=== PATIENT | male | born 1945 | race Two or more races ===

== ENCOUNTER 2017-09-23 18:29 | Emergency (ER) | payer MEDICARE, MEDICAID ==
[~2017-09-23] VITALS: Ht 167.6 cm; Wt 85.8 kg
[~2017-09-23 18:29] MED LIST: AMIO200T57 PO; ASPI-1265 PO; ATOR40TA PO; BISA10SU60 RC; CARV-50 PO; DOCU100C40 PO; FURO-150 PO; HYDR-3972 PO; MAGN296S50 PO; METF500T PO; NA P133E RC; ONDA4TAB12 PO; SPIR25TA PO; WALKERFR
[2017-09-23 19:05] VITALS: BP 152/89
[2017-09-23] MEDS ORDERED: CYCL-1 PO (19:05)
== END 2017-09-23 19:19 | disposition home or self-care (01) ==
LOC: ER 18:30
DX: S16.1XXA Strain of muscle, fascia and tendon at neck level, initial encounter (principal); I11.0 Hypertensive heart disease with heart failure; I50.9 Heart failure, unspecified; E78.00 Pure hypercholesterolemia, unspecified; E11.9 Type 2 diabetes mellitus without complications; Z86.73 Personal history of transient ischemic attack (TIA), and cerebral infarction without residual deficits; Z88.5 Allergy status to narcotic agent; Z79.82 Long term (current) use of aspirin; Z79.84 Long term (current) use of oral hypoglycemic drugs; X50.1XXA Overexertion from prolonged static or awkward postures, initial encounter; Y93.89 Activity, other specified; Y92.89 Other specified places as the place of occurrence of the external cause; Y99.8 Other external cause status
CPT/HCPCS: 93005; 99283

== ENCOUNTER 2017-10-15 18:15 | Inpatient (IN) | payer MEDICARE, OTHER ==
[~2017-10-15] VITALS: Ht 165.1 cm; Wt 82.1 kg
[~2017-10-15 18:15] MED LIST changes: +CYCL-1 PO; +etomidate 2mg/ml inj. ONE; +furosemide 40mg/4ml inj IV ONE
[2017-10-15] MEDS ORDERED: normal saline 1000ml 1,000 ML IV ONE (19:03)
[2017-10-15] MEDS ORDERED: normal saline 1000ML IV soln IVB ONE (19:05)
[2017-10-15] MEDS ORDERED: ipratropium/albuterol 3ml nebule NEB ONE (19:20)
[2017-10-15 19:36] LABS: BASOPHILS % (AUTO) 0.2 % (0-1); EOSINOPHILS # (AUTO) 0.1 X10'3 (0-0.9); EOSINOPHILS % (AUTO) 1.3 % (0-6); HEMATOCRIT 32.3 % (42.0-52.0); HEMOGLOBIN 10.7 g/dl (14.0-17.9); LYMPHOCYTES # (AUTO) 0.4 X10'3 (1.1-4.8); LYMPHOCYTES % (AUTO) 3.9 % (21-51); MEAN CORPUSCULAR HEMOGLOBIN 28.6 PG (27.0-31.0); MEAN CORPUSCULAR HGB CONC 33.1 % (33.0-36.5); MEAN CORPUSCULAR VOLUME 86.6 FL (78-98); MEAN PLATELET VOLUME 6.8 FL (7.4-10.4); MONOCYTES # (AUTO) 0.8 X10'3 (0-0.9); MONOCYTES % (AUTO) 7.3 % (2-12); NEUTROPHILS # (AUTO) 9.6 X10'3 (1.8-7.7); NEUTROPHILS % (AUTO) 87.3 % (42-75); PLATELET COUNT 319 X10'3 (140-440); RED BLOOD COUNT 3.73 X10'6 (4.70-6.10); RED CELL DISTRIBUTION WIDTH 16.5 % (11.5-14.5); WHITE BLOOD COUNT 10.9 X10'3 (4.5-11.0)
[2017-10-15 19:47] LABS: PARTIAL THROMBOPLASTIN TIME 32 SECONDS (22-32); PROTHROMBIN TIME 10.1 SECONDS (9.0-12.0)
[2017-10-15 20:05] LABS: ALANINE AMINOTRANSFERASE 18 U/L (12-78); ALBUMIN/GLOBULIN RATIO 0.4 (1.1-1.5); ALKALINE PHOSPHATASE 80 IU/L (46-116); ANION GAP 7 (8-16); ASPARTATE AMINO TRANSFERASE 26 U/L (10-37); BLOOD UREA NITROGEN 37 MG/DL (7-18); BUN/CREATININE RATIO 13.2 (5.4-32.0); CALCIUM 8.8 MG/DL (8.5-10.1); CHLORIDE 104 MMOL/L (99-107); GLUCOSE 74 MG/DL (70-104); LIPASE 197 U/L (73-393); MAGNESIUM 2.2 MG/DL (1.5-2.4); POTASSIUM 4.2 MMOL/L (3.5-5.1); SODIUM 140 MMOL/L (135-145); TOTAL CARBON DIOXIDE 28.6 MMOL/L (24-32); TOTAL PROTEIN 7.1 G/DL (6.4-8.2); eGFR 23 ML/MIN
[2017-10-15] MEDS: morphine 2 MG/ML inj. syringe IV PRN (20:16)
[2017-10-15] MEDS ORDERED: AMIO200T57 PO (21:23)
[2017-10-15 21:24] LABS: CLARITY,URINE Clear (Clear); COLOR,URINE Yellow (Yellow); GLUCOSE, URINE 100 mg/dl (Neg); KETONES,URINE Negative (Neg); LEUKOCYTE ESTERASE ,URINE Negative (Neg); NITRITES, URINE Negative (Neg); OCCULT BLOOD,URINE Small (Neg); PROTEIN,URINE 300 mg/dl (Neg); UROBILINOGEN,URINE 0.2 E.U/dL (0.2-1.0)
[2017-10-15 21:26] LABS: UA COLLECTION TYPE CLN CATCH MIDSTREAM
[2017-10-15] MEDS ORDERED: piperacillin/tazo 3.375gm/50ml 50 ML IV ONE (21:30)
[2017-10-15] MEDS ORDERED: AMLO10TA4 PO (21:33)
[2017-10-15 21:34] LABS: AMORPHOUS URATES 1+; BACTERIA,URINE FEW /HPF (Neg); MUCUS STRANDS NONE SEEN /LPF (Neg); RBC,URINE 0-2 /HPF (0-2); SQUAMOUS EPITHELIAL CELL,UR FEW /LPF (FEW); WBC,URINE NONE SEEN /HPF (0-4)
[2017-10-15] MEDS ORDERED: CARV-50 PO (21:34)
[2017-10-15] MEDS ORDERED: GLYB2.5T4 PO (21:35)
[2017-10-15] MEDS ORDERED: LISI40TA4 PO (21:36)
[2017-10-15] MEDS ORDERED: COU5T PO (21:39)
[2017-10-15 22:14] LABS: D-DIMER 21.86 MG/L FEU (0-0.50)
[2017-10-15] MEDS ORDERED: magnesium 4gm in 100ml NS 100 ML IV PRN (22:30)
[2017-10-15] MEDS ORDERED: magnesium 2GM in 50ml NS 50 ML IV PRN (22:30)
[2017-10-15] MEDS ORDERED: heparin 10,000 units/1 ML INJ IV ONE (22:30)
[2017-10-15] MEDS ORDERED: pantoprazole 40 MG vial IV SCH (22:30)
[2017-10-15] MEDS ORDERED: heparin 10,000 units/1 ML INJ IV PRN (22:30)
[2017-10-15] MEDS ORDERED: potassium Cl 40MEQ/NS 500ml 500 ML IV PRN ×2 (22:30)
[2017-10-16] VITALS (31 sets, daily range): BP systolic 66–176; BP diastolic 42–89
[2017-10-16] MEDS: ipratropium/albuterol 3ml nebule NEB SCH ×4 (00:01→15:24)
[2017-10-16 00:15] LABS: ABG BASE EXCESS 4.5 mmol/L (-2.0-3.0); ABG HCO3 30.3 mmol/L (22.0-26.0); ABG OXYGEN SATURATION 91.3 % (95-98); ABG PCO2 (T) 54.5 mmHg (35.0-48.0); ABG PH (T) 7.367 (7.350-7.450); ALLEN'S TEST Positive; FCOHb 1.8 % (0.5-1.5); FMetHb 0.1 % (0.3-1.12); FO2Hb 89.6 % (94-100); MINUTE VOLUME 8 L/min; PATIENT TEMPERATURE 37.8; RESPIRATORY RATE 15 b/min; RESPIRATORY RATE (OBSERVED) 16 b/min; TOTAL HEMOGLOBIN 8.3 G/dl (14.0-18.0)
[2017-10-16] MEDS ORDERED: dextrose 50%-water 50ml dispensing syringe IV ONE (01:57)
[2017-10-16] MEDS ORDERED: glucagon, human recombinant 1mg kit SUBCUT PRN (02:30)
[2017-10-16] MEDS ORDERED: dextrose ORAL solution 15 GM/59 ML bottle PO PRN ×2 (02:30)
[2017-10-16] MEDS ORDERED: insulin Lispro (HumaLOG) vial - multi-dose SQ SCH (02:30)
[2017-10-16] MEDS ORDERED: dextrose 50%-water 50ml dispensing syringe IV PRN ×2 (02:30)
[2017-10-16] MEDS ORDERED: MESSAGE TO PHARMACY PO ONE (02:30)
[2017-10-16] MEDS: morphine 2 MG/ML inj. syringe IV PRN ×2 (02:36→03:08)
[2017-10-16] MEDS ORDERED: HYDROmorphone inj. 0.5 MG/0.5 ML DISP.SYRIN IV ONE (03:20)
[2017-10-16] MEDS ORDERED: HYDROmorphone 1 mg/ml syringe ONE (03:27)
[2017-10-16] MEDS ORDERED: albumin (human) 25% 100 ML IV solution IV ONE (05:35)
[2017-10-16 06:02] LABS: BASOPHILS % (AUTO) 0.2 % (0-1); EOSINOPHILS % (AUTO) 0 % (0-6); HEMATOCRIT 22.2 % (42.0-52.0); HEMOGLOBIN 7.5 g/dl (14.0-17.9); LYMPHOCYTES # (AUTO) 0.4 X10'3 (1.1-4.8); LYMPHOCYTES % (AUTO) 4.5 % (21-51); MEAN CORPUSCULAR HEMOGLOBIN 29.2 PG (27.0-31.0); MEAN CORPUSCULAR HGB CONC 33.7 % (33.0-36.5); MEAN CORPUSCULAR VOLUME 86.7 FL (78-98); MEAN PLATELET VOLUME 6.9 FL (7.4-10.4); MONOCYTES # (AUTO) 0.6 X10'3 (0-0.9); MONOCYTES % (AUTO) 5.8 % (2-12); NEUTROPHILS # (AUTO) 8.5 X10'3 (1.8-7.7); NEUTROPHILS % (AUTO) 89.5 % (42-75); PLATELET COUNT 254 X10'3 (140-440); RED BLOOD COUNT 2.57 X10'6 (4.70-6.10); RED CELL DISTRIBUTION WIDTH 16.4 % (11.5-14.5); WHITE BLOOD COUNT 9.5 X10'3 (4.5-11.0)
[2017-10-16 06:06] LABS: HEMOGLOBIN A1C 5.6 % (4.5-6.2)
[2017-10-16 06:14] LABS: INR 1.1 INR; PROTHROMBIN TIME 11.7 SECONDS (9.0-12.0)
[2017-10-16 06:52] LABS: ALANINE AMINOTRANSFERASE 42 U/L (12-78); ALBUMIN 1.3 G/DL (3.4-5.0); ALBUMIN/GLOBULIN RATIO 0.4 (1.1-1.5); ALKALINE PHOSPHATASE 246 IU/L (46-116); ANION GAP 7 (8-16); ASPARTATE AMINO TRANSFERASE 92 U/L (10-37); BILIRUBIN,TOTAL 1.8 MG/DL (0.1-1.0); BLOOD UREA NITROGEN 39 MG/DL (7-18); CALCIUM 7.4 MG/DL (8.5-10.1); CHLORIDE 108 MMOL/L (99-107); GLUCOSE 133 MG/DL (70-104); MAGNESIUM 1.8 MG/DL (1.5-2.4); POTASSIUM 4.2 MMOL/L (3.5-5.1); SODIUM 143 MMOL/L (135-145); eGFR 21 ML/MIN
[2017-10-16] MEDS ORDERED: normal saline 1000ml 1,000 ML IV ONE ×2 (07:30→08:45)
[2017-10-16] MEDS ORDERED: midazolam 100mg in NS 100ml 100 ML IV PRN (09:14)
[2017-10-16] MEDS ORDERED: ipratropium/albuterol 3ml nebule NEB PRN (09:15)
[2017-10-16] MEDS ORDERED: fentaNYL/PF 50MCG/1 ML 2ML syringe IV PRN (09:15)
[2017-10-16] MEDS ORDERED: midazolam 2 mg/2 ml injection IV ONE (09:15)
[2017-10-16] MEDS ORDERED: MIDAZolam 5mg/ml 2ml vial ONE (09:20)
[2017-10-16] MEDS ORDERED: MIDAZolam 5mg/ml 2ml vial IV ONE (09:20)
[2017-10-16] MEDS ORDERED: etomidate 2mg/ml inj. IV ONE (09:20)
[2017-10-16] MEDS ORDERED: NORepinephrine 8mg/ 250ml NS 250 ML IV ONE (09:45)
[2017-10-16] MEDS ORDERED: [UNRECOGNIZED DRUG - OTHER] IV PRN ×2 (10:04)
[2017-10-16] MEDS ORDERED: vasopressin inj. 60 UNIT in normal saline 100ml IV soln 97 ML IV SCH (10:05)
[2017-10-16] MEDS ORDERED: sevoflurane 250ml liquid IH ONE (10:23)
[2017-10-16 10:36] LABS: ABG OXYGEN SATURATION 94.9 % (95-98); ABG PCO2 (T) 37.6 mmHg (35.0-48.0); ABG PH (T) 7.347 (7.350-7.450); ABG PO2 (T) 80.8 mmHg (83-108); FCOHb 0.5 % (0.5-1.5); FMetHb 0.3 % (0.3-1.12); FO2Hb 94.1 % (94-100); MINUTE VOLUME 8 L/min; PATIENT TEMPERATURE 37.6; PEEP 5 cm H2O; RESPIRATORY RATE 16 b/min; RESPIRATORY RATE (OBSERVED) 18 b/min; TIDAL VOLUME 400 mL; TOTAL HEMOGLOBIN 7.1 G/dl (14.0-18.0)
[2017-10-16 11:10] LABS: ISTAT CREATININE 2.9 mg/dL (0.8-1.3); ISTAT IONIZED CALCIUM 1.04 mmol/L (1.03-1.32); POC BUN/CREATININE RATIO 12.4 (5.4-32.0)
[2017-10-16 11:21] LABS: HEMATOCRIT 23.4 % (42.0-52.0); HEMOGLOBIN 8.1 g/dl (14.0-17.9); MEAN CORPUSCULAR HEMOGLOBIN 29.2 PG (27.0-31.0); MEAN CORPUSCULAR HGB CONC 34.7 % (33.0-36.5); MEAN CORPUSCULAR VOLUME 84.1 FL (78-98); MEAN PLATELET VOLUME 6.6 FL (7.4-10.4); PLATELET COUNT 183 X10'3 (140-440); RED BLOOD COUNT 2.79 X10'6 (4.70-6.10); RED CELL DISTRIBUTION WIDTH 15.5 % (11.5-14.5); WHITE BLOOD COUNT 9.2 X10'3 (4.5-11.0)
[2017-10-16 11:30] LABS: INR 1.2 INR; PROTHROMBIN TIME 12.2 SECONDS (9.0-12.0)
[2017-10-16 11:31] LABS: ISTAT HGB 6.8 g/dl (14.0-18.0)
[2017-10-16] MEDS ORDERED: NORepinephrine 8mg/ 250ml NS 250 ML IV SCH (12:40)
[2017-10-16] MEDS: FENTANYL-0.9 % NACL/PF 100 ML IV PRN (13:16)
[2017-10-16] MEDS ORDERED: rocuronium 10mg/ml inj IV ONE (13:39)
[2017-10-16 14:31] LABS: OXYGEN SATURATION (MIXED VEN) 84.5 % (60-80); PO2 MIXED VENOUS (TEMP COR) 46.8 mmHg (35-46)
[2017-10-16] MEDS: piperacillin-tazo 2.25gm/50ml 50 ML IV SCH ×3 (14:31→19:32)
[2017-10-16 15:08] LABS: HEMATOCRIT 31.2 % (42.0-52.0); MEAN CORPUSCULAR HGB CONC 35.3 % (33.0-36.5); MEAN CORPUSCULAR VOLUME 82.1 FL (78-98); MEAN PLATELET VOLUME 7.4 FL (7.4-10.4); PLATELET COUNT 129 X10'3 (140-440); RED CELL DISTRIBUTION WIDTH 15.5 % (11.5-14.5); WHITE BLOOD COUNT 6.9 X10'3 (4.5-11.0)
[2017-10-16 15:26] LABS: CLARITY,URINE CLOUDY (Clear); COLOR,URINE YELLOW (Yellow); GLUCOSE, URINE NEGATIVE (Neg); KETONES,URINE NEGATIVE (Neg); LEUKOCYTE ESTERASE ,URINE NEGATIVE (Neg); NITRITES, URINE NEGATIVE (Neg); OCCULT BLOOD,URINE LARGE (Neg); PROTEIN,URINE 100 mg/dl (Neg); UROBILINOGEN,URINE 0.2 E.U/dL (0.2-1.0)
[2017-10-16 15:34] LABS: TOTAL PROTEIN,URINE RANDOM 109.9 MG/DL
[2017-10-16 15:38] LABS: UA COLLECTION TYPE NON-SPECIFIED
[2017-10-16 16:05] LABS: MUCUS STRANDS FEW /LPF (Neg); SQUAMOUS EPITHELIAL CELL,UR FEW /LPF (FEW)
[2017-10-16 16:07] LABS: AMORPHOUS URATES 2+
[2017-10-16 16:08] LABS: COARSE GRANULAR CAST 0-3 /LPF (NEGATIVE); FINE GRANULAR CAST 0-3 /LPF (NEGATIVE)
[2017-10-16 16:09] LABS: RENAL CELLS, URINE FEW /HPF; TRANSITIONAL EPI CELLS,URINE FEW /HPF
[2017-10-16 16:11] LABS: BACTERIA,URINE 1+ /HPF (Neg)
[2017-10-16 16:12] LABS: WBC CLUMPS,URINE FEW /HPF (NEGATIVE)
[2017-10-16 18:11] LABS: UA EOSINOPHILS NO EOS /HPF
[2017-10-16] MEDS: famotidine/PF 10 mg/ml inj IV SCH (19:31)
[2017-10-16] MEDS: insulin glargine (Lantus) pen - multi-dose SQ SCH (21:00)
[2017-10-16 21:16] LABS: HEMOGLOBIN 10.4 g/dl (14.0-17.9); MEAN CORPUSCULAR HGB CONC 33.5 % (33.0-36.5); MEAN CORPUSCULAR VOLUME 83.6 FL (78-98); MEAN PLATELET VOLUME 6.7 FL (7.4-10.4); PLATELET COUNT 162 X10'3 (140-440); RED BLOOD COUNT 3.71 X10'6 (4.70-6.10); WHITE BLOOD COUNT 7.1 X10'3 (4.5-11.0)
[2017-10-16 21:23] LABS: ALBUMIN 1.5 G/DL (3.4-5.0); ANION GAP 8 (8-16); BLOOD UREA NITROGEN 39 MG/DL (7-18); BUN/CREATININE RATIO 11.8 (5.4-32.0); CHLORIDE 112 MMOL/L (99-107); GLUCOSE 138 MG/DL (70-104); MAGNESIUM 1.8 MG/DL (1.5-2.4); POTASSIUM 4.4 MMOL/L (3.5-5.1); SODIUM 144 MMOL/L (135-145); TOTAL CARBON DIOXIDE 24.4 MMOL/L (24-32); eGFR 19 ML/MIN
[2017-10-17] VITALS (24 sets, daily range): BP systolic 86–140; BP diastolic 42–68
[2017-10-17] MEDS: piperacillin-tazo 2.25gm/50ml 50 ML IV SCH ×4 (01:42→20:11)
[2017-10-17 02:21] LABS: INR 1.1 INR; PROTHROMBIN TIME 11.7 SECONDS (9.0-12.0)
[2017-10-17 02:25] LABS: ALANINE AMINOTRANSFERASE 71 U/L (12-78); ALBUMIN 1.4 G/DL (3.4-5.0); ALBUMIN/GLOBULIN RATIO 0.5 (1.1-1.5); ALKALINE PHOSPHATASE 129 IU/L (46-116); ANION GAP 9 (8-16); ASPARTATE AMINO TRANSFERASE 91 U/L (10-37); BILIRUBIN,TOTAL 1.2 MG/DL (0.1-1.0); BLOOD UREA NITROGEN 50 MG/DL (7-18); BUN/CREATININE RATIO 15.2 (5.4-32.0); CALCIUM 7.2 MG/DL (8.5-10.1); CHLORIDE 112 MMOL/L (99-107); GLUCOSE 131 MG/DL (70-104); MAGNESIUM 1.9 MG/DL (1.5-2.4); POTASSIUM 4.4 MMOL/L (3.5-5.1); SODIUM 144 MMOL/L (135-145); TOTAL CARBON DIOXIDE 23.2 MMOL/L (24-32); TOTAL PROTEIN 4.3 G/DL (6.4-8.2); eGFR 19 ML/MIN
[2017-10-17 02:26] LABS: BASOPHILS % (AUTO) 0.3 % (0-1); EOSINOPHILS # (AUTO) 0.2 X10'3 (0-0.9); EOSINOPHILS % (AUTO) 2.8 % (0-6); HEMOGLOBIN 10.5 g/dl (14.0-17.9); LYMPHOCYTES # (AUTO) 0.6 X10'3 (1.1-4.8); LYMPHOCYTES % (AUTO) 7.5 % (21-51); MEAN CORPUSCULAR HEMOGLOBIN 28.3 PG (27.0-31.0); MEAN CORPUSCULAR HGB CONC 33.8 % (33.0-36.5); MEAN CORPUSCULAR VOLUME 83.6 FL (78-98); MONOCYTES # (AUTO) 0.7 X10'3 (0-0.9); MONOCYTES % (AUTO) 9.2 % (2-12); NEUTROPHILS # (AUTO) 6.4 X10'3 (1.8-7.7); NEUTROPHILS % (AUTO) 80.2 % (42-75); PLATELET COUNT 178 X10'3 (140-440); RED BLOOD COUNT 3.71 X10'6 (4.70-6.10); RED CELL DISTRIBUTION WIDTH 17.1 % (11.5-14.5)
[2017-10-17 02:45] LABS: ABG BASE EXCESS -2.7 mmol/L (-2.0-3.0); ABG HCO3 22.2 mmol/L (22.0-26.0); ABG OXYGEN SATURATION 97.3 % (95-98); ABG PCO2 (T) 39.1 mmHg (35.0-48.0); ABG PH (T) 7.374 (7.350-7.450); ABG PO2 (T) 106.6 mmHg (83-108); FCOHb 0.3 % (0.5-1.5); FMetHb 0.2 % (0.3-1.12); FO2Hb 96.8 % (94-100); MINUTE VOLUME 7 L/min; PATIENT TEMPERATURE 37.1; PEEP 5 cm H2O; RESPIRATORY RATE 16 b/min; RESPIRATORY RATE (OBSERVED) 16 b/min; TIDAL VOLUME 400 mL; TOTAL HEMOGLOBIN 11.3 G/dl (14.0-18.0)
[2017-10-17] MEDS: ipratropium/albuterol 3ml nebule NEB SCH ×4 (07:00→19:21)
[2017-10-17] MEDS: famotidine/PF 10 mg/ml inj IV SCH ×2 (08:06→20:11)
[2017-10-17] MEDS ORDERED: normal saline 1000ml 1,000 ML IV ONE (10:30)
[2017-10-17] MEDS: mineral oil/petrolatum ophthal oint EACHEYE SCH ×2 (14:00→20:11)
[2017-10-17] MEDS: normal saline 1000ml 1,000 ML IV SCH ×2 (14:30→20:40)
[2017-10-17] MEDS: docusate sod 100mg capsule PO SCH (20:00)
[2017-10-17] MEDS: insulin glargine (Lantus) pen - multi-dose SQ SCH (21:00)
[2017-10-18] VITALS (23 sets, daily range): BP systolic 92–176; BP diastolic 44–102
[2017-10-18] MEDS: FENTANYL-0.9 % NACL/PF 100 ML IV PRN (01:10)
[2017-10-18] MEDS: mineral oil/petrolatum ophthal oint EACHEYE SCH ×4 (01:10→20:00)
[2017-10-18] MEDS: piperacillin-tazo 2.25gm/50ml 50 ML IV SCH ×4 (01:15→21:33)
[2017-10-18 02:48] LABS: INR 1.1 INR; PROTHROMBIN TIME 11.5 SECONDS (9.0-12.0)
[2017-10-18 02:54] LABS: ALANINE AMINOTRANSFERASE 58 U/L (12-78); ALBUMIN 1.1 G/DL (3.4-5.0); ALBUMIN/GLOBULIN RATIO 0.3 (1.1-1.5); ALKALINE PHOSPHATASE 91 IU/L (46-116); ANION GAP 10 (8-16); ASPARTATE AMINO TRANSFERASE 50 U/L (10-37); BILIRUBIN,TOTAL 0.7 MG/DL (0.1-1.0); BLOOD UREA NITROGEN 52 MG/DL (7-18); BUN/CREATININE RATIO 15.2 (5.4-32.0); CALCIUM 7.3 MG/DL (8.5-10.1); CHLORIDE 115 MMOL/L (99-107); CREATININE 3.42 MG/DL (0.60-1.10); GLUCOSE 112 MG/DL (70-104); POTASSIUM 4.1 MMOL/L (3.5-5.1); SODIUM 147 MMOL/L (135-145); TOTAL CARBON DIOXIDE 22.3 MMOL/L (24-32); TOTAL PROTEIN 4.4 G/DL (6.4-8.2); eGFR 18 ML/MIN
[2017-10-18 03:09] LABS: BASOPHILS % (AUTO) 0.2 % (0-1); EOSINOPHILS # (AUTO) 0.5 X10'3 (0-0.9); EOSINOPHILS % (AUTO) 5.4 % (0-6); HEMATOCRIT 28.7 % (42.0-52.0); HEMOGLOBIN 9.7 g/dl (14.0-17.9); LYMPHOCYTES # (AUTO) 0.5 X10'3 (1.1-4.8); LYMPHOCYTES % (AUTO) 5.7 % (21-51); MEAN CORPUSCULAR HEMOGLOBIN 28.4 PG (27.0-31.0); MEAN CORPUSCULAR HGB CONC 33.7 % (33.0-36.5); MEAN CORPUSCULAR VOLUME 84.2 FL (78-98); MEAN PLATELET VOLUME 7.1 FL (7.4-10.4); MONOCYTES # (AUTO) 0.6 X10'3 (0-0.9); NEUTROPHILS # (AUTO) 7.3 X10'3 (1.8-7.7); NEUTROPHILS % (AUTO) 81.7 % (42-75); PLATELET COUNT 204 X10'3 (140-440); RED BLOOD COUNT 3.41 X10'6 (4.70-6.10); RED CELL DISTRIBUTION WIDTH 16.1 % (11.5-14.5); WHITE BLOOD COUNT 8.9 X10'3 (4.5-11.0)
[2017-10-18] MEDS: ipratropium/albuterol 3ml nebule NEB SCH ×7 (03:41→23:00)
[2017-10-18 03:55] LABS: ABG BASE EXCESS -3.7 mmol/L (-2.0-3.0); ABG HCO3 20.4 mmol/L (22.0-26.0); ABG OXYGEN SATURATION 95.8 % (95-98); ABG PCO2 (T) 32.9 mmHg (35.0-48.0); ABG PH (T) 7.409 (7.350-7.450); ABG PO2 (T) 89.6 mmHg (83-108); FCOHb 0.3 % (0.5-1.5); FO2Hb 95.5 % (94-100); MINUTE VOLUME 6 L/min; PATIENT TEMPERATURE 36.8; PEEP 5 cm H2O; RESPIRATORY RATE (OBSERVED) 14 b/min
[2017-10-18] MEDS: docusate sod 100mg capsule PO SCH ×2 (08:00→22:26)
[2017-10-18] MEDS: amiodarone 100mg tablet PO SCH (08:48)
[2017-10-18] MEDS: famotidine/PF 10 mg/ml inj IV SCH ×2 (08:49→21:34)
[2017-10-18] MEDS: bisacodyl 10mg suppository rectal RC SCH (08:49)
[2017-10-18] MEDS: lactobacillus rhamnosus 10,000 MMU CELLS/CAPSULE PO SCH ×2 (08:49→17:30)
[2017-10-18] MEDS: normal saline 1000ml 1,000 ML IV SCH ×2 (08:50→18:27)
[2017-10-18] MEDS ORDERED: CADD PCA waste documentation MC PRN (11:15)
[2017-10-18] MEDS ORDERED: ipratropium/albuterol 3ml nebule NEB PRN (11:15)
[2017-10-18] MEDS ORDERED: racepinephrine 11.25mg/0.5ml nebule NEB PRN (11:15)
[2017-10-18] MEDS ORDERED: naloxone 0.4 mg/ml inj IV PRN (11:15)
[2017-10-18] MEDS: HYDROmorphone/NS 1 mg/ml CADD 50 ML IV SCH ×6 (13:21→23:00)
[2017-10-18] MEDS: insulin glargine (Lantus) pen - multi-dose SQ SCH (21:00)
[2017-10-18] MEDS: lisinopril 20mg tablet PO SCH (21:15)
[2017-10-18] MEDS: carVEDilol 12.5mg tablet PO SCH (22:26)
[2017-10-19] VITALS (20 sets, daily range): BP systolic 125–180; BP diastolic 65–97
[2017-10-19] MEDS: HYDROmorphone/NS 1 mg/ml CADD 50 ML IV SCH ×11 (01:00→23:00)
[2017-10-19 01:53] LABS: BASOPHILS % (AUTO) 0.4 % (0-1); EOSINOPHILS # (AUTO) 0.4 X10'3 (0-0.9); HEMATOCRIT 34.2 % (42.0-52.0); HEMOGLOBIN 11.6 g/dl (14.0-17.9); LYMPHOCYTES # (AUTO) 0.5 X10'3 (1.1-4.8); LYMPHOCYTES % (AUTO) 4.8 % (21-51); MEAN CORPUSCULAR HEMOGLOBIN 28.6 PG (27.0-31.0); MEAN CORPUSCULAR HGB CONC 33.9 % (33.0-36.5); MEAN CORPUSCULAR VOLUME 84.4 FL (78-98); MEAN PLATELET VOLUME 6.2 FL (7.4-10.4); MONOCYTES # (AUTO) 0.5 X10'3 (0-0.9); MONOCYTES % (AUTO) 4.9 % (2-12); NEUTROPHILS # (AUTO) 9.5 X10'3 (1.8-7.7); NEUTROPHILS % (AUTO) 85.9 % (42-75); PLATELET COUNT 278 X10'3 (140-440); RED BLOOD COUNT 4.05 X10'6 (4.70-6.10); RED CELL DISTRIBUTION WIDTH 16.5 % (11.5-14.5); WHITE BLOOD COUNT 10.9 X10'3 (4.5-11.0)
[2017-10-19 02:00] LABS: PROTHROMBIN TIME 10.5 SECONDS (9.0-12.0)
[2017-10-19] MEDS: mineral oil/petrolatum ophthal oint EACHEYE SCH ×3 (02:00→13:56)
[2017-10-19 02:09] LABS: ALANINE AMINOTRANSFERASE 65 U/L (12-78); ALBUMIN 1.5 G/DL (3.4-5.0); ALBUMIN/GLOBULIN RATIO 0.4 (1.1-1.5); ALKALINE PHOSPHATASE 114 IU/L (46-116); ANION GAP 12 (8-16); ASPARTATE AMINO TRANSFERASE 45 U/L (10-37); BILIRUBIN,TOTAL 0.7 MG/DL (0.1-1.0); BLOOD UREA NITROGEN 48 MG/DL (7-18); BUN/CREATININE RATIO 14.9 (5.4-32.0); CALCIUM 7.5 MG/DL (8.5-10.1); CHLORIDE 115 MMOL/L (99-107); CREATININE 3.22 MG/DL (0.60-1.10); GLUCOSE 113 MG/DL (70-104); SODIUM 149 MMOL/L (135-145); TOTAL CARBON DIOXIDE 22.5 MMOL/L (24-32); TOTAL PROTEIN 5.4 G/DL (6.4-8.2); eGFR 19 ML/MIN
[2017-10-19] MEDS: ipratropium/albuterol 3ml nebule NEB SCH ×4 (02:33→20:47)
[2017-10-19] MEDS: piperacillin-tazo 2.25gm/50ml 50 ML IV SCH ×4 (02:47→21:08)
[2017-10-19] MEDS: normal saline 1000ml 1,000 ML IV SCH ×2 (05:06→15:54)
[2017-10-19] MEDS ORDERED: carVEDilol 12.5mg tablet PO SCH (08:00)
[2017-10-19] MEDS: docusate sod 100mg capsule PO SCH ×2 (08:35→20:33)
[2017-10-19] MEDS: carVEDilol 12.5mg tablet PO SCH ×2 (08:35→20:33)
[2017-10-19] MEDS: famotidine/PF 10 mg/ml inj IV SCH (08:36)
[2017-10-19] MEDS: amiodarone 100mg tablet PO SCH (08:36)
[2017-10-19] MEDS: bisacodyl 10mg suppository rectal RC SCH (08:36)
[2017-10-19] MEDS: lisinopril 20mg tablet PO SCH (08:36)
[2017-10-19] MEDS: lactobacillus rhamnosus 10,000 MMU CELLS/CAPSULE PO SCH ×2 (08:48→20:32)
[2017-10-19] MEDS ORDERED: lisinopril 20mg tablet PO SCH (21:00)
[2017-10-19] MEDS: insulin glargine (Lantus) pen - multi-dose SQ SCH (21:00)
[2017-10-20] MEDS: HYDROmorphone/NS 1 mg/ml CADD 50 ML IV SCH ×6 (01:00→11:00)
[2017-10-20] MEDS: piperacillin-tazo 2.25gm/50ml 50 ML IV SCH ×4 (01:44→19:41)
[2017-10-20 02:00] VITALS: BP 129/64
[2017-10-20] MEDS: ipratropium/albuterol 3ml nebule NEB SCH ×5 (03:00→20:19)
[2017-10-20 05:59] LABS: BASOPHILS % (AUTO) 0 % (0-1); EOSINOPHILS # (AUTO) 0.4 X10'3 (0-0.9); EOSINOPHILS % (AUTO) 4.9 % (0-6); HEMATOCRIT 30.5 % (42.0-52.0); HEMOGLOBIN 10.4 g/dl (14.0-17.9); LYMPHOCYTES # (AUTO) 0.5 X10'3 (1.1-4.8); LYMPHOCYTES % (AUTO) 6.6 % (21-51); MEAN CORPUSCULAR HEMOGLOBIN 28.5 PG (27.0-31.0); MEAN CORPUSCULAR VOLUME 83.7 FL (78-98); MEAN PLATELET VOLUME 6.3 FL (7.4-10.4); MONOCYTES # (AUTO) 0.5 X10'3 (0-0.9); MONOCYTES % (AUTO) 6.3 % (2-12); NEUTROPHILS # (AUTO) 6.4 X10'3 (1.8-7.7); NEUTROPHILS % (AUTO) 82.2 % (42-75); PLATELET COUNT 256 X10'3 (140-440); RED BLOOD COUNT 3.64 X10'6 (4.70-6.10); RED CELL DISTRIBUTION WIDTH 17.6 % (11.5-14.5); WHITE BLOOD COUNT 7.8 X10'3 (4.5-11.0)
[2017-10-20 06:00] VITALS: BP 138/74
[2017-10-20 06:35] LABS: PROTHROMBIN TIME 10.7 SECONDS (9.0-12.0)
[2017-10-20 06:54] LABS: ALANINE AMINOTRANSFERASE 43 U/L (12-78); ALBUMIN 1.4 G/DL (3.4-5.0); ALBUMIN/GLOBULIN RATIO 0.4 (1.1-1.5); ALKALINE PHOSPHATASE 107 IU/L (46-116); ANION GAP 13 (8-16); ASPARTATE AMINO TRANSFERASE 28 U/L (10-37); BILIRUBIN,TOTAL 0.5 MG/DL (0.1-1.0); BLOOD UREA NITROGEN 47 MG/DL (7-18); BUN/CREATININE RATIO 14.6 (5.4-32.0); CALCIUM 7.6 MG/DL (8.5-10.1); CHLORIDE 114 MMOL/L (99-107); CREATININE 3.21 MG/DL (0.60-1.10); GLUCOSE 124 MG/DL (70-104); POTASSIUM 4.1 MMOL/L (3.5-5.1); SODIUM 150 MMOL/L (135-145); TOTAL CARBON DIOXIDE 22.9 MMOL/L (24-32); TOTAL PROTEIN 4.9 G/DL (6.4-8.2); eGFR 19 ML/MIN
[2017-10-20] MEDS: lactobacillus rhamnosus 10,000 MMU CELLS/CAPSULE PO SCH ×2 (09:45→17:50)
[2017-10-20] MEDS: amiodarone 100mg tablet PO SCH (09:45)
[2017-10-20] MEDS: carVEDilol 12.5mg tablet PO SCH ×2 (09:46→19:41)
[2017-10-20] MEDS: docusate sod 100mg capsule PO SCH ×2 (09:47→19:41)
[2017-10-20] MEDS: bisacodyl 10mg suppository rectal RC SCH (09:47)
[2017-10-20] MEDS: lisinopril 20mg tablet PO SCH (09:47)
[2017-10-20 11:00] VITALS: BP 130/61
[2017-10-20] MEDS ORDERED: acetaminophen 325mg tablet PO PRN (12:25)
[2017-10-20 15:00] VITALS: BP 151/75
[2017-10-20] MEDS: normal saline 1000ml 1,000 ML IV SCH (17:50)
[2017-10-20 19:00] VITALS: BP 158/84
[2017-10-20] MEDS: insulin glargine (Lantus) pen - multi-dose SQ SCH (21:00)
[2017-10-20 23:00] VITALS: BP 156/89
[2017-10-21] VITALS (7 sets, daily range): BP systolic 117–151; BP diastolic 69–77
[2017-10-21] MEDS: piperacillin-tazo 2.25gm/50ml 50 ML IV SCH ×4 (01:47→20:39)
[2017-10-21] MEDS: ipratropium/albuterol 3ml nebule NEB SCH ×4 (02:53→20:03)
[2017-10-21 05:36] LABS: BASOPHILS % (AUTO) 0.3 % (0-1); EOSINOPHILS # (AUTO) 0.5 X10'3 (0-0.9); EOSINOPHILS % (AUTO) 5.4 % (0-6); HEMATOCRIT 29.8 % (42.0-52.0); HEMOGLOBIN 10.1 g/dl (14.0-17.9); LYMPHOCYTES # (AUTO) 0.7 X10'3 (1.1-4.8); LYMPHOCYTES % (AUTO) 7.6 % (21-51); MEAN CORPUSCULAR HEMOGLOBIN 28.4 PG (27.0-31.0); MEAN CORPUSCULAR HGB CONC 33.9 % (33.0-36.5); MEAN CORPUSCULAR VOLUME 83.8 FL (78-98); MEAN PLATELET VOLUME 6.4 FL (7.4-10.4); MONOCYTES # (AUTO) 0.6 X10'3 (0-0.9); MONOCYTES % (AUTO) 6.5 % (2-12); NEUTROPHILS # (AUTO) 7.1 X10'3 (1.8-7.7); NEUTROPHILS % (AUTO) 80.2 % (42-75); PLATELET COUNT 272 X10'3 (140-440); RED BLOOD COUNT 3.55 X10'6 (4.70-6.10); RED CELL DISTRIBUTION WIDTH 17.4 % (11.5-14.5); WHITE BLOOD COUNT 8.9 X10'3 (4.5-11.0)
[2017-10-21 05:47] LABS: PROTHROMBIN TIME 10.8 SECONDS (9.0-12.0)
[2017-10-21 06:09] LABS: ALANINE AMINOTRANSFERASE 37 U/L (12-78); ALBUMIN 1.3 G/DL (3.4-5.0); ALBUMIN/GLOBULIN RATIO 0.4 (1.1-1.5); ALKALINE PHOSPHATASE 75 IU/L (46-116); ANION GAP 11 (8-16); ASPARTATE AMINO TRANSFERASE 23 U/L (10-37); BILIRUBIN,TOTAL 0.4 MG/DL (0.1-1.0); BLOOD UREA NITROGEN 42 MG/DL (7-18); BUN/CREATININE RATIO 14.2 (5.4-32.0); CALCIUM 7.4 MG/DL (8.5-10.1); CHLORIDE 113 MMOL/L (99-107); CREATININE 2.96 MG/DL (0.60-1.10); GLUCOSE 97 MG/DL (70-104); POTASSIUM 3.7 MMOL/L (3.5-5.1); SODIUM 147 MMOL/L (135-145); TOTAL CARBON DIOXIDE 23.4 MMOL/L (24-32); TOTAL PROTEIN 4.7 G/DL (6.4-8.2); eGFR 21 ML/MIN
[2017-10-21] MEDS: bisacodyl 10mg suppository rectal RC SCH (08:00)
[2017-10-21] MEDS: carVEDilol 12.5mg tablet PO SCH ×2 (08:45→20:39)
[2017-10-21] MEDS: amiodarone 100mg tablet PO SCH (08:46)
[2017-10-21] MEDS: docusate sod 100mg capsule PO SCH ×2 (08:46→20:39)
[2017-10-21] MEDS: lisinopril 20mg tablet PO SCH (08:46)
[2017-10-21] MEDS: lactobacillus rhamnosus 10,000 MMU CELLS/CAPSULE PO SCH ×3 (08:46→17:36)
[2017-10-21] MEDS: normal saline 1000ml 1,000 ML IV SCH (17:19)
[2017-10-21] MEDS: insulin glargine (Lantus) pen - multi-dose SQ SCH (21:00)
[2017-10-22] MEDS: piperacillin-tazo 2.25gm/50ml 50 ML IV SCH ×4 (01:34→21:36)
[2017-10-22 02:00] VITALS: BP 132/72
[2017-10-22] MEDS: ipratropium/albuterol 3ml nebule NEB SCH ×4 (02:53→20:41)
[2017-10-22 06:30] VITALS: BP 143/70
[2017-10-22 07:07] LABS: BASOPHILS % (AUTO) 0.1 % (0-1); EOSINOPHILS # (AUTO) 0.5 X10'3 (0-0.9); HEMATOCRIT 31.6 % (42.0-52.0); HEMOGLOBIN 10.7 g/dl (14.0-17.9); LYMPHOCYTES # (AUTO) 0.7 X10'3 (1.1-4.8); LYMPHOCYTES % (AUTO) 6.5 % (21-51); MEAN CORPUSCULAR HEMOGLOBIN 28.3 PG (27.0-31.0); MEAN CORPUSCULAR HGB CONC 33.7 % (33.0-36.5); MEAN CORPUSCULAR VOLUME 84.1 FL (78-98); MEAN PLATELET VOLUME 5.9 FL (7.4-10.4); MONOCYTES # (AUTO) 0.5 X10'3 (0-0.9); MONOCYTES % (AUTO) 5.3 % (2-12); NEUTROPHILS # (AUTO) 8.4 X10'3 (1.8-7.7); NEUTROPHILS % (AUTO) 83.1 % (42-75); PLATELET COUNT 336 X10'3 (140-440); RED BLOOD COUNT 3.76 X10'6 (4.70-6.10); RED CELL DISTRIBUTION WIDTH 17.5 % (11.5-14.5); WHITE BLOOD COUNT 10.1 X10'3 (4.5-11.0)
[2017-10-22 07:10] LABS: PROTHROMBIN TIME 10.8 SECONDS (9.0-12.0)
[2017-10-22] MEDS: docusate sod 100mg capsule PO SCH ×2 (07:18→20:00)
[2017-10-22] MEDS: bisacodyl 10mg suppository rectal RC SCH (07:18)
[2017-10-22] MEDS: lisinopril 20mg tablet PO SCH (07:19)
[2017-10-22] MEDS: amiodarone 100mg tablet PO SCH (07:19)
[2017-10-22] MEDS: carVEDilol 12.5mg tablet PO SCH ×2 (07:19→21:36)
[2017-10-22] MEDS: lactobacillus rhamnosus 10,000 MMU CELLS/CAPSULE PO SCH ×2 (07:19→17:02)
[2017-10-22 07:28] LABS: ALANINE AMINOTRANSFERASE 34 U/L (12-78); ALBUMIN 1.5 G/DL (3.4-5.0); ALBUMIN/GLOBULIN RATIO 0.4 (1.1-1.5); ALKALINE PHOSPHATASE 69 IU/L (46-116); ANION GAP 12 (8-16); ASPARTATE AMINO TRANSFERASE 24 U/L (10-37); BILIRUBIN,TOTAL 0.4 MG/DL (0.1-1.0); BLOOD UREA NITROGEN 35 MG/DL (7-18); BUN/CREATININE RATIO 12.5 (5.4-32.0); CALCIUM 7.6 MG/DL (8.5-10.1); CHLORIDE 111 MMOL/L (99-107); GLUCOSE 92 MG/DL (70-104); MAGNESIUM 1.9 MG/DL (1.5-2.4); POTASSIUM 3.5 MMOL/L (3.5-5.1); SODIUM 147 MMOL/L (135-145); TOTAL CARBON DIOXIDE 24.1 MMOL/L (24-32); TOTAL PROTEIN 5.1 G/DL (6.4-8.2); eGFR 23 ML/MIN
[2017-10-22 11:00] VITALS: BP 142/77
[2017-10-22 15:00] VITALS: BP 148/71
[2017-10-22] MEDS: furosemide 10 MG/1 ML 10ml inj IV SCH ×2 (16:40→20:00)
[2017-10-22 19:00] VITALS: BP 160/83
[2017-10-22] MEDS: insulin glargine (Lantus) pen - multi-dose SQ SCH (19:09)
[2017-10-22 23:00] VITALS: BP 155/86
[2017-10-23] MEDS: piperacillin-tazo 2.25gm/50ml 50 ML IV SCH ×4 (02:00→21:15)
[2017-10-23] MEDS: ipratropium/albuterol 3ml nebule NEB SCH ×4 (02:57→20:09)
[2017-10-23 03:00] VITALS: BP 145/68
[2017-10-23 05:05] LABS: BASOPHILS % (AUTO) 0.3 % (0-1); EOSINOPHILS # (AUTO) 0.7 X10'3 (0-0.9); HEMOGLOBIN 10.5 g/dl (14.0-17.9); INR 1.1 INR; LYMPHOCYTES # (AUTO) 0.6 X10'3 (1.1-4.8); LYMPHOCYTES % (AUTO) 5.7 % (21-51); MEAN CORPUSCULAR HEMOGLOBIN 28.5 PG (27.0-31.0); MEAN CORPUSCULAR HGB CONC 33.8 % (33.0-36.5); MEAN CORPUSCULAR VOLUME 84.2 FL (78-98); MEAN PLATELET VOLUME 6.2 FL (7.4-10.4); MONOCYTES # (AUTO) 0.5 X10'3 (0-0.9); MONOCYTES % (AUTO) 4.4 % (2-12); NEUTROPHILS # (AUTO) 9.2 X10'3 (1.8-7.7); NEUTROPHILS % (AUTO) 83.6 % (42-75); PLATELET COUNT 333 X10'3 (140-440); PROTHROMBIN TIME 10.9 SECONDS (9.0-12.0); RED BLOOD COUNT 3.68 X10'6 (4.70-6.10); WHITE BLOOD COUNT 11.1 X10'3 (4.5-11.0)
[2017-10-23 05:30] LABS: ALANINE AMINOTRANSFERASE 26 U/L (12-78); ALBUMIN 1.5 G/DL (3.4-5.0); ALBUMIN/GLOBULIN RATIO 0.4 (1.1-1.5); ALKALINE PHOSPHATASE 65 IU/L (46-116); ANION GAP 9 (8-16); ASPARTATE AMINO TRANSFERASE 23 U/L (10-37); BILIRUBIN,TOTAL 0.4 MG/DL (0.1-1.0); BLOOD UREA NITROGEN 29 MG/DL (7-18); BUN/CREATININE RATIO 11.5 (5.4-32.0); CALCIUM 7.6 MG/DL (8.5-10.1); CHLORIDE 110 MMOL/L (99-107); CREATININE 2.53 MG/DL (0.60-1.10); GLUCOSE 101 MG/DL (70-104); MAGNESIUM 1.7 MG/DL (1.5-2.4); POTASSIUM 3.1 MMOL/L (3.5-5.1); SODIUM 146 MMOL/L (135-145); TOTAL CARBON DIOXIDE 27.1 MMOL/L (24-32); TOTAL PROTEIN 5.1 G/DL (6.4-8.2); eGFR 25 ML/MIN
[2017-10-23] MEDS ORDERED: potassium Cl 20 mEq SR tablet PO PRN (06:40)
[2017-10-23 07:00] VITALS: BP 142/81
[2017-10-23] MEDS: amiodarone 100mg tablet PO SCH (07:39)
[2017-10-23] MEDS: potassium Cl 20 mEq SR tablet PO PRN ×3 (07:42→17:36)
[2017-10-23] MEDS: docusate sod 100mg capsule PO SCH ×2 (07:43→20:00)
[2017-10-23] MEDS: lactobacillus rhamnosus 10,000 MMU CELLS/CAPSULE PO SCH ×2 (07:44→17:08)
[2017-10-23] MEDS: bisacodyl 10mg suppository rectal RC SCH (07:44)
[2017-10-23] MEDS: lisinopril 20mg tablet PO SCH (07:44)
[2017-10-23] MEDS: furosemide 10 MG/1 ML 10ml inj IV SCH ×2 (07:45→21:15)
[2017-10-23] MEDS: carVEDilol 12.5mg tablet PO SCH ×2 (07:46→21:15)
[2017-10-23 11:00] VITALS: BP 143/80
[2017-10-23 15:00] VITALS: BP 163/87
[2017-10-23 19:00] VITALS: BP 152/85
[2017-10-23] MEDS ORDERED: HYDROmorphone inj. 0.5 MG/0.5 ML DISP.SYRIN IV PRN (20:00)
[2017-10-23] MEDS ORDERED: morphine 4 MG/ML inj SYRINge IV PRN (20:20)
[2017-10-23] MEDS: insulin glargine (Lantus) pen - multi-dose SQ SCH (21:00)
[2017-10-23 23:00] VITALS: BP 146/86
[2017-10-24] MEDS: piperacillin-tazo 2.25gm/50ml 50 ML IV SCH ×3 (02:43→14:08)
[2017-10-24 03:00] VITALS: BP 139/80
[2017-10-24] MEDS: ipratropium/albuterol 3ml nebule NEB SCH ×3 (03:01→15:32)
[2017-10-24 05:20] LABS: BASOPHILS % (AUTO) 0.1 % (0-1); EOSINOPHILS # (AUTO) 0.5 X10'3 (0-0.9); EOSINOPHILS % (AUTO) 3.5 % (0-6); HEMATOCRIT 29.5 % (42.0-52.0); LYMPHOCYTES # (AUTO) 0.4 X10'3 (1.1-4.8); LYMPHOCYTES % (AUTO) 3.4 % (21-51); MEAN CORPUSCULAR HEMOGLOBIN 28.5 PG (27.0-31.0); MEAN PLATELET VOLUME 6.5 FL (7.4-10.4); MONOCYTES # (AUTO) 0.3 X10'3 (0-0.9); MONOCYTES % (AUTO) 2.5 % (2-12); NEUTROPHILS # (AUTO) 11.7 X10'3 (1.8-7.7); NEUTROPHILS % (AUTO) 90.5 % (42-75); PLATELET COUNT 372 X10'3 (140-440); RED BLOOD COUNT 3.51 X10'6 (4.70-6.10); RED CELL DISTRIBUTION WIDTH 17.3 % (11.5-14.5); WHITE BLOOD COUNT 12.9 X10'3 (4.5-11.0)
[2017-10-24 05:30] LABS: PROTHROMBIN TIME 10.8 SECONDS (9.0-12.0)
[2017-10-24 05:46] LABS: ALANINE AMINOTRANSFERASE 32 U/L (12-78); ALBUMIN 1.7 G/DL (3.4-5.0); ALBUMIN/GLOBULIN RATIO 0.4 (1.1-1.5); ALKALINE PHOSPHATASE 65 IU/L (46-116); ANION GAP 9 (8-16); ASPARTATE AMINO TRANSFERASE 27 U/L (10-37); BILIRUBIN,TOTAL 0.5 MG/DL (0.1-1.0); BLOOD UREA NITROGEN 27 MG/DL (7-18); BUN/CREATININE RATIO 10.6 (5.4-32.0); CALCIUM 7.8 MG/DL (8.5-10.1); CHLORIDE 105 MMOL/L (99-107); CREATININE 2.55 MG/DL (0.60-1.10); GLUCOSE 127 MG/DL (70-104); MAGNESIUM 1.6 MG/DL (1.5-2.4); POTASSIUM 3.3 MMOL/L (3.5-5.1); SODIUM 145 MMOL/L (135-145); TOTAL CARBON DIOXIDE 30.7 MMOL/L (24-32); TOTAL PROTEIN 5.5 G/DL (6.4-8.2); eGFR 25 ML/MIN
[2017-10-24 06:30] VITALS: BP 164/81
[2017-10-24] MEDS: furosemide 10 MG/1 ML 10ml inj IV SCH (07:47)
[2017-10-24] MEDS: lactobacillus rhamnosus 10,000 MMU CELLS/CAPSULE PO SCH (07:47)
[2017-10-24] MEDS: docusate sod 100mg capsule PO SCH (07:47)
[2017-10-24] MEDS: carVEDilol 12.5mg tablet PO SCH (07:47)
[2017-10-24] MEDS: lisinopril 20mg tablet PO SCH (07:47)
[2017-10-24] MEDS: amiodarone 100mg tablet PO SCH (07:47)
[2017-10-24] MEDS: bisacodyl 10mg suppository rectal RC SCH (07:48)
[2017-10-24 11:00] VITALS: BP 143/81
[2017-10-24] MEDS ORDERED: FURO40TA4 PO (13:38)
[2017-10-24] MEDS ORDERED: NUT.TX.GLUC.INTOLER,LAC-FR,REG (BOOST GLUCOSE CONTROL) 237 ML PO SCH (18:00)
== END 2017-10-24 17:42 | DRG 907 ==
LOC: ER 18:15 → ED HOLD 22:29 → ICU 2S 10-16 00:30 → PCU 3S 10-19 16:30
PROVIDERS: ADMIT Internal Medicine Critical Care Medicine; ATTEND Internal Medicine Critical Care Medicine
PROC: 5A09357 Assistance with Respiratory Ventilation, Less than 24 Consecutive Hours, Continuous Positive Airway Pressure (ICD-10-PCS; 2017-10-15)
PROC: 0D1B0ZL Bypass Ileum to Transverse Colon, Open Approach (ICD-10-PCS; 2017-10-16)
PROC: 5A1945Z Respiratory Ventilation, 24-96 Consecutive Hours (ICD-10-PCS; 2017-10-16)
PROC: 0BH17EZ Insertion of Endotracheal Airway into Trachea, Via Natural or Artificial Opening (ICD-10-PCS; 2017-10-16)
PROC: 30233N1 Transfusion of Nonautologous Red Blood Cells into Peripheral Vein, Percutaneous Approach (ICD-10-PCS; 2017-10-16)
PROC: 02HV33Z Insertion of Infusion Device into Superior Vena Cava, Percutaneous Approach (ICD-10-PCS; 2017-10-16)
PROC: 04HY32Z Insertion of Monitoring Device into Lower Artery, Percutaneous Approach (ICD-10-PCS; 2017-10-16)
PROC: 0W3P0ZZ Control Bleeding in Gastrointestinal Tract, Open Approach (ICD-10-PCS; principal; 2017-10-16 10:23)
DX: K91.840 Postprocedural hemorrhage of a digestive system organ or structure following a digestive system procedure (principal); R57.8 Other shock; J96.00 Acute respiratory failure, unspecified whether with hypoxia or hypercapnia; G93.41 Metabolic encephalopathy; I50.43 Acute on chronic combined systolic (congestive) and diastolic (congestive) heart failure; N17.9 Acute kidney failure, unspecified; I13.0 Hypertensive heart and chronic kidney disease with heart failure and stage 1 through stage 4 chronic kidney disease, or unspecified chronic kidney disease; N18.4 Chronic kidney disease, stage 4 (severe); R63.0 Anorexia; D64.9 Anemia, unspecified; E86.0 Dehydration; E11.22 Type 2 diabetes mellitus with diabetic chronic kidney disease; E78.00 Pure hypercholesterolemia, unspecified; Y83.2 Surgical operation with anastomosis, bypass or graft as the cause of abnormal reaction of the patient, or of later complication, without mention of misadventure at the time of the procedure; Z79.01 Long term (current) use of anticoagulants; Z79.899 Other long term (current) drug therapy; Z90.49 Acquired absence of other specified parts of digestive tract; Z88.5 Allergy status to narcotic agent; Z86.73 Personal history of transient ischemic attack (TIA), and cerebral infarction without residual deficits; Z85.038 Personal history of other malignant neoplasm of large intestine; Y92.89 Other specified places as the place of occurrence of the external cause; Z68.30 Body mass index [BMI] 30.0-30.9, adult
CPT/HCPCS: 36415; 36600; 71045; 73502; 73560; 74176; 76775; 80047; 80048; 80053; 81001; 82570; 82803; 82810; 82948; 83036; 83605; 83690; 83735; 83880; 84145; 84156; 84300; 84443; 84484; 85018; 85025; 85027; 85379; 85610; 85730; 86885; 86900; 86901; 86920; 87040; 87070; 87207; 88307; 92616; 93005; 93306; 93970; 94002; 94003; 94640; 94660; 94760; 96361; 96365; 97110; 97116; 97161; 97530; 99291; A4353; A4649; A6213; A6250; A6253; A6257; A6402; A6446; A6449; A7000; A7015; C1751; C1758; C9113; J1170; J1644; J1815; J1940; J2250; J2270; J2543; J3490; J7030; J7120; P9016; P9047

== ENCOUNTER 2017-11-30 13:19 | Inpatient (IN) | payer MEDICARE, MEDICAID ==
[~2017-11-30] VITALS: Ht 162.6 cm; Wt 82.0 kg
[~2017-11-30 13:19] MED LIST changes: +AMLO10TA4 PO; -ASPI-1265 PO; -ATOR40TA PO; +COU5T PO; -CYCL-1 PO; -FURO-150 PO; +FURO40TA4 PO; +GLYB2.5T4 PO; +LISI40TA4 PO; -MAGN296S50 PO; -METF500T PO; -NA P133E RC; -ONDA4TAB12 PO; -SPIR25TA PO; -etomidate 2mg/ml inj. ONE; -furosemide 40mg/4ml inj IV ONE
[2017-11-30 15:01] LABS: BASOPHILS % (AUTO) 0.2 % (0-1); EOSINOPHILS # (AUTO) 0.2 X10'3 (0-0.9); HEMATOCRIT 24.5 % (42.0-52.0); LYMPHOCYTES # (AUTO) 0.7 X10'3 (1.1-4.8); LYMPHOCYTES % (AUTO) 10.6 % (21-51); MEAN CORPUSCULAR HEMOGLOBIN 27.8 PG (27.0-31.0); MEAN CORPUSCULAR HGB CONC 32.7 % (33.0-36.5); MEAN CORPUSCULAR VOLUME 85.1 FL (78-98); MEAN PLATELET VOLUME 6.3 FL (7.4-10.4); MONOCYTES # (AUTO) 0.5 X10'3 (0-0.9); MONOCYTES % (AUTO) 7.9 % (2-12); NEUTROPHILS # (AUTO) 5.4 X10'3 (1.8-7.7); NEUTROPHILS % (AUTO) 78.3 % (42-75); PLATELET COUNT 284 X10'3 (140-440); RED BLOOD COUNT 2.88 X10'6 (4.70-6.10); RED CELL DISTRIBUTION WIDTH 18.3 % (11.5-14.5); WHITE BLOOD COUNT 6.8 X10'3 (4.5-11.0)
[2017-11-30 15:15] LABS: INR 2.2 INR; PARTIAL THROMBOPLASTIN TIME 36 SECONDS (22-32); PROTHROMBIN TIME 21.8 SECONDS (9.0-12.0)
[2017-11-30 15:25] LABS: ALANINE AMINOTRANSFERASE 18 U/L (12-78); ALBUMIN 2.2 G/DL (3.4-5.0); ALBUMIN/GLOBULIN RATIO 0.5 (1.1-1.5); ALKALINE PHOSPHATASE 92 IU/L (46-116); ANION GAP 7 (8-16); ASPARTATE AMINO TRANSFERASE 19 U/L (10-37); BILIRUBIN,TOTAL 0.6 MG/DL (0.1-1.0); BLOOD UREA NITROGEN 37 MG/DL (7-18); BUN/CREATININE RATIO 15.9 (5.4-32.0); CHLORIDE 105 MMOL/L (99-107); CREATININE 2.33 MG/DL (0.60-1.10); GLUCOSE 156 MG/DL (70-104); MAGNESIUM 1.9 MG/DL (1.5-2.4); POTASSIUM 4.9 MMOL/L (3.5-5.1); SODIUM 139 MMOL/L (135-145); TOTAL CARBON DIOXIDE 27.4 MMOL/L (24-32); eGFR 28 ML/MIN
[2017-11-30] MEDS ORDERED: pantoprazole 40 MG vial IV ONE (15:30)
[2017-11-30] MEDS ORDERED: furosemide 10 MG/1 ML 10ml inj IV ONE (15:35)
[2017-11-30] MEDS ORDERED: bisacodyl 10mg suppository rectal RC PRN (15:45)
[2017-11-30] MEDS ORDERED: magnesium Cl slow-release 64mg tablet PO PRN (15:50)
[2017-11-30] MEDS ORDERED: magnesium 4gm in 100ml NS 100 ML IV PRN (15:50)
[2017-11-30] MEDS ORDERED: acetaminophen 325mg tablet PO PRN (15:50)
[2017-11-30] MEDS ORDERED: insulin Lispro (HumaLOG) vial - multi-dose SQ SCH (15:50)
[2017-11-30] MEDS ORDERED: dextrose 50%-water 50ml dispensing syringe IV PRN ×2 (15:50)
[2017-11-30] MEDS ORDERED: MESSAGE TO PHARMACY PO ONE (15:50)
[2017-11-30] MEDS ORDERED: glucagon, human recombinant 1mg kit SUBCUT PRN (15:50)
[2017-11-30] MEDS ORDERED: ondansetron/PF 4mg/2ml inj IV PRN (15:50)
[2017-11-30] MEDS ORDERED: magnesium 2GM in 50ml NS 50 ML IV PRN (15:50)
[2017-11-30] MEDS ORDERED: HYDROcodone/acetaminophen 10/325mg tab PO PRN (15:50)
[2017-11-30] MEDS ORDERED: dextrose ORAL solution 15 GM/59 ML bottle PO PRN ×2 (15:50)
[2017-11-30] MEDS ORDERED: magnesium hydroxide 30ml (MOM) UD suspension PO PRN (15:50)
[2017-11-30] MEDS ORDERED: potassium Cl 40MEQ/NS 500ml 500 ML IV PRN ×2 (15:50)
[2017-11-30] MEDS ORDERED: morphine 4 MG/ML inj SYRINge IV PRN (15:50)
[2017-11-30] MEDS ORDERED: HYDROcodone/acetaminophen 5mg/325mg tablet PO PRN (15:50)
[2017-11-30] MEDS ORDERED: mag hydrox/Alum hydrox/simeth 30ml oral suspension PO PRN (15:50)
[2017-11-30] MEDS ORDERED: potassium Cl 20 mEq SR tablet PO PRN ×2 (15:50)
[2017-11-30] MEDS ORDERED: FURO-150 PO (16:32)
[2017-11-30] MEDS ORDERED: ATOR40TA PO (16:34)
[2017-11-30] MEDS ORDERED: CLIN-80 PO (16:35)
[2017-11-30] MEDS: docusate sod 100mg capsule PO SCH (20:00)
[2017-11-30] MEDS: carVEDilol 12.5mg tablet PO SCH (20:00)
[2017-11-30] MEDS: furosemide 10 MG/1 ML 10ml inj IV SCH (20:00)
[2017-11-30] MEDS: insulin glargine (Lantus) pen - multi-dose SQ SCH (21:00)
[2017-11-30] MEDS: lisinopril 20mg tablet PO SCH (21:52)
[2017-11-30] MEDS: warfarin 3mg tablet PO SCH (21:53)
[2017-12-01 03:56] LABS: INR 2.1 INR; PROTHROMBIN TIME 21.3 SECONDS (9.0-12.0)
[2017-12-01 04:03] LABS: ALBUMIN 2.1 G/DL (3.4-5.0); ANION GAP 7 (8-16); BLOOD UREA NITROGEN 34 MG/DL (7-18); CALCIUM 8.1 MG/DL (8.5-10.1); CHLORIDE 105 MMOL/L (99-107); CREATININE 2.27 MG/DL (0.60-1.10); GLUCOSE 125 MG/DL (70-104); MAGNESIUM 1.9 MG/DL (1.5-2.4); POTASSIUM 4.2 MMOL/L (3.5-5.1); SODIUM 139 MMOL/L (135-145); TOTAL CARBON DIOXIDE 26.7 MMOL/L (24-32); eGFR 29 ML/MIN
[2017-12-01 04:12] LABS: BASOPHILS % (AUTO) 0.6 % (0-1); EOSINOPHILS # (AUTO) 0.1 X10'3 (0-0.9); EOSINOPHILS % (AUTO) 2.5 % (0-6); HEMATOCRIT 22.9 % (42.0-52.0); HEMOGLOBIN 7.5 g/dl (14.0-17.9); LYMPHOCYTES # (AUTO) 0.7 X10'3 (1.1-4.8); LYMPHOCYTES % (AUTO) 11.7 % (21-51); MEAN CORPUSCULAR HEMOGLOBIN 27.8 PG (27.0-31.0); MEAN CORPUSCULAR HGB CONC 32.9 % (33.0-36.5); MEAN CORPUSCULAR VOLUME 84.5 FL (78-98); MEAN PLATELET VOLUME 7.5 FL (7.4-10.4); MONOCYTES # (AUTO) 0.4 X10'3 (0-0.9); MONOCYTES % (AUTO) 6.9 % (2-12); NEUTROPHILS # (AUTO) 4.7 X10'3 (1.8-7.7); NEUTROPHILS % (AUTO) 78.3 % (42-75); PLATELET COUNT 230 X10'3 (140-440); RED CELL DISTRIBUTION WIDTH 18.5 % (11.5-14.5)
[2017-12-01] MEDS: K and/or MAG REPLACEMENT MC SCH (06:55)
[2017-12-01] MEDS: docusate sod 100mg capsule PO SCH ×2 (06:58→20:47)
[2017-12-01] MEDS: amiodarone 200mg tablet PO SCH (07:39)
[2017-12-01] MEDS: carVEDilol 12.5mg tablet PO SCH ×2 (07:39→20:47)
[2017-12-01] MEDS: furosemide 10 MG/1 ML 10ml inj IV SCH ×2 (07:39→20:51)
[2017-12-01] MEDS: amLODIPine 5mg tablet PO SCH (07:39)
[2017-12-01] MEDS ORDERED: diphenhydrAMINE 25mg capsule PO ONE (12:00)
[2017-12-01] MEDS ORDERED: acetaminophen 325mg tablet PO ONE (12:00)
[2017-12-01] MEDS ORDERED: CLINDAMYCIN HCL PO SCH (13:00)
[2017-12-01] MEDS ORDERED: furosemide 40mg/4ml inj IV ONE (14:00)
[2017-12-01] MEDS: clindamycin 150mg capsule PO SCH ×2 (14:01→20:49)
[2017-12-01 14:04] VITALS: BP 111/52
[2017-12-01 14:23] VITALS: BP_SYST 111; BP_SYST 121; BP_DIAS 61
[2017-12-01 15:23] VITALS: BP 118/62
[2017-12-01 17:57] LABS: BASOPHILS % (AUTO) 0.6 % (0-1); EOSINOPHILS # (AUTO) 0.2 X10'3 (0-0.9); EOSINOPHILS % (AUTO) 3.2 % (0-6); LYMPHOCYTES % (AUTO) 17.9 % (21-51); MEAN CORPUSCULAR HEMOGLOBIN 28.2 PG (27.0-31.0); MEAN CORPUSCULAR HGB CONC 33.3 % (33.0-36.5); MEAN CORPUSCULAR VOLUME 84.5 FL (78-98); MEAN PLATELET VOLUME 6.9 FL (7.4-10.4); MONOCYTES # (AUTO) 0.5 X10'3 (0-0.9); MONOCYTES % (AUTO) 9.3 % (2-12); NEUTROPHILS # (AUTO) 3.8 X10'3 (1.8-7.7); PLATELET COUNT 240 X10'3 (140-440); RED BLOOD COUNT 2.84 X10'6 (4.70-6.10); RED CELL DISTRIBUTION WIDTH 18.4 % (11.5-14.5); WHITE BLOOD COUNT 5.5 X10'3 (4.5-11.0)
[2017-12-01 19:00] VITALS: BP 116/63
[2017-12-01 20:45] VITALS: BP 123/71
[2017-12-01] MEDS: warfarin 3mg tablet PO SCH (20:48)
[2017-12-01] MEDS: lisinopril 20mg tablet PO SCH (20:49)
[2017-12-01] MEDS: insulin glargine (Lantus) pen - multi-dose SQ SCH (21:00)
[2017-12-02] VITALS: BP 128/63
[2017-12-02 00:21] LABS: ALBUMIN 2.1 G/DL (3.4-5.0); ANION GAP 8 (8-16); BLOOD UREA NITROGEN 34 MG/DL (7-18); BUN/CREATININE RATIO 13.1 (5.4-32.0); CALCIUM 8.3 MG/DL (8.5-10.1); CHLORIDE 103 MMOL/L (99-107); CREATININE 2.59 MG/DL (0.60-1.10); GLUCOSE 106 MG/DL (70-104); MAGNESIUM 1.9 MG/DL (1.5-2.4); POTASSIUM 3.9 MMOL/L (3.5-5.1); SODIUM 140 MMOL/L (135-145); TOTAL CARBON DIOXIDE 29.5 MMOL/L (24-32); eGFR 25 ML/MIN
[2017-12-02 05:08] LABS: BASOPHILS % (AUTO) 0.4 % (0-1); EOSINOPHILS # (AUTO) 0.2 X10'3 (0-0.9); EOSINOPHILS % (AUTO) 3.4 % (0-6); HEMOGLOBIN 8.3 g/dl (14.0-17.9); LYMPHOCYTES # (AUTO) 0.8 X10'3 (1.1-4.8); LYMPHOCYTES % (AUTO) 14.9 % (21-51); MEAN CORPUSCULAR HEMOGLOBIN 28.1 PG (27.0-31.0); MEAN CORPUSCULAR HGB CONC 33.4 % (33.0-36.5); MEAN CORPUSCULAR VOLUME 84.2 FL (78-98); MEAN PLATELET VOLUME 7.1 FL (7.4-10.4); MONOCYTES # (AUTO) 0.5 X10'3 (0-0.9); MONOCYTES % (AUTO) 9.3 % (2-12); NEUTROPHILS # (AUTO) 3.7 X10'3 (1.8-7.7); PLATELET COUNT 225 X10'3 (140-440); RED BLOOD COUNT 2.97 X10'6 (4.70-6.10); RED CELL DISTRIBUTION WIDTH 17.6 % (11.5-14.5); WHITE BLOOD COUNT 5.2 X10'3 (4.5-11.0)
[2017-12-02 05:23] LABS: INR 2.3 INR; PROTHROMBIN TIME 22.7 SECONDS (9.0-12.0)
[2017-12-02] MEDS: K and/or MAG REPLACEMENT MC SCH (06:50)
[2017-12-02 07:04] VITALS: BP 134/73
[2017-12-02] MEDS: amLODIPine 5mg tablet PO SCH (07:13)
[2017-12-02] MEDS: carVEDilol 12.5mg tablet PO SCH (07:13)
[2017-12-02] MEDS: docusate sod 100mg capsule PO SCH (07:13)
[2017-12-02] MEDS: clindamycin 150mg capsule PO SCH ×2 (07:13→13:11)
[2017-12-02] MEDS: amiodarone 200mg tablet PO SCH (07:13)
[2017-12-02] MEDS: furosemide 10 MG/1 ML 10ml inj IV SCH (07:14)
[2017-12-02] MEDS ORDERED: atorvastatin 20mg tablet PO SCH (08:00)
[2017-12-02 11:22] VITALS: BP 139/70
[2017-12-02 11:36] LABS: BASOPHILS % (AUTO) 0.7 % (0-1); EOSINOPHILS # (AUTO) 0.2 X10'3 (0-0.9); HEMATOCRIT 25.9 % (42.0-52.0); HEMOGLOBIN 8.5 g/dl (14.0-17.9); LYMPHOCYTES # (AUTO) 0.8 X10'3 (1.1-4.8); LYMPHOCYTES % (AUTO) 15.6 % (21-51); MEAN CORPUSCULAR HEMOGLOBIN 27.9 PG (27.0-31.0); MEAN CORPUSCULAR HGB CONC 32.9 % (33.0-36.5); MEAN CORPUSCULAR VOLUME 84.9 FL (78-98); MEAN PLATELET VOLUME 7.1 FL (7.4-10.4); MONOCYTES # (AUTO) 0.5 X10'3 (0-0.9); MONOCYTES % (AUTO) 9.1 % (2-12); NEUTROPHILS # (AUTO) 3.7 X10'3 (1.8-7.7); NEUTROPHILS % (AUTO) 71.6 % (42-75); PLATELET COUNT 233 X10'3 (140-440); RED BLOOD COUNT 3.05 X10'6 (4.70-6.10); RED CELL DISTRIBUTION WIDTH 17.7 % (11.5-14.5); WHITE BLOOD COUNT 5.1 X10'3 (4.5-11.0)
[2017-12-02] MEDS ORDERED: FERR325T39 PO (16:28)
[2017-12-02] MEDS ORDERED: lactobacillus rhamnosus 10,000 MMU CELLS/CAPSULE PO SCH (20:00)
== END 2017-12-02 17:00 | disposition home health service (06) | DRG 291 ==
LOC: ER 13:27 → ED HOLD 15:49 → EDBEDREQSVC 12-01 11:44 → MED 3N 12-01 14:41
PROVIDERS: ADMIT Internal Medicine; ATTEND Internal Medicine
PROC: 30233N1 Transfusion of Nonautologous Red Blood Cells into Peripheral Vein, Percutaneous Approach (ICD-10-PCS; principal; 2017-12-01)
DX: I13.0 Hypertensive heart and chronic kidney disease with heart failure and stage 1 through stage 4 chronic kidney disease, or unspecified chronic kidney disease (principal); I50.23 Acute on chronic systolic (congestive) heart failure; E11.22 Type 2 diabetes mellitus with diabetic chronic kidney disease; I48.91 Unspecified atrial fibrillation; D63.8 Anemia in other chronic diseases classified elsewhere; E78.00 Pure hypercholesterolemia, unspecified; E78.5 Hyperlipidemia, unspecified; I25.10 Atherosclerotic heart disease of native coronary artery without angina pectoris; N18.3 Chronic kidney disease, stage 3 (moderate); Z90.49 Acquired absence of other specified parts of digestive tract; Z95.1 Presence of aortocoronary bypass graft; Z88.5 Allergy status to narcotic agent; Z79.899 Other long term (current) drug therapy; Z79.01 Long term (current) use of anticoagulants; Z85.038 Personal history of other malignant neoplasm of large intestine; Z85.118 Personal history of other malignant neoplasm of bronchus and lung; Z86.73 Personal history of transient ischemic attack (TIA), and cerebral infarction without residual deficits
CPT/HCPCS: 36415; 71045; 80048; 80053; 82948; 83036; 83735; 83880; 84484; 85025; 85610; 85730; 86885; 86900; 86901; 86920; 87070; 93005; 99285; A6257; A6258; A6449; C9113; J1815; J1940; J7030; P9016; Q0163

== ENCOUNTER 2017-12-08 13:18 | Emergency (ER) | payer MEDICARE, MEDICAID ==
[~2017-12-08] VITALS: Ht 162.6 cm; Wt 91.0 kg
[~2017-12-08 13:18] MED LIST changes: +ATOR40TA PO; -BISA10SU60 RC; +CLIN-80 PO; -DOCU100C40 PO; +FERR325T39 PO; +FURO-150 PO; -FURO40TA4 PO; -GLYB2.5T4 PO
[2017-12-08 15:05] LABS: BASOPHILS % (AUTO) 0.5 % (0-1); EOSINOPHILS # (AUTO) 0.2 X10'3 (0-0.9); HEMATOCRIT 26.9 % (42.0-52.0); LYMPHOCYTES # (AUTO) 1.1 X10'3 (1.1-4.8); LYMPHOCYTES % (AUTO) 18.1 % (21-51); MEAN CORPUSCULAR HEMOGLOBIN 28.3 PG (27.0-31.0); MEAN CORPUSCULAR HGB CONC 33.3 % (33.0-36.5); MEAN CORPUSCULAR VOLUME 84.8 FL (78-98); MEAN PLATELET VOLUME 6.9 FL (7.4-10.4); MONOCYTES # (AUTO) 0.6 X10'3 (0-0.9); MONOCYTES % (AUTO) 9.3 % (2-12); NEUTROPHILS # (AUTO) 4.1 X10'3 (1.8-7.7); NEUTROPHILS % (AUTO) 68.1 % (42-75); PLATELET COUNT 212 X10'3 (140-440); RED BLOOD COUNT 3.17 X10'6 (4.70-6.10); RED CELL DISTRIBUTION WIDTH 18.3 % (11.5-14.5); WHITE BLOOD COUNT 6.1 X10'3 (4.5-11.0)
[2017-12-08 15:27] LABS: ALANINE AMINOTRANSFERASE 18 U/L (12-78); ALBUMIN 2.3 G/DL (3.4-5.0); ALBUMIN/GLOBULIN RATIO 0.5 (1.1-1.5); ALKALINE PHOSPHATASE 92 IU/L (46-116); ANION GAP 5 (8-16); ASPARTATE AMINO TRANSFERASE 21 U/L (10-37); BILIRUBIN,TOTAL 0.7 MG/DL (0.1-1.0); BLOOD UREA NITROGEN 40 MG/DL (7-18); BUN/CREATININE RATIO 16.6 (5.4-32.0); CALCIUM 8.2 MG/DL (8.5-10.1); CHLORIDE 106 MMOL/L (99-107); CREATININE 2.41 MG/DL (0.60-1.10); GLUCOSE 119 MG/DL (70-104); MAGNESIUM 2.1 MG/DL (1.5-2.4); SODIUM 141 MMOL/L (135-145); TOTAL PROTEIN 7.3 G/DL (6.4-8.2); eGFR 27 ML/MIN
[2017-12-08 16:16] VITALS: BP 142/74
== END 2017-12-08 16:15 | disposition home or self-care (01) ==
LOC: ER 13:18
DX: I11.0 Hypertensive heart disease with heart failure (principal); I50.9 Heart failure, unspecified; I25.10 Atherosclerotic heart disease of native coronary artery without angina pectoris; E11.9 Type 2 diabetes mellitus without complications; Z90.49 Acquired absence of other specified parts of digestive tract; Z95.1 Presence of aortocoronary bypass graft; E78.00 Pure hypercholesterolemia, unspecified; Z86.73 Personal history of transient ischemic attack (TIA), and cerebral infarction without residual deficits; Z88.5 Allergy status to narcotic agent; Z79.899 Other long term (current) drug therapy
CPT/HCPCS: 36415; 71045; 80053; 83735; 83880; 84484; 85025; 93005; 99285

== ENCOUNTER 2017-12-12 09:41 | Emergency (ER) | payer MEDICARE, MEDICAID ==
[~2017-12-12] VITALS: Ht 162.6 cm; Wt 93.3 kg
[2017-12-12] MEDS ORDERED: furosemide 10 MG/1 ML 10ml inj IV ONE (11:45)
[2017-12-12] MEDS ORDERED: furosemide 40mg/4ml inj IV ONE (11:55)
[2017-12-12 11:57] LABS: BASOPHILS % (AUTO) 0.6 % (0-1); EOSINOPHILS # (AUTO) 0.2 X10'3 (0-0.9); EOSINOPHILS % (AUTO) 3.7 % (0-6); HEMATOCRIT 26.4 % (42.0-52.0); HEMOGLOBIN 8.7 g/dl (14.0-17.9); LYMPHOCYTES # (AUTO) 0.9 X10'3 (1.1-4.8); LYMPHOCYTES % (AUTO) 18.4 % (21-51); MEAN CORPUSCULAR HEMOGLOBIN 27.8 PG (27.0-31.0); MEAN CORPUSCULAR VOLUME 84.2 FL (78-98); MONOCYTES # (AUTO) 0.4 X10'3 (0-0.9); MONOCYTES % (AUTO) 8.4 % (2-12); NEUTROPHILS # (AUTO) 3.3 X10'3 (1.8-7.7); NEUTROPHILS % (AUTO) 68.9 % (42-75); PLATELET COUNT 192 X10'3 (140-440); RED BLOOD COUNT 3.14 X10'6 (4.70-6.10); RED CELL DISTRIBUTION WIDTH 17.5 % (11.5-14.5); WHITE BLOOD COUNT 4.9 X10'3 (4.5-11.0)
[2017-12-12 12:07] LABS: INR 2.1 INR; PROTHROMBIN TIME 21.1 SECONDS (9.0-12.0)
[2017-12-12 12:19] LABS: ALANINE AMINOTRANSFERASE 20 U/L (12-78); ALBUMIN 2.5 G/DL (3.4-5.0); ALBUMIN/GLOBULIN RATIO 0.5 (1.1-1.5); ALKALINE PHOSPHATASE 83 IU/L (46-116); ANION GAP 6 (8-16); ASPARTATE AMINO TRANSFERASE 21 U/L (10-37); BILIRUBIN,TOTAL 0.8 MG/DL (0.1-1.0); BLOOD UREA NITROGEN 47 MG/DL (7-18); BUN/CREATININE RATIO 20.8 (5.4-32.0); CALCIUM 8.3 MG/DL (8.5-10.1); CHLORIDE 107 MMOL/L (99-107); CREATININE 2.26 MG/DL (0.60-1.10); GLUCOSE 116 MG/DL (70-104); POTASSIUM 4.6 MMOL/L (3.5-5.1); SODIUM 142 MMOL/L (135-145); TOTAL CARBON DIOXIDE 29.2 MMOL/L (24-32); TOTAL PROTEIN 7.3 G/DL (6.4-8.2); eGFR 29 ML/MIN
[2017-12-12 13:48] VITALS: BP 142/75
== END 2017-12-12 13:59 | disposition home or self-care (01) ==
LOC: ER 09:41
DX: I13.0 Hypertensive heart and chronic kidney disease with heart failure and stage 1 through stage 4 chronic kidney disease, or unspecified chronic kidney disease (principal); N18.4 Chronic kidney disease, stage 4 (severe); E11.22 Type 2 diabetes mellitus with diabetic chronic kidney disease; I50.9 Heart failure, unspecified; I25.10 Atherosclerotic heart disease of native coronary artery without angina pectoris; E78.00 Pure hypercholesterolemia, unspecified; Z90.49 Acquired absence of other specified parts of digestive tract; Z95.1 Presence of aortocoronary bypass graft; Z86.73 Personal history of transient ischemic attack (TIA), and cerebral infarction without residual deficits; Z79.01 Long term (current) use of anticoagulants; Z85.038 Personal history of other malignant neoplasm of large intestine; Z88.5 Allergy status to narcotic agent; Z79.899 Other long term (current) drug therapy
CPT/HCPCS: 36415; 71045; 80053; 83880; 84484; 85025; 85610; 93005; 93308; 93970; 96374; 99285; J1940

== ENCOUNTER 2017-12-19 18:31 | Inpatient (IN) | payer MEDICARE, MEDICAID ==
[~2017-12-19] VITALS: Ht 162.6 cm; Wt 80.0 kg
[2017-12-19 19:03] LABS: BASOPHILS # (AUTO) 0.1 X10'3 (0-0.2); BASOPHILS % (AUTO) 1.1 % (0-1); EOSINOPHILS # (AUTO) 0.3 X10'3 (0-0.9); EOSINOPHILS % (AUTO) 4.5 % (0-6); HEMATOCRIT 26.6 % (42.0-52.0); HEMOGLOBIN 8.8 g/dl (14.0-17.9); LYMPHOCYTES # (AUTO) 0.9 X10'3 (1.1-4.8); LYMPHOCYTES % (AUTO) 14.7 % (21-51); MEAN CORPUSCULAR HEMOGLOBIN 28.2 PG (27.0-31.0); MEAN CORPUSCULAR HGB CONC 33.1 % (33.0-36.5); MEAN CORPUSCULAR VOLUME 85.3 FL (78-98); MEAN PLATELET VOLUME 7.6 FL (7.4-10.4); MONOCYTES # (AUTO) 0.4 X10'3 (0-0.9); MONOCYTES % (AUTO) 7.1 % (2-12); NEUTROPHILS # (AUTO) 4.3 X10'3 (1.8-7.7); NEUTROPHILS % (AUTO) 72.6 % (42-75); PLATELET COUNT 220 X10'3 (140-440); RED BLOOD COUNT 3.12 X10'6 (4.70-6.10); RED CELL DISTRIBUTION WIDTH 18.4 % (11.5-14.5); WHITE BLOOD COUNT 5.9 X10'3 (4.5-11.0)
[2017-12-19 19:13] LABS: INR 1.8 INR; PARTIAL THROMBOPLASTIN TIME 33 SECONDS (22-32); PROTHROMBIN TIME 18.3 SECONDS (9.0-12.0)
[2017-12-19 19:17] LABS: ALANINE AMINOTRANSFERASE 26 U/L (12-78); ALBUMIN 2.7 G/DL (3.4-5.0); ALBUMIN/GLOBULIN RATIO 0.6 (1.1-1.5); ALKALINE PHOSPHATASE 94 IU/L (46-116); ANION GAP 6 (8-16); ASPARTATE AMINO TRANSFERASE 24 U/L (10-37); BILIRUBIN,TOTAL 0.7 MG/DL (0.1-1.0); BLOOD UREA NITROGEN 53 MG/DL (7-18); BUN/CREATININE RATIO 16.2 (5.4-32.0); CALCIUM 8.3 MG/DL (8.5-10.1); CHLORIDE 105 MMOL/L (99-107); CREATININE 3.27 MG/DL (0.60-1.10); GLUCOSE 173 MG/DL (70-104); POTASSIUM 5.8 MMOL/L (3.5-5.1); SODIUM 140 MMOL/L (135-145); TOTAL CARBON DIOXIDE 28.9 MMOL/L (24-32); TOTAL PROTEIN 7.5 G/DL (6.4-8.2); eGFR 19 ML/MIN
[2017-12-19] MEDS ORDERED: furosemide 10 MG/1 ML 10ml inj IV ONE (20:45)
[2017-12-19] MEDS ORDERED: enalaprilat dihydrate 2.5mg/2ml vial IV ONE (20:45)
[2017-12-19] MEDS ORDERED: nitroGLYCERIN 0.2mg/hour patch TD ONE (20:45)
[2017-12-19] MEDS ORDERED: FURO-150 PO (21:00)
[2017-12-19] MEDS ORDERED: ATOR80TA PO (21:00)
[2017-12-19 23:34] LABS: GLUCOSE 141 MG/DL (70-104); SODIUM 140 MMOL/L (135-145)
[2017-12-19 23:35] LABS: ALANINE AMINOTRANSFERASE 23 U/L (12-78); ALBUMIN 2.6 G/DL (3.4-5.0); ALBUMIN/GLOBULIN RATIO 0.6 (1.1-1.5); ALKALINE PHOSPHATASE 86 IU/L (46-116); ANION GAP 8 (8-16); ASPARTATE AMINO TRANSFERASE 24 U/L (10-37); BILIRUBIN,TOTAL 0.7 MG/DL (0.1-1.0); BLOOD UREA NITROGEN 55 MG/DL (7-18); BUN/CREATININE RATIO 17.2 (5.4-32.0); CALCIUM 8.2 MG/DL (8.5-10.1); CHLORIDE 105 MMOL/L (99-107); CREATININE 3.19 MG/DL (0.60-1.10); POTASSIUM 5.5 MMOL/L (3.5-5.1); TOTAL CARBON DIOXIDE 27.5 MMOL/L (24-32); TOTAL PROTEIN 7.3 G/DL (6.4-8.2); eGFR 19 ML/MIN
[2017-12-20] MEDS ORDERED: morphine 4 MG/ML inj SYRINge IV PRN ×2 (04:35)
[2017-12-20] MEDS ORDERED: bisacodyl 10mg suppository rectal RC PRN (04:35)
[2017-12-20] MEDS ORDERED: mag hydrox/Alum hydrox/simeth 30ml oral suspension PO PRN (04:35)
[2017-12-20] MEDS ORDERED: dextrose 50%-water 50ml dispensing syringe IV PRN ×2 (04:35)
[2017-12-20] MEDS ORDERED: ondansetron/PF 4mg/2ml inj IV PRN (04:35)
[2017-12-20] MEDS ORDERED: MESSAGE TO PHARMACY PO ONE (04:35)
[2017-12-20] MEDS ORDERED: dextrose ORAL solution 15 GM/59 ML bottle PO PRN ×2 (04:35)
[2017-12-20] MEDS ORDERED: glucagon, human recombinant 1mg kit SUBCUT PRN (04:35)
[2017-12-20] MEDS ORDERED: acetaminophen 325mg tablet PO PRN (04:35)
[2017-12-20] MEDS ORDERED: insulin Lispro (HumaLOG) vial - multi-dose SQ SCH (04:35)
[2017-12-20] MEDS ORDERED: ipratropium/albuterol 3ml nebule NEB PRN (04:35)
[2017-12-20 05:15] VITALS: BP 132/79
[2017-12-20 06:00] VITALS: BP 125/73
[2017-12-20 07:17] LABS: BASOPHILS # (AUTO) 0.1 X10'3 (0-0.2); BASOPHILS % (AUTO) 0.9 % (0-1); EOSINOPHILS # (AUTO) 0.2 X10'3 (0-0.9); EOSINOPHILS % (AUTO) 2.7 % (0-6); HEMATOCRIT 23.7 % (42.0-52.0); HEMOGLOBIN 7.8 g/dl (14.0-17.9); LYMPHOCYTES # (AUTO) 0.8 X10'3 (1.1-4.8); LYMPHOCYTES % (AUTO) 12.4 % (21-51); MEAN CORPUSCULAR HEMOGLOBIN 28.1 PG (27.0-31.0); MEAN CORPUSCULAR HGB CONC 32.9 % (33.0-36.5); MEAN CORPUSCULAR VOLUME 85.3 FL (78-98); MEAN PLATELET VOLUME 7.2 FL (7.4-10.4); MONOCYTES # (AUTO) 0.4 X10'3 (0-0.9); NEUTROPHILS # (AUTO) 4.8 X10'3 (1.8-7.7); PLATELET COUNT 198 X10'3 (140-440); RED BLOOD COUNT 2.77 X10'6 (4.70-6.10); RED CELL DISTRIBUTION WIDTH 18.2 % (11.5-14.5); WHITE BLOOD COUNT 6.2 X10'3 (4.5-11.0)
[2017-12-20 07:41] LABS: ALANINE AMINOTRANSFERASE 25 U/L (12-78); ALBUMIN 2.4 G/DL (3.4-5.0); ALBUMIN/GLOBULIN RATIO 0.6 (1.1-1.5); ALKALINE PHOSPHATASE 72 IU/L (46-116); ANION GAP 6 (8-16); ASPARTATE AMINO TRANSFERASE 22 U/L (10-37); BILIRUBIN,TOTAL 0.7 MG/DL (0.1-1.0); BLOOD UREA NITROGEN 51 MG/DL (7-18); BUN/CREATININE RATIO 17.6 (5.4-32.0); CALCIUM 8.3 MG/DL (8.5-10.1); CHLORIDE 107 MMOL/L (99-107); CHOL/HDL RATIO 1.9 (0.00-4.99); CHOLESTEROL 80 MG/DL (0-200); GLUCOSE 116 MG/DL (70-104); HDL CHOLESTEROL 43 MG/DL (35-60); LDL CHOLESTEROL 33 MG/DL (50-100); SODIUM 143 MMOL/L (135-145); TOTAL CARBON DIOXIDE 29.7 MMOL/L (24-32); TOTAL PROTEIN 6.7 G/DL (6.4-8.2); TRIGLYCERIDES 39 MG/DL (20-135); eGFR 22 ML/MIN
[2017-12-20 07:47] LABS: INR 1.9 INR; PROTHROMBIN TIME 19.7 SECONDS (9.0-12.0)
[2017-12-20] MEDS ORDERED: amiodarone 200mg tablet PO SCH (08:00)
[2017-12-20] MEDS: carVEDilol 12.5mg tablet PO SCH ×2 (08:39→21:10)
[2017-12-20] MEDS: ferrous sulfate 325mg tablet PO SCH ×2 (08:39→21:10)
[2017-12-20] MEDS: furosemide 40mg/4ml inj IV SCH ×2 (08:39→21:12)
[2017-12-20 11:00] VITALS: BP 120/63
[2017-12-20] MEDS ORDERED: amiodarone 100mg tablet PO SCH (14:23)
[2017-12-20 15:00] VITALS: BP 123/65
[2017-12-20 18:00] VITALS: BP 128/65
[2017-12-20] MEDS ORDERED: warfarin 3mg tablet PO ONE (21:00)
[2017-12-20] MEDS ORDERED: atorvastatin 20mg tablet PO SCH (21:00)
[2017-12-20] MEDS ORDERED: insulin glargine (Lantus) pen - multi-dose SQ SCH (21:00)
[2017-12-20 22:00] VITALS: BP 123/63
[2017-12-21 02:00] VITALS: BP 138/63
[2017-12-21 06:00] VITALS: BP 130/64
[2017-12-21 06:38] LABS: BASOPHILS # (AUTO) 0.1 X10'3 (0-0.2); EOSINOPHILS # (AUTO) 0.2 X10'3 (0-0.9); EOSINOPHILS % (AUTO) 3.5 % (0-6); HEMATOCRIT 23.2 % (42.0-52.0); HEMOGLOBIN 7.7 g/dl (14.0-17.9); LYMPHOCYTES # (AUTO) 0.7 X10'3 (1.1-4.8); LYMPHOCYTES % (AUTO) 13.3 % (21-51); MEAN CORPUSCULAR HEMOGLOBIN 28.1 PG (27.0-31.0); MEAN CORPUSCULAR HGB CONC 33.1 % (33.0-36.5); MEAN CORPUSCULAR VOLUME 85.1 FL (78-98); MEAN PLATELET VOLUME 7.5 FL (7.4-10.4); MONOCYTES # (AUTO) 0.4 X10'3 (0-0.9); MONOCYTES % (AUTO) 8.2 % (2-12); PLATELET COUNT 187 X10'3 (140-440); RED BLOOD COUNT 2.72 X10'6 (4.70-6.10); RED CELL DISTRIBUTION WIDTH 18.5 % (11.5-14.5); WHITE BLOOD COUNT 5.4 X10'3 (4.5-11.0)
[2017-12-21 06:51] LABS: INR 2.2 INR; PROTHROMBIN TIME 22.5 SECONDS (9.0-12.0)
[2017-12-21 07:03] LABS: ALANINE AMINOTRANSFERASE 20 U/L (12-78); ALBUMIN 2.4 G/DL (3.4-5.0); ALBUMIN/GLOBULIN RATIO 0.6 (1.1-1.5); ALKALINE PHOSPHATASE 67 IU/L (46-116); ANION GAP 6 (8-16); ASPARTATE AMINO TRANSFERASE 19 U/L (10-37); BILIRUBIN,TOTAL 0.9 MG/DL (0.1-1.0); BLOOD UREA NITROGEN 48 MG/DL (7-18); BUN/CREATININE RATIO 18.1 (5.4-32.0); CALCIUM 8.2 MG/DL (8.5-10.1); CHLORIDE 106 MMOL/L (99-107); CREATININE 2.65 MG/DL (0.60-1.10); GLUCOSE 91 MG/DL (70-104); POTASSIUM 4.5 MMOL/L (3.5-5.1); SODIUM 143 MMOL/L (135-145); TOTAL CARBON DIOXIDE 30.6 MMOL/L (24-32); TOTAL PROTEIN 6.7 G/DL (6.4-8.2); eGFR 24 ML/MIN
[2017-12-21] MEDS: furosemide 40mg/4ml inj IV SCH (08:33)
[2017-12-21] MEDS: ferrous sulfate 325mg tablet PO SCH (08:34)
[2017-12-21] MEDS: carVEDilol 12.5mg tablet PO SCH (08:34)
[2017-12-21 11:00] VITALS: BP 129/64
[2017-12-21] MEDS ORDERED: warfarin 3mg tablet PO ONE (21:00)
== END 2017-12-21 15:10 | disposition home health service (06) | DRG 682 ==
LOC: ER 18:32 → ED HOLD 12-20 04:31 → PCU 3S 12-20 05:05
PROVIDERS: ADMIT Family Medicine; ATTEND Family Medicine
DX: N17.9 Acute kidney failure, unspecified (principal); I50.23 Acute on chronic systolic (congestive) heart failure; E11.22 Type 2 diabetes mellitus with diabetic chronic kidney disease; E87.5 Hyperkalemia; I13.0 Hypertensive heart and chronic kidney disease with heart failure and stage 1 through stage 4 chronic kidney disease, or unspecified chronic kidney disease; N18.4 Chronic kidney disease, stage 4 (severe); I48.91 Unspecified atrial fibrillation; E78.00 Pure hypercholesterolemia, unspecified; E78.5 Hyperlipidemia, unspecified; I25.10 Atherosclerotic heart disease of native coronary artery without angina pectoris; Z95.1 Presence of aortocoronary bypass graft; Z90.49 Acquired absence of other specified parts of digestive tract; Z99.81 Dependence on supplemental oxygen; Z88.5 Allergy status to narcotic agent; Z79.01 Long term (current) use of anticoagulants; Z79.899 Other long term (current) drug therapy; Z86.73 Personal history of transient ischemic attack (TIA), and cerebral infarction without residual deficits; Z85.038 Personal history of other malignant neoplasm of large intestine; Z83.3 Family history of diabetes mellitus; Z82.49 Family history of ischemic heart disease and other diseases of the circulatory system
CPT/HCPCS: 36415; 71045; 80053; 80061; 82948; 83036; 83880; 84439; 84443; 84484; 85025; 85610; 85730; 87070; 93005; 96374; 96375; 99285; A6212; J1815; J1940

== ENCOUNTER 2017-12-26 21:46 | Emergency (ER) | payer MEDICARE, MEDICAID ==
[~2017-12-26] VITALS: Ht 162.6 cm; Wt 76.0 kg
[~2017-12-26 21:46] MED LIST changes: -ATOR40TA PO; +ATOR80TA PO; -CLIN-80 PO; -HYDR-3972 PO; -WALKERFR
[2017-12-26 21:48] VITALS: BP 147/87
[2017-12-26 22:20] LABS: BASOPHILS % (AUTO) 0.8 % (0-1); EOSINOPHILS # (AUTO) 0.2 X10'3 (0-0.9); EOSINOPHILS % (AUTO) 3.9 % (0-6); HEMOGLOBIN 8.4 g/dl (14.0-17.9); LYMPHOCYTES # (AUTO) 0.7 X10'3 (1.1-4.8); LYMPHOCYTES % (AUTO) 12.3 % (21-51); MEAN CORPUSCULAR HEMOGLOBIN 27.6 PG (27.0-31.0); MEAN CORPUSCULAR HGB CONC 32.3 % (33.0-36.5); MEAN CORPUSCULAR VOLUME 85.4 FL (78-98); MONOCYTES # (AUTO) 0.4 X10'3 (0-0.9); MONOCYTES % (AUTO) 6.5 % (2-12); NEUTROPHILS # (AUTO) 4.5 X10'3 (1.8-7.7); NEUTROPHILS % (AUTO) 76.5 % (42-75); PLATELET COUNT 213 X10'3 (140-440); RED BLOOD COUNT 3.04 X10'6 (4.70-6.10); RED CELL DISTRIBUTION WIDTH 17.8 % (11.5-14.5); WHITE BLOOD COUNT 5.8 X10'3 (4.5-11.0)
[2017-12-26 22:25] LABS: INR 2.8 INR; PARTIAL THROMBOPLASTIN TIME 38 SECONDS (22-32); PROTHROMBIN TIME 28.2 SECONDS (9.0-12.0)
[2017-12-26 22:35] LABS: ALANINE AMINOTRANSFERASE 29 U/L (12-78); ALBUMIN 2.6 G/DL (3.4-5.0); ALBUMIN/GLOBULIN RATIO 0.6 (1.1-1.5); ALKALINE PHOSPHATASE 89 IU/L (46-116); ANION GAP 8 (8-16); ASPARTATE AMINO TRANSFERASE 34 U/L (10-37); BILIRUBIN,TOTAL 0.8 MG/DL (0.1-1.0); BLOOD UREA NITROGEN 46 MG/DL (7-18); CALCIUM 8.1 MG/DL (8.5-10.1); CHLORIDE 107 MMOL/L (99-107); GLUCOSE 133 MG/DL (70-104); MAGNESIUM 2.2 MG/DL (1.5-2.4); POTASSIUM 4.5 MMOL/L (3.5-5.1); SODIUM 144 MMOL/L (135-145); TOTAL CARBON DIOXIDE 28.7 MMOL/L (24-32); TOTAL PROTEIN 7.3 G/DL (6.4-8.2); eGFR 28 ML/MIN
[2017-12-27] MEDS ORDERED: furosemide 10 MG/1 ML 10ml inj IV ONE ×2 (03:10→04:20)
== END 2017-12-27 04:52 | disposition home or self-care (01) ==
LOC: ER 21:47
DX: R60.0 Localized edema (principal); I50.9 Heart failure, unspecified; I11.0 Hypertensive heart disease with heart failure; I25.10 Atherosclerotic heart disease of native coronary artery without angina pectoris; E78.00 Pure hypercholesterolemia, unspecified; E11.9 Type 2 diabetes mellitus without complications; Z86.73 Personal history of transient ischemic attack (TIA), and cerebral infarction without residual deficits; Z95.1 Presence of aortocoronary bypass graft; Z90.49 Acquired absence of other specified parts of digestive tract; Z88.5 Allergy status to narcotic agent; Z79.01 Long term (current) use of anticoagulants; Z79.899 Other long term (current) drug therapy
CPT/HCPCS: 36415; 71045; 80053; 83735; 83880; 84484; 85025; 85610; 85730; 93005; 96374; 96376; 99285; J1940; 96375

== ENCOUNTER 2018-01-25 18:34 | Emergency (ER) | payer MEDICARE, MEDICAID ==
[~2018-01-25] VITALS: Ht 162.6 cm; Wt 9.6 kg
[2018-01-25 22:50] LABS: BASOPHILS % (AUTO) 0.8 % (0-1); EOSINOPHILS # (AUTO) 0.2 X10'3 (0-0.9); EOSINOPHILS % (AUTO) 4.4 % (0-6); HEMATOCRIT 25.1 % (42.0-52.0); LYMPHOCYTES # (AUTO) 0.9 X10'3 (1.1-4.8); LYMPHOCYTES % (AUTO) 19.8 % (21-51); MEAN CORPUSCULAR HEMOGLOBIN 27.1 PG (27.0-31.0); MEAN CORPUSCULAR HGB CONC 31.8 % (33.0-36.5); MEAN CORPUSCULAR VOLUME 85.1 FL (78-98); MEAN PLATELET VOLUME 7.2 FL (7.4-10.4); MONOCYTES # (AUTO) 0.3 X10'3 (0-0.9); MONOCYTES % (AUTO) 7.9 % (2-12); NEUTROPHILS # (AUTO) 2.9 X10'3 (1.8-7.7); NEUTROPHILS % (AUTO) 67.1 % (42-75); PLATELET COUNT 211 X10'3 (140-440); RED BLOOD COUNT 2.95 X10'6 (4.70-6.10); RED CELL DISTRIBUTION WIDTH 17.8 % (11.5-14.5); WHITE BLOOD COUNT 4.4 X10'3 (4.5-11.0)
[2018-01-25 23:16] LABS: ANION GAP 3 (8-16); BLOOD UREA NITROGEN 30 MG/DL (7-18); CHLORIDE 107 MMOL/L (99-107); GLUCOSE 98 MG/DL (70-104); POTASSIUM 4.4 MMOL/L (3.5-5.1); SODIUM 141 MMOL/L (135-145)
[2018-01-25 23:17] LABS: ALANINE AMINOTRANSFERASE 31 U/L (12-78); ALBUMIN 2.3 G/DL (3.4-5.0); ALBUMIN/GLOBULIN RATIO 0.6 (1.1-1.5); ALKALINE PHOSPHATASE 73 IU/L (46-116); ASPARTATE AMINO TRANSFERASE 41 U/L (10-37); BILIRUBIN,TOTAL 0.7 MG/DL (0.1-1.0); BUN/CREATININE RATIO 13.6 (5.4-32.0); CALCIUM 8.2 MG/DL (8.5-10.1); TOTAL PROTEIN 6.4 G/DL (6.4-8.2); eGFR 30 ML/MIN
[2018-01-25 23:36] VITALS: BP 146/85
== END 2018-01-25 23:40 | disposition home or self-care (01) ==
LOC: ER 18:35
DX: R60.0 Localized edema (principal); N50.89 Other specified disorders of the male genital organs; I25.10 Atherosclerotic heart disease of native coronary artery without angina pectoris; E11.9 Type 2 diabetes mellitus without complications; I11.0 Hypertensive heart disease with heart failure; I50.9 Heart failure, unspecified; E78.00 Pure hypercholesterolemia, unspecified; Z85.038 Personal history of other malignant neoplasm of large intestine; Z90.49 Acquired absence of other specified parts of digestive tract; Z95.1 Presence of aortocoronary bypass graft; Z88.5 Allergy status to narcotic agent; Z86.73 Personal history of transient ischemic attack (TIA), and cerebral infarction without residual deficits; Z79.01 Long term (current) use of anticoagulants; Z79.899 Other long term (current) drug therapy
CPT/HCPCS: 36415; 80053; 85025; 93005; 99285

== ENCOUNTER 2018-02-09 16:08 | Emergency (ER) | payer MEDICARE, MEDICAID ==
[~2018-02-09] VITALS: Ht 162.6 cm; Wt 94.5 kg
[2018-02-09 16:38] LABS: BASOPHILS % (AUTO) 0.8 % (0-1); EOSINOPHILS # (AUTO) 0.1 X10'3 (0-0.9); EOSINOPHILS % (AUTO) 2.6 % (0-6); HEMATOCRIT 25.1 % (42.0-52.0); LYMPHOCYTES # (AUTO) 0.7 X10'3 (1.1-4.8); LYMPHOCYTES % (AUTO) 16.3 % (21-51); MEAN CORPUSCULAR HEMOGLOBIN 26.8 PG (27.0-31.0); MEAN CORPUSCULAR HGB CONC 31.8 % (33.0-36.5); MEAN CORPUSCULAR VOLUME 84.2 FL (78-98); MEAN PLATELET VOLUME 6.7 FL (7.4-10.4); MONOCYTES # (AUTO) 0.3 X10'3 (0-0.9); MONOCYTES % (AUTO) 7.3 % (2-12); NEUTROPHILS # (AUTO) 3.3 X10'3 (1.8-7.7); PLATELET COUNT 184 X10'3 (140-440); RED BLOOD COUNT 2.98 X10'6 (4.70-6.10); RED CELL DISTRIBUTION WIDTH 18.1 % (11.5-14.5); WHITE BLOOD COUNT 4.6 X10'3 (4.5-11.0)
[2018-02-09 16:47] LABS: INR 1.6 INR; PARTIAL THROMBOPLASTIN TIME 31 SECONDS (22-32); PROTHROMBIN TIME 15.9 SECONDS (9.0-12.0)
[2018-02-09 16:52] LABS: ALBUMIN 2.1 G/DL (3.4-5.0); ANION GAP -1 (8-16); BILIRUBIN,TOTAL 0.5 MG/DL (0.1-1.0); BLOOD UREA NITROGEN 34 MG/DL (7-18); BUN/CREATININE RATIO 13.4 (5.4-32.0); CALCIUM 7.9 MG/DL (8.5-10.1); CHLORIDE 110 MMOL/L (99-107); CREATININE 2.53 MG/DL (0.60-1.10); GLUCOSE 154 MG/DL (70-104); POTASSIUM 4.6 MMOL/L (3.5-5.1); SODIUM 139 MMOL/L (135-145); TOTAL CARBON DIOXIDE 29.8 MMOL/L (24-32); TOTAL PROTEIN 6.4 G/DL (6.4-8.2); eGFR 25 ML/MIN
[2018-02-09 16:53] LABS: ALANINE AMINOTRANSFERASE 30 U/L (12-78); ALBUMIN/GLOBULIN RATIO 0.5 (1.1-1.5); ALKALINE PHOSPHATASE 91 IU/L (46-116); ASPARTATE AMINO TRANSFERASE 40 U/L (10-37)
[2018-02-09 17:02] VITALS: BP 133/77
== END 2018-02-09 19:06 | disposition home or self-care (01) ==
LOC: ER 16:08
DX: I50.9 Heart failure, unspecified (principal); N50.89 Other specified disorders of the male genital organs; I25.10 Atherosclerotic heart disease of native coronary artery without angina pectoris; I11.0 Hypertensive heart disease with heart failure; E78.00 Pure hypercholesterolemia, unspecified; E11.9 Type 2 diabetes mellitus without complications; Z85.038 Personal history of other malignant neoplasm of large intestine; Z86.73 Personal history of transient ischemic attack (TIA), and cerebral infarction without residual deficits; Z95.1 Presence of aortocoronary bypass graft; Z90.49 Acquired absence of other specified parts of digestive tract; Z88.5 Allergy status to narcotic agent; Z79.899 Other long term (current) drug therapy; Z99.81 Dependence on supplemental oxygen; Z79.01 Long term (current) use of anticoagulants
CPT/HCPCS: 36415; 71045; 80053; 83880; 84484; 85025; 85610; 85730; 93005; 99285

== ENCOUNTER 2018-06-06 21:25 | Emergency (ER) | payer MEDICARE, MEDICAID ==
[~2018-06-06] VITALS: Ht 165.1 cm; Wt 74.1 kg
[~2018-06-06 21:25] MED LIST changes: +AMIO200T40 PO; -AMIO200T57 PO
[2018-06-06 22:19] LABS: BASOPHILS % (AUTO) 0.7 % (0-1); EOSINOPHILS # (AUTO) 0.2 X10'3 (0-0.9); EOSINOPHILS % (AUTO) 3.9 % (0-6); HEMOGLOBIN 7.8 g/dl (14.0-17.9); LYMPHOCYTES # (AUTO) 0.7 X10'3 (1.1-4.8); LYMPHOCYTES % (AUTO) 14.5 % (21-51); MEAN CORPUSCULAR HGB CONC 32.5 % (33.0-36.5); MEAN CORPUSCULAR VOLUME 83.1 FL (78-98); MEAN PLATELET VOLUME 6.9 FL (7.4-10.4); MONOCYTES # (AUTO) 0.3 X10'3 (0-0.9); MONOCYTES % (AUTO) 7.2 % (2-12); NEUTROPHILS # (AUTO) 3.5 X10'3 (1.8-7.7); NEUTROPHILS % (AUTO) 73.7 % (42-75); PLATELET COUNT 200 X10'3 (140-440); RED BLOOD COUNT 2.89 X10'6 (4.70-6.10); RED CELL DISTRIBUTION WIDTH 20.2 % (11.5-14.5); WHITE BLOOD COUNT 4.8 X10'3 (4.5-11.0)
[2018-06-06 22:31] LABS: INR 2.2 INR; PARTIAL THROMBOPLASTIN TIME 35 SECONDS (22-32); PROTHROMBIN TIME 22.1 SECONDS (9.0-12.0)
[2018-06-06 22:35] LABS: ALANINE AMINOTRANSFERASE 19 U/L (12-78); ALBUMIN 2.5 G/DL (3.4-5.0); ALBUMIN/GLOBULIN RATIO 0.6 (1.1-1.5); ALKALINE PHOSPHATASE 105 IU/L (46-116); ANION GAP 7 (8-16); ASPARTATE AMINO TRANSFERASE 27 U/L (10-37); BILIRUBIN,TOTAL 0.7 MG/DL (0.1-1.0); BLOOD UREA NITROGEN 47 MG/DL (7-18); BUN/CREATININE RATIO 17.4 (5.4-32.0); CALCIUM 7.8 MG/DL (8.5-10.1); CHLORIDE 107 MMOL/L (99-107); GLUCOSE 127 MG/DL (70-104); POTASSIUM 4.7 MMOL/L (3.5-5.1); SODIUM 143 MMOL/L (135-145); TOTAL CARBON DIOXIDE 29.2 MMOL/L (24-32); TOTAL PROTEIN 6.5 G/DL (6.4-8.2); eGFR 23 ML/MIN
[2018-06-06 23:04] VITALS: BP 118/64
[2018-06-06] MEDS ORDERED: ketorolac trometh. 30mg/ml inj. IV ONE (23:15)
[2018-06-06] MEDS ORDERED: metoclopramide 5 mg/ml inj IV ONE (23:15)
[2018-06-06] MEDS ORDERED: diphenhydrAMINE 50 mg/ml inj IV ONE (23:15)
== END 2018-06-07 00:06 | disposition home or self-care (01) ==
LOC: ER 21:25
DX: R51 Headache (principal); R42 Dizziness and giddiness; I11.0 Hypertensive heart disease with heart failure; I50.9 Heart failure, unspecified; I25.10 Atherosclerotic heart disease of native coronary artery without angina pectoris; E78.00 Pure hypercholesterolemia, unspecified; Z90.49 Acquired absence of other specified parts of digestive tract; Z95.1 Presence of aortocoronary bypass graft; Z86.73 Personal history of transient ischemic attack (TIA), and cerebral infarction without residual deficits; Z88.6 Allergy status to analgesic agent
CPT/HCPCS: 36415; 71045; 80053; 84484; 85025; 85610; 85730; 93005; 99285

== ENCOUNTER 2018-08-23 16:16 | Emergency (ER) | payer MEDICARE, MEDICAID ==
[~2018-08-23] VITALS: Ht 162.6 cm; Wt 75.0 kg
[2018-08-23] MEDS ORDERED: ondansetron/PF 4mg/2ml inj IV ONE (17:10)
[2018-08-23 17:11] LABS: BASOPHILS % (AUTO) 0.2 % (0-1); EOSINOPHILS # (AUTO) 0.3 X10'3 (0-0.9); HEMATOCRIT 25.8 % (42.0-52.0); HEMOGLOBIN 8.1 g/dl (14.0-17.9); LYMPHOCYTES # (AUTO) 0.4 X10'3 (1.1-4.8); LYMPHOCYTES % (AUTO) 4.2 % (21-51); MEAN CORPUSCULAR HEMOGLOBIN 26.7 PG (27.0-31.0); MEAN CORPUSCULAR HGB CONC 31.4 % (33.0-36.5); MEAN CORPUSCULAR VOLUME 84.8 FL (78-98); MEAN PLATELET VOLUME 7.6 FL (7.4-10.4); MONOCYTES # (AUTO) 0.4 X10'3 (0-0.9); MONOCYTES % (AUTO) 4.2 % (2-12); NEUTROPHILS # (AUTO) 7.6 X10'3 (1.8-7.7); NEUTROPHILS % (AUTO) 88.4 % (42-75); PLATELET COUNT 203 X10'3 (140-440); RED BLOOD COUNT 3.04 X10'6 (4.70-6.10); RED CELL DISTRIBUTION WIDTH 20.3 % (11.5-14.5); WHITE BLOOD COUNT 8.6 X10'3 (4.5-11.0)
[2018-08-23 17:22] LABS: INR 3.1 INR; PROTHROMBIN TIME 29.4 SECONDS (9.0-12.0)
[2018-08-23 17:34] LABS: ALANINE AMINOTRANSFERASE 25 U/L (12-78); ALBUMIN 2.9 G/DL (3.4-5.0); ALBUMIN/GLOBULIN RATIO 0.7 (1.1-1.5); ALKALINE PHOSPHATASE 88 IU/L (46-116); ANION GAP 12 (8-16); ASPARTATE AMINO TRANSFERASE 29 U/L (10-37); BILIRUBIN,TOTAL 0.9 MG/DL (0.1-1.0); BLOOD UREA NITROGEN 53 MG/DL (7-18); BUN/CREATININE RATIO 20.2 (5.4-32.0); CALCIUM 8.3 MG/DL (8.5-10.1); CHLORIDE 105 MMOL/L (99-107); CREATININE 2.63 MG/DL (0.60-1.10); GLUCOSE 144 MG/DL (70-104); LIPASE 222 U/L (73-393); SODIUM 141 MMOL/L (135-145); TOTAL CARBON DIOXIDE 23.7 MMOL/L (24-32); TOTAL PROTEIN 7.1 G/DL (6.4-8.2); eGFR 24 ML/MIN
[2018-08-23 17:35] LABS: ANISOCYTOSIS 2+; HYPOCHROMASIA 1+; MICROCYTOSIS 1+; PLATELET ESTIMATE NORMAL; POLYCHROMASIA 1+
[2018-08-23 17:36] LABS: POIKILOCYTOSIS FEW
[2018-08-23 17:43] LABS: CLARITY,URINE CLEAR (Clear); COLOR,URINE YELLOW (Yellow); GLUCOSE, URINE NEGATIVE (Neg); KETONES,URINE NEGATIVE (Neg); LEUKOCYTE ESTERASE ,URINE NEGATIVE (Neg); NITRITES, URINE NEGATIVE (Neg); OCCULT BLOOD,URINE SMALL (Neg); PH,URINE 6.5 (4.8-8.0); PROTEIN,URINE 100 mg/dl (Neg); UROBILINOGEN,URINE 0.2 E.U/dL (0.2-1.0)
[2018-08-23 17:48] LABS: UA COLLECTION TYPE URINAL
[2018-08-23 17:49] LABS: BACTERIA,URINE NONE SEEN /HPF (Neg); MUCUS STRANDS NONE SEEN /LPF (Neg); RBC,URINE 0-2 /HPF (0-2); SQUAMOUS EPITHELIAL CELL,UR FEW /LPF (FEW); WBC,URINE NONE SEEN /HPF (0-4)
[2018-08-23 19:18] VITALS: BP 139/79
[2018-08-23] MEDS ORDERED: ONDA4TAB9 PO (19:18)
== END 2018-08-23 19:31 | disposition home or self-care (01) ==
LOC: ER 16:17
DX: R11.2 Nausea with vomiting, unspecified (principal); E87.70 Fluid overload, unspecified; I25.10 Atherosclerotic heart disease of native coronary artery without angina pectoris; I11.0 Hypertensive heart disease with heart failure; I50.9 Heart failure, unspecified; E78.00 Pure hypercholesterolemia, unspecified; E11.9 Type 2 diabetes mellitus without complications; Z86.73 Personal history of transient ischemic attack (TIA), and cerebral infarction without residual deficits; Z85.038 Personal history of other malignant neoplasm of large intestine; Z90.49 Acquired absence of other specified parts of digestive tract; Z95.1 Presence of aortocoronary bypass graft; Z98.890 Other specified postprocedural states; Z88.5 Allergy status to narcotic agent; Z79.01 Long term (current) use of anticoagulants; Z79.899 Other long term (current) drug therapy
CPT/HCPCS: 36415; 74176; 80053; 81001; 83690; 85025; 85610; 96374; 99284; J2405

== ENCOUNTER 2018-09-22 19:45 | Emergency (ER) | payer MEDICARE, MEDICAID ==
[~2018-09-22] VITALS: Ht 162.6 cm; Wt 80.1 kg
[~2018-09-22 19:45] MED LIST changes: +ONDA4TAB9 PO
[2018-09-22 20:13] VITALS: BP 144/78
[2018-09-22 22:09] LABS: BASOPHILS % (AUTO) 1.1 % (0-1); EOSINOPHILS # (AUTO) 0.2 X10'3 (0-0.9); EOSINOPHILS % (AUTO) 4.1 % (0-6); HEMATOCRIT 27.8 % (42.0-52.0); HEMOGLOBIN 8.8 g/dl (14.0-17.9); LYMPHOCYTES # (AUTO) 0.5 X10'3 (1.1-4.8); LYMPHOCYTES % (AUTO) 11.6 % (21-51); MEAN CORPUSCULAR HEMOGLOBIN 27.3 PG (27.0-31.0); MEAN CORPUSCULAR HGB CONC 31.5 % (33.0-36.5); MEAN CORPUSCULAR VOLUME 86.5 FL (78-98); MEAN PLATELET VOLUME 8.1 FL (7.4-10.4); MONOCYTES # (AUTO) 0.3 X10'3 (0-0.9); MONOCYTES % (AUTO) 7.3 % (2-12); NEUTROPHILS # (AUTO) 3.5 X10'3 (1.8-7.7); NEUTROPHILS % (AUTO) 75.9 % (42-75); PLATELET COUNT 161 X10'3 (140-440); RED BLOOD COUNT 3.22 X10'6 (4.70-6.10); RED CELL DISTRIBUTION WIDTH 18.3 % (11.5-14.5); WHITE BLOOD COUNT 4.5 X10'3 (4.5-11.0)
[2018-09-22 22:24] LABS: ALANINE AMINOTRANSFERASE 28 U/L (12-78); ALBUMIN 2.8 G/DL (3.4-5.0); ALBUMIN/GLOBULIN RATIO 0.7 (1.1-1.5); ALKALINE PHOSPHATASE 98 IU/L (46-116); ANION GAP 9 (8-16); ASPARTATE AMINO TRANSFERASE 27 U/L (10-37); BILIRUBIN,TOTAL 0.7 MG/DL (0.1-1.0); BLOOD UREA NITROGEN 61 MG/DL (7-18); BUN/CREATININE RATIO 25.8 (5.4-32.0); CALCIUM 8.3 MG/DL (8.5-10.1); CHLORIDE 106 MMOL/L (99-107); CREATININE 2.36 MG/DL (0.60-1.10); GLUCOSE 113 MG/DL (70-104); POTASSIUM 4.6 MMOL/L (3.5-5.1); SODIUM 142 MMOL/L (135-145); TOTAL CARBON DIOXIDE 26.7 MMOL/L (24-32); TOTAL PROTEIN 7.1 G/DL (6.4-8.2); eGFR 27 ML/MIN
[2018-09-22 22:27] LABS: INR 2.7 INR; PROTHROMBIN TIME 25.7 SECONDS (9.0-12.0)
[2018-09-22] MEDS ORDERED: morphine 4 MG/ML inj SYRINge IV ONE (22:50)
[2018-09-22] MEDS ORDERED: ondansetron/PF 4mg/2ml inj IV ONE (22:50)
--- NOTE | 2018-09-22 23:56 | NUR ---
UNABLE TO SCAN MEDICATION DUE TO EQUIPMENT FAILURE.
[2018-09-23 00:03] LABS: CLARITY,URINE CLEAR (Clear); COLOR,URINE YELLOW (Yellow); GLUCOSE, URINE NEGATIVE (Neg); KETONES,URINE NEGATIVE (Neg); LEUKOCYTE ESTERASE ,URINE NEGATIVE (Neg); NITRITES, URINE NEGATIVE (Neg); OCCULT BLOOD,URINE SMALL (Neg); PROTEIN,URINE 100 mg/dl (Neg)
[2018-09-23 00:09] LABS: UA COLLECTION TYPE VOIDED
[2018-09-23 00:10] LABS: BACTERIA,URINE NONE SEEN /HPF (Neg); SQUAMOUS EPITHELIAL CELL,UR FEW /LPF (FEW); WBC,URINE NONE SEEN /HPF (0-4)
[2018-09-23] MEDS ORDERED: furosemide 10 MG/1 ML 10ml inj IV ONE (00:20)
[2018-09-23] MEDS ORDERED: FURO40TA4 PO (00:59)
[2018-09-23] MEDS ORDERED: SACU1TAB PO (00:59)
[2018-09-23] MEDS ORDERED: OMEP-50 PO (00:59)
[2018-09-23] MEDS ORDERED: POLY17PO10 PO (01:52)
[2018-09-23] MEDS ORDERED: morphine 4 MG/ML inj SYRINge IV ONE (02:00)
== END 2018-09-23 02:35 | disposition home or self-care (01) ==
LOC: ER 19:46
DX: I11.0 Hypertensive heart disease with heart failure (principal); I50.9 Heart failure, unspecified; I25.10 Atherosclerotic heart disease of native coronary artery without angina pectoris; E78.00 Pure hypercholesterolemia, unspecified; E11.9 Type 2 diabetes mellitus without complications; Z90.49 Acquired absence of other specified parts of digestive tract; Z95.1 Presence of aortocoronary bypass graft; Z88.6 Allergy status to analgesic agent; Z79.01 Long term (current) use of anticoagulants
CPT/HCPCS: 36415; 74176; 80053; 81001; 83880; 84484; 85025; 85610; 93005; 96374; 96375; 99284; J1940; J2270; J2405; 81003

== ENCOUNTER 2018-10-09 21:50 | Emergency (ER) | payer MEDICARE, MEDICAID ==
[~2018-10-09] VITALS: Ht 162.6 cm; Wt 86.3 kg
[~2018-10-09 21:50] MED LIST changes: -AMLO10TA4 PO; -FERR325T39 PO; -FURO-150 PO; +FURO40TA4 PO; +OMEP-50 PO; -ONDA4TAB9 PO; +SACU1TAB PO
[2018-10-09 22:13] LABS: BASOPHILS % (AUTO) 0.7 % (0-1); EOSINOPHILS # (AUTO) 0.3 X10'3 (0-0.9); EOSINOPHILS % (AUTO) 4.4 % (0-6); HEMATOCRIT 24.4 % (42.0-52.0); HEMOGLOBIN 7.9 g/dl (14.0-17.9); LYMPHOCYTES # (AUTO) 0.7 X10'3 (1.1-4.8); LYMPHOCYTES % (AUTO) 10.2 % (21-51); MEAN CORPUSCULAR HEMOGLOBIN 27.4 PG (27.0-31.0); MEAN CORPUSCULAR HGB CONC 32.3 g/dL (33.0-36.5); MEAN CORPUSCULAR VOLUME 84.7 FL (78-98); MEAN PLATELET VOLUME 6.7 FL (7.4-10.4); MONOCYTES # (AUTO) 0.4 X10'3 (0-0.9); MONOCYTES % (AUTO) 5.5 % (2-12); NEUTROPHILS # (AUTO) 5.4 X10'3 (1.8-7.7); NEUTROPHILS % (AUTO) 79.2 % (42-75); PLATELET COUNT 218 X10'3 (140-440); RED BLOOD COUNT 2.88 X10'6 (4.70-6.10); RED CELL DISTRIBUTION WIDTH 18.6 % (11.5-14.5); WHITE BLOOD COUNT 6.8 X10'3 (4.5-11.0)
[2018-10-09 22:27] LABS: ACANTHOCYTES 1+; ANISOCYTOSIS 2+; HYPOCHROMASIA 1+; PLATELET ESTIMATE NORMAL; POLYCHROMASIA FEW
[2018-10-09 22:28] LABS: POIKILOCYTOSIS 1+
[2018-10-09 22:36] LABS: ALANINE AMINOTRANSFERASE 24 U/L (12-78); ALBUMIN 2.7 G/DL (3.4-5.0); ALBUMIN/GLOBULIN RATIO 0.6 (1.1-1.5); ALKALINE PHOSPHATASE 102 IU/L (46-116); ANION GAP 6 (8-16); ASPARTATE AMINO TRANSFERASE 28 U/L (10-37); BILIRUBIN,TOTAL 0.8 MG/DL (0.1-1.0); BLOOD UREA NITROGEN 59 MG/DL (7-18); BUN/CREATININE RATIO 20.8 (5.4-32.0); CALCIUM 7.8 MG/DL (8.5-10.1); CHLORIDE 105 MMOL/L (99-107); CREATININE 2.83 MG/DL (0.60-1.10); GLUCOSE 165 MG/DL (70-104); POTASSIUM 4.3 MMOL/L (3.5-5.1); SODIUM 139 MMOL/L (135-145); TOTAL CARBON DIOXIDE 27.9 MMOL/L (24-32); eGFR 22 ML/MIN
[2018-10-09 22:42] LABS: INR 1.9 INR; PARTIAL THROMBOPLASTIN TIME 35 SECONDS (22-32); PROTHROMBIN TIME 18.4 SECONDS (9.0-12.0)
[2018-10-09 23:25] VITALS: BP 132/72
== END 2018-10-09 23:26 | disposition home or self-care (01) ==
LOC: ER 21:51
DX: R42 Dizziness and giddiness (principal); I13.0 Hypertensive heart and chronic kidney disease with heart failure and stage 1 through stage 4 chronic kidney disease, or unspecified chronic kidney disease; E11.22 Type 2 diabetes mellitus with diabetic chronic kidney disease; N18.3 Chronic kidney disease, stage 3 (moderate); I50.9 Heart failure, unspecified; D64.89 Other specified anemias; I25.10 Atherosclerotic heart disease of native coronary artery without angina pectoris; E78.00 Pure hypercholesterolemia, unspecified; Z86.73 Personal history of transient ischemic attack (TIA), and cerebral infarction without residual deficits; Z90.49 Acquired absence of other specified parts of digestive tract; Z95.1 Presence of aortocoronary bypass graft; Z85.038 Personal history of other malignant neoplasm of large intestine; Z88.5 Allergy status to narcotic agent; Z79.899 Other long term (current) drug therapy; Z79.01 Long term (current) use of anticoagulants
CPT/HCPCS: 36415; 71045; 80053; 84484; 85025; 85610; 85730; 93005; 99284

== ENCOUNTER 2018-10-14 15:09 | Emergency (ER) | payer MEDICARE, MEDICAID ==
[~2018-10-14] VITALS: Ht 162.6 cm; Wt 75.0 kg
[2018-10-14] MEDS ORDERED: furosemide 10 MG/1 ML 10ml inj IV ONE (17:50)
[2018-10-14 18:57] LABS: BASOPHILS % (AUTO) 0.8 % (0-1); EOSINOPHILS # (AUTO) 0.2 X10'3 (0-0.9); EOSINOPHILS % (AUTO) 3.9 % (0-6); HEMATOCRIT 24.1 % (42.0-52.0); HEMOGLOBIN 7.7 g/dl (14.0-17.9); LYMPHOCYTES # (AUTO) 0.6 X10'3 (1.1-4.8); LYMPHOCYTES % (AUTO) 11.7 % (21-51); MEAN CORPUSCULAR HEMOGLOBIN 27.1 PG (27.0-31.0); MEAN CORPUSCULAR HGB CONC 32.1 g/dL (33.0-36.5); MEAN CORPUSCULAR VOLUME 84.4 FL (78-98); MEAN PLATELET VOLUME 7.4 FL (7.4-10.4); MONOCYTES # (AUTO) 0.3 X10'3 (0-0.9); MONOCYTES % (AUTO) 5.8 % (2-12); NEUTROPHILS # (AUTO) 4.2 X10'3 (1.8-7.7); NEUTROPHILS % (AUTO) 77.8 % (42-75); PLATELET COUNT 201 X10'3 (140-440); RED BLOOD COUNT 2.85 X10'6 (4.70-6.10); RED CELL DISTRIBUTION WIDTH 19.1 % (11.5-14.5); WHITE BLOOD COUNT 5.4 X10'3 (4.5-11.0)
[2018-10-14 19:15] LABS: ALANINE AMINOTRANSFERASE 22 U/L (12-78); ALBUMIN 2.5 G/DL (3.4-5.0); ALBUMIN/GLOBULIN RATIO 0.6 (1.1-1.5); ALKALINE PHOSPHATASE 106 IU/L (46-116); ANION GAP 8 (8-16); ASPARTATE AMINO TRANSFERASE 23 U/L (10-37); BILIRUBIN,TOTAL 0.6 MG/DL (0.1-1.0); BLOOD UREA NITROGEN 50 MG/DL (7-18); CALCIUM 7.9 MG/DL (8.5-10.1); CHLORIDE 108 MMOL/L (99-107); GLUCOSE 142 MG/DL (70-104); POTASSIUM 4.2 MMOL/L (3.5-5.1); SODIUM 143 MMOL/L (135-145); TOTAL CARBON DIOXIDE 27.4 MMOL/L (24-32); TOTAL PROTEIN 6.6 G/DL (6.4-8.2); eGFR 26 ML/MIN
[2018-10-14 20:47] VITALS: BP 140/76
== END 2018-10-14 21:14 | disposition home or self-care (01) ==
LOC: ER 15:10
DX: I11.0 Hypertensive heart disease with heart failure (principal); I50.9 Heart failure, unspecified; I25.10 Atherosclerotic heart disease of native coronary artery without angina pectoris; E78.00 Pure hypercholesterolemia, unspecified; E11.9 Type 2 diabetes mellitus without complications; Z86.73 Personal history of transient ischemic attack (TIA), and cerebral infarction without residual deficits; Z88.5 Allergy status to narcotic agent; Z90.49 Acquired absence of other specified parts of digestive tract; Z79.01 Long term (current) use of anticoagulants; Z79.899 Other long term (current) drug therapy
CPT/HCPCS: 36415; 71045; 80053; 83880; 85025; 96374; 99284; J1940

== ENCOUNTER 2018-10-20 19:34 | Emergency (ER) | payer MEDICARE, MEDICAID ==
[~2018-10-20] VITALS: Ht 162.6 cm; Wt 79.0 kg
[2018-10-20 20:30] LABS: BASOPHILS % (AUTO) 0.5 % (0-1); EOSINOPHILS # (AUTO) 0.2 X10'3 (0-0.9); EOSINOPHILS % (AUTO) 4.7 % (0-6); HEMATOCRIT 26.6 % (42.0-52.0); HEMOGLOBIN 8.5 g/dl (14.0-17.9); LYMPHOCYTES # (AUTO) 0.6 X10'3 (1.1-4.8); LYMPHOCYTES % (AUTO) 12.9 % (21-51); MEAN CORPUSCULAR HEMOGLOBIN 26.8 PG (27.0-31.0); MEAN CORPUSCULAR HGB CONC 31.9 g/dL (33.0-36.5); MEAN CORPUSCULAR VOLUME 84.2 FL (78-98); MEAN PLATELET VOLUME 7.7 FL (7.4-10.4); MONOCYTES # (AUTO) 0.4 X10'3 (0-0.9); MONOCYTES % (AUTO) 7.8 % (2-12); NEUTROPHILS # (AUTO) 3.7 X10'3 (1.8-7.7); NEUTROPHILS % (AUTO) 74.1 % (42-75); PLATELET COUNT 184 X10'3 (140-440); RED BLOOD COUNT 3.16 X10'6 (4.70-6.10); RED CELL DISTRIBUTION WIDTH 19.3 % (11.5-14.5); WHITE BLOOD COUNT 4.9 X10'3 (4.5-11.0)
[2018-10-20 20:35] LABS: ALANINE AMINOTRANSFERASE 25 U/L (12-78); ALBUMIN 2.8 G/DL (3.4-5.0); ALBUMIN/GLOBULIN RATIO 0.7 (1.1-1.5); ALKALINE PHOSPHATASE 105 IU/L (46-116); ANION GAP 10 (8-16); ASPARTATE AMINO TRANSFERASE 33 U/L (10-37); BILIRUBIN,TOTAL 0.5 MG/DL (0.1-1.0); BLOOD UREA NITROGEN 47 MG/DL (7-18); BUN/CREATININE RATIO 19.5 (5.4-32.0); CALCIUM 7.8 MG/DL (8.5-10.1); CHLORIDE 105 MMOL/L (99-107); CREATININE 2.41 MG/DL (0.60-1.10); GLUCOSE 134 MG/DL (70-104); POTASSIUM 4.7 MMOL/L (3.5-5.1); SODIUM 142 MMOL/L (135-145); TOTAL CARBON DIOXIDE 26.9 MMOL/L (24-32); eGFR 27 ML/MIN
[2018-10-20 20:44] LABS: INR 3.6 INR; PARTIAL THROMBOPLASTIN TIME 40 SECONDS (22-32); PROTHROMBIN TIME 34.1 SECONDS (9.0-12.0)
[2018-10-20] MEDS ORDERED: furosemide 10 MG/1 ML 10ml inj IV ONE (20:50)
[2018-10-20] MEDS ORDERED: nitroGLYCERIN 0.2mg/hour patch TD ONE (20:55)
[2018-10-20 21:46] VITALS: BP 142/77
== END 2018-10-20 22:03 | disposition home or self-care (01) ==
LOC: ER 19:35
DX: I50.9 Heart failure, unspecified (principal); I11.0 Hypertensive heart disease with heart failure; D64.9 Anemia, unspecified; I25.2 Old myocardial infarction; E78.00 Pure hypercholesterolemia, unspecified; E11.9 Type 2 diabetes mellitus without complications; Z85.038 Personal history of other malignant neoplasm of large intestine; Z86.73 Personal history of transient ischemic attack (TIA), and cerebral infarction without residual deficits; Z90.49 Acquired absence of other specified parts of digestive tract; Z95.1 Presence of aortocoronary bypass graft; Z88.5 Allergy status to narcotic agent; Z79.01 Long term (current) use of anticoagulants; Z79.899 Other long term (current) drug therapy
CPT/HCPCS: 36415; 71045; 80053; 83880; 84484; 85025; 85610; 85730; 93005; 96374; 99284; J1940

== ENCOUNTER 2018-10-25 14:43 | Emergency (ER) | payer MEDICARE, MEDICAID ==
[~2018-10-25] VITALS: Ht 162.6 cm; Wt 86.4 kg
[2018-10-25 16:26] LABS: BASOPHILS % (AUTO) 0.2 % (0-1); EOSINOPHILS # (AUTO) 0.2 X10'3 (0-0.9); EOSINOPHILS % (AUTO) 2.8 % (0-6); HEMOGLOBIN 7.9 g/dl (14.0-17.9); LYMPHOCYTES # (AUTO) 0.5 X10'3 (1.1-4.8); LYMPHOCYTES % (AUTO) 7.5 % (21-51); MEAN CORPUSCULAR HEMOGLOBIN 26.6 PG (27.0-31.0); MEAN CORPUSCULAR HGB CONC 31.6 g/dL (33.0-36.5); MEAN CORPUSCULAR VOLUME 84.3 FL (78-98); MEAN PLATELET VOLUME 7.5 FL (7.4-10.4); MONOCYTES # (AUTO) 0.4 X10'3 (0-0.9); MONOCYTES % (AUTO) 6.2 % (2-12); NEUTROPHILS # (AUTO) 5.3 X10'3 (1.8-7.7); NEUTROPHILS % (AUTO) 83.3 % (42-75); PLATELET COUNT 152 X10'3 (140-440); RED BLOOD COUNT 2.97 X10'6 (4.70-6.10); RED CELL DISTRIBUTION WIDTH 18.3 % (11.5-14.5); WHITE BLOOD COUNT 6.4 X10'3 (4.5-11.0)
[2018-10-25 16:41] LABS: ALANINE AMINOTRANSFERASE 23 U/L (12-78); ALBUMIN 2.5 G/DL (3.4-5.0); ALBUMIN/GLOBULIN RATIO 0.6 (1.1-1.5); ALKALINE PHOSPHATASE 100 IU/L (46-116); ANION GAP 6 (8-16); ASPARTATE AMINO TRANSFERASE 40 U/L (10-37); BILIRUBIN,TOTAL 0.8 MG/DL (0.1-1.0); BLOOD UREA NITROGEN 55 MG/DL (7-18); BUN/CREATININE RATIO 21.2 (5.4-32.0); CHLORIDE 105 MMOL/L (99-107); GLUCOSE 138 MG/DL (70-104); POTASSIUM 4.4 MMOL/L (3.5-5.1); SODIUM 140 MMOL/L (135-145); TOTAL CARBON DIOXIDE 28.8 MMOL/L (24-32); TOTAL PROTEIN 6.7 G/DL (6.4-8.2); eGFR 24 ML/MIN
--- NOTE | 2018-10-25 19:40 | NUR ---
pt reports weight gin of 15 pounds the past 3 days. pt was here 3 weeks ago for the same issue. was given lasix iv and discharged home
--- NOTE | 2018-10-25 19:47 | NUR ---
gave the pt a urinal
[2018-10-25] MEDS ORDERED: furosemide 10 MG/1 ML 10ml inj IV ONE (20:15)
--- NOTE | 2018-10-25 20:31 | NUR ---
he has 2 urinals at bs for his request. Grand daughter here at BS.
[2018-10-25 20:32] VITALS: BP 153/87
== END 2018-10-25 20:47 | disposition home or self-care (01) ==
LOC: ER 14:44
DX: R60.0 Localized edema (principal); R53.83 Other fatigue; I25.10 Atherosclerotic heart disease of native coronary artery without angina pectoris; I11.0 Hypertensive heart disease with heart failure; I50.9 Heart failure, unspecified; E78.00 Pure hypercholesterolemia, unspecified; E11.9 Type 2 diabetes mellitus without complications; Z86.73 Personal history of transient ischemic attack (TIA), and cerebral infarction without residual deficits; Z90.49 Acquired absence of other specified parts of digestive tract; Z98.61 Coronary angioplasty status; Z88.5 Allergy status to narcotic agent; Z79.01 Long term (current) use of anticoagulants; Z79.899 Other long term (current) drug therapy
CPT/HCPCS: 36415; 80053; 85025; 96374; 99283; J1940

== ENCOUNTER 2018-10-30 22:58 | Emergency (ER) | payer MEDICARE, MEDICAID ==
[~2018-10-30] VITALS: Ht 162.6 cm; Wt 90.2 kg
[2018-10-30 23:56] LABS: BASOPHILS % (AUTO) 0.8 % (0-1); EOSINOPHILS # (AUTO) 0.2 X10'3 (0-0.9); EOSINOPHILS % (AUTO) 3.9 % (0-6); HEMOGLOBIN 7.3 g/dl (14.0-17.9); LYMPHOCYTES # (AUTO) 0.5 X10'3 (1.1-4.8); LYMPHOCYTES % (AUTO) 9.8 % (21-51); MEAN CORPUSCULAR HEMOGLOBIN 26.7 PG (27.0-31.0); MEAN CORPUSCULAR HGB CONC 31.8 g/dL (33.0-36.5); MEAN PLATELET VOLUME 7.2 FL (7.4-10.4); MONOCYTES # (AUTO) 0.4 X10'3 (0-0.9); NEUTROPHILS # (AUTO) 4.1 X10'3 (1.8-7.7); NEUTROPHILS % (AUTO) 78.5 % (42-75); PLATELET COUNT 189 X10'3 (140-440); RED BLOOD COUNT 2.74 X10'6 (4.70-6.10); RED CELL DISTRIBUTION WIDTH 18.3 % (11.5-14.5); WHITE BLOOD COUNT 5.2 X10'3 (4.5-11.0)
[2018-10-31 00:03] LABS: ALANINE AMINOTRANSFERASE 20 U/L (12-78); ALBUMIN 2.5 G/DL (3.4-5.0); ALBUMIN/GLOBULIN RATIO 0.6 (1.1-1.5); ALKALINE PHOSPHATASE 115 IU/L (46-116); ANION GAP 9 (8-16); ASPARTATE AMINO TRANSFERASE 30 U/L (10-37); BILIRUBIN,TOTAL 0.6 MG/DL (0.1-1.0); BLOOD UREA NITROGEN 63 MG/DL (7-18); BUN/CREATININE RATIO 22.9 (5.4-32.0); CALCIUM 7.9 MG/DL (8.5-10.1); CHLORIDE 105 MMOL/L (99-107); CREATININE 2.75 MG/DL (0.60-1.10); GLUCOSE 161 MG/DL (70-104); POTASSIUM 4.6 MMOL/L (3.5-5.1); SODIUM 141 MMOL/L (135-145); TOTAL CARBON DIOXIDE 27.5 MMOL/L (24-32); TOTAL PROTEIN 6.8 G/DL (6.4-8.2); eGFR 23 ML/MIN
[2018-10-31 00:05] LABS: LIPASE 252 U/L (73-393); TROPONIN I < 0.04 NG/ML (0.0-0.05)
[2018-10-31 00:28] LABS: INR 2.7 INR; PROTHROMBIN TIME 25.9 SECONDS (9.0-12.0)
[2018-10-31 01:41] VITALS: BP 123/72
== END 2018-10-31 01:46 | disposition home or self-care (01) ==
LOC: ER 22:58
DX: R18.8 Other ascites (principal); R10.13 Epigastric pain; R10.84 Generalized abdominal pain; I25.10 Atherosclerotic heart disease of native coronary artery without angina pectoris; I11.0 Hypertensive heart disease with heart failure; I50.9 Heart failure, unspecified; E78.00 Pure hypercholesterolemia, unspecified; E11.9 Type 2 diabetes mellitus without complications; Z86.73 Personal history of transient ischemic attack (TIA), and cerebral infarction without residual deficits; Z85.038 Personal history of other malignant neoplasm of large intestine; Z90.49 Acquired absence of other specified parts of digestive tract; Z95.1 Presence of aortocoronary bypass graft; Z98.890 Other specified postprocedural states; Z88.5 Allergy status to narcotic agent; Z79.01 Long term (current) use of anticoagulants; Z79.899 Other long term (current) drug therapy
CPT/HCPCS: 36415; 71045; 74176; 80053; 83690; 84484; 85025; 85610; 93005; 99284

== ENCOUNTER 2018-11-10 12:00 | Emergency (ER) | payer MEDICARE, MEDICAID ==
[~2018-11-10] VITALS: Ht 162.6 cm; Wt 88.6 kg
[2018-11-10 13:05] LABS: BASOPHILS # (AUTO) 0.1 X10'3 (0-0.2); BASOPHILS % (AUTO) 1.1 % (0-1); EOSINOPHILS # (AUTO) 0.2 X10'3 (0-0.9); EOSINOPHILS % (AUTO) 3.6 % (0-6); LYMPHOCYTES # (AUTO) 0.6 X10'3 (1.1-4.8); LYMPHOCYTES % (AUTO) 9.8 % (21-51); MEAN CORPUSCULAR HEMOGLOBIN 26.7 PG (27.0-31.0); MEAN CORPUSCULAR HGB CONC 32.1 g/dL (33.0-36.5); MEAN CORPUSCULAR VOLUME 83.3 FL (78-98); MEAN PLATELET VOLUME 7.2 FL (7.4-10.4); MONOCYTES # (AUTO) 0.5 X10'3 (0-0.9); MONOCYTES % (AUTO) 7.8 % (2-12); NEUTROPHILS # (AUTO) 4.7 X10'3 (1.8-7.7); NEUTROPHILS % (AUTO) 77.7 % (42-75); PLATELET COUNT 172 X10'3 (140-440); RED BLOOD COUNT 2.43 X10'6 (4.70-6.10); RED CELL DISTRIBUTION WIDTH 18.5 % (11.5-14.5); WHITE BLOOD COUNT 6.1 X10'3 (4.5-11.0)
[2018-11-10 13:12] LABS: HEMATOCRIT 20.2 % (42.0-52.0); HEMOGLOBIN 6.5 g/dl (14.0-17.9)
[2018-11-10 13:20] LABS: ALANINE AMINOTRANSFERASE 11 U/L (12-78); ALBUMIN 2.6 G/DL (3.4-5.0); ALBUMIN/GLOBULIN RATIO 0.6 (1.1-1.5); ALKALINE PHOSPHATASE 94 IU/L (46-116); ANION GAP 5 (8-16); ASPARTATE AMINO TRANSFERASE 30 U/L (10-37); BILIRUBIN,TOTAL 0.5 MG/DL (0.1-1.0); BLOOD UREA NITROGEN 69 MG/DL (7-18); BUN/CREATININE RATIO 25.2 (5.4-32.0); CALCIUM 7.9 MG/DL (8.5-10.1); CHLORIDE 109 MMOL/L (99-107); CREATININE 2.74 MG/DL (0.60-1.10); GLUCOSE 96 MG/DL (70-104); POTASSIUM 4.8 MMOL/L (3.5-5.1); SODIUM 141 MMOL/L (135-145); TOTAL CARBON DIOXIDE 26.8 MMOL/L (24-32); TOTAL PROTEIN 6.7 G/DL (6.4-8.2); eGFR 23 ML/MIN
[2018-11-10 13:23] LABS: INR 1.3 INR; PROTHROMBIN TIME 12.9 SECONDS (9.0-12.0)
[2018-11-10] MEDS ORDERED: traMADol 50MG tablet PO ONE (13:35)
[2018-11-10] MEDS ORDERED: TRAM50TA2 PO (13:37)
[2018-11-10 13:44] VITALS: BP 146/96
[2018-11-13] MEDS ORDERED: ISOS30TA6 PO (16:34)
[2018-11-13] MEDS ORDERED: SACU1TAB7 PO (16:34)
[2018-11-13] MEDS ORDERED: HYDR-4069 PO (16:34)
[2018-11-13] MEDS ORDERED: CEPH500C5 PO (16:38)
[2018-11-13] MEDS ORDERED: TRAM50TA2 PO (16:43)
== END 2018-11-10 14:36 | disposition home or self-care (01) ==
LOC: ER 12:02
DX: I97.638 Postprocedural hematoma of a circulatory system organ or structure following other circulatory system procedure (principal); D53.9 Nutritional anemia, unspecified; I25.10 Atherosclerotic heart disease of native coronary artery without angina pectoris; I11.0 Hypertensive heart disease with heart failure; I50.9 Heart failure, unspecified; E78.00 Pure hypercholesterolemia, unspecified; E11.9 Type 2 diabetes mellitus without complications; Z86.73 Personal history of transient ischemic attack (TIA), and cerebral infarction without residual deficits; Z90.49 Acquired absence of other specified parts of digestive tract; Z95.0 Presence of cardiac pacemaker; Z87.891 Personal history of nicotine dependence; Z88.5 Allergy status to narcotic agent; Z79.01 Long term (current) use of anticoagulants; Z79.899 Other long term (current) drug therapy
CPT/HCPCS: 36415; 71045; 80053; 85025; 85610; 93005; 93971; 99284

== ENCOUNTER 2018-11-12 15:27 | Inpatient (IN) | payer MEDICARE, MEDICAID | END 2018-11-17 16:35 | LOC: PCU 3S 11-16 04:00 → ER 15:27 → PCU 3S 11-13 05:10 → ED HOLD 21:12 | DX: T82.837A Hemorrhage due to cardiac prosthetic devices, implants and grafts, initial encounter (principal); D62 Acute posthemorrhagic anemia; I50.22 Chronic systolic (congestive) heart failure; E87.5 Hyperkalemia; Z95.0 Presence of cardiac pacemaker; I48.0 Paroxysmal atrial fibrillation; Z79.01 Long term (current) use of anticoagulants; N18.3 Chronic kidney disease, stage 3 (moderate) ==

== ENCOUNTER 2018-11-18 23:40 | Emergency (ER) | payer MEDICARE, MEDICAID ==
[~2018-11-18] VITALS: Ht 162.6 cm; Wt 90.0 kg
[~2018-11-18 23:40] MED LIST changes: +CEPH500C5 PO; +HYDR-4069 PO; +ISOS30TA6 PO; -LISI40TA4 PO; -OMEP-50 PO; -SACU1TAB PO; +SACU1TAB7 PO; +TRAM50TA2 PO
[2018-11-19 00:14] LABS: CLARITY,URINE CLEAR (Clear); COLOR,URINE YELLOW (Yellow); GLUCOSE, URINE NEGATIVE (Neg); KETONES,URINE NEGATIVE (Neg); LEUKOCYTE ESTERASE ,URINE NEGATIVE (Neg); NITRITES, URINE NEGATIVE (Neg); OCCULT BLOOD,URINE SMALL (Neg); PH,URINE 5.5 (4.8-8.0); PROTEIN,URINE 30 mg/dl (Neg); UROBILINOGEN,URINE 0.2 E.U/dL (0.2-1.0)
[2018-11-19 00:18] LABS: BASOPHILS # (AUTO) 0.1 X10'3 (0-0.2); BASOPHILS % (AUTO) 0.9 % (0-1); EOSINOPHILS # (AUTO) 0.4 X10'3 (0-0.9); EOSINOPHILS % (AUTO) 6.1 % (0-6); HEMATOCRIT 23.3 % (42.0-52.0); HEMOGLOBIN 7.3 g/dl (14.0-17.9); LYMPHOCYTES # (AUTO) 0.3 X10'3 (1.1-4.8); LYMPHOCYTES % (AUTO) 4.3 % (21-51); MEAN CORPUSCULAR HEMOGLOBIN 26.7 PG (27.0-31.0); MEAN CORPUSCULAR HGB CONC 31.4 g/dL (33.0-36.5); MEAN CORPUSCULAR VOLUME 85.2 FL (78-98); MEAN PLATELET VOLUME 7.5 FL (7.4-10.4); MONOCYTES # (AUTO) 0.3 X10'3 (0-0.9); MONOCYTES % (AUTO) 4.5 % (2-12); NEUTROPHILS # (AUTO) 5.3 X10'3 (1.8-7.7); NEUTROPHILS % (AUTO) 84.2 % (42-75); PLATELET COUNT 162 X10'3 (140-440); RED BLOOD COUNT 2.73 X10'6 (4.70-6.10); RED CELL DISTRIBUTION WIDTH 19.2 % (11.5-14.5); WHITE BLOOD COUNT 6.3 X10'3 (4.5-11.0)
[2018-11-19 00:20] LABS: BACTERIA,URINE NONE SEEN /HPF (Neg); RBC,URINE 0-2 /HPF (0-2); UA COLLECTION TYPE CLN CATCH MIDSTREAM; WBC,URINE NONE SEEN /HPF (0-4)
[2018-11-19 00:21] LABS: SQUAMOUS EPITHELIAL CELL,UR FEW /LPF (FEW)
[2018-11-19 00:26] LABS: ALANINE AMINOTRANSFERASE 12 U/L (12-78); ALBUMIN 2.6 G/DL (3.4-5.0); ALBUMIN/GLOBULIN RATIO 0.6 (1.1-1.5); ALKALINE PHOSPHATASE 88 IU/L (46-116); ANION GAP 7 (8-16); ASPARTATE AMINO TRANSFERASE 37 U/L (10-37); BILIRUBIN,TOTAL 0.8 MG/DL (0.1-1.0); BLOOD UREA NITROGEN 57 MG/DL (7-18); BUN/CREATININE RATIO 22.1 (5.4-32.0); CALCIUM 8.2 MG/DL (8.5-10.1); CHLORIDE 107 MMOL/L (99-107); CREATININE 2.58 MG/DL (0.60-1.10); GLUCOSE 135 MG/DL (70-104); POTASSIUM 4.6 MMOL/L (3.5-5.1); SODIUM 142 MMOL/L (135-145); TOTAL PROTEIN 6.7 G/DL (6.4-8.2); eGFR 25 ML/MIN
[2018-11-19 00:34] LABS: LIPASE 301 U/L (73-393); TROPONIN I < 0.04 NG/ML (0.0-0.05)
[2018-11-19] MEDS ORDERED: morphine 4 MG/ML inj SYRINge IM ONE (00:45)
[2018-11-19 00:58] VITALS: BP 141/73
[2018-11-19 01:23] LABS: ANISOCYTOSIS 2+; BURR CELLS 1+; ELLIPTOCYTES FEW; PLATELET ESTIMATE NORMAL
[2018-11-19] MEDS ORDERED: furosemide 10 MG/1 ML 10ml inj IV ONE (01:45)
[2018-11-19] MEDS ORDERED: FURO80TA87 PO (01:47)
[2018-11-20] MEDS ORDERED: OMEP-50 PO (03:32)
== END 2018-11-19 02:18 | disposition home or self-care (01) ==
LOC: ER 23:41
DX: I11.0 Hypertensive heart disease with heart failure (principal); I50.9 Heart failure, unspecified; R60.0 Localized edema; R10.84 Generalized abdominal pain; I25.10 Atherosclerotic heart disease of native coronary artery without angina pectoris; E78.00 Pure hypercholesterolemia, unspecified; E11.9 Type 2 diabetes mellitus without complications; Z86.73 Personal history of transient ischemic attack (TIA), and cerebral infarction without residual deficits; Z85.038 Personal history of other malignant neoplasm of large intestine; Z90.49 Acquired absence of other specified parts of digestive tract; Z95.1 Presence of aortocoronary bypass graft; Z95.0 Presence of cardiac pacemaker; Z88.5 Allergy status to narcotic agent; Z79.899 Other long term (current) drug therapy; Z79.01 Long term (current) use of anticoagulants
CPT/HCPCS: 36415; 74176; 80053; 81001; 83690; 83880; 84484; 85025; 96372; 96374; 99285; J1940; J2270

== ENCOUNTER 2018-11-20 01:15 | Inpatient (IN) | payer MEDICARE, MEDICAID ==
[~2018-11-20] VITALS: Ht 162.6 cm; Wt 90.0 kg
[~2018-11-20 01:15] MED LIST changes: +FURO80TA87 PO
[2018-11-20 02:14] LABS: BASOPHILS # (AUTO) 0.1 X10'3 (0-0.2); BASOPHILS % (AUTO) 1.4 % (0-1); EOSINOPHILS # (AUTO) 0.3 X10'3 (0-0.9); EOSINOPHILS % (AUTO) 5.7 % (0-6); HEMATOCRIT 23.4 % (42.0-52.0); HEMOGLOBIN 7.3 g/dl (14.0-17.9); LYMPHOCYTES # (AUTO) 0.5 X10'3 (1.1-4.8); LYMPHOCYTES % (AUTO) 8.5 % (21-51); MEAN CORPUSCULAR HEMOGLOBIN 26.7 PG (27.0-31.0); MEAN CORPUSCULAR HGB CONC 31.2 g/dL (33.0-36.5); MEAN CORPUSCULAR VOLUME 85.7 FL (78-98); MEAN PLATELET VOLUME 7.3 FL (7.4-10.4); MONOCYTES # (AUTO) 0.4 X10'3 (0-0.9); MONOCYTES % (AUTO) 7.7 % (2-12); NEUTROPHILS # (AUTO) 4.2 X10'3 (1.8-7.7); NEUTROPHILS % (AUTO) 76.7 % (42-75); PLATELET COUNT 165 X10'3 (140-440); RED BLOOD COUNT 2.74 X10'6 (4.70-6.10); RED CELL DISTRIBUTION WIDTH 19.2 % (11.5-14.5); WHITE BLOOD COUNT 5.5 X10'3 (4.5-11.0)
[2018-11-20 02:23] LABS: ALANINE AMINOTRANSFERASE 11 U/L (12-78); ALBUMIN 2.7 G/DL (3.4-5.0); ALBUMIN/GLOBULIN RATIO 0.6 (1.1-1.5); ALKALINE PHOSPHATASE 87 IU/L (46-116); ANION GAP 5 (8-16); ASPARTATE AMINO TRANSFERASE 34 U/L (10-37); BLOOD UREA NITROGEN 61 MG/DL (7-18); BUN/CREATININE RATIO 22.7 (5.4-32.0); CALCIUM 8.4 MG/DL (8.5-10.1); CHLORIDE 106 MMOL/L (99-107); CREATININE 2.69 MG/DL (0.60-1.10); GLUCOSE 121 MG/DL (70-104); POTASSIUM 4.2 MMOL/L (3.5-5.1); SODIUM 141 MMOL/L (135-145); TOTAL CARBON DIOXIDE 30.3 MMOL/L (24-32); TOTAL PROTEIN 6.9 G/DL (6.4-8.2); eGFR 24 ML/MIN
[2018-11-20 02:29] LABS: MAGNESIUM 2.1 MG/DL (1.5-2.4)
[2018-11-20 02:31] LABS: ANISOCYTOSIS 2+; HYPOCHROMASIA 1+; PLATELET ESTIMATE NORMAL; POLYCHROMASIA FEW
[2018-11-20 02:32] LABS: ACANTHOCYTES 1+; BURR CELLS 1+; ELLIPTOCYTES FEW
[2018-11-20] MEDS ORDERED: furosemide 10 MG/1 ML 10ml inj IV ONE (03:25)
[2018-11-20] MEDS ORDERED: OMEP-50 PO (03:32)
[2018-11-20] MEDS ORDERED: ondansetron/PF 4mg/2ml inj IV PRN (04:15)
[2018-11-20] MEDS ORDERED: magnesium hydroxide 30ml (MOM) UD suspension PO PRN (04:15)
[2018-11-20] MEDS ORDERED: acetaminophen 325mg tablet PO PRN ×2 (04:15→12:15)
[2018-11-20] MEDS ORDERED: mag hydrox/Alum hydrox/simeth 30ml oral suspension PO PRN (04:15)
[2018-11-20] MEDS ORDERED: HYDROcodone/acetaminophen 5mg/325mg tablet PO PRN (04:15)
[2018-11-20] MEDS ORDERED: morphine 4 MG/ML inj SYRINge IV PRN ×2 (04:15)
--- NOTE | 2018-11-20 04:27 | NUR ---
MED REC COMPLETED TO BEST OF MY CURRENT KNOWLEDGE. THE PATIENTS DAUGHTER HAD A MEDICATION LIST WITH HER BUT SHE IS UNSURE WHAT THEY KEPT AT THE REHAB VS WHAT HE IS ON.
[2018-11-20] MEDS ORDERED: pantoprazole 40mg Tablet.DR PO SCH (07:30)
[2018-11-20 07:52] LABS: INR 1.2 INR; PROTHROMBIN TIME 11.8 SECONDS (9.0-12.0)
[2018-11-20] MEDS ORDERED: traMADol 50MG tablet PO PRN (08:00)
[2018-11-20] MEDS ORDERED: sacubitril/valsartan 49mg-51mg tablet PO SCH (08:00)
[2018-11-20] MEDS ORDERED: warfarin 5mg tablet PO SCH (08:00)
[2018-11-20] MEDS ORDERED: heparin, porcine 5000 units/ml vial SQ SCH (08:00)
[2018-11-20 08:15] VITALS: BP 152/83
[2018-11-20] MEDS: carVEDilol 12.5mg tablet PO SCH ×2 (08:45→20:18)
[2018-11-20] MEDS: isosorbide mononitrate 30mg tab.SR.24H PO SCH ×2 (08:45→20:17)
[2018-11-20] MEDS: hydrALAZINE 25 MG tablet PO SCH ×2 (08:45→20:17)
[2018-11-20] MEDS: amiodarone 100mg tablet PO SCH (08:46)
[2018-11-20] MEDS: furosemide 10 MG/1 ML 10ml inj IV SCH ×2 (08:52→20:17)
--- NOTE | 2018-11-20 10:00 | NUR ---
Informed family to bring in med Entrestro, they stated they would be able to
--- NOTE | 2018-11-20 10:15 | NUR ---
Spoke with Elisha in Pharmacy, she stated we do not carry pts dose of enteresto. will follow up with mD and pt to see if family can bring in his own medication
--- NOTE | 2018-11-20 10:40 | NUR ---
PAGER ID: [phone] MESSAGE: Room 3013B Junior. Question regarding Entrestro home med. and heparin order. Please advise Phyllis [phone]
[2018-11-20 11:00] VITALS: BP 124/69
--- NOTE | 2018-11-20 11:53 | NUR ---
PAGER ID: [phone] 2nd page
[2018-11-20] MEDS ORDERED: glucagon, human recombinant 1mg kit SUBCUT PRN (12:00)
[2018-11-20] MEDS ORDERED: dextrose ORAL solution 15 GM/59 ML bottle PO PRN ×2 (12:00)
[2018-11-20] MEDS ORDERED: insulin Lispro (HumaLOG) vial - multi-dose SQ SCH (12:00)
[2018-11-20] MEDS ORDERED: dextrose 50%-water 50ml dispensing syringe IV PRN ×2 (12:00)
--- NOTE | 2018-11-20 12:05 | NUR ---
Informed Shelly of pt hgb
[2018-11-20 15:00] VITALS: BP 114/58
--- NOTE | 2018-11-20 18:43 | NUR ---
Problems reprioritized. Patient report given, questions answered & plan of care reviewed with Nano.
--- NOTE | 2018-11-20 18:46 | NUR ---
Patient in room U 3013. I have received report from MELISSA SNEED and had the opportunity to ask questions and assume patient care. PATIENT IN CHAIR AND CALL LIGHT WITHIN REACH. PATIENT REMINDED TO CALL NURSE BEFORE GETTING UP.
[2018-11-20 19:00] VITALS: BP 113/60
[2018-11-20] MEDS: SACUBITRIL PO SCH (20:00)
[2018-11-20] MEDS: VALSARTAN PO SCH (20:00)
[2018-11-20] MEDS: atorvastatin 20mg tablet PO SCH (20:18)
[2018-11-20] MEDS: pantoprazole 40mg Tablet.DR PO SCH (20:18)
[2018-11-20] MEDS: insulin glargine (Lantus) pen - multi-dose SQ SCH (21:00)
[2018-11-20] MEDS ORDERED: warfarin 5mg tablet PO ONE (21:00)
[2018-11-20 23:00] VITALS: BP 142/70
[2018-11-21 02:59] VITALS: BP 143/79
[2018-11-21 05:27] LABS: BASOPHILS # (AUTO) 0.1 X10'3 (0-0.2); BASOPHILS % (AUTO) 1.2 % (0-1); EOSINOPHILS # (AUTO) 0.3 X10'3 (0-0.9); EOSINOPHILS % (AUTO) 5.9 % (0-6); HEMATOCRIT 22.1 % (42.0-52.0); HEMOGLOBIN 7.4 g/dl (14.0-17.9); LYMPHOCYTES # (AUTO) 0.5 X10'3 (1.1-4.8); MEAN CORPUSCULAR HEMOGLOBIN 27.7 PG (27.0-31.0); MEAN CORPUSCULAR HGB CONC 33.3 g/dL (33.0-36.5); MEAN CORPUSCULAR VOLUME 83.3 FL (78-98); MEAN PLATELET VOLUME 7.3 FL (7.4-10.4); MONOCYTES # (AUTO) 0.4 X10'3 (0-0.9); MONOCYTES % (AUTO) 7.9 % (2-12); PLATELET COUNT 166 X10'3 (140-440); RED BLOOD COUNT 2.65 X10'6 (4.70-6.10); RED CELL DISTRIBUTION WIDTH 19.3 % (11.5-14.5); WHITE BLOOD COUNT 5.3 X10'3 (4.5-11.0)
[2018-11-21 05:44] LABS: ALBUMIN 2.6 G/DL (3.4-5.0); ANION GAP 6 (8-16); BLOOD UREA NITROGEN 58 MG/DL (7-18); BUN/CREATININE RATIO 21.3 (5.4-32.0); CALCIUM 8.3 MG/DL (8.5-10.1); CHLORIDE 104 MMOL/L (99-107); CREATININE 2.72 MG/DL (0.60-1.10); GLUCOSE 135 MG/DL (70-104); INR 1.2 INR; SODIUM 141 MMOL/L (135-145); TOTAL CARBON DIOXIDE 31.5 MMOL/L (24-32); eGFR 23 ML/MIN
[2018-11-21 06:00] VITALS: BP 134/59
--- NOTE | 2018-11-21 06:23 | NUR ---
Problems reprioritized. Patient report given, questions answered & plan of care reviewed with luis angel doran. patient in chair in no distress.
[2018-11-21 07:32] LABS: ANISOCYTOSIS 2+; PLATELET ESTIMATE NORMAL; POIKILOCYTOSIS 2+; ROULEAUX 2+
[2018-11-21 07:33] LABS: ACANTHOCYTES 1+; BURR CELLS 1+; HYPOCHROMASIA 2+
[2018-11-21 07:34] LABS: SCHISTOCYTES 1+
[2018-11-21] MEDS: isosorbide mononitrate 30mg tab.SR.24H PO SCH ×2 (08:22→20:24)
[2018-11-21] MEDS: amiodarone 100mg tablet PO SCH (08:22)
[2018-11-21] MEDS: hydrALAZINE 25 MG tablet PO SCH ×2 (08:22→20:26)
[2018-11-21] MEDS: carVEDilol 12.5mg tablet PO SCH ×2 (08:23→20:26)
[2018-11-21] MEDS: pantoprazole 40mg Tablet.DR PO SCH ×2 (08:23→20:24)
[2018-11-21] MEDS: furosemide 10 MG/1 ML 10ml inj IV SCH ×2 (08:24→20:24)
[2018-11-21] MEDS: SACUBITRIL PO SCH ×2 (10:00→20:23)
[2018-11-21] MEDS: VALSARTAN PO SCH ×2 (10:00→20:23)
--- NOTE | 2018-11-21 13:58 | NUR ---
BS at 12:00 Was 174 because pt eat lunch which family give to him
[2018-11-21 15:00] VITALS: BP 133/65
[2018-11-21 18:00] VITALS: BP 141/73
[2018-11-21] MEDS: insulin glargine (Lantus) pen - multi-dose SQ SCH (20:25)
[2018-11-21] MEDS: atorvastatin 20mg tablet PO SCH (20:25)
[2018-11-21] MEDS ORDERED: warfarin 5mg tablet PO ONE (21:00)
[2018-11-21 23:00] VITALS: BP 109/73
[2018-11-22 03:00] VITALS: BP 108/54
[2018-11-22 05:56] LABS: BASOPHILS # (AUTO) 0.1 X10'3 (0-0.2); BASOPHILS % (AUTO) 1.2 % (0-1); EOSINOPHILS # (AUTO) 0.3 X10'3 (0-0.9); EOSINOPHILS % (AUTO) 5.7 % (0-6); HEMATOCRIT 24.2 % (42.0-52.0); HEMOGLOBIN 7.7 g/dl (14.0-17.9); LYMPHOCYTES # (AUTO) 0.6 X10'3 (1.1-4.8); LYMPHOCYTES % (AUTO) 9.5 % (21-51); MEAN CORPUSCULAR HGB CONC 31.9 g/dL (33.0-36.5); MEAN CORPUSCULAR VOLUME 84.6 FL (78-98); MEAN PLATELET VOLUME 7.5 FL (7.4-10.4); MONOCYTES # (AUTO) 0.5 X10'3 (0-0.9); NEUTROPHILS # (AUTO) 4.4 X10'3 (1.8-7.7); NEUTROPHILS % (AUTO) 75.6 % (42-75); PLATELET COUNT 180 X10'3 (140-440); RED BLOOD COUNT 2.86 X10'6 (4.70-6.10); WHITE BLOOD COUNT 5.9 X10'3 (4.5-11.0)
[2018-11-22 05:57] LABS: ANION GAP 6 (8-16); BLOOD UREA NITROGEN 57 MG/DL (7-18); BUN/CREATININE RATIO 20.8 (5.4-32.0); CHLORIDE 103 MMOL/L (99-107); CREATININE 2.74 MG/DL (0.60-1.10); GLUCOSE 139 MG/DL (70-104); POTASSIUM 4.1 MMOL/L (3.5-5.1); SODIUM 142 MMOL/L (135-145); TOTAL CARBON DIOXIDE 32.7 MMOL/L (24-32)
[2018-11-22 05:58] LABS: ALBUMIN 2.6 G/DL (3.4-5.0); CALCIUM 8.4 MG/DL (8.5-10.1); eGFR 23 ML/MIN
[2018-11-22 06:00] VITALS: BP 139/76
[2018-11-22 06:15] LABS: INR 1.2 INR; PROTHROMBIN TIME 12.2 SECONDS (9.0-12.0)
[2018-11-22 06:42] LABS: PLATELET ESTIMATE NORMAL
[2018-11-22 06:44] LABS: ANISOCYTOSIS 2+; POLYCHROMASIA 1+; SCHISTOCYTES 1+
[2018-11-22 06:45] LABS: ACANTHOCYTES 2+; HYPOCHROMASIA 2+
--- NOTE | 2018-11-22 06:46 | NUR ---
Patient in room PCU 3013B. I have received report from NAREN BENEDICT and had the opportunity to ask questions and assume patient care.
[2018-11-22] MEDS: amiodarone 100mg tablet PO SCH (07:45)
[2018-11-22] MEDS: carVEDilol 12.5mg tablet PO SCH (07:46)
[2018-11-22] MEDS: hydrALAZINE 25 MG tablet PO SCH (07:46)
[2018-11-22] MEDS: isosorbide mononitrate 30mg tab.SR.24H PO SCH (07:46)
[2018-11-22] MEDS: furosemide 10 MG/1 ML 10ml inj IV SCH (07:47)
[2018-11-22] MEDS: VALSARTAN PO SCH (07:48)
[2018-11-22] MEDS: SACUBITRIL PO SCH (07:48)
[2018-11-22] MEDS: pantoprazole 40mg Tablet.DR PO SCH (07:49)
[2018-11-22 11:00] VITALS: BP 108/60
--- NOTE | 2018-11-22 11:00 | NUR ---
Problems reprioritized. Patient report given, questions answered & plan of care reviewed with Rafaela SNEED.
--- NOTE | 2018-11-22 11:00 | NUR ---
I reviewed previous RN's physical assessment and am in agreement with her documentation.
--- NOTE | 2018-11-22 11:00 | NUR ---
Problems reprioritized. Patient report given, questions answered & plan of care reviewed with NAREN Mckeon.
--- NOTE | 2018-11-22 15:43 | NUR ---
Removed IV, catheter intact. stitching machine feeder or offbearer removed. Wristband removed. Report called to NAREN Aguirre at [facility]. Pt in stable condition, transferred via wheelchair by Jennifer Cargo, family present. One bag of patient's belongings with patient including cell phone and wallet. Pt no longer on the floor
[2018-11-22] MEDS ORDERED: warfarin 7.5mg tablet PO ONE (21:00)
== END 2018-11-22 15:41 | DRG 291 ==
LOC: ER 01:16 → ED HOLD 04:13 → EDBEDREQ 05:10 → PCU 3S 07:57
PROVIDERS: ADMIT Internal Medicine; ATTEND Hospitalist
DX: I13.0 Hypertensive heart and chronic kidney disease with heart failure and stage 1 through stage 4 chronic kidney disease, or unspecified chronic kidney disease (principal); I50.43 Acute on chronic combined systolic (congestive) and diastolic (congestive) heart failure; I48.0 Paroxysmal atrial fibrillation; D64.9 Anemia, unspecified; E11.22 Type 2 diabetes mellitus with diabetic chronic kidney disease; E78.00 Pure hypercholesterolemia, unspecified; E78.5 Hyperlipidemia, unspecified; I25.10 Atherosclerotic heart disease of native coronary artery without angina pectoris; N18.3 Chronic kidney disease, stage 3 (moderate); Z95.810 Presence of automatic (implantable) cardiac defibrillator; Z90.49 Acquired absence of other specified parts of digestive tract; Z95.1 Presence of aortocoronary bypass graft; Z79.01 Long term (current) use of anticoagulants; Z79.899 Other long term (current) drug therapy; Z88.5 Allergy status to narcotic agent; Z85.038 Personal history of other malignant neoplasm of large intestine; Z86.73 Personal history of transient ischemic attack (TIA), and cerebral infarction without residual deficits; Z83.3 Family history of diabetes mellitus; Z82.49 Family history of ischemic heart disease and other diseases of the circulatory system
CPT/HCPCS: 36415; 70450; 71045; 80048; 80053; 82948; 83036; 83735; 83880; 84484; 85025; 85610; 87070; 93005; 93306; 96374; 96376; 99285; G0378; J1815; J1940

== ENCOUNTER 2018-12-03 19:47 | Emergency (ER) | payer MEDICARE, MEDICAID ==
[~2018-12-03] VITALS: Ht 162.6 cm; Wt 93.3 kg
[~2018-12-03 19:47] MED LIST changes: -CEPH500C5 PO; -FURO80TA87 PO; +OMEP-50 PO
[2018-12-03] MEDS ORDERED: simethicone 125mg capsule PO SCH (21:10)
[2018-12-03 21:26] LABS: BASOPHILS # (AUTO) 0.1 X10'3 (0-0.2); BASOPHILS % (AUTO) 1.5 % (0-1); EOSINOPHILS # (AUTO) 0.3 X10'3 (0-0.9); EOSINOPHILS % (AUTO) 6.8 % (0-6); HEMATOCRIT 23.5 % (42.0-52.0); HEMOGLOBIN 7.3 g/dl (14.0-17.9); LYMPHOCYTES # (AUTO) 0.4 X10'3 (1.1-4.8); LYMPHOCYTES % (AUTO) 10.8 % (21-51); MEAN CORPUSCULAR HGB CONC 30.9 g/dL (33.0-36.5); MEAN CORPUSCULAR VOLUME 84.2 FL (78-98); MEAN PLATELET VOLUME 7.9 FL (7.4-10.4); MONOCYTES # (AUTO) 0.3 X10'3 (0-0.9); MONOCYTES % (AUTO) 7.5 % (2-12); NEUTROPHILS % (AUTO) 73.4 % (42-75); PLATELET COUNT 149 X10'3 (140-440); RED BLOOD COUNT 2.79 X10'6 (4.70-6.10); RED CELL DISTRIBUTION WIDTH 18.6 % (11.5-14.5); WHITE BLOOD COUNT 4.1 X10'3 (4.5-11.0)
[2018-12-03 21:32] LABS: ALANINE AMINOTRANSFERASE 20 U/L (12-78); ALBUMIN 2.8 G/DL (3.4-5.0); ALBUMIN/GLOBULIN RATIO 0.7 (1.1-1.5); ALKALINE PHOSPHATASE 112 IU/L (46-116); ANION GAP 9 (8-16); ASPARTATE AMINO TRANSFERASE 29 U/L (10-37); BILIRUBIN,TOTAL 0.4 MG/DL (0.1-1.0); BLOOD UREA NITROGEN 85 MG/DL (7-18); BUN/CREATININE RATIO 30.9 (5.4-32.0); CALCIUM 8.2 MG/DL (8.5-10.1); CHLORIDE 107 MMOL/L (99-107); CREATININE 2.75 MG/DL (0.60-1.10); GLUCOSE 147 MG/DL (70-104); POTASSIUM 4.6 MMOL/L (3.5-5.1); SODIUM 142 MMOL/L (135-145); TOTAL CARBON DIOXIDE 26.5 MMOL/L (24-32); eGFR 23 ML/MIN
[2018-12-03 21:34] LABS: INR 2.5 INR
[2018-12-03 21:43] LABS: LIPASE 227 U/L (73-393)
[2018-12-03 22:01] LABS: ANISOCYTOSIS 2+; PLATELET ESTIMATE NORMAL
[2018-12-03 22:02] LABS: ACANTHOCYTES 2+; HYPOCHROMASIA 1+
[2018-12-03 22:38] LABS: CLARITY,URINE CLEAR (Clear); COLOR,URINE YELLOW (Yellow); GLUCOSE, URINE NEGATIVE (Neg); KETONES,URINE NEGATIVE (Neg); LEUKOCYTE ESTERASE ,URINE NEGATIVE (Neg); NITRITES, URINE NEGATIVE (Neg); OCCULT BLOOD,URINE TRACE-LYSED (Neg); PROTEIN,URINE 30 mg/dl (Neg); UROBILINOGEN,URINE 0.2 E.U/dL (0.2-1.0)
[2018-12-03 22:40] LABS: UA COLLECTION TYPE CLN CATCH MIDSTREAM
[2018-12-03 22:48] LABS: BACTERIA,URINE FEW /HPF (Neg); SQUAMOUS EPITHELIAL CELL,UR FEW /LPF (FEW); WBC,URINE 0-4 /HPF (0-4)
[2018-12-03 23:41] VITALS: BP 147/81
== END 2018-12-03 23:45 | disposition home or self-care (01) ==
LOC: ER 19:48
DX: K40.90 Unilateral inguinal hernia, without obstruction or gangrene, not specified as recurrent (principal); R18.8 Other ascites; I25.10 Atherosclerotic heart disease of native coronary artery without angina pectoris; E78.00 Pure hypercholesterolemia, unspecified; I11.0 Hypertensive heart disease with heart failure; I50.9 Heart failure, unspecified; E11.9 Type 2 diabetes mellitus without complications; Z90.49 Acquired absence of other specified parts of digestive tract; Z95.1 Presence of aortocoronary bypass graft; Z96.89 Presence of other specified functional implants; Z85.038 Personal history of other malignant neoplasm of large intestine; Z88.6 Allergy status to analgesic agent; Z79.899 Other long term (current) drug therapy; Z86.73 Personal history of transient ischemic attack (TIA), and cerebral infarction without residual deficits
CPT/HCPCS: 36415; 74018; 74176; 80053; 81001; 83690; 85025; 85610; 99284

== ENCOUNTER 2018-12-09 19:42 | Inpatient (IN) | payer MEDICARE, MEDICAID | END 2018-12-14 16:00 | LOC: ER 19:42 → PCU 3S 12-10 07:32 → ED HOLD 22:13 | DX: L03.116 Cellulitis of left lower limb (principal); I50.33 Acute on chronic diastolic (congestive) heart failure; J96.21 Acute and chronic respiratory failure with hypoxia; L03.115 Cellulitis of right lower limb; I48.0 Paroxysmal atrial fibrillation; E11.22 Type 2 diabetes mellitus with diabetic chronic kidney disease; N18.9 Chronic kidney disease, unspecified ==

== ENCOUNTER 2018-12-18 11:22 | Emergency (ER) | payer MEDICARE, MEDICAID ==
[~2018-12-18] VITALS: Ht 167.6 cm; Wt 95.0 kg
[~2018-12-18 11:22] MED LIST changes: -FURO40TA4 PO; -TRAM50TA2 PO
[2018-12-18] MEDS ORDERED: normal saline 1000ML IV soln IVB ONE (11:25)
--- NOTE | 2018-12-18 12:30 | NUR ---
PT NOT TO RECEIVE IV FLUID BOLUS PER VO PROVIDER CATARINA GAMEZ..
[2018-12-18 12:36] LABS: BASOPHILS # (AUTO) 0.1 X10'3 (0-0.2); EOSINOPHILS # (AUTO) 0.2 X10'3 (0-0.9); EOSINOPHILS % (AUTO) 3.1 % (0-6); HEMATOCRIT 27.7 % (42.0-52.0); HEMOGLOBIN 8.9 g/dl (14.0-17.9); LYMPHOCYTES # (AUTO) 0.4 X10'3 (1.1-4.8); LYMPHOCYTES % (AUTO) 7.2 % (21-51); MEAN CORPUSCULAR HEMOGLOBIN 26.7 PG (27.0-31.0); MEAN CORPUSCULAR HGB CONC 31.9 g/dL (33.0-36.5); MEAN CORPUSCULAR VOLUME 83.7 FL (78-98); MONOCYTES # (AUTO) 0.4 X10'3 (0-0.9); MONOCYTES % (AUTO) 6.7 % (2-12); NEUTROPHILS # (AUTO) 4.4 X10'3 (1.8-7.7); PLATELET COUNT 134 X10'3 (140-440); RED BLOOD COUNT 3.31 X10'6 (4.70-6.10); RED CELL DISTRIBUTION WIDTH 18.8 % (11.5-14.5); WHITE BLOOD COUNT 5.4 X10'3 (4.5-11.0)
[2018-12-18 12:49] LABS: ALANINE AMINOTRANSFERASE 20 U/L (12-78); ALBUMIN 2.7 G/DL (3.4-5.0); ALBUMIN/GLOBULIN RATIO 0.7 (1.1-1.5); ALKALINE PHOSPHATASE 100 IU/L (46-116); ANION GAP 8 (8-16); ASPARTATE AMINO TRANSFERASE 32 U/L (10-37); BILIRUBIN,TOTAL 0.7 MG/DL (0.1-1.0); BLOOD UREA NITROGEN 58 MG/DL (7-18); BUN/CREATININE RATIO 20.9 (5.4-32.0); CALCIUM 8.3 MG/DL (8.5-10.1); CHLORIDE 108 MMOL/L (99-107); CREATININE 2.78 MG/DL (0.60-1.10); GLUCOSE 122 MG/DL (70-104); POTASSIUM 4.6 MMOL/L (3.5-5.1); SODIUM 142 MMOL/L (135-145); TOTAL CARBON DIOXIDE 25.7 MMOL/L (24-32); TOTAL PROTEIN 6.7 G/DL (6.4-8.2); eGFR 23 ML/MIN
[2018-12-18 12:53] LABS: TROPONIN I 0.05 NG/ML (0.0-0.05)
[2018-12-18] MEDS ORDERED: furosemide 10 MG/1 ML 10ml inj IV ONE (13:05)
[2018-12-18] MEDS ORDERED: furosemide 40mg/4ml inj IV ONE (13:05)
[2018-12-18 14:18] LABS: ANISOCYTOSIS 2+; PLATELET ESTIMATE DECREASED
[2018-12-18 14:19] LABS: ACANTHOCYTES 1+; BURR CELLS FEW; ELLIPTOCYTES FEW; SCHISTOCYTES FEW
--- NOTE | 2018-12-18 14:30 | NUR ---
REPORT GIVEN TO MARICHUY AT [facility] AND REPORTED FINDINGS, TX AND RECOMMENDATIONS. PT TO BE TRANSPORTED BACK VIA [facility].
[2018-12-18 14:39] VITALS: BP 156/97
== END 2018-12-18 17:41 | disposition home or self-care (01) ==
LOC: ER 11:23
DX: I13.0 Hypertensive heart and chronic kidney disease with heart failure and stage 1 through stage 4 chronic kidney disease, or unspecified chronic kidney disease (principal); I50.9 Heart failure, unspecified; N18.9 Chronic kidney disease, unspecified; E11.22 Type 2 diabetes mellitus with diabetic chronic kidney disease; I25.10 Atherosclerotic heart disease of native coronary artery without angina pectoris; E78.00 Pure hypercholesterolemia, unspecified; Z86.73 Personal history of transient ischemic attack (TIA), and cerebral infarction without residual deficits; Z90.49 Acquired absence of other specified parts of digestive tract; Z95.0 Presence of cardiac pacemaker; Z95.1 Presence of aortocoronary bypass graft; Z88.6 Allergy status to analgesic agent
CPT/HCPCS: 36415; 70450; 71045; 80053; 82948; 83605; 84484; 85025; 87040; 93005; 96374; 99284; J1940

== ENCOUNTER 2018-12-20 16:09 | Inpatient (IN) | payer MEDICARE, MEDICAID ==
[~2018-12-20] VITALS: Ht 167.6 cm; Wt 92.5 kg
[2018-12-20 16:47] LABS: BASOPHILS # (AUTO) 0.1 X10'3 (0-0.2); BASOPHILS % (AUTO) 1.4 % (0-1); EOSINOPHILS # (AUTO) 0.2 X10'3 (0-0.9); EOSINOPHILS % (AUTO) 3.4 % (0-6); HEMATOCRIT 26.1 % (42.0-52.0); HEMOGLOBIN 8.1 g/dl (14.0-17.9); LYMPHOCYTES # (AUTO) 0.6 X10'3 (1.1-4.8); LYMPHOCYTES % (AUTO) 12.3 % (21-51); MEAN CORPUSCULAR HEMOGLOBIN 26.4 PG (27.0-31.0); MEAN CORPUSCULAR HGB CONC 31.1 g/dL (33.0-36.5); MEAN CORPUSCULAR VOLUME 84.7 FL (78-98); MONOCYTES # (AUTO) 0.4 X10'3 (0-0.9); MONOCYTES % (AUTO) 8.2 % (2-12); NEUTROPHILS # (AUTO) 3.5 X10'3 (1.8-7.7); NEUTROPHILS % (AUTO) 74.7 % (42-75); PLATELET COUNT 125 X10'3 (140-440); RED BLOOD COUNT 3.08 X10'6 (4.70-6.10); RED CELL DISTRIBUTION WIDTH 18.8 % (11.5-14.5); WHITE BLOOD COUNT 4.7 X10'3 (4.5-11.0)
[2018-12-20 16:51] LABS: ABG BASE EXCESS 2.5 mmol/L (-2.0-3.0); ABG HCO3 28.3 mmol/L (22.0-26.0); ABG OXYGEN SATURATION 92.6 % (95-98); ABG PCO2 (T) 50.7 mmHg (35.0-48.0); ABG PH (T) 7.365 (7.350-7.450); ALLEN'S TEST Positive; FLOW 2 L/min; FMetHb 0.1 % (0.3-1.12); FO2Hb 91.6 % (94-100)
[2018-12-20 17:05] LABS: ALANINE AMINOTRANSFERASE 23 U/L (12-78); ALBUMIN 2.8 G/DL (3.4-5.0); ALBUMIN/GLOBULIN RATIO 0.7 (1.1-1.5); ALKALINE PHOSPHATASE 99 IU/L (46-116); ANION GAP 8 (8-16); ASPARTATE AMINO TRANSFERASE 35 U/L (10-37); BILIRUBIN,TOTAL 0.7 MG/DL (0.1-1.0); BLOOD UREA NITROGEN 64 MG/DL (7-18); BUN/CREATININE RATIO 21.3 (5.4-32.0); CALCIUM 8.4 MG/DL (8.5-10.1); CHLORIDE 109 MMOL/L (99-107); GLUCOSE 120 MG/DL (70-104); INR 2.3 INR; PARTIAL THROMBOPLASTIN TIME 36 SECONDS (22-32); POTASSIUM 4.7 MMOL/L (3.5-5.1); PROTHROMBIN TIME 22.7 SECONDS (9.0-12.0); SODIUM 145 MMOL/L (135-145); TOTAL CARBON DIOXIDE 28.5 MMOL/L (24-32); eGFR 21 ML/MIN
[2018-12-20 17:12] LABS: ACANTHOCYTES 1+; ANISOCYTOSIS 2+; ELLIPTOCYTES FEW; MICROCYTOSIS 1+; PLATELET ESTIMATE DECREASED
[2018-12-20 17:13] LABS: POIKILOCYTOSIS FEW
[2018-12-20 17:14] LABS: TROPONIN I 0.04 NG/ML (0.0-0.05)
[2018-12-20] MEDS ORDERED: LACTC PO (17:14)
[2018-12-20] MEDS ORDERED: FERR325T28 PO (17:14)
[2018-12-20] MEDS ORDERED: FURO-149 PO (17:14)
[2018-12-20] MEDS ORDERED: POTA10TA10 PO (17:14)
[2018-12-20] MEDS ORDERED: FOLI1TAB16 PO (17:14)
[2018-12-20 17:17] LABS: CLARITY,URINE CLEAR (Clear); COLOR,URINE STRAW (Yellow); GLUCOSE, URINE NEGATIVE (Neg); KETONES,URINE NEGATIVE (Neg); LEUKOCYTE ESTERASE ,URINE NEGATIVE (Neg); NITRITES, URINE NEGATIVE (Neg); OCCULT BLOOD,URINE SMALL (Neg); PROTEIN,URINE 30 mg/dl (Neg); UROBILINOGEN,URINE 0.2 E.U/dL (0.2-1.0)
[2018-12-20 17:19] LABS: UA COLLECTION TYPE URINAL
[2018-12-20 17:23] LABS: BACTERIA,URINE NONE SEEN /HPF (Neg); MUCUS STRANDS FEW /LPF (Neg); RBC,URINE 0-2 /HPF (0-2); SQUAMOUS EPITHELIAL CELL,UR NONE SEEN /LPF (FEW); WBC,URINE NONE SEEN /HPF (0-4)
[2018-12-20 17:45] LABS: LACTIC SEPSIS 0.6 MMOL/L (0.4-2.0)
[2018-12-20 17:56] LABS: ABG BASE EXCESS 0.5 mmol/L (-2.0-3.0); ABG HCO3 27.2 mmol/L (22.0-26.0); ABG OXYGEN SATURATION 97.7 % (95-98); ABG PCO2 (T) 55.3 mmHg (35.0-48.0); ABG PO2 (T) 119.7 mmHg (83-108); ALLEN'S TEST Positive; FCOHb 0.9 % (0.5-1.5); FO2Hb 96.8 % (94-100); MINUTE VOLUME 5 L/min; RESPIRATORY RATE 18 b/min; RESPIRATORY RATE (OBSERVED) 20 b/min; TOTAL HEMOGLOBIN 8.8 G/dl (14.0-18.0)
[2018-12-20] MEDS ORDERED: potassium Cl 40MEQ/NS 500ml 500 ML IV PRN ×2 (18:25)
[2018-12-20] MEDS ORDERED: ondansetron/PF 4mg/2ml inj IV PRN (18:25)
[2018-12-20] MEDS ORDERED: magnesium 4gm in 100ml NS 100 ML IV PRN (18:25)
[2018-12-20] MEDS ORDERED: magnesium Cl slow-release 64mg tablet PO PRN (18:25)
[2018-12-20] MEDS ORDERED: magnesium 2GM in 50ml NS 50 ML IV PRN (18:25)
[2018-12-20] MEDS ORDERED: ipratropium/albuterol 3ml nebule NEB PRN (18:25)
[2018-12-20] MEDS ORDERED: potassium Cl 20 mEq SR tablet PO PRN ×2 (18:25)
--- NOTE | 2018-12-20 18:56 | NUR ---
ATTEMPTED TO CALL REPOERT, NURSE HAS NOT BEEN ASSIGNED TO PT.
--- NOTE | 2018-12-20 19:06 | NUR ---
PAGED RT FOR ASSITANTCE IN TRANSPORT [facility] TIME [phone]
[2018-12-20] MEDS: ipratropium/albuterol 3ml nebule NEB SCH (20:02)
[2018-12-20 21:00] VITALS: BP 153/85
[2018-12-20 23:51] LABS: ABG HCO3 27.4 mmol/L (22.0-26.0); ABG OXYGEN SATURATION 95.3 % (95-98); ABG PCO2 (T) 54.2 mmHg (35.0-48.0); ABG PH (T) 7.323 (7.350-7.450); ABG PO2 (T) 86.5 mmHg (83-108); ALLEN'S TEST Positive; FCOHb 0.2 % (0.5-1.5); FMetHb 0.3 % (0.3-1.12); FO2Hb 94.8 % (94-100); MINUTE VOLUME 9 L/min; PATIENT TEMPERATURE 37.1; RESPIRATORY RATE 22 b/min; RESPIRATORY RATE (OBSERVED) 22 b/min; TIDAL VOLUME 619 mL; TOTAL HEMOGLOBIN 8.9 G/dl (14.0-18.0)
[2018-12-21] VITALS (9 sets, daily range): BP systolic 104–181; BP diastolic 54–97
[2018-12-21] MEDS: ipratropium/albuterol 3ml nebule NEB SCH ×4 (02:10→20:36)
--- NOTE | 2018-12-21 06:17 | NUR ---
Problems reprioritized. Patient report given, questions answered & plan of care reviewed with Rafaela SNEED and Rochelle SNEED. pt c/o dry mouth, A/Ox2, no signs of distress. IV intact. call light in reach.
[2018-12-21 06:37] LABS: ALBUMIN 2.8 G/DL (3.4-5.0); ANION GAP 7 (8-16); BLOOD UREA NITROGEN 56 MG/DL (7-18); BUN/CREATININE RATIO 20.3 (5.4-32.0); CALCIUM 8.3 MG/DL (8.5-10.1); CHLORIDE 110 MMOL/L (99-107); CREATININE 2.76 MG/DL (0.60-1.10); GLUCOSE 96 MG/DL (70-104); MAGNESIUM 2.1 MG/DL (1.5-2.4); POTASSIUM 4.3 MMOL/L (3.5-5.1); SODIUM 145 MMOL/L (135-145); TOTAL CARBON DIOXIDE 27.7 MMOL/L (24-32); eGFR 23 ML/MIN
--- NOTE | 2018-12-21 06:38 | NUR ---
Patient in room PCU 3027. I have received report from NAREN HAIRSTON and had the opportunity to ask questions and assume patient care.
[2018-12-21 06:45] LABS: BASOPHILS # (AUTO) 0.1 X10'3 (0-0.2); BASOPHILS % (AUTO) 1.4 % (0-1); EOSINOPHILS # (AUTO) 0.2 X10'3 (0-0.9); EOSINOPHILS % (AUTO) 4.1 % (0-6); HEMATOCRIT 27.5 % (42.0-52.0); HEMOGLOBIN 8.7 g/dl (14.0-17.9); LYMPHOCYTES # (AUTO) 0.5 X10'3 (1.1-4.8); LYMPHOCYTES % (AUTO) 10.1 % (21-51); MEAN CORPUSCULAR HEMOGLOBIN 26.8 PG (27.0-31.0); MEAN CORPUSCULAR HGB CONC 31.6 g/dL (33.0-36.5); MEAN CORPUSCULAR VOLUME 84.7 FL (78-98); MEAN PLATELET VOLUME 8.1 FL (7.4-10.4); MONOCYTES # (AUTO) 0.3 X10'3 (0-0.9); MONOCYTES % (AUTO) 6.1 % (2-12); NEUTROPHILS # (AUTO) 3.7 X10'3 (1.8-7.7); NEUTROPHILS % (AUTO) 78.3 % (42-75); PLATELET COUNT 137 X10'3 (140-440); RED BLOOD COUNT 3.25 X10'6 (4.70-6.10); WHITE BLOOD COUNT 4.8 X10'3 (4.5-11.0)
[2018-12-21 07:27] LABS: ANISOCYTOSIS 2+; HYPOCHROMASIA 1+; PLATELET ESTIMATE DECREASED; POLYCHROMASIA 1+
[2018-12-21 07:28] LABS: ACANTHOCYTES 1+; SCHISTOCYTES FEW
--- NOTE | 2018-12-21 07:35 | NUR ---
PAGER ID: [phone] MESSAGE: [phone] pt Junior needs her med rec completed please. His BP is elevated and we do not have any meds available yet. Thank you - [phone]
[2018-12-21] MEDS ORDERED: carVEDilol 12.5mg tablet PO SCH (08:00)
[2018-12-21] MEDS ORDERED: furosemide 40mg tablet PO SCH (08:00)
[2018-12-21] MEDS: K and/or MAG REPLACEMENT MC SCH (08:00)
[2018-12-21] MEDS: hydrALAZINE 25 MG tablet PO SCH (08:26)
[2018-12-21] MEDS ORDERED: methylPREDNISolone sod succ 125mg/2ml vial IV ONE (13:00)
[2018-12-21] MEDS: folic acid 1mg tablet PO SCH (13:49)
[2018-12-21] MEDS: ferrous sulfate 325mg tablet PO SCH (13:50)
[2018-12-21] MEDS: amiodarone 200mg tablet PO SCH (13:50)
[2018-12-21] MEDS: isosorbide mononitrate 30mg tab.SR.24H PO SCH (13:50)
[2018-12-21 13:54] LABS: INR 2.3 INR; PROTHROMBIN TIME 22.5 SECONDS (9.0-12.0)
--- NOTE | 2018-12-21 15:57 | NUR ---
Patient on tele due to BiPap
--- NOTE | 2018-12-21 17:07 | NUR ---
Orientee documentation: I have reviewed and agree with interventions, assessments performed and documented by NAREN Byrd. [place] Medication Administration: For this medication-pass time frame, medication were reviewed, dispensed, administered and documented per hospital policy by NAREN Byrd.
--- NOTE | 2018-12-21 18:14 | NUR ---
Problems reprioritized. Patient report given, questions answered & plan of care reviewed with NAREN ZHENG.
--- NOTE | 2018-12-21 19:01 | NUR ---
Patient in room PCU 3027. I have received report from Rafaela SNEED and had the opportunity to ask questions and assume patient care.
[2018-12-21] MEDS ORDERED: VALSARTAN PO SCH (20:00)
[2018-12-21] MEDS ORDERED: SACUBITRIL PO SCH (20:00)
[2018-12-21] MEDS ORDERED: sacubitril/valsartan 49mg-51mg tablet PO SCH (20:00)
[2018-12-21] MEDS: carVEDilol 12.5mg tablet PO SCH (20:00)
[2018-12-21] MEDS ORDERED: warfarin 3mg tablet PO ONE (21:00)
[2018-12-21] MEDS: sacubitril/valsartan 24mg-26mg tablet PO SCH (21:21)
[2018-12-22 03:00] VITALS: BP 116/74
[2018-12-22] MEDS: ipratropium/albuterol 3ml nebule NEB SCH ×3 (03:28→13:57)
[2018-12-22 05:44] LABS: BASOPHILS % (AUTO) 0.3 % (0-1); EOSINOPHILS % (AUTO) 0 % (0-6); HEMATOCRIT 24.6 % (42.0-52.0); HEMOGLOBIN 7.8 g/dl (14.0-17.9); LYMPHOCYTES # (AUTO) 0.1 X10'3 (1.1-4.8); LYMPHOCYTES % (AUTO) 3.9 % (21-51); MEAN CORPUSCULAR HEMOGLOBIN 26.5 PG (27.0-31.0); MEAN CORPUSCULAR HGB CONC 31.7 g/dL (33.0-36.5); MEAN CORPUSCULAR VOLUME 83.9 FL (78-98); MEAN PLATELET VOLUME 8.1 FL (7.4-10.4); MONOCYTES # (AUTO) 0.1 X10'3 (0-0.9); MONOCYTES % (AUTO) 1.5 % (2-12); NEUTROPHILS # (AUTO) 3.2 X10'3 (1.8-7.7); NEUTROPHILS % (AUTO) 94.3 % (42-75); PLATELET COUNT 125 X10'3 (140-440); RED BLOOD COUNT 2.94 X10'6 (4.70-6.10); RED CELL DISTRIBUTION WIDTH 18.9 % (11.5-14.5); WHITE BLOOD COUNT 3.4 X10'3 (4.5-11.0)
[2018-12-22 05:48] LABS: INR 2.2 INR; PROTHROMBIN TIME 21.2 SECONDS (9.0-12.0)
[2018-12-22 06:03] LABS: ALBUMIN 2.5 G/DL (3.4-5.0); ANION GAP 7 (8-16); BLOOD UREA NITROGEN 61 MG/DL (7-18); BUN/CREATININE RATIO 23.1 (5.4-32.0); CHLORIDE 106 MMOL/L (99-107); CREATININE 2.64 MG/DL (0.60-1.10); GLUCOSE 226 MG/DL (70-104); MAGNESIUM 2.1 MG/DL (1.5-2.4); POTASSIUM 4.4 MMOL/L (3.5-5.1); SODIUM 141 MMOL/L (135-145); TOTAL CARBON DIOXIDE 27.7 MMOL/L (24-32); eGFR 24 ML/MIN
--- NOTE | 2018-12-22 06:27 | NUR ---
Problems reprioritized. Patient report given, questions answered & plan of care reviewed with Rafaela.
[2018-12-22 07:00] VITALS: BP 129/64
[2018-12-22] MEDS ORDERED: pantoprazole 40mg Tablet.DR PO SCH (07:30)
[2018-12-22 07:49] LABS: ACANTHOCYTES FEW; ANISOCYTOSIS 2+; BURR CELLS FEW; ELLIPTOCYTES FEW; PLATELET ESTIMATE DECREASED; SCHISTOCYTES FEW
[2018-12-22 07:50] LABS: POIKILOCYTOSIS 1+
[2018-12-22] MEDS ORDERED: non-formulary drug (Omeprazole 1 TAB) PO SCH (08:00)
[2018-12-22] MEDS ORDERED: atorvastatin 20mg tablet PO SCH (08:00)
[2018-12-22] MEDS ORDERED: non-formulary drug (Potassium Chloride* (Klor-Con*) 1 TAB) PO SCH (08:00)
[2018-12-22] MEDS ORDERED: non-formulary drug (Atorvastatin Calcium* (Lipitor*) 1 TABLET) PO SCH (08:00)
[2018-12-22] MEDS: K and/or MAG REPLACEMENT MC SCH (08:00)
[2018-12-22] MEDS ORDERED: potassium chloride 10mEq ER tablet PO SCH (08:00)
[2018-12-22] MEDS: folic acid 1mg tablet PO SCH (08:15)
[2018-12-22] MEDS: isosorbide mononitrate 30mg tab.SR.24H PO SCH (08:15)
[2018-12-22] MEDS: amiodarone 200mg tablet PO SCH (08:15)
[2018-12-22] MEDS: hydrALAZINE 25 MG tablet PO SCH (08:16)
[2018-12-22] MEDS: ferrous sulfate 325mg tablet PO SCH (08:16)
[2018-12-22] MEDS: carVEDilol 12.5mg tablet PO SCH (08:17)
[2018-12-22] MEDS: sacubitril/valsartan 24mg-26mg tablet PO SCH (08:25)
[2018-12-22] MEDS ORDERED: IPRA3AMP9 NEB (10:22)
[2018-12-22] MEDS ORDERED: FURO-150 PO (10:23)
--- NOTE | 2018-12-22 11:03 | NUR ---
paged to case management: Pt. [id number] Junior chan d/c, need to SNF, pls call [phone]
[2018-12-22] MEDS ORDERED: warfarin 3mg tablet PO ONE (21:00)
== END 2018-12-22 15:47 | DRG 189 ==
LOC: ER 16:09 → PCU 3S 18:23 → CMPBEDREQ 12-22 01:26
PROVIDERS: ADMIT Internal Medicine; ATTEND Internal Medicine
PROC: 5A09357 Assistance with Respiratory Ventilation, Less than 24 Consecutive Hours, Continuous Positive Airway Pressure (ICD-10-PCS; principal; 2018-12-20)
DX: J96.02 Acute respiratory failure with hypercapnia (principal); G92 Toxic encephalopathy; I13.0 Hypertensive heart and chronic kidney disease with heart failure and stage 1 through stage 4 chronic kidney disease, or unspecified chronic kidney disease; I50.20 Unspecified systolic (congestive) heart failure; N17.9 Acute kidney failure, unspecified; I69.351 Hemiplegia and hemiparesis following cerebral infarction affecting right dominant side; E11.22 Type 2 diabetes mellitus with diabetic chronic kidney disease; E78.00 Pure hypercholesterolemia, unspecified; E78.5 Hyperlipidemia, unspecified; I25.10 Atherosclerotic heart disease of native coronary artery without angina pectoris; J44.9 Chronic obstructive pulmonary disease, unspecified; I48.2 Chronic atrial fibrillation; K21.9 Gastro-esophageal reflux disease without esophagitis; N18.9 Chronic kidney disease, unspecified; Z90.49 Acquired absence of other specified parts of digestive tract; Z95.1 Presence of aortocoronary bypass graft; Z95.810 Presence of automatic (implantable) cardiac defibrillator; Z88.6 Allergy status to analgesic agent; Z79.01 Long term (current) use of anticoagulants; Z79.899 Other long term (current) drug therapy; Z85.038 Personal history of other malignant neoplasm of large intestine; Z82.49 Family history of ischemic heart disease and other diseases of the circulatory system; Z83.3 Family history of diabetes mellitus
CPT/HCPCS: 36415; 36600; 70450; 71045; 80048; 80053; 81001; 82140; 82803; 82948; 83605; 83735; 83880; 84484; 85018; 85025; 85610; 85730; 87040; 87070; 93005; 94640; 94660; 94760; 97116; 97162; 97530; 99285; G0378; J2930

== ENCOUNTER 2018-12-28 14:39 | Inpatient (IN) | payer MEDICARE, MEDICAID ==
[~2018-12-28] VITALS: Ht 162.6 cm; Wt 100.0 kg
[~2018-12-28 14:39] MED LIST changes: +FERR325T28 PO; +FOLI1TAB16 PO; +FURO-150 PO; +IPRA3AMP9 NEB; +LACTC PO; +POTA10TA10 PO
--- NOTE | 2018-12-28 15:03 | NUR ---
ALARM BRACELET ON LEFT ANKLE. TRYING TO MAKE A RUN FROM THE FACILITY LAST NIGHT.
[2018-12-28 15:22] LABS: BASOPHILS % (AUTO) 0.7 % (0-1); EOSINOPHILS # (AUTO) 0.1 X10'3 (0-0.9); EOSINOPHILS % (AUTO) 2.5 % (0-6); HEMATOCRIT 25.7 % (42.0-52.0); HEMOGLOBIN 8.3 g/dl (14.0-17.9); LYMPHOCYTES # (AUTO) 0.3 X10'3 (1.1-4.8); MEAN CORPUSCULAR HEMOGLOBIN 26.8 PG (27.0-31.0); MEAN CORPUSCULAR HGB CONC 32.1 g/dL (33.0-36.5); MEAN CORPUSCULAR VOLUME 83.6 FL (78-98); MEAN PLATELET VOLUME 7.6 FL (7.4-10.4); MONOCYTES # (AUTO) 0.4 X10'3 (0-0.9); MONOCYTES % (AUTO) 6.6 % (2-12); NEUTROPHILS # (AUTO) 4.8 X10'3 (1.8-7.7); NEUTROPHILS % (AUTO) 84.2 % (42-75); PLATELET COUNT 146 X10'3 (140-440); RED BLOOD COUNT 3.08 X10'6 (4.70-6.10); RED CELL DISTRIBUTION WIDTH 19.7 % (11.5-14.5); WHITE BLOOD COUNT 5.6 X10'3 (4.5-11.0)
[2018-12-28 15:33] LABS: INR 3.2 INR; PARTIAL THROMBOPLASTIN TIME 41 SECONDS (22-32)
[2018-12-28 15:35] LABS: ALANINE AMINOTRANSFERASE 18 U/L (12-78); ALBUMIN 2.7 G/DL (3.4-5.0); ALBUMIN/GLOBULIN RATIO 0.7 (1.1-1.5); ALKALINE PHOSPHATASE 95 IU/L (46-116); ANION GAP 6 (8-16); ASPARTATE AMINO TRANSFERASE 26 U/L (10-37); BLOOD UREA NITROGEN 53 MG/DL (7-18); BUN/CREATININE RATIO 22.6 (5.4-32.0); CALCIUM 8.4 MG/DL (8.5-10.1); CHLORIDE 109 MMOL/L (99-107); CREATININE 2.35 MG/DL (0.60-1.10); GLUCOSE 133 MG/DL (70-104); POTASSIUM 4.7 MMOL/L (3.5-5.1); SODIUM 141 MMOL/L (135-145); TOTAL CARBON DIOXIDE 26.3 MMOL/L (24-32); TOTAL PROTEIN 6.7 G/DL (6.4-8.2); eGFR 27 ML/MIN
[2018-12-28 15:38] LABS: LACTIC SEPSIS 0.6 MMOL/L (0.4-2.0)
[2018-12-28 15:39] LABS: TROPONIN I < 0.04 NG/ML (0.0-0.05)
[2018-12-28 15:40] LABS: ABG BASE EXCESS -0.9 mmol/L (-2.0-3.0); ABG HCO3 25.8 mmol/L (22.0-26.0); ABG OXYGEN SATURATION 90.6 % (95-98); ABG PCO2 (T) 52.8 mmHg (35.0-48.0); ABG PH (T) 7.307 (7.350-7.450); ABG PO2 (T) 66.6 mmHg (83-108); ALLEN'S TEST Positive; FCOHb 0.9 % (0.5-1.5); FMetHb 0.1 % (0.3-1.12); FO2Hb 89.7 % (94-100); TOTAL HEMOGLOBIN 10.5 G/dl (14.0-18.0)
[2018-12-28 16:10] LABS: ANISOCYTOSIS 2+; ELLIPTOCYTES FEW; HYPOCHROMASIA 1+; PLATELET ESTIMATE NORMAL
[2018-12-28 16:11] LABS: SCHISTOCYTES FEW
[2018-12-28 16:12] LABS: BURR CELLS FEW
[2018-12-28 16:13] LABS: ACANTHOCYTES 1+
[2018-12-28] MEDS ORDERED: potassium Cl 20 mEq SR tablet PO PRN ×2 (16:50)
[2018-12-28] MEDS ORDERED: ondansetron/PF 4mg/2ml inj IV PRN (16:50)
[2018-12-28] MEDS ORDERED: magnesium hydroxide 30ml (MOM) UD suspension PO PRN (16:50)
[2018-12-28] MEDS ORDERED: potassium Cl 40MEQ/NS 500ml 500 ML IV PRN ×2 (16:50)
[2018-12-28] MEDS ORDERED: magnesium 4gm in 100ml NS 100 ML IV PRN (16:50)
[2018-12-28] MEDS ORDERED: magnesium 2GM in 50ml NS 50 ML IV PRN (16:50)
[2018-12-28] MEDS ORDERED: mag hydrox/Alum hydrox/simeth 30ml oral suspension PO PRN (16:50)
[2018-12-28] MEDS ORDERED: acetaminophen 325mg tablet PO PRN (16:50)
[2018-12-28] MEDS ORDERED: magnesium Cl slow-release 64mg tablet PO PRN (16:50)
[2018-12-28 17:00] LABS: CLARITY,URINE CLEAR (Clear); COLOR,URINE YELLOW (Yellow); GLUCOSE, URINE NEGATIVE (Neg); KETONES,URINE NEGATIVE (Neg); LEUKOCYTE ESTERASE ,URINE NEGATIVE (Neg); NITRITES, URINE NEGATIVE (Neg); OCCULT BLOOD,URINE SMALL (Neg); PH,URINE 5.5 (4.8-8.0); PROTEIN,URINE 100 mg/dl (Neg); UROBILINOGEN,URINE 0.2 E.U/dL (0.2-1.0)
[2018-12-28 17:08] LABS: UA COLLECTION TYPE STRAIGHT CATH
[2018-12-28 17:10] LABS: ABG BASE EXCESS -1.7 mmol/L (-2.0-3.0); ABG HCO3 24.8 mmol/L (22.0-26.0); ABG OXYGEN SATURATION 98.9 % (95-98); ABG PCO2 (T) 51.2 mmHg (35.0-48.0); ABG PH (T) 7.303 (7.350-7.450); ABG PO2 (T) 185.1 mmHg (83-108); ALLEN'S TEST Positive; FCOHb 0.7 % (0.5-1.5); FMetHb 0.1 % (0.3-1.12); FO2Hb 98.1 % (94-100); MINUTE VOLUME 9 L/min; RESPIRATORY RATE 16 b/min; RESPIRATORY RATE (OBSERVED) 19 b/min
[2018-12-28 17:11] LABS: FINE GRANULAR CAST 0-3 /LPF (NEGATIVE)
--- NOTE | 2018-12-28 17:12 | NUR ---
[facility] [phone]
[2018-12-28 17:13] LABS: MUCUS STRANDS FEW /LPF (Neg); SQUAMOUS EPITHELIAL CELL,UR FEW /LPF (FEW)
[2018-12-28 17:14] LABS: AMORPHOUS URATES 1+
[2018-12-28 17:15] LABS: BACTERIA,URINE 1+ /HPF (Neg)
--- NOTE | 2018-12-28 17:50 | NUR ---
Patient in room PCU 3025. I have received report from Ruthann SNEED and had the opportunity to ask questions and assume patient care.
--- NOTE | 2018-12-28 18:35 | NUR ---
Problems reprioritized. Patient report given, questions answered & plan of care reviewed with Isa SNEED.
--- NOTE | 2018-12-28 18:51 | NUR ---
Patient in room PCU 3025. I have received report from Sapphire SNEED and had the opportunity to ask questions and assume patient care. Pt is obtunded. Currently on bipap FIO2 at 30%. Equal chest rise and no signs of distress at this time. Some bruising visible to his upper left ribcage and elbows. Scars visible from recent AICD to left chest and previous CABG. Will continue to frequently round on the pt.
[2018-12-28 19:00] VITALS: BP 132/62
[2018-12-28] MEDS ORDERED: ipratropium/albuterol 3ml nebule NEB PRN (19:25)
--- NOTE | 2018-12-28 19:42 | NUR ---
Dr. Padilla called and gave telephone orders to have a trop x1 drawn at 2100 and a PBNP x1 as well. He has placed orders for lasix and breathing tx tonight. He would like the pt to have at least 1 dose of duoneb for possible sleep apnea.
[2018-12-28] MEDS: budesonide 0.5mg/2ml UD nebule IH SCH (19:53)
[2018-12-28] MEDS: sacubitril/valsartan 24mg-26mg tablet PO SCH (20:00)
[2018-12-28] MEDS ORDERED: sacubitril/valsartan 49mg-51mg tablet PO SCH (20:00)
[2018-12-28] MEDS: furosemide 20 MG/2 ML vial IV SCH (20:30)
[2018-12-28 21:01] LABS: ABG BASE EXCESS -0.8 mmol/L (-2.0-3.0); ABG HCO3 25.6 mmol/L (22.0-26.0); ABG OXYGEN SATURATION 95.8 % (95-98); ABG PCO2 (T) 51.8 mmHg (35.0-48.0); ABG PH (T) 7.312 (7.350-7.450); ABG PO2 (T) 88.9 mmHg (83-108); FCOHb 0.4 % (0.5-1.5); FO2Hb 95.4 % (94-100); MINUTE VOLUME 12 L/min; RESPIRATORY RATE (OBSERVED) 16 b/min; TOTAL HEMOGLOBIN 8.6 G/dl (14.0-18.0)
--- NOTE | 2018-12-28 21:04 | NUR ---
Repeat ABG done per Dr. Padilla's orders. Discussed with RT and reviewed results. pCO2 remains the same compared to 1707 ABG. ABG taken with IPAP/EPAP AT 15/5 and FIO2 of 25%. Mask has also been changed to XL. Significant leak with M. Will continue to monitor.
[2018-12-28 21:21] LABS: TROPONIN I < 0.04 NG/ML (0.0-0.05)
[2018-12-28] MEDS: ipratropium/albuterol 3ml nebule NEB SCH (22:53)
[2018-12-28 23:00] VITALS: BP 141/113
[2018-12-29] VITALS (8 sets, daily range): BP systolic 114–159; BP diastolic 61–89
[2018-12-29] MEDS: ipratropium/albuterol 3ml nebule NEB SCH ×6 (02:43→23:01)
--- NOTE | 2018-12-29 03:05 | NUR ---
0230: Pt awake for the first time and yelled for help. Removed his bipap mask. Needed to use restroom. Was able to hold conversation once he was reoriented. He cannot seem to remember events leading up to his admission, and was not aware of the rehab facility placing an ankle brace on him.
[2018-12-29 06:06] LABS: EOSINOPHILS # (AUTO) 0.1 X10'3 (0-0.9); EOSINOPHILS % (AUTO) 3.1 % (0-6); HEMATOCRIT 25.3 % (42.0-52.0); HEMOGLOBIN 8.1 g/dl (14.0-17.9); LYMPHOCYTES # (AUTO) 0.3 X10'3 (1.1-4.8); LYMPHOCYTES % (AUTO) 6.4 % (21-51); MEAN CORPUSCULAR HEMOGLOBIN 26.7 PG (27.0-31.0); MEAN CORPUSCULAR VOLUME 83.5 FL (78-98); MEAN PLATELET VOLUME 7.7 FL (7.4-10.4); MONOCYTES # (AUTO) 0.4 X10'3 (0-0.9); NEUTROPHILS # (AUTO) 3.9 X10'3 (1.8-7.7); NEUTROPHILS % (AUTO) 81.5 % (42-75); PLATELET COUNT 148 X10'3 (140-440); RED BLOOD COUNT 3.03 X10'6 (4.70-6.10); RED CELL DISTRIBUTION WIDTH 20.1 % (11.5-14.5); WHITE BLOOD COUNT 4.7 X10'3 (4.5-11.0)
--- NOTE | 2018-12-29 06:12 | NUR ---
Problems reprioritized. Patient report given, questions answered & plan of care reviewed with Odilia SNEED.
[2018-12-29 06:20] LABS: ALBUMIN 2.6 G/DL (3.4-5.0); ANION GAP 5 (8-16); BLOOD UREA NITROGEN 52 MG/DL (7-18); BUN/CREATININE RATIO 22.4 (5.4-32.0); CALCIUM 8.6 MG/DL (8.5-10.1); CHLORIDE 110 MMOL/L (99-107); CREATININE 2.32 MG/DL (0.60-1.10); GLUCOSE 89 MG/DL (70-104); MAGNESIUM 2.1 MG/DL (1.5-2.4); POTASSIUM 4.3 MMOL/L (3.5-5.1); SODIUM 142 MMOL/L (135-145); TOTAL CARBON DIOXIDE 26.7 MMOL/L (24-32); eGFR 28 ML/MIN
[2018-12-29 06:28] LABS: INR 3.3 INR
--- NOTE | 2018-12-29 06:45 | NUR ---
Patient in room PCU 3025. I have received report from Isa SNEED and had the opportunity to ask questions and assume patient care.
[2018-12-29] MEDS: budesonide 0.5mg/2ml UD nebule IH SCH ×2 (07:09→19:30)
[2018-12-29 07:33] LABS: PLATELET ESTIMATE NORMAL
[2018-12-29 07:34] LABS: ANISOCYTOSIS 3+; HYPOCHROMASIA 1+; POLYCHROMASIA 1+
[2018-12-29 07:36] LABS: ACANTHOCYTES 2+; ELLIPTOCYTES 1+; SCHISTOCYTES FEW
[2018-12-29] MEDS: isosorbide mononitrate 30mg tab.SR.24H PO SCH (08:00)
[2018-12-29] MEDS: K and/or MAG REPLACEMENT MC SCH (08:00)
[2018-12-29] MEDS: carVEDilol 12.5mg tablet PO SCH (08:00)
[2018-12-29] MEDS ORDERED: enoxaparin 30mg/0.3ml syringe SQ SCH (08:00)
[2018-12-29] MEDS: furosemide 20 MG/2 ML vial IV SCH ×2 (08:59→20:23)
[2018-12-29] MEDS: potassium chloride 10mEq ER tablet PO SCH (09:02)
[2018-12-29] MEDS: lactobacillus rhamnosus 10,000 MMU CELLS/CAPSULE PO SCH (09:03)
[2018-12-29] MEDS: pantoprazole 40mg Tablet.DR PO SCH (09:03)
[2018-12-29] MEDS: folic acid 1mg tablet PO SCH (09:03)
[2018-12-29] MEDS: amiodarone 200mg tablet PO SCH (09:03)
[2018-12-29] MEDS: hydrALAZINE 25 MG tablet PO SCH (09:03)
[2018-12-29] MEDS: ferrous sulfate 325mg tablet PO SCH (09:04)
[2018-12-29] MEDS: sacubitril/valsartan 24mg-26mg tablet PO SCH ×2 (09:08→20:23)
[2018-12-29] MEDS: atorvastatin 20mg tablet PO SCH (09:09)
--- NOTE | 2018-12-29 11:54 | NUR ---
Paged Dr Bravo regarding pt diet order PAGER ID: [phone] MESSAGE: Odilia [phone] Lin Reyes 3025B. Would you like a diet order placed for patient? (Pt tolerated swallowing medications with no issues.) Thank you
--- NOTE | 2018-12-29 16:20 | NUR ---
D/C'd fieldstart IV in left AC. Initiated 20 G in Right forearm with one attempt. Patient tolerated well with no complaints.
--- NOTE | 2018-12-29 16:47 | NUR ---
Paged Dr Bravo regarding future ABGs since patient remains on BiPap PAGER ID: [phone] MESSAGE: Odilia [phone]. RE Lin Pacheco 3025B. Would you like another ABG ordered for tomorrow 12/30? Thank you!
--- NOTE | 2018-12-29 18:29 | NUR ---
Problems reprioritized. Patient report given, questions answered & plan of care reviewed with Sena SNEED.
[2018-12-30] VITALS (8 sets, daily range): BP systolic 109–142; BP diastolic 59–89
[2018-12-30] MEDS: acetaminophen 325mg tablet PO PRN (02:22)
[2018-12-30] MEDS: ipratropium/albuterol 3ml nebule NEB SCH ×6 (02:56→23:10)
[2018-12-30 05:26] LABS: BASOPHILS % (AUTO) 0.7 % (0-1); EOSINOPHILS # (AUTO) 0.1 X10'3 (0-0.9); EOSINOPHILS % (AUTO) 2.7 % (0-6); HEMATOCRIT 23.5 % (42.0-52.0); HEMOGLOBIN 7.5 g/dl (14.0-17.9); LYMPHOCYTES # (AUTO) 0.4 X10'3 (1.1-4.8); LYMPHOCYTES % (AUTO) 8.9 % (21-51); MEAN CORPUSCULAR HEMOGLOBIN 26.9 PG (27.0-31.0); MEAN CORPUSCULAR HGB CONC 31.9 g/dL (33.0-36.5); MEAN CORPUSCULAR VOLUME 84.2 FL (78-98); MEAN PLATELET VOLUME 7.8 FL (7.4-10.4); MONOCYTES # (AUTO) 0.5 X10'3 (0-0.9); MONOCYTES % (AUTO) 10.4 % (2-12); NEUTROPHILS # (AUTO) 3.7 X10'3 (1.8-7.7); NEUTROPHILS % (AUTO) 77.3 % (42-75); PLATELET COUNT 147 X10'3 (140-440); RED CELL DISTRIBUTION WIDTH 19.4 % (11.5-14.5); WHITE BLOOD COUNT 4.8 X10'3 (4.5-11.0)
[2018-12-30 05:44] LABS: ALBUMIN 2.3 G/DL (3.4-5.0); ANION GAP 6 (8-16); BLOOD UREA NITROGEN 47 MG/DL (7-18); BUN/CREATININE RATIO 19.1 (5.4-32.0); CHLORIDE 110 MMOL/L (99-107); CREATININE 2.46 MG/DL (0.60-1.10); GLUCOSE 119 MG/DL (70-104); POTASSIUM 4.3 MMOL/L (3.5-5.1); SODIUM 143 MMOL/L (135-145); TOTAL CARBON DIOXIDE 27.1 MMOL/L (24-32); eGFR 26 ML/MIN
[2018-12-30 06:00] LABS: INR 3.4 INR
[2018-12-30 06:15] LABS: ANISOCYTOSIS 2+; PLATELET ESTIMATE NORMAL
[2018-12-30 06:17] LABS: ACANTHOCYTES FEW; BURR CELLS 1+; ELLIPTOCYTES 1+
[2018-12-30 06:18] LABS: POIKILOCYTOSIS 1+; POLYCHROMASIA FEW; SCHISTOCYTES FEW
[2018-12-30 06:19] LABS: HYPOCHROMASIA 1+
[2018-12-30] MEDS: budesonide 0.5mg/2ml UD nebule IH SCH ×2 (07:12→19:47)
[2018-12-30] MEDS: K and/or MAG REPLACEMENT MC SCH (08:00)
[2018-12-30] MEDS: folic acid 1mg tablet PO SCH (08:09)
[2018-12-30] MEDS: atorvastatin 20mg tablet PO SCH (08:09)
[2018-12-30] MEDS: ferrous sulfate 325mg tablet PO SCH (08:09)
[2018-12-30] MEDS: lactobacillus rhamnosus 10,000 MMU CELLS/CAPSULE PO SCH (08:09)
[2018-12-30] MEDS: pantoprazole 40mg Tablet.DR PO SCH (08:09)
[2018-12-30] MEDS: sacubitril/valsartan 24mg-26mg tablet PO SCH ×2 (08:09→20:04)
[2018-12-30] MEDS: hydrALAZINE 25 MG tablet PO SCH (08:09)
[2018-12-30] MEDS: carVEDilol 12.5mg tablet PO SCH (08:09)
[2018-12-30] MEDS: furosemide 20 MG/2 ML vial IV SCH ×2 (08:09→20:04)
[2018-12-30] MEDS: isosorbide mononitrate 30mg tab.SR.24H PO SCH (08:10)
[2018-12-30] MEDS: potassium chloride 10mEq ER tablet PO SCH (08:10)
[2018-12-30] MEDS: amiodarone 200mg tablet PO SCH (08:10)
--- NOTE | 2018-12-30 08:46 | NUR ---
paged Dr Bravo regarding possible new ABG PAGER ID: [phone] MESSAGE: Odilia [phone]. Lin Reyes [id number]. Per report, patient has been off BiPap since last night. Would you like a new ABG done?
[2018-12-30 12:26] LABS: ABG BASE EXCESS 0.2 mmol/L (-2.0-3.0); ABG HCO3 24.8 mmol/L (22.0-26.0); ABG OXYGEN SATURATION 93.8 % (95-98); ABG PCO2 (T) 40.1 mmHg (35.0-48.0); ABG PO2 (T) 72.8 mmHg (83-108); ALLEN'S TEST Positive; FCOHb 1.3 % (0.5-1.5); FMetHb 0.1 % (0.3-1.12); FO2Hb 92.5 % (94-100)
--- NOTE | 2018-12-30 18:23 | NUR ---
Problems reprioritized. Patient report given, questions answered & plan of care reviewed with Sena SNEED.
[2018-12-31 02:00] VITALS: BP 131/74
[2018-12-31] MEDS: ipratropium/albuterol 3ml nebule NEB SCH ×2 (03:29→07:00)
[2018-12-31] MEDS: acetaminophen 325mg tablet PO PRN (04:05)
[2018-12-31 05:30] LABS: EOSINOPHILS # (AUTO) 0.2 X10'3 (0-0.9); EOSINOPHILS % (AUTO) 3.9 % (0-6); HEMATOCRIT 24.2 % (42.0-52.0); HEMOGLOBIN 7.7 g/dl (14.0-17.9); LYMPHOCYTES # (AUTO) 0.5 X10'3 (1.1-4.8); LYMPHOCYTES % (AUTO) 10.3 % (21-51); MEAN CORPUSCULAR HEMOGLOBIN 26.8 PG (27.0-31.0); MEAN CORPUSCULAR HGB CONC 31.9 g/dL (33.0-36.5); MEAN PLATELET VOLUME 7.7 FL (7.4-10.4); MONOCYTES # (AUTO) 0.5 X10'3 (0-0.9); NEUTROPHILS # (AUTO) 3.6 X10'3 (1.8-7.7); NEUTROPHILS % (AUTO) 74.8 % (42-75); PLATELET COUNT 144 X10'3 (140-440); RED BLOOD COUNT 2.88 X10'6 (4.70-6.10); RED CELL DISTRIBUTION WIDTH 19.5 % (11.5-14.5); WHITE BLOOD COUNT 4.8 X10'3 (4.5-11.0)
[2018-12-31 05:38] LABS: ALBUMIN 2.5 G/DL (3.4-5.0); ANION GAP 6 (8-16); BLOOD UREA NITROGEN 40 MG/DL (7-18); BUN/CREATININE RATIO 15.6 (5.4-32.0); CHLORIDE 108 MMOL/L (99-107); CREATININE 2.57 MG/DL (0.60-1.10); GLUCOSE 140 MG/DL (70-104); MAGNESIUM 1.9 MG/DL (1.5-2.4); POTASSIUM 4.5 MMOL/L (3.5-5.1); SODIUM 140 MMOL/L (135-145); eGFR 25 ML/MIN
[2018-12-31 05:58] LABS: INR 2.6 INR
[2018-12-31 06:19] LABS: ANISOCYTOSIS 2+; PLATELET ESTIMATE NORMAL
[2018-12-31 06:21] LABS: ELLIPTOCYTES 1+
[2018-12-31 06:22] LABS: BURR CELLS 1+; POIKILOCYTOSIS 1+; POLYCHROMASIA FEW
[2018-12-31 06:30] VITALS: BP 161/83
--- NOTE | 2018-12-31 06:36 | NUR ---
Patient in room PCU 3025B. I have received report from Sena SNEED and had the opportunity to ask questions and assume patient care.
[2018-12-31] MEDS: K and/or MAG REPLACEMENT MC SCH (08:00)
[2018-12-31] MEDS: budesonide 0.5mg/2ml UD nebule IH SCH (08:00)
[2018-12-31] MEDS: potassium chloride 10mEq ER tablet PO SCH (08:12)
[2018-12-31] MEDS: lactobacillus rhamnosus 10,000 MMU CELLS/CAPSULE PO SCH (08:13)
[2018-12-31] MEDS: ferrous sulfate 325mg tablet PO SCH (08:13)
[2018-12-31] MEDS: hydrALAZINE 25 MG tablet PO SCH (08:13)
[2018-12-31] MEDS: isosorbide mononitrate 30mg tab.SR.24H PO SCH (08:14)
[2018-12-31] MEDS: pantoprazole 40mg Tablet.DR PO SCH (08:14)
[2018-12-31] MEDS: carVEDilol 12.5mg tablet PO SCH (08:15)
[2018-12-31] MEDS: amiodarone 200mg tablet PO SCH (08:15)
[2018-12-31] MEDS: folic acid 1mg tablet PO SCH (08:15)
[2018-12-31] MEDS: sacubitril/valsartan 24mg-26mg tablet PO SCH (08:16)
[2018-12-31] MEDS: atorvastatin 20mg tablet PO SCH (08:17)
[2018-12-31] MEDS: furosemide 20 MG/2 ML vial IV SCH (08:28)
[2018-12-31 11:00] VITALS: BP 156/84
--- NOTE | 2018-12-31 13:48 | NUR ---
Called report to Capo SNEED at [facility]. Gave opportunity to ask questions, all questions answered. Set pickup time for Pt is at 1430.
--- NOTE | 2018-12-31 14:30 | NUR ---
Per MD, patient stable for transfer to [facility]. IV discontinued with catheter intact and tele monitor removed. All questions answered for patient and daughter who was bedside. BiPap mask sent with patient. All belongings sent with patient. Patient escorted via wheelchair accompanied by Jennifer Cargo staff and daughter. Transferred to [facility] via [employer] [facility].
--- NOTE | 2018-12-31 14:42 | NUR ---
Student documentation: I have reviewed and agree with all interventions, assessments performed and documented by Jodi.
[2018-12-31] MEDS ORDERED: warfarin 1mg tablet PO ONE (21:00)
== END 2018-12-31 14:30 | DRG 189 ==
LOC: ER 14:40 → PCU 3S 17:38 → CMPBEDREQ 19:56
PROVIDERS: ADMIT Hospitalist; ATTEND Hospitalist
PROC: 5A09357 Assistance with Respiratory Ventilation, Less than 24 Consecutive Hours, Continuous Positive Airway Pressure (ICD-10-PCS; principal; 2018-12-28)
DX: J96.02 Acute respiratory failure with hypercapnia (principal); G93.41 Metabolic encephalopathy; J44.1 Chronic obstructive pulmonary disease with (acute) exacerbation; I13.0 Hypertensive heart and chronic kidney disease with heart failure and stage 1 through stage 4 chronic kidney disease, or unspecified chronic kidney disease; I50.22 Chronic systolic (congestive) heart failure; N18.4 Chronic kidney disease, stage 4 (severe); I07.1 Rheumatic tricuspid insufficiency; E78.00 Pure hypercholesterolemia, unspecified; G47.30 Sleep apnea, unspecified; D63.8 Anemia in other chronic diseases classified elsewhere; E11.22 Type 2 diabetes mellitus with diabetic chronic kidney disease; I48.91 Unspecified atrial fibrillation; I11.0 Hypertensive heart disease with heart failure; I25.10 Atherosclerotic heart disease of native coronary artery without angina pectoris; R62.7 Adult failure to thrive; Z90.49 Acquired absence of other specified parts of digestive tract; Z95.1 Presence of aortocoronary bypass graft; Z88.8 Allergy status to other drugs, medicaments and biological substances; Z79.899 Other long term (current) drug therapy; Z85.038 Personal history of other malignant neoplasm of large intestine; Z86.73 Personal history of transient ischemic attack (TIA), and cerebral infarction without residual deficits; Z82.49 Family history of ischemic heart disease and other diseases of the circulatory system; Z83.3 Family history of diabetes mellitus
CPT/HCPCS: 36415; 36600; 71045; 80048; 80053; 81001; 82140; 82803; 83605; 83735; 83880; 84484; 85018; 85025; 85610; 85730; 87040; 87070; 87088; 93005; 94640; 94660; 94760; 97110; 97116; 97162; 97530; 99285; G0378; J1650; J1940; J7626

== ENCOUNTER 2019-01-08 23:52 | Emergency (ER) | payer MEDICARE, MEDICAID ==
[~2019-01-08] VITALS: Ht 162.6 cm; Wt 92.0 kg
[~2019-01-08 23:52] MED LIST changes: -COU5T PO; -FURO-150 PO; -IPRA3AMP9 NEB
[2019-01-08] MEDS ORDERED: normal saline 1000ML IV soln IVB ONE (23:55)
[2019-01-08] MEDS ORDERED: simethicone 80mg chew tab PO ONE (23:55)
[2019-01-08] MEDS ORDERED: ondansetron/PF 4mg/2ml inj IV ONE (23:55)
[2019-01-09] MEDS ORDERED: NA P133E4 RC (00:13)
[2019-01-09] MEDS ORDERED: BUDE0.5A11 IH (00:13)
[2019-01-09] MEDS ORDERED: FURO-150 PO (00:13)
[2019-01-09] MEDS ORDERED: IPRA3AMP31 IH (00:13)
[2019-01-09] MEDS ORDERED: MAGN400O6 PO (00:13)
[2019-01-09] MEDS ORDERED: COU1T PO (00:13)
[2019-01-09] MEDS ORDERED: BISA10SU60 RC (00:13)
[2019-01-09 00:14] LABS: BASOPHILS % (AUTO) 1.1 % (0-1); EOSINOPHILS # (AUTO) 0.1 X10'3 (0-0.9); EOSINOPHILS % (AUTO) 3.3 % (0-6); HEMATOCRIT 22.4 % (42.0-52.0); HEMOGLOBIN 7.2 g/dl (14.0-17.9); LYMPHOCYTES # (AUTO) 0.5 X10'3 (1.1-4.8); LYMPHOCYTES % (AUTO) 10.7 % (21-51); MEAN CORPUSCULAR HGB CONC 32.3 g/dL (33.0-36.5); MEAN CORPUSCULAR VOLUME 83.7 FL (78-98); MEAN PLATELET VOLUME 7.3 FL (7.4-10.4); MONOCYTES # (AUTO) 0.3 X10'3 (0-0.9); MONOCYTES % (AUTO) 7.8 % (2-12); NEUTROPHILS # (AUTO) 3.5 X10'3 (1.8-7.7); NEUTROPHILS % (AUTO) 77.1 % (42-75); PLATELET COUNT 153 X10'3 (140-440); RED BLOOD COUNT 2.68 X10'6 (4.70-6.10); RED CELL DISTRIBUTION WIDTH 19.6 % (11.5-14.5); WHITE BLOOD COUNT 4.5 X10'3 (4.5-11.0)
[2019-01-09 00:24] LABS: ALANINE AMINOTRANSFERASE 18 U/L (12-78); ALBUMIN 2.7 G/DL (3.4-5.0); ALBUMIN/GLOBULIN RATIO 0.7 (1.1-1.5); ALKALINE PHOSPHATASE 106 IU/L (46-116); ANION GAP 8 (8-16); ASPARTATE AMINO TRANSFERASE 26 U/L (10-37); BILIRUBIN,TOTAL 0.7 MG/DL (0.1-1.0); BLOOD UREA NITROGEN 69 MG/DL (7-18); CHLORIDE 108 MMOL/L (99-107); CREATININE 2.65 MG/DL (0.60-1.10); GLUCOSE 107 MG/DL (70-104); LIPASE 225 U/L (73-393); POTASSIUM 5.1 MMOL/L (3.5-5.1); SODIUM 141 MMOL/L (135-145); TOTAL CARBON DIOXIDE 24.7 MMOL/L (24-32); TOTAL PROTEIN 6.8 G/DL (6.4-8.2); eGFR 24 ML/MIN
[2019-01-09 00:40] LABS: ANISOCYTOSIS 2+; MICROCYTOSIS 1+; PLATELET ESTIMATE NORMAL
[2019-01-09 00:41] LABS: ACANTHOCYTES FEW; POIKILOCYTOSIS 1+; SCHISTOCYTES FEW
[2019-01-09 01:47] VITALS: BP 118/75
== END 2019-01-09 01:48 | disposition home or self-care (01) ==
LOC: ER 23:52
DX: R18.8 Other ascites (principal); D64.9 Anemia, unspecified; R19.7 Diarrhea, unspecified; I25.10 Atherosclerotic heart disease of native coronary artery without angina pectoris; I11.0 Hypertensive heart disease with heart failure; I50.9 Heart failure, unspecified; E78.00 Pure hypercholesterolemia, unspecified; E11.9 Type 2 diabetes mellitus without complications; Z90.49 Acquired absence of other specified parts of digestive tract; Z95.1 Presence of aortocoronary bypass graft; Z95.0 Presence of cardiac pacemaker; Z85.038 Personal history of other malignant neoplasm of large intestine; Z86.73 Personal history of transient ischemic attack (TIA), and cerebral infarction without residual deficits; Z88.5 Allergy status to narcotic agent; Z79.01 Long term (current) use of anticoagulants; Z79.899 Other long term (current) drug therapy
CPT/HCPCS: 36415; 80053; 83690; 85025; 96374; 99284; J2405; J7030

== ENCOUNTER 2019-01-26 20:32 | Inpatient (IN) | payer MEDICARE, MEDICAID ==
[~2019-01-26] VITALS: Ht 162.6 cm; Wt 94.6 kg
[~2019-01-26 20:32] MED LIST changes: +BISA10SU60 RC; +BUDE0.5A11 IH; +COU1T PO; +FURO-150 PO; +IPRA3AMP31 IH; +MAGN400O6 PO; +NA P133E4 RC
[2019-01-26 21:55] LABS: BASOPHILS # (AUTO) 0.1 X10'3 (0-0.2); BASOPHILS % (AUTO) 1.2 % (0-1); EOSINOPHILS # (AUTO) 0.2 X10'3 (0-0.9); EOSINOPHILS % (AUTO) 3.8 % (0-6); HEMATOCRIT 24.4 % (42.0-52.0); HEMOGLOBIN 7.8 g/dl (14.0-17.9); LYMPHOCYTES # (AUTO) 0.4 X10'3 (1.1-4.8); LYMPHOCYTES % (AUTO) 9.8 % (21-51); MEAN CORPUSCULAR HEMOGLOBIN 27.4 PG (27.0-31.0); MEAN CORPUSCULAR HGB CONC 32.2 g/dL (33.0-36.5); MEAN CORPUSCULAR VOLUME 85.3 FL (78-98); MEAN PLATELET VOLUME 7.3 FL (7.4-10.4); MONOCYTES # (AUTO) 0.3 X10'3 (0-0.9); MONOCYTES % (AUTO) 7.5 % (2-12); NEUTROPHILS # (AUTO) 3.2 X10'3 (1.8-7.7); NEUTROPHILS % (AUTO) 77.7 % (42-75); PLATELET COUNT 124 X10'3 (140-440); RED BLOOD COUNT 2.86 X10'6 (4.70-6.10); RED CELL DISTRIBUTION WIDTH 18.8 % (11.5-14.5); WHITE BLOOD COUNT 4.1 X10'3 (4.5-11.0)
[2019-01-26 22:05] LABS: INR 1.4 INR
[2019-01-26 22:07] LABS: ALANINE AMINOTRANSFERASE 19 U/L (12-78); ALBUMIN 2.5 G/DL (3.4-5.0); ALBUMIN/GLOBULIN RATIO 0.6 (1.1-1.5); ALKALINE PHOSPHATASE 114 IU/L (46-116); ANION GAP 4 (8-16); ASPARTATE AMINO TRANSFERASE 26 U/L (10-37); BILIRUBIN,TOTAL 0.6 MG/DL (0.1-1.0); BLOOD UREA NITROGEN 71 MG/DL (7-18); CALCIUM 7.9 MG/DL (8.5-10.1); CHLORIDE 108 MMOL/L (99-107); CREATININE 2.96 MG/DL (0.60-1.10); GLUCOSE 145 MG/DL (70-104); POTASSIUM 4.9 MMOL/L (3.5-5.1); SODIUM 142 MMOL/L (135-145); TOTAL CARBON DIOXIDE 30.1 MMOL/L (24-32); TOTAL PROTEIN 6.8 G/DL (6.4-8.2); eGFR 21 ML/MIN
[2019-01-26 22:38] LABS: ANISOCYTOSIS 2+; PLATELET ESTIMATE DECREASED; POIKILOCYTOSIS 1+
[2019-01-26 22:39] LABS: ACANTHOCYTES FEW; ELLIPTOCYTES 1+; POLYCHROMASIA FEW; SCHISTOCYTES FEW
[2019-01-26] MEDS ORDERED: ZAR2.5T PO (22:51)
[2019-01-26] MEDS ORDERED: ACET-2119 PO (22:51)
[2019-01-27] MEDS ORDERED: potassium CL 10mEq/100ml bag 100 ML IV PRN (00:10)
[2019-01-27] MEDS ORDERED: potassium Cl 20 mEq SR tablet PO PRN ×2 (00:10)
[2019-01-27] MEDS ORDERED: mag hydrox/Alum hydrox/simeth 30ml oral suspension PO PRN (00:10)
[2019-01-27] MEDS ORDERED: acetaminophen 325mg tablet PO PRN ×2 (00:10)
[2019-01-27] MEDS ORDERED: potassium Cl 40MEQ/NS 500ml 500 ML IV PRN (00:10)
[2019-01-27] MEDS ORDERED: ondansetron/PF 4mg/2ml inj IV PRN (00:10)
[2019-01-27] MEDS ORDERED: magnesium 2GM in 50ml NS 50 ML IV PRN (00:10)
[2019-01-27] MEDS ORDERED: magnesium hydroxide 30ml (MOM) UD suspension PO PRN (00:10)
[2019-01-27] MEDS ORDERED: magnesium 4gm in 100ml NS 100 ML IV PRN (00:10)
[2019-01-27] MEDS ORDERED: magnesium Cl slow-release 64mg tablet PO PRN (00:10)
[2019-01-27] MEDS: furosemide 40mg/4ml inj IV SCH ×3 (00:24→20:17)
[2019-01-27] MEDS ORDERED: ipratropium/albuterol 3ml nebule NEB PRN (00:30)
--- NOTE | 2019-01-27 01:41 | NUR ---
Patient in room . I have received report from Yuni Bolanos and had the opportunity to ask questions and assume patient care.
[2019-01-27 02:00] VITALS: BP 144/95
--- NOTE | 2019-01-27 05:29 | NUR ---
[place]rient[place] Medication Administration: For this medication-pass time frame, all medication were reviewed, dispensed, administered and documented per hospital policy by Silvia SNEED. Orientee documentation: I have reviewed and agree with all interventions, assessments performed and documented by Silvia SNEED.
[2019-01-27 06:00] VITALS: BP 127/69
--- NOTE | 2019-01-27 06:11 | NUR ---
Problems reprioritized. Patient report given, questions answered & plan of care reviewed with Yuni Snow.
--- NOTE | 2019-01-27 06:20 | NUR ---
Patient in room PCU 3028. I have received report from Consuelo SNEED and had the opportunity to ask questions and assume patient care.
[2019-01-27] MEDS: carVEDilol 12.5mg tablet PO SCH (07:53)
[2019-01-27] MEDS: potassium chloride 10mEq ER tablet PO SCH (07:53)
[2019-01-27] MEDS: heparin, porcine 5000 units/ml vial SQ SCH ×2 (07:53→20:25)
[2019-01-27] MEDS: amiodarone 200mg tablet PO SCH (07:53)
[2019-01-27] MEDS: folic acid 1mg tablet PO SCH (07:53)
[2019-01-27] MEDS: isosorbide mononitrate 30mg tab.SR.24H PO SCH (07:54)
[2019-01-27] MEDS: ferrous sulfate 325mg tablet PO SCH ×2 (07:54→20:15)
[2019-01-27] MEDS: atorvastatin 20mg tablet PO SCH (07:55)
[2019-01-27] MEDS: BUDESONIDE 0.25 MG/2 ML AMPUL.NEB IH SCH ×2 (08:00→20:28)
[2019-01-27] MEDS: SACUBITRIL PO SCH ×2 (08:00→20:00)
[2019-01-27] MEDS ORDERED: warfarin 1mg tablet PO SCH (08:00)
[2019-01-27] MEDS: VALSARTAN PO SCH ×2 (08:00→20:00)
[2019-01-27] MEDS: K and/or MAG REPLACEMENT MC SCH (08:00)
[2019-01-27] MEDS: hydrALAZINE 25 MG tablet PO SCH (10:13)
[2019-01-27 10:27] LABS: INR 1.3 INR
[2019-01-27 11:00] VITALS: BP 116/65
[2019-01-27 14:42] LABS: ALANINE AMINOTRANSFERASE 17 U/L (12-78); ALBUMIN 2.4 G/DL (3.4-5.0); ALBUMIN/GLOBULIN RATIO 0.6 (1.1-1.5); ALKALINE PHOSPHATASE 105 IU/L (46-116); ANION GAP 5 (8-16); ASPARTATE AMINO TRANSFERASE 23 U/L (10-37); BILIRUBIN,TOTAL 0.8 MG/DL (0.1-1.0); BLOOD UREA NITROGEN 70 MG/DL (7-18); BUN/CREATININE RATIO 24.6 (5.4-32.0); CALCIUM 7.8 MG/DL (8.5-10.1); CHLORIDE 107 MMOL/L (99-107); CREATININE 2.85 MG/DL (0.60-1.10); GLUCOSE 140 MG/DL (70-104); POTASSIUM 4.7 MMOL/L (3.5-5.1); SODIUM 141 MMOL/L (135-145); TOTAL CARBON DIOXIDE 29.5 MMOL/L (24-32); TOTAL PROTEIN 6.3 G/DL (6.4-8.2); eGFR 22 ML/MIN
[2019-01-27 15:00] VITALS: BP 119/63
[2019-01-27 18:00] VITALS: BP 103/70
--- NOTE | 2019-01-27 18:00 | NUR ---
Problems reprioritized. Patient report given, questions answered & plan of care reviewed with Cynthia/Silvia SNEED.
[2019-01-27] MEDS ORDERED: warfarin 5mg tablet PO ONE (21:00)
[2019-01-27] MEDS ORDERED: temazepam 15mg capsule PO PRN (21:00)
[2019-01-27 22:00] VITALS: BP 124/69
[2019-01-28 02:00] VITALS: BP 147/78
--- NOTE | 2019-01-28 04:39 | NUR ---
Patient arrived to floor and is in room 3026A. Patient accompanied by officer, in R wrist handcuff w/ chain encompassing his torso, and bilat ankle cuffs. MRSA swav obtained, tele 36 placed, fluids and banana bag infusing per MD order. Vital signs obtained, no apparent signs of distressm patient drowsy but arousable, assisted with urinal. Patient is resting comfortably.
[2019-01-28 05:26] LABS: HEMATOCRIT 23.1 % (42.0-52.0); HEMOGLOBIN 7.5 g/dl (14.0-17.9); MEAN CORPUSCULAR HEMOGLOBIN 27.4 PG (27.0-31.0); MEAN CORPUSCULAR HGB CONC 32.6 g/dL (33.0-36.5); MEAN CORPUSCULAR VOLUME 84.2 FL (78-98); MEAN PLATELET VOLUME 8.1 FL (7.4-10.4); PLATELET COUNT 125 X10'3 (140-440); RED BLOOD COUNT 2.74 X10'6 (4.70-6.10); WHITE BLOOD COUNT 3.8 X10'3 (4.5-11.0)
[2019-01-28 05:44] LABS: INR 1.3 INR
[2019-01-28 06:00] VITALS: BP 149/80
--- NOTE | 2019-01-28 06:01 | NUR ---
Problems reprioritized. Patient report given, questions answered & plan of care reviewed with Edy SNEED.
[2019-01-28 06:14] LABS: ALBUMIN 2.5 G/DL (3.4-5.0); ANION GAP 7 (8-16); BLOOD UREA NITROGEN 70 MG/DL (7-18); BUN/CREATININE RATIO 23.8 (5.4-32.0); CHLORIDE 106 MMOL/L (99-107); CHOL/HDL RATIO 2.1 (0.00-4.99); CHOLESTEROL 80 MG/DL (0-200); CREATININE 2.94 MG/DL (0.60-1.10); GLUCOSE 98 MG/DL (70-104); HDL CHOLESTEROL 38 MG/DL (35-60); LDL CHOLESTEROL 38 MG/DL (50-100); MAGNESIUM 1.8 MG/DL (1.5-2.4); POTASSIUM 4.8 MMOL/L (3.5-5.1); SODIUM 142 MMOL/L (135-145); TOTAL CARBON DIOXIDE 29.3 MMOL/L (24-32); TRIGLYCERIDES 33 MG/DL (20-135); eGFR 21 ML/MIN
--- NOTE | 2019-01-28 06:19 | NUR ---
Problems reprioritized. Patient report given, questions answered & plan of care reviewed with Yuni Snow.
--- NOTE | 2019-01-28 06:30 | NUR ---
Patient in room PCU 3028. I have received report from Consuelo SNEED and had the opportunity to ask questions and assume patient care.
[2019-01-28] MEDS: BUDESONIDE 0.25 MG/2 ML AMPUL.NEB IH SCH (07:16)
[2019-01-28 07:26] LABS: ANISOCYTOSIS 2+; BURR CELLS 1+; MICROCYTOSIS 1+; PLATELET ESTIMATE DECREASED; SCHISTOCYTES 1+
[2019-01-28] MEDS: K and/or MAG REPLACEMENT MC SCH (08:00)
[2019-01-28] MEDS: amiodarone 200mg tablet PO SCH (09:03)
[2019-01-28] MEDS: furosemide 40mg/4ml inj IV SCH (09:04)
[2019-01-28] MEDS: atorvastatin 20mg tablet PO SCH (09:04)
[2019-01-28] MEDS: potassium chloride 10mEq ER tablet PO SCH (09:04)
[2019-01-28] MEDS: folic acid 1mg tablet PO SCH (09:04)
[2019-01-28] MEDS: heparin, porcine 5000 units/ml vial SQ SCH (09:04)
[2019-01-28] MEDS: ferrous sulfate 325mg tablet PO SCH (09:05)
[2019-01-28] MEDS: isosorbide mononitrate 30mg tab.SR.24H PO SCH (09:05)
[2019-01-28] MEDS: carVEDilol 12.5mg tablet PO SCH (09:05)
[2019-01-28] MEDS: hydrALAZINE 25 MG tablet PO SCH (09:05)
[2019-01-28] MEDS ORDERED: sacubitril/valsartan 24mg-26mg tablet PO SCH (10:00)
--- NOTE | 2019-01-28 12:50 | NUR ---
Pt Discharged home with granddaughter. Tele-box removed and returned to tele-tech. IV removed, canula intact. DC paper work gone over with Pt and granddaughter, allowed both to ask questions and answer them. No new meds prescribed for Pt. Pt's cardiologists office will call Pt to make follow up appointment. Pt's belongings gathered and sent with Pt. Pt wheeled down to lobby by auxillary and left in private car with granddaughter.
== END 2019-01-28 12:50 | disposition home or self-care (01) | DRG 291 ==
LOC: ER 20:33 → PCU 3S 01-27 01:47
PROVIDERS: ADMIT Family Medicine; ATTEND Internal Medicine
DX: I13.0 Hypertensive heart and chronic kidney disease with heart failure and stage 1 through stage 4 chronic kidney disease, or unspecified chronic kidney disease (principal); I50.43 Acute on chronic combined systolic (congestive) and diastolic (congestive) heart failure; J96.90 Respiratory failure, unspecified, unspecified whether with hypoxia or hypercapnia; R18.8 Other ascites; N18.4 Chronic kidney disease, stage 4 (severe); I42.2 Other hypertrophic cardiomyopathy; E78.5 Hyperlipidemia, unspecified; E11.22 Type 2 diabetes mellitus with diabetic chronic kidney disease; I25.10 Atherosclerotic heart disease of native coronary artery without angina pectoris; E78.00 Pure hypercholesterolemia, unspecified; R00.1 Bradycardia, unspecified; D50.9 Iron deficiency anemia, unspecified; G47.33 Obstructive sleep apnea (adult) (pediatric); G31.84 Mild cognitive impairment of uncertain or unknown etiology; I48.0 Paroxysmal atrial fibrillation; Z88.6 Allergy status to analgesic agent; Z95.5 Presence of coronary angioplasty implant and graft; Z90.49 Acquired absence of other specified parts of digestive tract; Z82.49 Family history of ischemic heart disease and other diseases of the circulatory system; Z83.3 Family history of diabetes mellitus; Z86.73 Personal history of transient ischemic attack (TIA), and cerebral infarction without residual deficits; Z85.038 Personal history of other malignant neoplasm of large intestine; Z95.1 Presence of aortocoronary bypass graft; Z79.01 Long term (current) use of anticoagulants; Z95.810 Presence of automatic (implantable) cardiac defibrillator; Z79.899 Other long term (current) drug therapy
CPT/HCPCS: 36415; 71045; 80048; 80053; 80061; 83735; 83880; 84439; 84443; 84484; 85025; 85027; 85610; 87070; 93005; 93308; 94640; 94760; 99285; G0378; J1644; J1940

== ENCOUNTER 2019-02-07 20:43 | Emergency (ER) | payer MEDICARE, MEDICAID ==
[~2019-02-07] VITALS: Ht 162.6 cm; Wt 88.6 kg
[~2019-02-07 20:43] MED LIST changes: +ACET-2119 PO; -BISA10SU60 RC; +ZAR2.5T PO
[2019-02-07 21:27] LABS: BASOPHILS # (AUTO) 0.1 X10'3 (0-0.2); EOSINOPHILS # (AUTO) 0.2 X10'3 (0-0.9); HEMOGLOBIN 7.2 g/dl (14.0-17.9); MEAN PLATELET VOLUME 7.4 FL (7.4-10.4); MONOCYTES # (AUTO) 0.4 X10'3 (0-0.9); MONOCYTES % (AUTO) 8.8 % (2-12); RED CELL DISTRIBUTION WIDTH 18.7 % (11.5-14.5)
[2019-02-07 21:29] LABS: HEMATOCRIT 22.8 % (42.0-52.0); LYMPHOCYTES # (AUTO) 0.6 X10'3 (1.1-4.8); LYMPHOCYTES % (AUTO) 13.7 % (21-51); MEAN CORPUSCULAR HGB CONC 31.7 g/dL (33.0-36.5); MEAN CORPUSCULAR VOLUME 85.3 FL (78-98); NEUTROPHILS # (AUTO) 3.2 X10'3 (1.8-7.7); NEUTROPHILS % (AUTO) 71.5 % (42-75); PLATELET COUNT 155 X10'3 (140-440); RED BLOOD COUNT 2.67 X10'6 (4.70-6.10); WHITE BLOOD COUNT 4.5 X10'3 (4.5-11.0)
[2019-02-07 21:59] LABS: PARTIAL THROMBOPLASTIN TIME 35 SECONDS (22-32)
[2019-02-07 22:14] LABS: ALANINE AMINOTRANSFERASE 18 U/L (12-78); ALBUMIN 2.5 G/DL (3.4-5.0); ALBUMIN/GLOBULIN RATIO 0.6 (1.1-1.5); ALKALINE PHOSPHATASE 93 IU/L (46-116); ANION GAP 5 (8-16); ASPARTATE AMINO TRANSFERASE 27 U/L (10-37); BILIRUBIN,TOTAL 0.5 MG/DL (0.1-1.0); BLOOD UREA NITROGEN 52 MG/DL (7-18); BUN/CREATININE RATIO 19.3 (5.4-32.0); CALCIUM 7.9 MG/DL (8.5-10.1); CHLORIDE 104 MMOL/L (99-107); GLUCOSE 110 MG/DL (70-104); SODIUM 138 MMOL/L (135-145); TOTAL CARBON DIOXIDE 28.7 MMOL/L (24-32); TOTAL PROTEIN 6.7 G/DL (6.4-8.2); eGFR 23 ML/MIN
[2019-02-07 22:18] LABS: ANISOCYTOSIS 2+; PLATELET ESTIMATE DECREASED
[2019-02-07 22:19] LABS: ACANTHOCYTES 1+; HYPOCHROMASIA 1+
[2019-02-07 22:20] LABS: POLYCHROMASIA FEW
[2019-02-07 23:50] LABS: OCCULT BLOOD STOOL NEGATIVE (Neg)
[2019-02-08 00:53] VITALS: BP 135/67
[2019-02-08 01:20] VITALS: BP 132/68
[2019-02-08 02:23] VITALS: BP 132/66
[2019-02-08 03:27] VITALS: BP 130/64
== END 2019-02-08 04:00 | disposition home or self-care (01) ==
LOC: ER 20:44
DX: D64.9 Anemia, unspecified (principal); R07.89 Other chest pain; I49.9 Cardiac arrhythmia, unspecified; R42 Dizziness and giddiness; I48.91 Unspecified atrial fibrillation; I25.10 Atherosclerotic heart disease of native coronary artery without angina pectoris; E78.00 Pure hypercholesterolemia, unspecified; I13.0 Hypertensive heart and chronic kidney disease with heart failure and stage 1 through stage 4 chronic kidney disease, or unspecified chronic kidney disease; I50.9 Heart failure, unspecified; N18.9 Chronic kidney disease, unspecified; E11.22 Type 2 diabetes mellitus with diabetic chronic kidney disease; Z90.49 Acquired absence of other specified parts of digestive tract; Z86.73 Personal history of transient ischemic attack (TIA), and cerebral infarction without residual deficits; Z95.0 Presence of cardiac pacemaker; Z88.5 Allergy status to narcotic agent; Z79.01 Long term (current) use of anticoagulants; Z79.899 Other long term (current) drug therapy
CPT/HCPCS: 36415; 36430; 71045; 80053; 82272; 83880; 84484; 85025; 85610; 85730; 86885; 86900; 86901; 86920; 93005; 99291; P9016

== ENCOUNTER 2019-02-20 20:42 | Emergency (ER) | payer MEDICARE, MEDICAID ==
[~2019-02-20] VITALS: Ht 162.6 cm; Wt 86.4 kg
[2019-02-21 00:55] LABS: CLARITY,URINE CLEAR (Clear); COLOR,URINE YELLOW (Yellow); GLUCOSE, URINE NEGATIVE (Neg); KETONES,URINE NEGATIVE (Neg); LEUKOCYTE ESTERASE ,URINE NEGATIVE (Neg); NITRITES, URINE NEGATIVE (Neg); OCCULT BLOOD,URINE TRACE-LYSED (Neg); PH,URINE 5.5 (4.8-8.0); PROTEIN,URINE 100 mg/dl (Neg); UROBILINOGEN,URINE 0.2 E.U/dL (0.2-1.0)
[2019-02-21 01:01] LABS: UA COLLECTION TYPE VOIDED
[2019-02-21 01:02] LABS: URINE AMPHETAMINE SCREEN NEGATIVE (Neg); URINE BARBITUATE SCREEN NEGATIVE (Neg); URINE BENZODIAZEPINES SCREEN NEGATIVE (Neg); URINE CANNABINOID SCREEN NEGATIVE (Neg); URINE COCAINE SCREEN NEGATIVE (Neg); URINE METHADONE SCREEN NEGATIVE (Neg); URINE OPIATE SCREEN NEGATIVE (Neg); URINE PHENCYCLIDINE SCREEN NEGATIVE (Neg)
[2019-02-21 01:05] LABS: BACTERIA,URINE NONE SEEN /HPF (Neg); SQUAMOUS EPITHELIAL CELL,UR NONE SEEN /LPF (FEW); WBC,URINE NONE SEEN /HPF (0-4)
[2019-02-21 01:05] LABS: BASOPHILS # (AUTO) 0.1 X10'3 (0-0.2); BASOPHILS % (AUTO) 1.4 % (0-1); EOSINOPHILS # (AUTO) 0.2 X10'3 (0-0.9); EOSINOPHILS % (AUTO) 4.4 % (0-6); HEMATOCRIT 23.4 % (42.0-52.0); HEMOGLOBIN 7.5 g/dl (14.0-17.9); LYMPHOCYTES # (AUTO) 0.6 X10'3 (1.1-4.8); LYMPHOCYTES % (AUTO) 15.3 % (21-51); MEAN CORPUSCULAR HEMOGLOBIN 27.4 PG (27.0-31.0); MEAN CORPUSCULAR HGB CONC 32.2 g/dL (33.0-36.5); MEAN CORPUSCULAR VOLUME 85.3 FL (78-98); MEAN PLATELET VOLUME 7.3 FL (7.4-10.4); MONOCYTES # (AUTO) 0.4 X10'3 (0-0.9); MONOCYTES % (AUTO) 8.9 % (2-12); PLATELET COUNT 156 X10'3 (140-440); RED BLOOD COUNT 2.74 X10'6 (4.70-6.10); RED CELL DISTRIBUTION WIDTH 18.9 % (11.5-14.5); WHITE BLOOD COUNT 4.2 X10'3 (4.5-11.0)
[2019-02-21 01:24] LABS: ALANINE AMINOTRANSFERASE 15 U/L (12-78); ALBUMIN 2.5 G/DL (3.4-5.0); ALBUMIN/GLOBULIN RATIO 0.6 (1.1-1.5); ALKALINE PHOSPHATASE 98 IU/L (46-116); ANION GAP 5 (8-16); ASPARTATE AMINO TRANSFERASE 19 U/L (10-37); BILIRUBIN,TOTAL 0.6 MG/DL (0.1-1.0); BLOOD UREA NITROGEN 62 MG/DL (7-18); BUN/CREATININE RATIO 22.3 (5.4-32.0); CHLORIDE 107 MMOL/L (99-107); CREATININE 2.78 MG/DL (0.60-1.10); GLUCOSE 86 MG/DL (70-104); POTASSIUM 4.2 MMOL/L (3.5-5.1); SODIUM 138 MMOL/L (135-145); TOTAL CARBON DIOXIDE 25.6 MMOL/L (24-32); TOTAL PROTEIN 6.7 G/DL (6.4-8.2); eGFR 23 ML/MIN
[2019-02-21 01:37] LABS: ETHANOL < 0.010 GM/DL (0.0-0.010)
[2019-02-21] MEDS ORDERED: furosemide 10 MG/1 ML 10ml inj IV ONE ×2 (02:45→03:45)
[2019-02-21 03:17] LABS: ANISOCYTOSIS 2+; ELLIPTOCYTES FEW; HYPOCHROMASIA 1+; PLATELET ESTIMATE NORMAL
[2019-02-21 03:18] LABS: ACANTHOCYTES 2+; POLYCHROMASIA FEW
[2019-02-21 04:00] VITALS: BP 160/92
--- NOTE | 2019-02-21 04:13 | NUR ---
IQRA ORDERED 2ND DOSE OF 80 MG LASIX. VERIFIED WITH NUCLEAR FUELS RESEARCH ENGINEER, IQRA URIAS, AND [facility] PHARMACIST ABOUT DOSING AND TIMING AND OK.
== END 2019-02-21 04:39 | disposition home or self-care (01) ==
LOC: ER 20:43
DX: I13.0 Hypertensive heart and chronic kidney disease with heart failure and stage 1 through stage 4 chronic kidney disease, or unspecified chronic kidney disease (principal); E11.22 Type 2 diabetes mellitus with diabetic chronic kidney disease; N18.9 Chronic kidney disease, unspecified; I50.9 Heart failure, unspecified; I48.91 Unspecified atrial fibrillation; D63.8 Anemia in other chronic diseases classified elsewhere; I25.10 Atherosclerotic heart disease of native coronary artery without angina pectoris; E78.00 Pure hypercholesterolemia, unspecified; Z86.73 Personal history of transient ischemic attack (TIA), and cerebral infarction without residual deficits; Z90.49 Acquired absence of other specified parts of digestive tract; Z98.890 Other specified postprocedural states; Z88.5 Allergy status to narcotic agent; Z79.01 Long term (current) use of anticoagulants; Z95.0 Presence of cardiac pacemaker; Z95.1 Presence of aortocoronary bypass graft; Z79.899 Other long term (current) drug therapy; Z85.038 Personal history of other malignant neoplasm of large intestine
CPT/HCPCS: 36415; 71045; 80053; 80305; 80320; 81001; 82140; 82948; 83735; 83880; 84439; 84443; 84484; 85025; 93005; 96374; 96376; 99284; J1940

== ENCOUNTER 2019-04-08 10:49 | Emergency (ER) | payer MEDICARE, MEDICAID ==
[~2019-04-08] VITALS: Ht 170.2 cm; Wt 73.6 kg
[~2019-04-08 10:49] MED LIST changes: -AMIO200T40 PO; +AMIO200T61 PO
[2019-04-08] MEDS ORDERED: acetaminophen 325mg tablet PO ONE (11:55)
[2019-04-08] MEDS ORDERED: ACET-2615 PO (12:07)
[2019-04-08 12:48] VITALS: BP 110/58
== END 2019-04-08 12:49 | disposition home or self-care (01) ==
LOC: ER 10:49
DX: M54.6 Pain in thoracic spine (principal); M54.2 Cervicalgia; I13.0 Hypertensive heart and chronic kidney disease with heart failure and stage 1 through stage 4 chronic kidney disease, or unspecified chronic kidney disease; E11.22 Type 2 diabetes mellitus with diabetic chronic kidney disease; N18.9 Chronic kidney disease, unspecified; I50.9 Heart failure, unspecified; I48.91 Unspecified atrial fibrillation; I25.10 Atherosclerotic heart disease of native coronary artery without angina pectoris; E78.00 Pure hypercholesterolemia, unspecified; C18.9 Malignant neoplasm of colon, unspecified; Z86.73 Personal history of transient ischemic attack (TIA), and cerebral infarction without residual deficits; Z90.49 Acquired absence of other specified parts of digestive tract; Z95.0 Presence of cardiac pacemaker; Z95.1 Presence of aortocoronary bypass graft
CPT/HCPCS: 99283

== ENCOUNTER 2019-10-11 12:57 | Emergency (ER) | payer MEDICARE, MEDICAID ==
[~2019-10-11] VITALS: Ht 170.2 cm; Wt 86.4 kg
[2019-10-11 13:04] VITALS: BP 143/85
== END 2019-10-11 13:33 | disposition home or self-care (01) ==
LOC: ER 12:57
DX: S81.812A Laceration without foreign body, left lower leg, initial encounter (principal); I48.91 Unspecified atrial fibrillation; I25.10 Atherosclerotic heart disease of native coronary artery without angina pectoris; I13.0 Hypertensive heart and chronic kidney disease with heart failure and stage 1 through stage 4 chronic kidney disease, or unspecified chronic kidney disease; E11.22 Type 2 diabetes mellitus with diabetic chronic kidney disease; N18.9 Chronic kidney disease, unspecified; I50.9 Heart failure, unspecified; Z90.49 Acquired absence of other specified parts of digestive tract; Z95.1 Presence of aortocoronary bypass graft; Z95.0 Presence of cardiac pacemaker; Z85.038 Personal history of other malignant neoplasm of large intestine; Z86.73 Personal history of transient ischemic attack (TIA), and cerebral infarction without residual deficits; Z88.5 Allergy status to narcotic agent; Z79.899 Other long term (current) drug therapy; Z79.01 Long term (current) use of anticoagulants; W45.8XXA Other foreign body or object entering through skin, initial encounter; Y93.89 Activity, other specified; Y92.89 Other specified places as the place of occurrence of the external cause; Y99.9 Unspecified external cause status
CPT/HCPCS: 99283

== ENCOUNTER 2019-10-19 10:34 | Emergency (ER) | payer MEDICARE, MEDICAID ==
[~2019-10-19] VITALS: Ht 170.2 cm; Wt 81.7 kg
[2019-10-19 11:21] LABS: BASOPHILS # (AUTO) 0.1 X10'3 (0-0.2); BASOPHILS % (AUTO) 1.9 % (0-1); EOSINOPHILS # (AUTO) 0.4 X10'3 (0-0.9); EOSINOPHILS % (AUTO) 7.1 % (0-6); HEMATOCRIT 31.4 % (42.0-52.0); HEMOGLOBIN 10.5 g/dl (14.0-17.9); LYMPHOCYTES # (AUTO) 0.8 X10'3 (1.1-4.8); LYMPHOCYTES % (AUTO) 15.4 % (21-51); MEAN CORPUSCULAR HEMOGLOBIN 31.5 PG (27.0-31.0); MEAN CORPUSCULAR HGB CONC 33.3 g/dL (33.0-36.5); MEAN CORPUSCULAR VOLUME 94.7 FL (78-98); MEAN PLATELET VOLUME 8.3 FL (7.4-10.4); MONOCYTES # (AUTO) 0.4 X10'3 (0-0.9); MONOCYTES % (AUTO) 8.4 % (2-12); NEUTROPHILS # (AUTO) 3.4 X10'3 (1.8-7.7); NEUTROPHILS % (AUTO) 67.2 % (42-75); PLATELET COUNT 153 X10'3 (140-440); RED BLOOD COUNT 3.32 X10'6 (4.70-6.10); RED CELL DISTRIBUTION WIDTH 15.9 % (11.5-14.5); WHITE BLOOD COUNT 5.1 X10'3 (4.5-11.0)
[2019-10-19 11:34] LABS: ALANINE AMINOTRANSFERASE 15 U/L (12-78); ALBUMIN 3.3 G/DL (3.4-5.0); ALBUMIN/GLOBULIN RATIO 0.8 (1.1-1.5); ALKALINE PHOSPHATASE 97 IU/L (46-116); ANION GAP 6 (8-16); ASPARTATE AMINO TRANSFERASE 22 U/L (10-37); BILIRUBIN,TOTAL 0.6 MG/DL (0.1-1.0); BLOOD UREA NITROGEN 54 MG/DL (7-18); BUN/CREATININE RATIO 20.1 (5.4-32.0); CALCIUM 8.7 MG/DL (8.5-10.1); CHLORIDE 108 MMOL/L (99-107); CREATININE 2.69 MG/DL (0.60-1.10); GLUCOSE 125 MG/DL (70-104); POTASSIUM 4.5 MMOL/L (3.5-5.1); SODIUM 141 MMOL/L (135-145); TOTAL CARBON DIOXIDE 27.1 MMOL/L (24-32); TOTAL PROTEIN 7.3 G/DL (6.4-8.2); eGFR 23 ML/MIN
[2019-10-19 11:46] LABS: CLARITY,URINE CLEAR (Clear); COLOR,URINE YELLOW (Yellow); GLUCOSE, URINE NEGATIVE (Neg); KETONES,URINE NEGATIVE (Neg); LEUKOCYTE ESTERASE ,URINE NEGATIVE (Neg); NITRITES, URINE NEGATIVE (Neg); OCCULT BLOOD,URINE SMALL (Neg); PROTEIN,URINE 100 mg/dl (Neg); UROBILINOGEN,URINE 0.2 E.U/dL (0.2-1.0)
[2019-10-19 11:52] LABS: UA COLLECTION TYPE VOIDED
[2019-10-19 11:54] LABS: SQUAMOUS EPITHELIAL CELL,UR FEW /LPF (FEW)
[2019-10-19 11:55] LABS: BACTERIA,URINE FEW /HPF (Neg); WBC,URINE 0-4 /HPF (0-4)
[2019-10-19 12:14] VITALS: BP 149/77
== END 2019-10-19 12:18 | disposition home or self-care (01) ==
LOC: ER 10:34
DX: R53.1 Weakness (principal); R42 Dizziness and giddiness; R51 Headache; I48.91 Unspecified atrial fibrillation; I25.10 Atherosclerotic heart disease of native coronary artery without angina pectoris; E78.00 Pure hypercholesterolemia, unspecified; I13.0 Hypertensive heart and chronic kidney disease with heart failure and stage 1 through stage 4 chronic kidney disease, or unspecified chronic kidney disease; E11.22 Type 2 diabetes mellitus with diabetic chronic kidney disease; I50.9 Heart failure, unspecified; N18.9 Chronic kidney disease, unspecified; Z90.49 Acquired absence of other specified parts of digestive tract; Z88.5 Allergy status to narcotic agent; Z79.899 Other long term (current) drug therapy; Z95.1 Presence of aortocoronary bypass graft
CPT/HCPCS: 36415; 71045; 80053; 81001; 84484; 85025; 93005; 99284

== ENCOUNTER 2020-07-13 21:23 | Emergency (ER) | payer MEDICARE, MEDICAID ==
[~2020-07-13] VITALS: Ht 167.6 cm; Wt 70.0 kg
[2020-07-13 21:31] VITALS: BP 147/77
== END 2020-07-14 00:59 | disposition home or self-care (01) ==
LOC: ER 21:24
DX: J02.9 Acute pharyngitis, unspecified (principal); Z20.828 Contact with and (suspected) exposure to other viral communicable diseases; I48.91 Unspecified atrial fibrillation; I25.10 Atherosclerotic heart disease of native coronary artery without angina pectoris; I13.0 Hypertensive heart and chronic kidney disease with heart failure and stage 1 through stage 4 chronic kidney disease, or unspecified chronic kidney disease; E11.22 Type 2 diabetes mellitus with diabetic chronic kidney disease; N18.9 Chronic kidney disease, unspecified; I50.9 Heart failure, unspecified; Z86.73 Personal history of transient ischemic attack (TIA), and cerebral infarction without residual deficits; Z90.49 Acquired absence of other specified parts of digestive tract; Z95.1 Presence of aortocoronary bypass graft; Z95.0 Presence of cardiac pacemaker; Z85.038 Personal history of other malignant neoplasm of large intestine; Z79.01 Long term (current) use of anticoagulants; Z88.5 Allergy status to narcotic agent; Z79.899 Other long term (current) drug therapy
CPT/HCPCS: 36415; 87081; 87635; 87880; 99283; C9803

== ENCOUNTER 2020-09-13 13:22 | Emergency (ER) | payer MEDICARE, MEDICAID ==
[~2020-09-13] VITALS: Ht 170.2 cm; Wt 86.4 kg
[~2020-09-13 13:22] MED LIST changes: -ISOS30TA6 PO; +ISOS30TA84 PO
--- NOTE | 2020-09-13 13:23 | NUR ---
please contact grand daughter Radha @[phone] with any questions, update, and for ride when discharged
[2020-09-13 14:34] VITALS: BP 148/73
--- NOTE | 2020-09-13 14:56 | NUR ---
PATIENT SLIPPED AND FELL WHEN HE WAS TAKING OUT HIS GARBAGE ON SUNDAY. STATES HE FELL ON HIS LEFT BUTTOCK/HIP AND IS HAVING PAIN.
[2020-10-02] MEDS ORDERED: SACU1TAB7 PO (14:23)
[2020-10-02] MEDS ORDERED: AMIO200T61 PO (14:29)
[2020-10-05] MEDS ORDERED: ASPI81TA52 PO (12:42)
== END 2020-09-13 16:07 | disposition home or self-care (01) ==
LOC: ER 13:22
DX: M25.552 Pain in left hip (principal); I13.10 Hypertensive heart and chronic kidney disease without heart failure, with stage 1 through stage 4 chronic kidney disease, or unspecified chronic kidney disease; E11.22 Type 2 diabetes mellitus with diabetic chronic kidney disease; N18.9 Chronic kidney disease, unspecified; Z88.0 Allergy status to penicillin; Z79.899 Other long term (current) drug therapy; W18.39XA Other fall on same level, initial encounter; Y93.89 Activity, other specified; Y92.89 Other specified places as the place of occurrence of the external cause; Y99.8 Other external cause status
CPT/HCPCS: 73502; 99284

== ENCOUNTER 2020-11-30 11:21 | Emergency (ER) | payer MEDICARE, MEDICAID ==
[~2020-11-30] VITALS: Ht 170.2 cm; Wt 75.0 kg
[~2020-11-30 11:21] MED LIST changes: -ACET-2119 PO; -BUDE0.5A11 IH; -FOLI1TAB16 PO; -HYDR-4069 PO; -IPRA3AMP31 IH; -ISOS30TA84 PO; -MAGN400O6 PO; -NA P133E4 RC; -OMEP-50 PO; -POTA10TA10 PO; -ZAR2.5T PO
--- NOTE | 2020-11-30 11:57 | NUR ---
SPOKE WITH DR. MICHEL REGARDING PT'S FALL ON THINNERS, RECEIVED VERBAL ORDERS FOR LAB WORK, DID NOT MAKE PT A TRAUMA.
[2020-11-30 12:05] LABS: BASOPHILS % (AUTO) 0.7 % (0-1); EOSINOPHILS # (AUTO) 0.2 X10'3 (0-0.9); HEMATOCRIT 25.3 % (42.0-52.0); HEMOGLOBIN 8.2 g/dl (14.0-17.9); LYMPHOCYTES # (AUTO) 0.4 X10'3 (1.1-4.8); LYMPHOCYTES % (AUTO) 8.2 % (21-51); MEAN CORPUSCULAR HEMOGLOBIN 31.6 PG (27.0-31.0); MEAN CORPUSCULAR HGB CONC 32.4 g/dL (33.0-36.5); MEAN CORPUSCULAR VOLUME 97.6 FL (78-98); MEAN PLATELET VOLUME 7.6 FL (7.4-10.4); MONOCYTES # (AUTO) 0.4 X10'3 (0-0.9); MONOCYTES % (AUTO) 8.2 % (2-12); NEUTROPHILS # (AUTO) 4.2 X10'3 (1.8-7.7); NEUTROPHILS % (AUTO) 78.9 % (42-75); PLATELET COUNT 149 X10'3 (140-440); WHITE BLOOD COUNT 5.3 X10'3 (4.5-11.0)
[2020-11-30 12:21] LABS: ALANINE AMINOTRANSFERASE 14 U/L (12-78); ALBUMIN/GLOBULIN RATIO 0.8 (1.1-1.5); ALKALINE PHOSPHATASE 62 IU/L (46-116); ANION GAP 5 (8-16); ASPARTATE AMINO TRANSFERASE 17 U/L (10-37); BILIRUBIN,TOTAL 1.1 MG/DL (0.1-1.0); BLOOD UREA NITROGEN 38 MG/DL (7-18); BUN/CREATININE RATIO 14.3 (5.4-32.0); CALCIUM 8.6 MG/DL (8.5-10.1); CHLORIDE 109 MMOL/L (99-107); CREATININE 2.66 MG/DL (0.60-1.10); GLUCOSE 119 MG/DL (70-104); POTASSIUM 4.7 MMOL/L (3.5-5.1); SODIUM 143 MMOL/L (135-145); TOTAL CARBON DIOXIDE 28.6 MMOL/L (24-32); TOTAL PROTEIN 6.9 G/DL (6.4-8.2); eGFR 24 ML/MIN
[2020-11-30] MEDS ORDERED: phytonadione 10 MG/1 ML amp PO ONE (13:40)
[2020-11-30 14:53] VITALS: BP 147/76
== END 2020-11-30 14:59 | disposition home or self-care (01) ==
LOC: ER 11:21 → EEVIPCON 11:21 → ER 14:59
DX: D68.59 Other primary thrombophilia (principal); D50.0 Iron deficiency anemia secondary to blood loss (chronic); I13.0 Hypertensive heart and chronic kidney disease with heart failure and stage 1 through stage 4 chronic kidney disease, or unspecified chronic kidney disease; E11.22 Type 2 diabetes mellitus with diabetic chronic kidney disease; N18.9 Chronic kidney disease, unspecified; I48.91 Unspecified atrial fibrillation; I25.10 Atherosclerotic heart disease of native coronary artery without angina pectoris; E78.00 Pure hypercholesterolemia, unspecified; Z86.73 Personal history of transient ischemic attack (TIA), and cerebral infarction without residual deficits; Z86.2 Personal history of diseases of the blood and blood-forming organs and certain disorders involving the immune mechanism; Z85.038 Personal history of other malignant neoplasm of large intestine; Z90.89 Acquired absence of other organs; Z90.49 Acquired absence of other specified parts of digestive tract; Z95.0 Presence of cardiac pacemaker; Z98.890 Other specified postprocedural states; Z88.5 Allergy status to narcotic agent; Z79.899 Other long term (current) drug therapy
CPT/HCPCS: 36415; 80053; 85025; 85610; 99284; J3430

== ENCOUNTER 2020-12-07 12:13 | Emergency (ER) | payer MEDICARE, MEDICAID ==
[~2020-12-07] VITALS: Ht 170.2 cm; Wt 76.9 kg
[2020-12-07 12:49] LABS: BASOPHILS # (AUTO) 0.1 X10'3 (0-0.2); BASOPHILS % (AUTO) 1.2 % (0-1); EOSINOPHILS # (AUTO) 0.3 X10'3 (0-0.9); EOSINOPHILS % (AUTO) 5.7 % (0-6); HEMATOCRIT 28.1 % (42.0-52.0); LYMPHOCYTES # (AUTO) 0.8 X10'3 (1.1-4.8); LYMPHOCYTES % (AUTO) 15.6 % (21-51); MEAN CORPUSCULAR HEMOGLOBIN 30.9 PG (27.0-31.0); MEAN CORPUSCULAR HGB CONC 32.1 g/dL (33.0-36.5); MEAN CORPUSCULAR VOLUME 96.3 FL (78-98); MEAN PLATELET VOLUME 7.1 FL (7.4-10.4); MONOCYTES # (AUTO) 0.4 X10'3 (0-0.9); MONOCYTES % (AUTO) 6.8 % (2-12); NEUTROPHILS # (AUTO) 3.8 X10'3 (1.8-7.7); NEUTROPHILS % (AUTO) 70.7 % (42-75); PLATELET COUNT 240 X10'3 (140-440); RED BLOOD COUNT 2.91 X10'6 (4.70-6.10); RED CELL DISTRIBUTION WIDTH 15.8 % (11.5-14.5); WHITE BLOOD COUNT 5.4 X10'3 (4.5-11.0)
[2020-12-07 13:11] LABS: ALANINE AMINOTRANSFERASE 13 U/L (12-78); ALBUMIN/GLOBULIN RATIO 0.7 (1.1-1.5); ALKALINE PHOSPHATASE 66 IU/L (46-116); ANION GAP 10 (8-16); ASPARTATE AMINO TRANSFERASE 21 U/L (10-37); BILIRUBIN,TOTAL 0.5 MG/DL (0.1-1.0); BLOOD UREA NITROGEN 37 MG/DL (7-18); BUN/CREATININE RATIO 14.3 (5.4-32.0); CALCIUM 8.8 MG/DL (8.5-10.1); CHLORIDE 104 MMOL/L (99-107); CREATININE 2.58 MG/DL (0.60-1.10); GLUCOSE 85 MG/DL (70-104); SODIUM 139 MMOL/L (135-145); TOTAL CARBON DIOXIDE 25.4 MMOL/L (24-32); TOTAL PROTEIN 7.4 G/DL (6.4-8.2); eGFR 25 ML/MIN
[2020-12-07 15:26] LABS: CLARITY,URINE CLEAR (Clear); COLOR,URINE YELLOW (Yellow); GLUCOSE, URINE NEGATIVE (Neg); KETONES,URINE NEGATIVE (Neg); LEUKOCYTE ESTERASE ,URINE NEGATIVE (Neg); NITRITES, URINE NEGATIVE (Neg); OCCULT BLOOD,URINE TRACE-INTACT (Neg); PROTEIN,URINE >=300 mg/dl (Neg)
[2020-12-07 15:27] LABS: UA COLLECTION TYPE URINAL
[2020-12-07 15:44] LABS: BACTERIA,URINE 1+ /HPF (Neg); SQUAMOUS EPITHELIAL CELL,UR FEW /LPF (FEW); WBC,URINE 0-4 /HPF (0-4)
[2020-12-07 16:06] VITALS: BP 151/81
== END 2020-12-07 16:25 | disposition home or self-care (01) ==
LOC: ER 12:13
DX: R10.84 Generalized abdominal pain (principal); R06.02 Shortness of breath; R53.1 Weakness; I48.91 Unspecified atrial fibrillation; I25.10 Atherosclerotic heart disease of native coronary artery without angina pectoris; E78.00 Pure hypercholesterolemia, unspecified; I13.0 Hypertensive heart and chronic kidney disease with heart failure and stage 1 through stage 4 chronic kidney disease, or unspecified chronic kidney disease; E11.22 Type 2 diabetes mellitus with diabetic chronic kidney disease; N18.9 Chronic kidney disease, unspecified; Z86.73 Personal history of transient ischemic attack (TIA), and cerebral infarction without residual deficits; Z86.2 Personal history of diseases of the blood and blood-forming organs and certain disorders involving the immune mechanism; Z85.038 Personal history of other malignant neoplasm of large intestine; Z90.89 Acquired absence of other organs; Z90.49 Acquired absence of other specified parts of digestive tract; Z98.890 Other specified postprocedural states; Z95.0 Presence of cardiac pacemaker; Z88.5 Allergy status to narcotic agent; Z79.899 Other long term (current) drug therapy
CPT/HCPCS: 36415; 71045; 74176; 80053; 81001; 83880; 84484; 85025; 85610; 93005; 99285

== ENCOUNTER 2021-03-27 14:13 | Emergency (ER) | payer MEDICARE, MEDICAID ==
[~2021-03-27] VITALS: Ht 165.1 cm; Wt 77.4 kg
[2021-03-27 16:00] LABS: BASOPHILS # (AUTO) 0.1 X10'3 (0-0.2); BASOPHILS % (AUTO) 1.9 % (0-1); EOSINOPHILS # (AUTO) 0.3 X10'3 (0-0.9); EOSINOPHILS % (AUTO) 5.9 % (0-6); HEMATOCRIT 28.6 % (42.0-52.0); HEMOGLOBIN 9.5 g/dl (14.0-17.9); LYMPHOCYTES # (AUTO) 0.8 X10'3 (1.1-4.8); LYMPHOCYTES % (AUTO) 16.2 % (21-51); MEAN CORPUSCULAR HGB CONC 33.2 g/dL (33.0-36.5); MEAN CORPUSCULAR VOLUME 90.1 FL (78-98); MEAN PLATELET VOLUME 8.2 FL (7.4-10.4); MONOCYTES # (AUTO) 0.4 X10'3 (0-0.9); MONOCYTES % (AUTO) 7.9 % (2-12); NEUTROPHILS # (AUTO) 3.4 X10'3 (1.8-7.7); NEUTROPHILS % (AUTO) 68.1 % (42-75); PLATELET COUNT 136 X10'3 (140-440); RED BLOOD COUNT 3.17 X10'6 (4.70-6.10); RED CELL DISTRIBUTION WIDTH 17.5 % (11.5-14.5); WHITE BLOOD COUNT 4.9 X10'3 (4.5-11.0)
[2021-03-27 16:23] LABS: ALANINE AMINOTRANSFERASE 10 U/L (12-78); ALBUMIN 3.2 G/DL (3.4-5.0); ALBUMIN/GLOBULIN RATIO 0.8 (1.1-1.5); ALKALINE PHOSPHATASE 69 IU/L (46-116); ANION GAP 7 (8-16); ASPARTATE AMINO TRANSFERASE 23 U/L (10-37); BILIRUBIN,TOTAL 0.6 MG/DL (0.1-1.0); BLOOD UREA NITROGEN 43 MG/DL (7-18); BUN/CREATININE RATIO 13.6 (5.4-32.0); CALCIUM 7.8 MG/DL (8.5-10.1); CHLORIDE 105 MMOL/L (99-107); CREATININE 3.16 MG/DL (0.60-1.10); GLUCOSE 122 MG/DL (70-104); POTASSIUM 4.5 MMOL/L (3.5-5.1); SODIUM 140 MMOL/L (135-145); TOTAL CARBON DIOXIDE 27.6 MMOL/L (24-32); eGFR 19 ML/MIN
[2021-03-27] MEDS ORDERED: acetaminophen 325mg tablet PO ONE (17:05)
[2021-03-27 19:30] VITALS: BP 132/70
[2021-03-27] MEDS ORDERED: furosemide 20MG tablet PO ONE (19:45)
== END 2021-03-27 20:17 | disposition home or self-care (01) ==
LOC: ER 14:14
DX: R10.84 Generalized abdominal pain (principal); R10.10 Upper abdominal pain, unspecified; R42 Dizziness and giddiness; I48.91 Unspecified atrial fibrillation; I25.10 Atherosclerotic heart disease of native coronary artery without angina pectoris; E78.00 Pure hypercholesterolemia, unspecified; I11.0 Hypertensive heart disease with heart failure; I50.9 Heart failure, unspecified; E11.22 Type 2 diabetes mellitus with diabetic chronic kidney disease; I12.9 Hypertensive chronic kidney disease with stage 1 through stage 4 chronic kidney disease, or unspecified chronic kidney disease; N18.9 Chronic kidney disease, unspecified; Z85.038 Personal history of other malignant neoplasm of large intestine; Z90.49 Acquired absence of other specified parts of digestive tract; Z95.5 Presence of coronary angioplasty implant and graft; Z95.0 Presence of cardiac pacemaker; Z86.73 Personal history of transient ischemic attack (TIA), and cerebral infarction without residual deficits; Z88.8 Allergy status to other drugs, medicaments and biological substances; Z79.01 Long term (current) use of anticoagulants; Z79.899 Other long term (current) drug therapy
CPT/HCPCS: 36415; 71045; 74176; 80053; 83880; 84484; 85025; 93005; 99285

== ENCOUNTER 2021-04-15 12:38 | Inpatient (IN) | payer MEDICARE, MEDICAID ==
[~2021-04-15] VITALS: Ht 170.2 cm; Wt 75.0 kg
[~2021-04-15 12:38] MED LIST changes: +AMIO100T4 PO; -AMIO200T61 PO; -CARV-50 PO; +CARV12.549 PO; -COU1T PO; -FURO-150 PO; +FURO20TA4 PO; +WARF6TAB49 PO
[2021-04-15 14:02] LABS: BASOPHILS # (AUTO) 0.1 X10'3 (0-0.2); BASOPHILS % (AUTO) 1.7 % (0-1); EOSINOPHILS # (AUTO) 0.3 X10'3 (0-0.9); EOSINOPHILS % (AUTO) 7.3 % (0-6); HEMATOCRIT 34.4 % (42.0-52.0); HEMOGLOBIN 11.1 g/dl (14.0-17.9); LYMPHOCYTES # (AUTO) 0.7 X10'3 (1.1-4.8); LYMPHOCYTES % (AUTO) 18.8 % (21-51); MEAN CORPUSCULAR HEMOGLOBIN 29.5 PG (27.0-31.0); MEAN CORPUSCULAR HGB CONC 32.3 g/dL (33.0-36.5); MEAN CORPUSCULAR VOLUME 91.4 FL (78-98); MEAN PLATELET VOLUME 7.8 FL (7.4-10.4); MONOCYTES # (AUTO) 0.3 X10'3 (0-0.9); MONOCYTES % (AUTO) 7.5 % (2-12); NEUTROPHILS # (AUTO) 2.5 X10'3 (1.8-7.7); NEUTROPHILS % (AUTO) 64.7 % (42-75); PLATELET COUNT 155 X10'3 (140-440); RED BLOOD COUNT 3.77 X10'6 (4.70-6.10); RED CELL DISTRIBUTION WIDTH 17.3 % (11.5-14.5); WHITE BLOOD COUNT 3.9 X10'3 (4.5-11.0)
[2021-04-15 14:18] LABS: ALKALINE PHOSPHATASE 82 IU/L (46-116); ANION GAP 10 (8-16); BILIRUBIN,TOTAL 0.4 MG/DL (0.1-1.0); CHLORIDE 106 MMOL/L (99-107); LIPASE 755 U/L (73-393); SODIUM 142 MMOL/L (135-145); TOTAL CARBON DIOXIDE 26.3 MMOL/L (24-32); TOTAL PROTEIN 7.6 G/DL (6.4-8.2)
[2021-04-15 14:19] LABS: ALANINE AMINOTRANSFERASE 11 U/L (12-78); ALBUMIN 3.5 G/DL (3.4-5.0); ALBUMIN/GLOBULIN RATIO 0.9 (1.1-1.5); ASPARTATE AMINO TRANSFERASE 18 U/L (10-37); BLOOD UREA NITROGEN 51 MG/DL (7-18); BUN/CREATININE RATIO 18.1 (5.4-32.0); CALCIUM 8.5 MG/DL (8.5-10.1); CREATININE 2.82 MG/DL (0.60-1.10); GLUCOSE 93 MG/DL (70-104); eGFR 22 ML/MIN
[2021-04-15 14:32] LABS: CLARITY,URINE CLEAR (Clear); COLOR,URINE STRAW (Yellow); GLUCOSE, URINE NEGATIVE (Neg); KETONES,URINE NEGATIVE (Neg); LEUKOCYTE ESTERASE ,URINE NEGATIVE (Neg); NITRITES, URINE NEGATIVE (Neg); OCCULT BLOOD,URINE SMALL (Neg); PH,URINE 5.5 (4.8-8.0); PROTEIN,URINE 100 mg/dl (Neg); UROBILINOGEN,URINE 0.2 E.U/dL (0.2-1.0)
[2021-04-15 14:33] LABS: UA COLLECTION TYPE URINAL
[2021-04-15 14:39] LABS: BACTERIA,URINE NONE SEEN /HPF (Neg); MUCUS STRANDS NONE SEEN /LPF (Neg); RBC,URINE 0-2 /HPF (0-2); SQUAMOUS EPITHELIAL CELL,UR FEW /LPF (FEW); WBC,URINE NONE SEEN /HPF (0-4)
--- NOTE | 2021-04-15 17:25 | NUR ---
NO ROOMS AVAILABLE IN ER, PT IS BEING EVALUATED BY DR IZQUIERDO AT TRIAGE
[2021-04-15] MEDS ORDERED: normal saline 1000ml 1,000 ML IV ONE ×2 (17:45→18:50)
[2021-04-15 17:53] LABS: PARTIAL THROMBOPLASTIN TIME 35 SECONDS (22-32)
[2021-04-15] MEDS ORDERED: acetaminophen 325mg tablet PO ONE ×2 (18:50)
[2021-04-15] MEDS ORDERED: HYDROcodone/acetaminophen 5mg/325mg tablet PO PRN (21:15)
[2021-04-15] MEDS ORDERED: ondansetron/PF 4mg/2ml inj IV PRN (21:15)
[2021-04-15] MEDS ORDERED: mag hydrox/Alum hydrox/simeth 30ml oral suspension PO PRN (21:15)
[2021-04-15] MEDS ORDERED: potassium Cl 20 mEq SR tablet PO PRN ×2 (21:15)
[2021-04-15] MEDS ORDERED: magnesium Cl slow-release 64mg tablet PO PRN (21:15)
[2021-04-15] MEDS ORDERED: magnesium 4gm in 100ml NS 100 ML IV PRN (21:15)
[2021-04-15] MEDS ORDERED: magnesium 2GM in 50ml NS 50 ML IV PRN (21:15)
[2021-04-15] MEDS ORDERED: HYDROcodone/acetaminophen 10/325mg tab PO PRN (21:15)
[2021-04-15] MEDS ORDERED: potassium Cl 40MEQ/1/2NS 520ml 520 ML IV PRN ×2 (21:15)
[2021-04-15] MEDS ORDERED: magnesium hydroxide 30ml (MOM) UD suspension PO PRN (21:15)
[2021-04-15] MEDS ORDERED: acetaminophen 325mg tablet PO PRN ×2 (21:15)
[2021-04-15] MEDS ORDERED: insulin Lispro (HumaLOG) vial - multi-dose SQ SCH (21:25)
[2021-04-15] MEDS ORDERED: MESSAGE TO PHARMACY PO ONE (21:25)
[2021-04-15] MEDS ORDERED: dextrose ORAL solution 15 GM/59 ML bottle PO PRN ×2 (21:25)
[2021-04-15] MEDS ORDERED: dextrose 50%-water 50ml dispensing syringe IV PRN ×2 (21:25)
[2021-04-15] MEDS ORDERED: glucagon, human recombinant 1mg kit SUBCUT PRN (21:25)
--- NOTE | 2021-04-15 21:32 | NUR ---
blood sugar checked at this time: 86
[2021-04-15 22:30] VITALS: BP 119/72
--- NOTE | 2021-04-15 22:57 | NUR ---
report given to Christine SNEED, patient transfer to ortho 4007 A
--- NOTE | 2021-04-15 23:22 | NUR ---
Patient in room ORTHO 4007. I have received report from NAREN Frye and had the opportunity to ask questions and assume patient care.
[2021-04-16 02:00] VITALS: BP 144/69
--- NOTE | 2021-04-16 06:10 | NUR ---
Patient in room ORTHO 4007. I have received report from Debbie SNEED and had the opportunity to ask questions and assume patient care.
--- NOTE | 2021-04-16 06:15 | NUR ---
Problems reprioritized. Patient report given, questions answered & plan of care reviewed with NAREN Fortune.
[2021-04-16 06:19] VITALS: BP 158/70
[2021-04-16 07:01] LABS: BASOPHILS # (AUTO) 0.1 X10'3 (0-0.2); BASOPHILS % (AUTO) 1.3 % (0-1); EOSINOPHILS # (AUTO) 0.3 X10'3 (0-0.9); EOSINOPHILS % (AUTO) 6.6 % (0-6); HEMATOCRIT 33.9 % (42.0-52.0); HEMOGLOBIN 11.1 g/dl (14.0-17.9); LYMPHOCYTES # (AUTO) 0.7 X10'3 (1.1-4.8); LYMPHOCYTES % (AUTO) 16.2 % (21-51); MEAN CORPUSCULAR HEMOGLOBIN 29.6 PG (27.0-31.0); MEAN CORPUSCULAR HGB CONC 32.7 g/dL (33.0-36.5); MEAN CORPUSCULAR VOLUME 90.6 FL (78-98); MONOCYTES # (AUTO) 0.3 X10'3 (0-0.9); MONOCYTES % (AUTO) 7.2 % (2-12); NEUTROPHILS # (AUTO) 3.1 X10'3 (1.8-7.7); NEUTROPHILS % (AUTO) 68.7 % (42-75); PLATELET COUNT 165 X10'3 (140-440); RED BLOOD COUNT 3.75 X10'6 (4.70-6.10); RED CELL DISTRIBUTION WIDTH 17.3 % (11.5-14.5); WHITE BLOOD COUNT 4.5 X10'3 (4.5-11.0)
[2021-04-16] MEDS ORDERED: carVEDilol 12.5mg tablet PO SCH (07:30)
[2021-04-16 07:45] LABS: ALANINE AMINOTRANSFERASE 11 U/L (12-78); ALBUMIN 3.3 G/DL (3.4-5.0); ALBUMIN/GLOBULIN RATIO 0.8 (1.1-1.5); ALKALINE PHOSPHATASE 64 IU/L (46-116); ANION GAP 8 (8-16); ASPARTATE AMINO TRANSFERASE 16 U/L (10-37); BILIRUBIN,TOTAL 0.5 MG/DL (0.1-1.0); BLOOD UREA NITROGEN 49 MG/DL (7-18); BUN/CREATININE RATIO 18.6 (5.4-32.0); CALCIUM 8.1 MG/DL (8.5-10.1); CHLORIDE 107 MMOL/L (99-107); CHOL/HDL RATIO 2.4 (0.00-4.99); CHOLESTEROL 137 MG/DL (0-200); CREATININE 2.64 MG/DL (0.60-1.10); FERRITIN 127 NG/ML (26-388); GLUCOSE 89 MG/DL (70-104); HDL CHOLESTEROL 56 MG/DL (35-60); LDL CHOLESTEROL 64 MG/DL (50-100); MAGNESIUM 2.2 MG/DL (1.5-2.4); POTASSIUM 4.9 MMOL/L (3.5-5.1); SODIUM 141 MMOL/L (135-145); TOTAL CARBON DIOXIDE 26.2 MMOL/L (24-32); TOTAL PROTEIN 7.4 G/DL (6.4-8.2); TRIGLYCERIDES 70 MG/DL (20-135); eGFR 24 ML/MIN
[2021-04-16] MEDS ORDERED: docusate sod 100mg capsule PO SCH (08:00)
[2021-04-16] MEDS ORDERED: amiodarone 100mg tablet PO SCH (08:00)
[2021-04-16] MEDS ORDERED: ferrous sulfate 325mg tablet PO SCH (08:00)
[2021-04-16] MEDS ORDERED: furosemide 20MG tablet PO SCH (08:00)
[2021-04-16] MEDS ORDERED: enoxaparin 40mg/0.4ml syringe SUBCUT SCH (08:00)
[2021-04-16] MEDS ORDERED: lactobacillus acidophilus cap PO SCH (08:00)
[2021-04-16] MEDS ORDERED: sacubitril/valsartan 49mg-51mg tablet PO SCH (08:00)
[2021-04-16] MEDS ORDERED: K and/or MAG REPLACEMENT MC SCH (08:00)
--- NOTE | 2021-04-16 08:53 | NUR ---
Called and spoke to patients daughter Trinidad.
--- NOTE | 2021-04-16 09:24 | NUR ---
DM consult: Pt with A1c 6.1%, DM education not warranted at this time. Will continue to follow. Addendum: 04/16/21 at [address] Amended: Links added.
--- NOTE | 2021-04-16 10:28 | NUR ---
Patients daughter is trying to locate patients AICD card to figure out make/model. Patient did have an MRI in September, but there is no documentation of what kind of AICD he has anywhere that I can find. 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 Per daughter Trinidad he has surgery planned with Dr. Moy 04/25.
[2021-04-16 10:47] VITALS: BP 145/92
--- NOTE | 2021-04-16 10:56 | NUR ---
PAGER ID: [phone] MESSAGE: [phone], Junior has not had a teleneuro, do you want me to hold his coreg, valsartan and Lasix to keep bp elevated for stroke work up? karel [phone]
--- NOTE | 2021-04-16 11:11 | NUR ---
Patient has a wallet with a significant amount of srivastava in it, this morning he told me that the daughter is going to take it home. Now he is saying he doesn't want her to take it home as he tried to give me $20 for taking such good care of him. He is alert and oriented x4 however has moments of confusion. Dr. Alex becker now, updated her about status of trying to figure out what model AICD he has and that patient has a surgery planned with Dr. Moy 04/25
--- NOTE | 2021-04-16 11:28 | NUR ---
Per Dr. Johnson she is going to discharge the patient without MRI, patient has an AICD and does not have his pacemaker card with him. Daughter is unable to find and as it is the weekend I am unable to call Dr. Amaro office to figure it out. Looked in old records also and found no information about what imaging clerk of AICD this patient has. Daughter has been made aware
--- NOTE | 2021-04-16 11:42 | NUR ---
Per Gus in MRI patient has a biotronic AICD and the rep is in [place], they would be unable to do MRI until the rep was available to schedule it Sunday or Sunday. Dr. Johnson made aware.
[2021-04-16 12:35] VITALS: BP_SYST 132; BP_SYST 133; BP_SYST 141; BP_DIAS 74; BP_DIAS 77; BP_DIAS 79
--- NOTE | 2021-04-16 12:36 | NUR ---
promotional table spacer PAGER ID: [phone] MESSAGE: [phone] Junior 132/77 supine, 132/79 sitting, 141/74 standing for orthostatics. burleson [phone]
[2021-04-16 12:59] LABS: LIPASE 765 U/L (73-393)
--- NOTE | 2021-04-16 13:03 | NUR ---
PAGER ID: [phone] MESSAGE: [phone] [facility] 182, patient denies any history of drinking alcohol. karel [phone]
[2021-04-16] MEDS ORDERED: CARV-49 PO (13:28)
[2021-04-16] MEDS ORDERED: FURO20TA4 PO (13:28)
[2021-04-16] MEDS ORDERED: WARF6TAB49 PO (13:28)
[2021-04-16] MEDS ORDERED: lactobacillus rhamnosus 10,000 MMU CELLS/CAPSULE PO SCH (14:29)
--- NOTE | 2021-04-16 14:56 | NUR ---
Patient discharged home with daughter Trinidad, instructions given to her. Patient has a planned outpatient procedure with Dr. Moy.
--- NOTE | 2021-04-16 14:57 | NUR ---
Discharged to private vehicle with no complications.
[2021-04-16] MEDS ORDERED: atorvastatin 20mg tablet PO SCH (21:00)
[2021-04-16] MEDS ORDERED: warfarin 4mg tablet PO ONE (21:00)
[2021-04-16] MEDS ORDERED: insulin glargine (Lantus) pen - multi-dose SQ SCH (21:00)
[2021-04-17] MEDS ORDERED: enoxaparin 30mg/0.3ml syringe SUBCUT SCH (08:00)
== END 2021-04-16 15:15 | disposition home or self-care (01) | DRG 68 ==
LOC: ER 12:40 → ED HOLD 21:20 → ORTHO 4S 23:04
PROVIDERS: ADMIT Internal Medicine; ATTEND Internal Medicine
DX: I65.22 Occlusion and stenosis of left carotid artery (principal); I13.0 Hypertensive heart and chronic kidney disease with heart failure and stage 1 through stage 4 chronic kidney disease, or unspecified chronic kidney disease; I50.22 Chronic systolic (congestive) heart failure; N17.9 Acute kidney failure, unspecified; R42 Dizziness and giddiness; D64.9 Anemia, unspecified; E11.22 Type 2 diabetes mellitus with diabetic chronic kidney disease; E11.319 Type 2 diabetes mellitus with unspecified diabetic retinopathy without macular edema; E78.00 Pure hypercholesterolemia, unspecified; R26.89 Other abnormalities of gait and mobility; E78.5 Hyperlipidemia, unspecified; I25.10 Atherosclerotic heart disease of native coronary artery without angina pectoris; I48.0 Paroxysmal atrial fibrillation; N18.9 Chronic kidney disease, unspecified; Z79.01 Long term (current) use of anticoagulants; Z79.84 Long term (current) use of oral hypoglycemic drugs; Z82.49 Family history of ischemic heart disease and other diseases of the circulatory system; Z85.038 Personal history of other malignant neoplasm of large intestine; Z86.73 Personal history of transient ischemic attack (TIA), and cerebral infarction without residual deficits; Z90.49 Acquired absence of other specified parts of digestive tract; Z95.0 Presence of cardiac pacemaker; Z95.1 Presence of aortocoronary bypass graft; Z88.5 Allergy status to narcotic agent; Z83.3 Family history of diabetes mellitus; Z79.899 Other long term (current) drug therapy; T50.995A Adverse effect of other drugs, medicaments and biological substances, initial encounter
CPT/HCPCS: 36415; 70450; 80053; 80061; 81001; 82607; 82728; 82948; 83036; 83690; 83735; 85025; 85610; 85730; 87081; 93005; 99285; G0378; J1650; J1815; J7030

== ENCOUNTER 2021-04-19 16:02 | Emergency (ER) | payer MEDICARE, MEDICAID ==
[~2021-04-19] VITALS: Ht 170.2 cm; Wt 78.1 kg
[~2021-04-19 16:02] MED LIST changes: +CARV-49 PO; -CARV12.549 PO
[2021-04-19 16:25] VITALS: BP 126/67
[2021-04-19 17:21] LABS: BASOPHILS # (AUTO) 0.1 X10'3 (0-0.2); BASOPHILS % (AUTO) 1.9 % (0-1); EOSINOPHILS # (AUTO) 0.3 X10'3 (0-0.9); EOSINOPHILS % (AUTO) 7.4 % (0-6); HEMATOCRIT 32.4 % (42.0-52.0); HEMOGLOBIN 10.4 g/dl (14.0-17.9); LYMPHOCYTES # (AUTO) 0.6 X10'3 (1.1-4.8); LYMPHOCYTES % (AUTO) 16.3 % (21-51); MEAN CORPUSCULAR HEMOGLOBIN 29.5 PG (27.0-31.0); MEAN CORPUSCULAR HGB CONC 32.1 g/dL (33.0-36.5); MEAN CORPUSCULAR VOLUME 91.9 FL (78-98); MEAN PLATELET VOLUME 7.5 FL (7.4-10.4); MONOCYTES # (AUTO) 0.3 X10'3 (0-0.9); MONOCYTES % (AUTO) 7.9 % (2-12); NEUTROPHILS # (AUTO) 2.6 X10'3 (1.8-7.7); NEUTROPHILS % (AUTO) 66.5 % (42-75); PLATELET COUNT 159 X10'3 (140-440); RED BLOOD COUNT 3.53 X10'6 (4.70-6.10); RED CELL DISTRIBUTION WIDTH 18.3 % (11.5-14.5); WHITE BLOOD COUNT 3.9 X10'3 (4.5-11.0)
[2021-04-19 17:41] LABS: ALANINE AMINOTRANSFERASE 15 U/L (12-78); ALBUMIN 3.3 G/DL (3.4-5.0); ALBUMIN/GLOBULIN RATIO 0.8 (1.1-1.5); ALKALINE PHOSPHATASE 71 IU/L (46-116); ANION GAP 9 (8-16); ASPARTATE AMINO TRANSFERASE 16 U/L (10-37); BILIRUBIN,TOTAL 0.4 MG/DL (0.1-1.0); BLOOD UREA NITROGEN 52 MG/DL (7-18); BUN/CREATININE RATIO 17.2 (5.4-32.0); CALCIUM 8.2 MG/DL (8.5-10.1); CHLORIDE 110 MMOL/L (99-107); CREATININE 3.03 MG/DL (0.60-1.10); GLUCOSE 123 MG/DL (70-104); POTASSIUM 4.8 MMOL/L (3.5-5.1); SODIUM 143 MMOL/L (135-145); TOTAL CARBON DIOXIDE 24.1 MMOL/L (24-32); TOTAL PROTEIN 7.3 G/DL (6.4-8.2); eGFR 20 ML/MIN
== END 2021-04-19 18:41 | disposition home or self-care (01) ==
LOC: ER 16:03
DX: R10.84 Generalized abdominal pain (principal); Z20.822 Contact with and (suspected) exposure to COVID-19; M54.2 Cervicalgia; R51.9 Headache, unspecified; R53.1 Weakness; I48.91 Unspecified atrial fibrillation; I25.10 Atherosclerotic heart disease of native coronary artery without angina pectoris; E78.00 Pure hypercholesterolemia, unspecified; I13.0 Hypertensive heart and chronic kidney disease with heart failure and stage 1 through stage 4 chronic kidney disease, or unspecified chronic kidney disease; E11.22 Type 2 diabetes mellitus with diabetic chronic kidney disease; N18.9 Chronic kidney disease, unspecified; Z86.2 Personal history of diseases of the blood and blood-forming organs and certain disorders involving the immune mechanism; Z86.73 Personal history of transient ischemic attack (TIA), and cerebral infarction without residual deficits; Z85.038 Personal history of other malignant neoplasm of large intestine; Z90.89 Acquired absence of other organs; Z90.49 Acquired absence of other specified parts of digestive tract; Z95.0 Presence of cardiac pacemaker; Z98.890 Other specified postprocedural states; Z72.89 Other problems related to lifestyle; Z88.5 Allergy status to narcotic agent; Z79.899 Other long term (current) drug therapy
CPT/HCPCS: 36415; 71045; 80053; 85025; 87635; 99284; C9803; 99285

== ENCOUNTER 2021-05-01 19:40 | Emergency (ER) | payer MEDICARE, MEDICAID ==
[~2021-05-01] VITALS: Ht 167.6 cm; Wt 100.0 kg
[2021-05-01 20:25] LABS: BASOPHILS # (AUTO) 0.1 X10'3 (0-0.2); BASOPHILS % (AUTO) 1.3 % (0-1); EOSINOPHILS # (AUTO) 0.3 X10'3 (0-0.9); EOSINOPHILS % (AUTO) 6.2 % (0-6); HEMATOCRIT 33.5 % (42.0-52.0); HEMOGLOBIN 10.9 g/dl (14.0-17.9); LYMPHOCYTES # (AUTO) 0.7 X10'3 (1.1-4.8); LYMPHOCYTES % (AUTO) 15.8 % (21-51); MEAN CORPUSCULAR HEMOGLOBIN 29.7 PG (27.0-31.0); MEAN CORPUSCULAR HGB CONC 32.6 g/dL (33.0-36.5); MEAN PLATELET VOLUME 7.7 FL (7.4-10.4); MONOCYTES # (AUTO) 0.3 X10'3 (0-0.9); MONOCYTES % (AUTO) 7.6 % (2-12); NEUTROPHILS % (AUTO) 69.1 % (42-75); PLATELET COUNT 157 X10'3 (140-440); RED BLOOD COUNT 3.68 X10'6 (4.70-6.10); RED CELL DISTRIBUTION WIDTH 17.5 % (11.5-14.5); WHITE BLOOD COUNT 4.4 X10'3 (4.5-11.0)
[2021-05-01 20:42] LABS: ALANINE AMINOTRANSFERASE 11 U/L (12-78); ALBUMIN 3.4 G/DL (3.4-5.0); ALBUMIN/GLOBULIN RATIO 0.9 (1.1-1.5); ALKALINE PHOSPHATASE 72 IU/L (46-116); ANION GAP 7 (8-16); ASPARTATE AMINO TRANSFERASE 18 U/L (10-37); BILIRUBIN,TOTAL 0.6 MG/DL (0.1-1.0); BLOOD UREA NITROGEN 41 MG/DL (7-18); BUN/CREATININE RATIO 15.4 (5.4-32.0); CALCIUM 8.4 MG/DL (8.5-10.1); CHLORIDE 108 MMOL/L (99-107); CREATININE 2.66 MG/DL (0.60-1.10); GLUCOSE 116 MG/DL (70-104); POTASSIUM 4.5 MMOL/L (3.5-5.1); SODIUM 142 MMOL/L (135-145); TOTAL CARBON DIOXIDE 26.7 MMOL/L (24-32); TOTAL PROTEIN 7.3 G/DL (6.4-8.2); eGFR 24 ML/MIN
[2021-05-02 00:11] LABS: LIPASE 241 U/L (73-393)
[2021-05-02 01:12] VITALS: BP 159/94
== END 2021-05-02 01:21 | disposition home or self-care (01) ==
LOC: ER 19:41
DX: R10.33 Periumbilical pain (principal); I50.9 Heart failure, unspecified; I12.0 Hypertensive chronic kidney disease with stage 5 chronic kidney disease or end stage renal disease; I25.10 Atherosclerotic heart disease of native coronary artery without angina pectoris; S22.42XD Multiple fractures of ribs, left side, subsequent encounter for fracture with routine healing; E11.9 Type 2 diabetes mellitus without complications; I48.91 Unspecified atrial fibrillation; I11.0 Hypertensive heart disease with heart failure; N18.9 Chronic kidney disease, unspecified; Z95.5 Presence of coronary angioplasty implant and graft; Z85.038 Personal history of other malignant neoplasm of large intestine; Z95.0 Presence of cardiac pacemaker; Z87.891 Personal history of nicotine dependence; Z86.73 Personal history of transient ischemic attack (TIA), and cerebral infarction without residual deficits; X58.XXXD Exposure to other specified factors, subsequent encounter
CPT/HCPCS: 36415; 71045; 74176; 80053; 83690; 83880; 84484; 85025; 99285

== ENCOUNTER 2021-05-06 19:41 | Emergency (ER) | payer MEDICARE, MEDICAID ==
[~2021-05-06] VITALS: Ht 170.2 cm; Wt 100.5 kg
[2021-05-06 22:04] LABS: BASOPHILS # (AUTO) 0.1 X10'3 (0-0.2); BASOPHILS % (AUTO) 1.4 % (0-1); EOSINOPHILS # (AUTO) 0.3 X10'3 (0-0.9); EOSINOPHILS % (AUTO) 6.4 % (0-6); HEMATOCRIT 32.5 % (42.0-52.0); HEMOGLOBIN 10.6 g/dl (14.0-17.9); LYMPHOCYTES # (AUTO) 0.8 X10'3 (1.1-4.8); LYMPHOCYTES % (AUTO) 16.6 % (21-51); MEAN CORPUSCULAR HEMOGLOBIN 29.8 PG (27.0-31.0); MEAN CORPUSCULAR HGB CONC 32.7 g/dL (33.0-36.5); MEAN CORPUSCULAR VOLUME 91.1 FL (78-98); MEAN PLATELET VOLUME 8.3 FL (7.4-10.4); MONOCYTES # (AUTO) 0.4 X10'3 (0-0.9); MONOCYTES % (AUTO) 7.6 % (2-12); NEUTROPHILS # (AUTO) 3.2 X10'3 (1.8-7.7); PLATELET COUNT 145 X10'3 (140-440); RED BLOOD COUNT 3.57 X10'6 (4.70-6.10); RED CELL DISTRIBUTION WIDTH 17.6 % (11.5-14.5); WHITE BLOOD COUNT 4.7 X10'3 (4.5-11.0)
[2021-05-06 22:35] LABS: ALANINE AMINOTRANSFERASE 10 U/L (12-78); ALBUMIN 3.4 G/DL (3.4-5.0); ALBUMIN/GLOBULIN RATIO 0.9 (1.1-1.5); ALKALINE PHOSPHATASE 67 IU/L (46-116); ANION GAP 9 (8-16); ASPARTATE AMINO TRANSFERASE 17 U/L (10-37); BILIRUBIN,TOTAL 0.5 MG/DL (0.1-1.0); BLOOD UREA NITROGEN 47 MG/DL (7-18); BUN/CREATININE RATIO 16.8 (5.4-32.0); CALCIUM 8.1 MG/DL (8.5-10.1); CHLORIDE 110 MMOL/L (99-107); GLUCOSE 88 MG/DL (70-104); POTASSIUM 4.8 MMOL/L (3.5-5.1); SODIUM 142 MMOL/L (135-145); TOTAL CARBON DIOXIDE 23.5 MMOL/L (24-32); TOTAL PROTEIN 7.2 G/DL (6.4-8.2); eGFR 22 ML/MIN
[2021-05-07] MEDS ORDERED: aspirin 325mg tablet PO ONE (06:15)
[2021-05-07] MEDS ORDERED: acetaminophen 325mg tablet PO ONE (06:15)
[2021-05-07] MEDS ORDERED: proCHLORperazine 10 MG/2 ml inj IM ONE (06:15)
[2021-05-07 06:53] VITALS: BP 166/98
== END 2021-05-07 06:56 | disposition home or self-care (01) ==
LOC: ER 19:43
DX: R51.9 Headache, unspecified (principal); R11.0 Nausea; I48.91 Unspecified atrial fibrillation; I25.10 Atherosclerotic heart disease of native coronary artery without angina pectoris; I11.0 Hypertensive heart disease with heart failure; I50.9 Heart failure, unspecified; E78.00 Pure hypercholesterolemia, unspecified; I12.0 Hypertensive chronic kidney disease with stage 5 chronic kidney disease or end stage renal disease; E11.22 Type 2 diabetes mellitus with diabetic chronic kidney disease; N18.9 Chronic kidney disease, unspecified; Z86.73 Personal history of transient ischemic attack (TIA), and cerebral infarction without residual deficits; Z86.2 Personal history of diseases of the blood and blood-forming organs and certain disorders involving the immune mechanism; Z85.038 Personal history of other malignant neoplasm of large intestine; Z90.49 Acquired absence of other specified parts of digestive tract; Z95.5 Presence of coronary angioplasty implant and graft; Z95.0 Presence of cardiac pacemaker; Z88.8 Allergy status to other drugs, medicaments and biological substances; Z79.01 Long term (current) use of anticoagulants; Z79.899 Other long term (current) drug therapy
CPT/HCPCS: 36415; 70450; 71045; 80053; 83880; 84484; 85025; 93005; 96372; 99285; J0780

== ENCOUNTER 2021-05-09 00:09 | Emergency (ER) | payer MEDICARE, MEDICAID ==
[~2021-05-09] VITALS: Ht 170.2 cm; Wt 100.2 kg
[2021-05-09] MEDS ORDERED: TRAM50TA2 PO (00:49)
[2021-05-09] MEDS ORDERED: traMADol 50MG tablet PO ONE (00:50)
[2021-05-09 01:11] VITALS: BP 146/82
== END 2021-05-09 00:53 | disposition home or self-care (01) ==
LOC: ER 00:10
DX: R51.9 Headache, unspecified (principal); R11.0 Nausea; R60.0 Localized edema; I48.91 Unspecified atrial fibrillation; I25.10 Atherosclerotic heart disease of native coronary artery without angina pectoris; E78.00 Pure hypercholesterolemia, unspecified; I11.0 Hypertensive heart disease with heart failure; I50.9 Heart failure, unspecified; I12.0 Hypertensive chronic kidney disease with stage 5 chronic kidney disease or end stage renal disease; E11.22 Type 2 diabetes mellitus with diabetic chronic kidney disease; N18.6 End stage renal disease; Z90.49 Acquired absence of other specified parts of digestive tract; Z95.5 Presence of coronary angioplasty implant and graft; Z95.0 Presence of cardiac pacemaker; Z85.038 Personal history of other malignant neoplasm of large intestine; Z88.8 Allergy status to other drugs, medicaments and biological substances; Z79.01 Long term (current) use of anticoagulants; Z79.899 Other long term (current) drug therapy
CPT/HCPCS: 99284

== ENCOUNTER 2021-05-28 07:47 | Inpatient (IN) | payer MEDICARE, MEDICAID ==
[~2021-05-28] VITALS: Ht 162.6 cm; Wt 88.2 kg
[2021-05-28] MEDS ORDERED: iohexol 350MG/ML 100ml bottle IV ONE (08:49)
[2021-05-28 09:38] LABS: BASOPHILS # (AUTO) 0.1 X10'3 (0-0.2); BASOPHILS % (AUTO) 0.8 % (0-1); EOSINOPHILS # (AUTO) 0.2 X10'3 (0-0.9); EOSINOPHILS % (AUTO) 2.5 % (0-6); LYMPHOCYTES # (AUTO) 0.4 X10'3 (1.1-4.8); LYMPHOCYTES % (AUTO) 5.7 % (21-51); MEAN CORPUSCULAR HEMOGLOBIN 29.9 PG (27.0-31.0); MEAN CORPUSCULAR HGB CONC 32.3 g/dL (33.0-36.5); MEAN CORPUSCULAR VOLUME 92.7 FL (78-98); MONOCYTES # (AUTO) 0.4 X10'3 (0-0.9); MONOCYTES % (AUTO) 6.6 % (2-12); NEUTROPHILS # (AUTO) 5.6 X10'3 (1.8-7.7); NEUTROPHILS % (AUTO) 84.4 % (42-75); PLATELET COUNT 161 X10'3 (140-440); RED BLOOD COUNT 3.02 X10'6 (4.70-6.10); RED CELL DISTRIBUTION WIDTH 18.4 % (11.5-14.5); WHITE BLOOD COUNT 6.7 X10'3 (4.5-11.0)
[2021-05-28 09:46] LABS: PARTIAL THROMBOPLASTIN TIME 36 SECONDS (22-32)
[2021-05-28 09:50] LABS: ANION GAP 10 (8-16); BLOOD UREA NITROGEN 46 MG/DL (7-18); BUN/CREATININE RATIO 17.5 (5.4-32.0); CALCIUM 7.9 MG/DL (8.5-10.1); CHLORIDE 110 MMOL/L (99-107); CREATININE 2.63 MG/DL (0.60-1.10); GLUCOSE 132 MG/DL (70-104); POTASSIUM 4.6 MMOL/L (3.5-5.1); SODIUM 143 MMOL/L (135-145); TOTAL CARBON DIOXIDE 22.8 MMOL/L (24-32); TROPONIN I < 0.04 NG/ML (0.0-0.05); eGFR 24 ML/MIN
--- NOTE | 2021-05-28 11:18 | NUR ---
ATTEMPTED TO CALL PTS GRANDAUGHTER AND DAUGHTER AT THE NUMBERS IN THE CHART. NO ANSWER MESSAGE LEFT.
--- NOTE | 2021-05-28 11:44 | NUR ---
PT YELLING AT THINGS IN THE ROOM, INCREASING CONFUSION, ARMANI CALLED BACK AND IS TALKING TO ED
[2021-05-28] MEDS ORDERED: normal saline 1000ml 1,000 ML IV ONE (12:00)
[2021-05-28] MEDS ORDERED: CLOP75TA34 PO (13:33)
[2021-05-28] MEDS ORDERED: FURO40TA4 PO (13:38)
[2021-05-28] MEDS ORDERED: CARV12.549 PO (13:38)
[2021-05-28] MEDS ORDERED: ENOX100D5 SQ (13:46)
[2021-05-28] MEDS ORDERED: mag hydrox/Alum hydrox/simeth 30ml oral suspension PO PRN (16:25)
[2021-05-28] MEDS ORDERED: magnesium hydroxide 30ml (MOM) UD suspension PO PRN (16:25)
[2021-05-28] MEDS ORDERED: acetaminophen 325mg tablet PO PRN (16:25)
[2021-05-28] MEDS ORDERED: ondansetron/PF 4mg/2ml inj IV PRN (16:25)
[2021-05-28] MEDS ORDERED: normal saline 1000ml 1,000 ML IV SCH (16:25)
--- NOTE | 2021-05-28 16:42 | NUR ---
PT CLIMBING OUT OF BED STATING HE HAS TO HAVE A BM. ATTEMPTED TO PLACE PT ON BED JESUS, PT KEPT TRYING TO GET OUT OF BED. WITH MAX ASSIST PT UP TO BSC. PT HAD LARGE BM SUROUNDED BY BRIGHT RED BLOOD. CALL PLACED TO ARISTEO. AWAITNG CALL BACK
--- NOTE | 2021-05-28 16:51 | NUR ---
DR ALBERTS CALLED BACK ORDERS TO STOP LOVANOX. "AND HOPEFULY IT WILL STOP"
--- NOTE | 2021-05-28 17:14 | NUR ---
YANE IS PT CONTACT. [phone]
[2021-05-28] MEDS: cefepime 1GM/NS ADD-VANTAGE 100 ML IV SCH (18:07)
[2021-05-28 18:18] LABS: HEMATOCRIT 28.3 % (42.0-52.0); HEMOGLOBIN 9.3 g/dl (14.0-17.9); MEAN CORPUSCULAR HEMOGLOBIN 30.2 PG (27.0-31.0); MEAN CORPUSCULAR HGB CONC 32.9 g/dL (33.0-36.5); MEAN CORPUSCULAR VOLUME 91.6 FL (78-98); MEAN PLATELET VOLUME 8.4 FL (7.4-10.4); PLATELET COUNT 187 X10'3 (140-440); RED BLOOD COUNT 3.09 X10'6 (4.70-6.10); RED CELL DISTRIBUTION WIDTH 18.3 % (11.5-14.5); WHITE BLOOD COUNT 6.1 X10'3 (4.5-11.0)
[2021-05-28] MEDS ORDERED: enoxaparin 30mg/0.3ml syringe SQ SCH (20:00)
[2021-05-28] MEDS: docusate sod 100mg capsule PO SCH (20:00)
[2021-05-28] MEDS ORDERED: ziprasidone IM 20mg inj **IM only IM ONE (20:35)
--- NOTE | 2021-05-28 20:37 | NUR ---
New order for Joi IM and safety restraints for B/L wrists. Pt tried again to climb out of bed, a particular safety risk r/t anticoagulant use. Unable to reorient patient effectively r/t confusion.
[2021-05-28] MEDS: furosemide 40mg tablet PO SCH (20:55)
[2021-05-28] MEDS: carVEDilol 12.5mg tablet PO SCH (20:55)
[2021-05-28] MEDS: atorvastatin 20mg tablet PO SCH (20:55)
[2021-05-28] MEDS: sacubitril/valsartan 49mg-51mg tablet PO SCH (22:00)
[2021-05-28 23:00] VITALS: BP 156/77
--- NOTE | 2021-05-29 01:00 | NUR ---
Pt attempting to get OOB, has pulled off heart monitor, difficult to reorient. Dr. Orellana phoned and order for NIGHAT Tamez. Addendum: 05/29/21 at 0112 by Arlene Parekh RN Amended: Links added.
--- NOTE | 2021-05-29 01:00 | NUR ---
Admission questions recalled, as pt is unable to answer questions appropriately for updated information. Addendum: 05/29/21 at 0519 by Arlene Parekh RN Amended: Links added.
[2021-05-29] MEDS ORDERED: ziprasidone IM 20mg inj **IM only IM ONE (01:10)
[2021-05-29 02:00] VITALS: BP 148/68
--- NOTE | 2021-05-29 03:30 | NUR ---
PAGER ID: [phone] MESSAGE: Arlene SNEED [phone] Reg: Junior Tamez given 2hrs ago, pt wont keep heart monitor on, wont stay in bed, fall risk, okay for soft wrist restraints? Dr. jackson for soft wrist restraints, with possibility of needing a sitter. Addendum: 05/29/21 at 0413 by Arlene Parekh RN Amended: Links added.
[2021-05-29] MEDS ORDERED: ziprasidone IM 20mg inj **IM only IM PRN (05:40)
--- NOTE | 2021-05-29 05:50 | NUR ---
Pt heard breathing irregularly with periods of apnea and gurgling. Repositioned, VS taken, Rapid, Pt dusky O2 77%, Notified, Non rebreather, ABGs, bld sugar 111, Chest xray, pt able to follow some movement commands. Pts neck large and difficult to stabilize head without it flopping forward. Pillows used to brace it. Pts color better. 0630 Report given to Candis Delcid from respiratory. Addendum: 05/29/21 at 0656 by Arlene Parekh RN Amended: Links added.
--- NOTE | 2021-05-29 06:00 | NUR ---
Vitals were not taken at 6am by PCT because a rapid was in progress.
[2021-05-29 06:07] LABS: BASOPHILS % (AUTO) 0.7 % (0-1); EOSINOPHILS # (AUTO) 0.1 X10'3 (0-0.9); EOSINOPHILS % (AUTO) 1.5 % (0-6); HEMATOCRIT 28.7 % (42.0-52.0); HEMOGLOBIN 9.3 g/dl (14.0-17.9); LYMPHOCYTES # (AUTO) 0.6 X10'3 (1.1-4.8); LYMPHOCYTES % (AUTO) 9.2 % (21-51); MEAN CORPUSCULAR HEMOGLOBIN 30.2 PG (27.0-31.0); MEAN CORPUSCULAR HGB CONC 32.5 g/dL (33.0-36.5); MEAN CORPUSCULAR VOLUME 92.9 FL (78-98); MONOCYTES # (AUTO) 0.4 X10'3 (0-0.9); MONOCYTES % (AUTO) 6.2 % (2-12); NEUTROPHILS # (AUTO) 5.3 X10'3 (1.8-7.7); NEUTROPHILS % (AUTO) 82.4 % (42-75); PLATELET COUNT 188 X10'3 (140-440); RED BLOOD COUNT 3.09 X10'6 (4.70-6.10); RED CELL DISTRIBUTION WIDTH 18.7 % (11.5-14.5); WHITE BLOOD COUNT 6.5 X10'3 (4.5-11.0)
[2021-05-29 06:09] LABS: ALBUMIN 3.2 G/DL (3.4-5.0); ANION GAP 12 (8-16); BLOOD UREA NITROGEN 49 MG/DL (7-18); CALCIUM 8.3 MG/DL (8.5-10.1); CHLORIDE 110 MMOL/L (99-107); CREATININE 2.72 MG/DL (0.60-1.10); GLUCOSE 123 MG/DL (70-104); POTASSIUM 4.4 MMOL/L (3.5-5.1); SODIUM 143 MMOL/L (135-145); eGFR 23 ML/MIN
[2021-05-29 06:21] LABS: ABG BASE EXCESS -8.7 mmol/L (-2.0-2.0); ABG HCO3 17.7 mmol/L (22.0-26.0); ABG OXYGEN SATURATION 99.1 % (94-97); ABG PCO2 (T) 40.7 mmHg (35.0-48.0); ABG PO2 (T) 344.9 mmHg (75.0-100.0); ALLEN'S TEST Modified; FCOHb 0.4 % (0.0-3.9); FLOW 15 L/min; FMetHb 0.3 % (0.0-1.5); FO2Hb 98.4 % (94-97); PATIENT TEMPERATURE 37.2; TOTAL HEMOGLOBIN 7.4 G/dl (14.0-18.0)
--- NOTE | 2021-05-29 06:30 | NUR ---
Went to rapid response for resp distress; upon arrival, pt slightly slumped over in bed, gurling breathes; pt has NRB on w/sat 100%; pt pulled up in bed, neck respositioned; airway open, respirations unlabored but lungs sound coarse thruout; pt arousable to verbal stimulus, opens eyes and moving all extremities but very sleepy, head very floppy; neck soft, bruising to L side; CXR and ABG done, Dr. Orellana called and updated; VS 112/63, HR 78, SR; ABG reviewed, PaO2>300; updated given to day shift RN, no further orders from hospitalist.
[2021-05-29 07:17] LABS: ACANTHOCYTES 1+; ANISOCYTOSIS 2+; BURR CELLS 1+; ELLIPTOCYTES 1+; PLATELET ESTIMATE NORMAL; TEAR DROP CELLS FEW
[2021-05-29] MEDS: sacubitril/valsartan 49mg-51mg tablet PO SCH ×2 (08:00→20:28)
[2021-05-29] MEDS: ferrous sulfate 325mg tablet PO SCH (08:00)
[2021-05-29] MEDS: docusate sod 100mg capsule PO SCH ×2 (08:00→20:24)
[2021-05-29] MEDS: lactobacillus rhamnosus 10,000 MMU CELLS/CAPSULE PO SCH (08:00)
[2021-05-29] MEDS: carVEDilol 12.5mg tablet PO SCH ×2 (08:00→20:25)
[2021-05-29] MEDS: amiodarone 100mg tablet PO SCH (08:00)
[2021-05-29] MEDS: furosemide 40mg tablet PO SCH (08:00)
[2021-05-29] MEDS: cefepime 1GM/NS ADD-VANTAGE 100 ML IV SCH ×2 (10:11→20:37)
[2021-05-29 11:00] VITALS: BP 170/94
[2021-05-29 11:00] LABS: HEMATOCRIT 26.4 % (42.0-52.0); HEMOGLOBIN 8.7 g/dl (14.0-17.9); MEAN CORPUSCULAR HEMOGLOBIN 29.9 PG (27.0-31.0); MEAN CORPUSCULAR HGB CONC 32.9 g/dL (33.0-36.5); MEAN PLATELET VOLUME 7.8 FL (7.4-10.4); PLATELET COUNT 168 X10'3 (140-440); RED CELL DISTRIBUTION WIDTH 18.7 % (11.5-14.5); WHITE BLOOD COUNT 5.3 X10'3 (4.5-11.0)
[2021-05-29] MEDS ORDERED: hydrALAZINE 20mg/ml inj. IV PRN (14:35)
[2021-05-29 15:00] VITALS: BP 164/89
[2021-05-29 17:45] LABS: HEMATOCRIT 26.7 % (42.0-52.0); HEMOGLOBIN 8.7 g/dl (14.0-17.9); MEAN CORPUSCULAR HEMOGLOBIN 29.9 PG (27.0-31.0); MEAN CORPUSCULAR HGB CONC 32.5 g/dL (33.0-36.5); MEAN PLATELET VOLUME 7.9 FL (7.4-10.4); PLATELET COUNT 175 X10'3 (140-440); RED CELL DISTRIBUTION WIDTH 18.5 % (11.5-14.5); WHITE BLOOD COUNT 5.8 X10'3 (4.5-11.0)
[2021-05-29 18:00] VITALS: BP 151/77
--- NOTE | 2021-05-29 18:40 | NUR ---
Patient in room PCU 3014. I have received report from Dinorah RN and had the opportunity to ask questions and assume patient care.
[2021-05-29] MEDS: atorvastatin 20mg tablet PO SCH (20:25)
[2021-05-29 20:29] VITALS: BP 152/80
[2021-05-29] MEDS: furosemide 40mg/4ml inj IV SCH (20:30)
[2021-05-29 22:00] VITALS: BP 157/73
[2021-05-29 23:48] LABS: HEMATOCRIT 24.5 % (42.0-52.0); HEMOGLOBIN 8.1 g/dl (14.0-17.9); MEAN CORPUSCULAR HEMOGLOBIN 30.1 PG (27.0-31.0); MEAN CORPUSCULAR HGB CONC 33.2 g/dL (33.0-36.5); MEAN CORPUSCULAR VOLUME 90.6 FL (78-98); MEAN PLATELET VOLUME 7.7 FL (7.4-10.4); PLATELET COUNT 174 X10'3 (140-440); RED CELL DISTRIBUTION WIDTH 18.3 % (11.5-14.5); WHITE BLOOD COUNT 5.3 X10'3 (4.5-11.0)
[2021-05-30 02:00] VITALS: BP 144/72
[2021-05-30] MEDS: acetaminophen 325mg tablet PO PRN (02:59)
--- NOTE | 2021-05-30 04:07 | NUR ---
The 2324 Hemogram was down from 8.7 to 8.1, and 26.7 to 24.5. New lab ordered for 0525.
--- NOTE | 2021-05-30 06:45 | NUR ---
Problems reprioritized. Patient report given, questions answered & plan of care reviewed with Domo SNEED.
[2021-05-30 07:10] LABS: BASOPHILS % (AUTO) 0.7 % (0-1); EOSINOPHILS # (AUTO) 0.2 X10'3 (0-0.9); EOSINOPHILS % (AUTO) 4.3 % (0-6); HEMATOCRIT 24.6 % (42.0-52.0); HEMOGLOBIN 8.1 g/dl (14.0-17.9); LYMPHOCYTES # (AUTO) 0.5 X10'3 (1.1-4.8); LYMPHOCYTES % (AUTO) 9.2 % (21-51); MEAN CORPUSCULAR HEMOGLOBIN 29.7 PG (27.0-31.0); MEAN CORPUSCULAR HGB CONC 32.9 g/dL (33.0-36.5); MEAN CORPUSCULAR VOLUME 90.3 FL (78-98); MEAN PLATELET VOLUME 7.8 FL (7.4-10.4); MONOCYTES # (AUTO) 0.4 X10'3 (0-0.9); MONOCYTES % (AUTO) 7.7 % (2-12); NEUTROPHILS # (AUTO) 4.1 X10'3 (1.8-7.7); NEUTROPHILS % (AUTO) 78.1 % (42-75); PLATELET COUNT 170 X10'3 (140-440); RED BLOOD COUNT 2.72 X10'6 (4.70-6.10); RED CELL DISTRIBUTION WIDTH 18.3 % (11.5-14.5); WHITE BLOOD COUNT 5.2 X10'3 (4.5-11.0)
[2021-05-30 07:47] LABS: ALBUMIN 2.8 G/DL (3.4-5.0); ANION GAP 13 (8-16); BLOOD UREA NITROGEN 49 MG/DL (7-18); BUN/CREATININE RATIO 16.5 (5.4-32.0); CALCIUM 8.2 MG/DL (8.5-10.1); CHLORIDE 112 MMOL/L (99-107); CREATININE 2.97 MG/DL (0.60-1.10); GLUCOSE 76 MG/DL (70-104); POTASSIUM 4.1 MMOL/L (3.5-5.1); SODIUM 147 MMOL/L (135-145); TOTAL CARBON DIOXIDE 22.2 MMOL/L (24-32); eGFR 21 ML/MIN
[2021-05-30] MEDS: cefepime 1GM/NS ADD-VANTAGE 100 ML IV SCH ×2 (09:26→20:22)
[2021-05-30] MEDS: sacubitril/valsartan 49mg-51mg tablet PO SCH ×2 (09:27→20:23)
[2021-05-30] MEDS: ferrous sulfate 325mg tablet PO SCH (09:27)
[2021-05-30] MEDS: furosemide 40mg/4ml inj IV SCH ×2 (09:27→20:16)
[2021-05-30] MEDS: lactobacillus rhamnosus 10,000 MMU CELLS/CAPSULE PO SCH (09:28)
[2021-05-30] MEDS: carVEDilol 12.5mg tablet PO SCH ×2 (09:28→20:22)
[2021-05-30] MEDS: docusate sod 100mg capsule PO SCH ×2 (09:28→20:22)
[2021-05-30] MEDS: amiodarone 100mg tablet PO SCH (09:29)
[2021-05-30 11:17] LABS: HEMATOCRIT 26.1 % (42.0-52.0); HEMOGLOBIN 8.5 g/dl (14.0-17.9); MEAN CORPUSCULAR HGB CONC 32.6 g/dL (33.0-36.5); MEAN PLATELET VOLUME 7.8 FL (7.4-10.4); PLATELET COUNT 190 X10'3 (140-440); RED BLOOD COUNT 2.84 X10'6 (4.70-6.10); RED CELL DISTRIBUTION WIDTH 19.1 % (11.5-14.5); WHITE BLOOD COUNT 5.3 X10'3 (4.5-11.0)
[2021-05-30 15:00] VITALS: BP 158/80
[2021-05-30] MEDS ORDERED: ondansetron 4mg rapidly disintigrating tab PO PRN (15:00)
[2021-05-30 17:32] LABS: HEMOGLOBIN 8.5 g/dl (14.0-17.9); MEAN CORPUSCULAR HEMOGLOBIN 29.8 PG (27.0-31.0); MEAN CORPUSCULAR HGB CONC 32.9 g/dL (33.0-36.5); MEAN CORPUSCULAR VOLUME 90.8 FL (78-98); MEAN PLATELET VOLUME 7.6 FL (7.4-10.4); PLATELET COUNT 190 X10'3 (140-440); RED BLOOD COUNT 2.87 X10'6 (4.70-6.10); RED CELL DISTRIBUTION WIDTH 18.6 % (11.5-14.5); WHITE BLOOD COUNT 5.3 X10'3 (4.5-11.0)
--- NOTE | 2021-05-30 18:30 | NUR ---
Patient in room PCU 3014. I have received report from SIMON SNEED and had the opportunity to ask questions and assume patient care.
[2021-05-30 19:00] VITALS: BP 155/81
[2021-05-30] MEDS: atorvastatin 20mg tablet PO SCH (20:22)
[2021-05-30 22:00] VITALS: BP 159/80
[2021-05-31 00:04] LABS: HEMATOCRIT 23.9 % (42.0-52.0); MEAN CORPUSCULAR HEMOGLOBIN 30.3 PG (27.0-31.0); MEAN CORPUSCULAR HGB CONC 33.5 g/dL (33.0-36.5); MEAN CORPUSCULAR VOLUME 90.3 FL (78-98); MEAN PLATELET VOLUME 7.7 FL (7.4-10.4); PLATELET COUNT 171 X10'3 (140-440); RED BLOOD COUNT 2.65 X10'6 (4.70-6.10); RED CELL DISTRIBUTION WIDTH 18.6 % (11.5-14.5); WHITE BLOOD COUNT 5.2 X10'3 (4.5-11.0)
[2021-05-31 02:00] VITALS: BP 144/67
[2021-05-31] MEDS ORDERED: dextrose 5%-water 1,000 ML IV SCH (05:00)
--- NOTE | 2021-05-31 05:00 | NUR ---
PAGEZoltan ROTHMAN AND WAS INFORMED ABOUT PATIENT WHO IS NPO AND BS IS 64 NOT DIABETIC WITH ORDER TO START D5W AT 100/HR WHILE NPO AND DISCONTINUE WHEN PATIENT IS STARTED WITH A DIET.
--- NOTE | 2021-05-31 05:52 | NUR ---
BLOOD SUGAR RECHECKED 77
[2021-05-31 06:00] VITALS: BP 150/67
--- NOTE | 2021-05-31 06:30 | NUR ---
Problems reprioritized. Patient report given, questions answered & plan of care reviewed with REHANA SNEED.
[2021-05-31 06:54] LABS: EOSINOPHILS # (AUTO) 0.3 X10'3 (0-0.9); HEMATOCRIT 22.9 % (42.0-52.0); HEMOGLOBIN 7.7 g/dl (14.0-17.9); LYMPHOCYTES # (AUTO) 0.4 X10'3 (1.1-4.8); LYMPHOCYTES % (AUTO) 9.7 % (21-51); MEAN CORPUSCULAR HEMOGLOBIN 30.1 PG (27.0-31.0); MEAN CORPUSCULAR HGB CONC 33.4 g/dL (33.0-36.5); MEAN CORPUSCULAR VOLUME 90.2 FL (78-98); MEAN PLATELET VOLUME 7.4 FL (7.4-10.4); MONOCYTES # (AUTO) 0.4 X10'3 (0-0.9); MONOCYTES % (AUTO) 8.3 % (2-12); NEUTROPHILS # (AUTO) 3.4 X10'3 (1.8-7.7); PLATELET COUNT 173 X10'3 (140-440); RED BLOOD COUNT 2.54 X10'6 (4.70-6.10); RED CELL DISTRIBUTION WIDTH 18.6 % (11.5-14.5); WHITE BLOOD COUNT 4.5 X10'3 (4.5-11.0)
[2021-05-31 06:58] LABS: ALBUMIN 2.7 G/DL (3.4-5.0); ANION GAP 12 (8-16); BLOOD UREA NITROGEN 51 MG/DL (7-18); BUN/CREATININE RATIO 15.5 (5.4-32.0); CHLORIDE 110 MMOL/L (99-107); GLUCOSE 84 MG/DL (70-104); POTASSIUM 3.8 MMOL/L (3.5-5.1); SODIUM 146 MMOL/L (135-145); TOTAL CARBON DIOXIDE 23.7 MMOL/L (24-32); eGFR 18 ML/MIN
[2021-05-31] MEDS: docusate sod 100mg capsule PO SCH ×2 (09:23→20:07)
[2021-05-31] MEDS: ferrous sulfate 325mg tablet PO SCH (09:23)
[2021-05-31] MEDS: lactobacillus rhamnosus 10,000 MMU CELLS/CAPSULE PO SCH (09:24)
[2021-05-31] MEDS: furosemide 40mg/4ml inj IV SCH ×2 (09:25→20:07)
[2021-05-31] MEDS: amiodarone 100mg tablet PO SCH (09:25)
[2021-05-31] MEDS: cefepime 1GM/NS ADD-VANTAGE 100 ML IV SCH ×2 (09:25→20:06)
[2021-05-31] MEDS: carVEDilol 12.5mg tablet PO SCH ×2 (09:26→20:07)
--- NOTE | 2021-05-31 09:36 | NUR ---
per pharmacist D5w can be piggy backed with cefepime abx.
[2021-05-31] MEDS: sacubitril/valsartan 49mg-51mg tablet PO SCH ×2 (09:52→20:07)
[2021-05-31 11:00] VITALS: BP 157/76
[2021-05-31 15:00] VITALS: BP 150/63
[2021-05-31] MEDS: acetaminophen 325mg tablet PO PRN (15:54)
[2021-05-31 18:00] VITALS: BP 150/74
--- NOTE | 2021-05-31 18:23 | NUR ---
Problems reprioritized. Patient report given, questions answered & plan of care reviewed with DOREEN SNEED.
--- NOTE | 2021-05-31 18:58 | NUR ---
Patient in room U 3014. I have received report from Domo SNEED and had the opportunity to ask questions and assume patient care. Pt sitting up eating dinner in chair. No signs of distress, will continue to monitor.
[2021-05-31] MEDS: atorvastatin 20mg tablet PO SCH (20:15)
[2021-05-31 22:00] VITALS: BP 133/67
[2021-06-01 02:00] VITALS: BP 150/52
[2021-06-01 06:00] VITALS: BP 167/52
--- NOTE | 2021-06-01 06:31 | NUR ---
Problems reprioritized. Patient report given, questions answered & plan of care reviewed with Zeynep SNEED.
--- NOTE | 2021-06-01 06:32 | NUR ---
Patient in room PCU 3014. I have received report from NAREN Guerrero and had the opportunity to ask questions and assume patient care.
[2021-06-01 07:09] LABS: BASOPHILS # (AUTO) 0.1 X10'3 (0-0.2); BASOPHILS % (AUTO) 1.2 % (0-1); EOSINOPHILS # (AUTO) 0.3 X10'3 (0-0.9); EOSINOPHILS % (AUTO) 6.7 % (0-6); HEMOGLOBIN 8.2 g/dl (14.0-17.9); LYMPHOCYTES # (AUTO) 0.6 X10'3 (1.1-4.8); MEAN CORPUSCULAR HEMOGLOBIN 30.8 PG (27.0-31.0); MEAN CORPUSCULAR VOLUME 90.7 FL (78-98); MEAN PLATELET VOLUME 7.6 FL (7.4-10.4); MONOCYTES # (AUTO) 0.5 X10'3 (0-0.9); MONOCYTES % (AUTO) 9.8 % (2-12); NEUTROPHILS # (AUTO) 3.5 X10'3 (1.8-7.7); NEUTROPHILS % (AUTO) 70.3 % (42-75); PLATELET COUNT 181 X10'3 (140-440); RED BLOOD COUNT 2.65 X10'6 (4.70-6.10); RED CELL DISTRIBUTION WIDTH 18.5 % (11.5-14.5); WHITE BLOOD COUNT 4.9 X10'3 (4.5-11.0)
[2021-06-01 07:14] LABS: ALBUMIN 2.7 G/DL (3.4-5.0); ANION GAP 9 (8-16); BLOOD UREA NITROGEN 53 MG/DL (7-18); CHLORIDE 107 MMOL/L (99-107); CREATININE 3.54 MG/DL (0.60-1.10); GLUCOSE 108 MG/DL (70-104); POTASSIUM 3.4 MMOL/L (3.5-5.1); SODIUM 143 MMOL/L (135-145); TOTAL CARBON DIOXIDE 26.7 MMOL/L (24-32); eGFR 17 ML/MIN
[2021-06-01] MEDS: docusate sod 100mg capsule PO SCH (09:28)
[2021-06-01] MEDS: cefepime 1GM/NS ADD-VANTAGE 100 ML IV SCH (09:28)
[2021-06-01] MEDS: lactobacillus rhamnosus 10,000 MMU CELLS/CAPSULE PO SCH (09:28)
[2021-06-01] MEDS: amiodarone 100mg tablet PO SCH (09:28)
[2021-06-01] MEDS: furosemide 40mg/4ml inj IV SCH (09:29)
[2021-06-01] MEDS: sacubitril/valsartan 49mg-51mg tablet PO SCH (09:29)
[2021-06-01] MEDS: carVEDilol 12.5mg tablet PO SCH (09:29)
[2021-06-01] MEDS: ferrous sulfate 325mg tablet PO SCH (09:29)
[2021-06-01] MEDS ORDERED: potassium Cl 20 mEq SR tablet PO PRN ×2 (10:40)
[2021-06-01] MEDS ORDERED: potassium Cl 40MEQ/1/2NS 520ml 520 ML IV PRN (10:40)
[2021-06-01] MEDS ORDERED: magnesium Cl slow-release 64mg tablet PO PRN (10:40)
[2021-06-01] MEDS ORDERED: magnesium 4gm in 100ml NS 100 ML IV PRN (10:40)
[2021-06-01 11:00] VITALS: BP 121/69
[2021-06-01] MEDS ORDERED: POTA20TA19 PO (11:29)
[2021-06-01] MEDS ORDERED: FURO40TA4 PO (11:29)
[2021-06-01] MEDS ORDERED: CEFD300C21 PO (11:29)
--- NOTE | 2021-06-01 14:57 | NUR ---
Initial: Pt admitted s/p and altered mental status per EMR w/ recent L carotid surgery. Pt s/p rapid response 05/29 though pt is able to eat well now, mostly 50-100% of meals on Heart Healthy diet since then. LBM 05/30. No nutritional intervention implemented at this time, will continue to monitor. Recs: 1. Continue Heart Healthy diet as tolerated 2. Bowel care per rx 3. Weekly wts Addendum: 06/01/21 at [address] Amended: Links added.
--- NOTE | 2021-06-01 16:08 | NUR ---
Pt discharged to home at 1535, with all belongings, in private vehicle. Discharge instructions and medications reviewed. New prescriptions e-scripted to [facility] on [address]. Pt instructed to follow up with PCP in 1-2 weeks and to return to ED if his symptoms return. Pt stated understanding and willingness to comply with discharge instructions. IV DC'd, cannula intact. Pt escorted to front lobby via wheelchair.
[2021-06-01] MEDS ORDERED: K and/or MAG REPLACEMENT MC SCH (20:00)
== END 2021-06-01 15:35 | disposition home health service (06) | DRG 177 ==
LOC: ER 07:48 → ED HOLD 16:24 → EDBEDREQ 21:02 → PCU 3S 22:30
PROVIDERS: ADMIT Family Medicine; ATTEND Family Medicine
PROC: B3251ZZ Computerized Tomography (CT Scan) of Bilateral Common Carotid Arteries using Low Osmolar Contrast (ICD-10-PCS; principal; 2021-05-28)
PROC: B32G1ZZ Computerized Tomography (CT Scan) of Bilateral Vertebral Arteries using Low Osmolar Contrast (ICD-10-PCS; 2021-05-28)
PROC: B32R1ZZ Computerized Tomography (CT Scan) of Intracranial Arteries using Low Osmolar Contrast (ICD-10-PCS; 2021-05-28)
PROC: B3281ZZ Computerized Tomography (CT Scan) of Bilateral Internal Carotid Arteries using Low Osmolar Contrast (ICD-10-PCS; 2021-05-28)
DX: J69.0 Pneumonitis due to inhalation of food and vomit (principal); G93.41 Metabolic encephalopathy; I50.23 Acute on chronic systolic (congestive) heart failure; I48.20 Chronic atrial fibrillation, unspecified; I13.0 Hypertensive heart and chronic kidney disease with heart failure and stage 1 through stage 4 chronic kidney disease, or unspecified chronic kidney disease; M84.48XA Pathological fracture, other site, initial encounter for fracture; K64.9 Unspecified hemorrhoids; I25.10 Atherosclerotic heart disease of native coronary artery without angina pectoris; E11.22 Type 2 diabetes mellitus with diabetic chronic kidney disease; D64.9 Anemia, unspecified; N18.9 Chronic kidney disease, unspecified; Z20.822 Contact with and (suspected) exposure to COVID-19; E78.5 Hyperlipidemia, unspecified; E87.6 Hypokalemia; S10.93XA Contusion of unspecified part of neck, initial encounter; X58.XXXA Exposure to other specified factors, initial encounter; Z95.1 Presence of aortocoronary bypass graft; Z90.49 Acquired absence of other specified parts of digestive tract; Z86.73 Personal history of transient ischemic attack (TIA), and cerebral infarction without residual deficits; Z85.038 Personal history of other malignant neoplasm of large intestine; Z82.49 Family history of ischemic heart disease and other diseases of the circulatory system; Z83.3 Family history of diabetes mellitus; Z78.1 Physical restraint status; Z88.5 Allergy status to narcotic agent; Z95.0 Presence of cardiac pacemaker; Z79.82 Long term (current) use of aspirin; Y93.89 Activity, other specified; Y92.89 Other specified places as the place of occurrence of the external cause; Y99.8 Other external cause status
CPT/HCPCS: 36415; 36600; 70450; 70496; 70498; 71045; 72125; 80048; 82803; 82948; 84484; 85008; 85018; 85025; 85027; 85610; 85730; 87081; 87635; 93005; 94760; 96360; 97116; 97162; 97530; 99285; C9803; G0378; J0360; J0692; J1940; J3486; J7030; J7070; Q9967

== ENCOUNTER 2021-07-04 12:46 | Emergency (ER) | payer MEDICARE, MEDICAID ==
[~2021-07-04] VITALS: Ht 170.2 cm; Wt 80.6 kg
[~2021-07-04 12:46] MED LIST changes: -CARV-49 PO; +CARV12.549 PO; +CEFD300C21 PO; +CLOP75TA34 PO; -FURO20TA4 PO; +FURO40TA4 PO; +POTA20TA19 PO; -WARF6TAB49 PO
[2021-07-04 14:08] LABS: BASOPHILS # (AUTO) 0.1 X10'3 (0-0.2); BASOPHILS % (AUTO) 1.5 % (0-1); EOSINOPHILS # (AUTO) 0.3 X10'3 (0-0.9); EOSINOPHILS % (AUTO) 5.5 % (0-6); HEMATOCRIT 27.9 % (42.0-52.0); HEMOGLOBIN 9.1 g/dl (14.0-17.9); LYMPHOCYTES # (AUTO) 0.6 X10'3 (1.1-4.8); LYMPHOCYTES % (AUTO) 13.3 % (21-51); MEAN CORPUSCULAR HEMOGLOBIN 30.2 PG (27.0-31.0); MEAN CORPUSCULAR HGB CONC 32.6 g/dL (33.0-36.5); MEAN CORPUSCULAR VOLUME 92.6 FL (78-98); MEAN PLATELET VOLUME 7.3 FL (7.4-10.4); MONOCYTES # (AUTO) 0.4 X10'3 (0-0.9); MONOCYTES % (AUTO) 7.5 % (2-12); NEUTROPHILS # (AUTO) 3.4 X10'3 (1.8-7.7); NEUTROPHILS % (AUTO) 72.2 % (42-75); PLATELET COUNT 189 X10'3 (140-440); RED BLOOD COUNT 3.01 X10'6 (4.70-6.10); RED CELL DISTRIBUTION WIDTH 19.3 % (11.5-14.5); WHITE BLOOD COUNT 4.7 X10'3 (4.5-11.0)
[2021-07-04 14:14] LABS: ALANINE AMINOTRANSFERASE 11 U/L (12-78); ALBUMIN/GLOBULIN RATIO 0.7 (1.1-1.5); ALKALINE PHOSPHATASE 78 IU/L (46-116); ANION GAP 7 (8-16); ASPARTATE AMINO TRANSFERASE 15 U/L (10-37); BILIRUBIN,TOTAL 0.8 MG/DL (0.1-1.0); BLOOD UREA NITROGEN 43 MG/DL (7-18); BUN/CREATININE RATIO 15.2 (5.4-32.0); CALCIUM 8.2 MG/DL (8.5-10.1); CHLORIDE 108 MMOL/L (99-107); CREATININE 2.82 MG/DL (0.60-1.10); GLUCOSE 85 MG/DL (70-104); POTASSIUM 4.4 MMOL/L (3.5-5.1); SODIUM 143 MMOL/L (135-145); TOTAL CARBON DIOXIDE 28.1 MMOL/L (24-32); TOTAL PROTEIN 7.3 G/DL (6.4-8.2); eGFR 22 ML/MIN
--- NOTE | 2021-07-04 15:05 | NUR ---
GRANDDAUGHTER YANE IS PREFERRED CONTACT.
--- NOTE | 2021-07-04 17:20 | NUR ---
YANE CALLED AND WANTED UPDATE. GRANDDAUGHTER IS WANTING TO BE CALLED IF HE GETS DISCHARGED
[2021-07-04] MEDS ORDERED: furosemide 10 MG/1 ML 10ml inj IV ONE (20:30)
--- NOTE | 2021-07-04 21:18 | NUR ---
Gait test: Pt has a slow steady gait. Uses a walker for steadiness on the wet ground.
[2021-07-04 21:22] VITALS: BP 153/94
== END 2021-07-04 22:47 | disposition home or self-care (01) ==
LOC: ER 12:46
DX: R07.89 Other chest pain (principal); R42 Dizziness and giddiness; I48.91 Unspecified atrial fibrillation; I25.10 Atherosclerotic heart disease of native coronary artery without angina pectoris; E78.00 Pure hypercholesterolemia, unspecified; I11.0 Hypertensive heart disease with heart failure; I50.9 Heart failure, unspecified; I12.9 Hypertensive chronic kidney disease with stage 1 through stage 4 chronic kidney disease, or unspecified chronic kidney disease; E11.22 Type 2 diabetes mellitus with diabetic chronic kidney disease; N18.9 Chronic kidney disease, unspecified; D63.1 Anemia in chronic kidney disease; Z85.030 Personal history of malignant carcinoid tumor of large intestine; Z90.49 Acquired absence of other specified parts of digestive tract; Z95.5 Presence of coronary angioplasty implant and graft; Z95.0 Presence of cardiac pacemaker; Z87.891 Personal history of nicotine dependence; Z88.8 Allergy status to other drugs, medicaments and biological substances; Z79.899 Other long term (current) drug therapy
CPT/HCPCS: 36415; 71045; 80053; 83880; 84484; 85025; 93005; 96374; 99285; J1940

== ENCOUNTER 2021-10-18 17:09 | Emergency (ER) | payer MEDICARE, MEDICAID ==
[~2021-10-18] VITALS: Ht 175.3 cm; Wt 90.9 kg
[~2021-10-18 17:09] MED LIST changes: +POTA-207 PO; -POTA20TA19 PO
[2021-10-18 18:06] LABS: BASOPHILS # (AUTO) 0.1 X10'3 (0-0.2); BASOPHILS % (AUTO) 1.3 % (0-1); EOSINOPHILS # (AUTO) 0.3 X10'3 (0-0.9); EOSINOPHILS % (AUTO) 5.6 % (0-6); HEMATOCRIT 29.2 % (42.0-52.0); HEMOGLOBIN 8.8 g/dl (14.0-17.9); LYMPHOCYTES # (AUTO) 0.6 X10'3 (1.1-4.8); LYMPHOCYTES % (AUTO) 12.5 % (21-51); MEAN CORPUSCULAR HEMOGLOBIN 26.5 PG (27.0-31.0); MEAN CORPUSCULAR HGB CONC 30.2 g/dL (33.0-36.5); MEAN CORPUSCULAR VOLUME 87.5 FL (78-98); MEAN PLATELET VOLUME 7.9 FL (7.4-10.4); MONOCYTES # (AUTO) 0.4 X10'3 (0-0.9); MONOCYTES % (AUTO) 7.8 % (2-12); NEUTROPHILS # (AUTO) 3.7 X10'3 (1.8-7.7); NEUTROPHILS % (AUTO) 72.8 % (42-75); PLATELET COUNT 157 X10'3 (140-440); RED BLOOD COUNT 3.34 X10'6 (4.70-6.10); RED CELL DISTRIBUTION WIDTH 17.9 % (11.5-14.5)
[2021-10-18 18:17] LABS: ALANINE AMINOTRANSFERASE 11 U/L (12-78); ALBUMIN 3.4 G/DL (3.4-5.0); ALBUMIN/GLOBULIN RATIO 0.8 (1.1-1.5); ALKALINE PHOSPHATASE 79 IU/L (46-116); ANION GAP 6 (8-16); ASPARTATE AMINO TRANSFERASE 24 U/L (10-37); BLOOD UREA NITROGEN 62 MG/DL (7-18); BUN/CREATININE RATIO 20.1 (5.4-32.0); CALCIUM 8.1 MG/DL (8.5-10.1); CHLORIDE 108 MMOL/L (99-107); CREATININE 3.08 MG/DL (0.60-1.10); GLUCOSE 101 MG/DL (70-104); POTASSIUM 5.1 MMOL/L (3.5-5.1); SODIUM 139 MMOL/L (135-145); TOTAL CARBON DIOXIDE 24.6 MMOL/L (24-32); TOTAL PROTEIN 7.6 G/DL (6.4-8.2); eGFR 20 ML/MIN
[2021-10-18 18:24] LABS: LIPASE 824 U/L (73-393)
[2021-10-18 18:53] VITALS: BP 156/94
[2021-10-18 19:08] LABS: CLARITY,URINE CLEAR (Clear); COLOR,URINE YELLOW (Yellow); GLUCOSE, URINE NEGATIVE (Neg); KETONES,URINE NEGATIVE (Neg); LEUKOCYTE ESTERASE ,URINE NEGATIVE (Neg); NITRITES, URINE NEGATIVE (Neg); OCCULT BLOOD,URINE TRACE-INTACT (Neg); PH,URINE 5.5 (4.8-8.0); PROTEIN,URINE 100 mg/dl (Neg); UROBILINOGEN,URINE 0.2 E.U/dL (0.2-1.0)
[2021-10-18 19:12] LABS: UA COLLECTION TYPE URINAL
[2021-10-18 19:20] LABS: WBC,URINE 0-4 /HPF (0-4)
[2021-10-18 19:21] LABS: BACTERIA,URINE FEW /HPF (Neg); MUCUS STRANDS MODERATE /LPF (Neg); SQUAMOUS EPITHELIAL CELL,UR FEW /LPF (FEW)
== END 2021-10-18 20:03 | disposition home or self-care (01) ==
LOC: ER 17:10
DX: E11.22 Type 2 diabetes mellitus with diabetic chronic kidney disease (principal); I12.9 Hypertensive chronic kidney disease with stage 1 through stage 4 chronic kidney disease, or unspecified chronic kidney disease; N18.9 Chronic kidney disease, unspecified; D63.1 Anemia in chronic kidney disease; I11.0 Hypertensive heart disease with heart failure; I50.9 Heart failure, unspecified; K86.1 Other chronic pancreatitis; I48.91 Unspecified atrial fibrillation; I25.10 Atherosclerotic heart disease of native coronary artery without angina pectoris; E78.00 Pure hypercholesterolemia, unspecified; Z86.19 Personal history of other infectious and parasitic diseases; Z85.038 Personal history of other malignant neoplasm of large intestine; Z90.49 Acquired absence of other specified parts of digestive tract; Z95.5 Presence of coronary angioplasty implant and graft; Z95.0 Presence of cardiac pacemaker; Z86.73 Personal history of transient ischemic attack (TIA), and cerebral infarction without residual deficits; Z88.8 Allergy status to other drugs, medicaments and biological substances; Z79.899 Other long term (current) drug therapy
CPT/HCPCS: 36415; 71045; 80053; 81001; 83690; 83880; 84484; 85025; 93005; 99285

== ENCOUNTER 2021-10-20 19:06 | Emergency (ER) | payer MEDICARE, MEDICAID ==
[~2021-10-20] VITALS: Ht 170.2 cm; Wt 90.9 kg
[2021-10-21 00:39] LABS: BASOPHILS # (AUTO) 0.1 X10'3 (0-0.2); BASOPHILS % (AUTO) 1.5 % (0-1); EOSINOPHILS # (AUTO) 0.2 X10'3 (0-0.9); HEMATOCRIT 23.5 % (42.0-52.0); HEMOGLOBIN 7.3 g/dl (14.0-17.9); LYMPHOCYTES # (AUTO) 0.4 X10'3 (1.1-4.8); LYMPHOCYTES % (AUTO) 10.1 % (21-51); MEAN CORPUSCULAR HEMOGLOBIN 26.5 PG (27.0-31.0); MEAN CORPUSCULAR HGB CONC 31.1 g/dL (33.0-36.5); MEAN CORPUSCULAR VOLUME 85.4 FL (78-98); MEAN PLATELET VOLUME 7.7 FL (7.4-10.4); MONOCYTES # (AUTO) 0.4 X10'3 (0-0.9); MONOCYTES % (AUTO) 9.2 % (2-12); NEUTROPHILS # (AUTO) 3.3 X10'3 (1.8-7.7); NEUTROPHILS % (AUTO) 74.2 % (42-75); PLATELET COUNT 144 X10'3 (140-440); RED BLOOD COUNT 2.75 X10'6 (4.70-6.10); RED CELL DISTRIBUTION WIDTH 17.8 % (11.5-14.5); WHITE BLOOD COUNT 4.4 X10'3 (4.5-11.0)
[2021-10-21 00:54] LABS: ALANINE AMINOTRANSFERASE 15 U/L (12-78); ALBUMIN 2.9 G/DL (3.4-5.0); ALBUMIN/GLOBULIN RATIO 0.7 (1.1-1.5); ALKALINE PHOSPHATASE 81 IU/L (46-116); ANION GAP 6 (8-16); ASPARTATE AMINO TRANSFERASE 25 U/L (10-37); BILIRUBIN,DIRECT 0.2 MG/DL (0-0.3); BILIRUBIN,TOTAL 0.8 MG/DL (0.1-1.0); BLOOD UREA NITROGEN 59 MG/DL (7-18); BUN/CREATININE RATIO 18.3 (5.4-32.0); CALCIUM 7.8 MG/DL (8.5-10.1); CHLORIDE 108 MMOL/L (99-107); CREATININE 3.23 MG/DL (0.60-1.10); GLUCOSE 90 MG/DL (70-104); LIPASE 160 U/L (73-393); POTASSIUM 4.9 MMOL/L (3.5-5.1); SODIUM 141 MMOL/L (135-145); TOTAL CARBON DIOXIDE 27.4 MMOL/L (24-32); TOTAL PROTEIN 6.8 G/DL (6.4-8.2); eGFR 19 ML/MIN
[2021-10-21 01:40] VITALS: BP 159/97
== END 2021-10-21 01:59 | disposition home or self-care (01) ==
LOC: ER 19:07
DX: R42 Dizziness and giddiness (principal); Z20.822 Contact with and (suspected) exposure to COVID-19; I48.91 Unspecified atrial fibrillation; I25.10 Atherosclerotic heart disease of native coronary artery without angina pectoris; I13.0 Hypertensive heart and chronic kidney disease with heart failure and stage 1 through stage 4 chronic kidney disease, or unspecified chronic kidney disease; E11.22 Type 2 diabetes mellitus with diabetic chronic kidney disease; N18.9 Chronic kidney disease, unspecified; E78.00 Pure hypercholesterolemia, unspecified; Z86.73 Personal history of transient ischemic attack (TIA), and cerebral infarction without residual deficits; Z86.2 Personal history of diseases of the blood and blood-forming organs and certain disorders involving the immune mechanism; Z85.038 Personal history of other malignant neoplasm of large intestine; Z90.89 Acquired absence of other organs; Z90.49 Acquired absence of other specified parts of digestive tract; Z95.0 Presence of cardiac pacemaker; Z98.890 Other specified postprocedural states; Z88.5 Allergy status to narcotic agent; Z79.2 Long term (current) use of antibiotics; Z79.899 Other long term (current) drug therapy
CPT/HCPCS: 36415; 71045; 80048; 80076; 83690; 85025; 87635; 93005; 99285; C9803

== ENCOUNTER 2021-11-01 20:19 | Emergency (ER) | payer MEDICARE, MEDICAID ==
[~2021-11-01] VITALS: Ht 170.2 cm; Wt 88.6 kg
[2021-11-01 21:07] LABS: EOSINOPHILS # (AUTO) 0.2 X10'3 (0-0.9); EOSINOPHILS % (AUTO) 4.1 % (0-6); HEMATOCRIT 24.5 % (42.0-52.0); HEMOGLOBIN 7.6 g/dl (14.0-17.9); LYMPHOCYTES # (AUTO) 0.3 X10'3 (1.1-4.8); LYMPHOCYTES % (AUTO) 8.3 % (21-51); MEAN CORPUSCULAR HEMOGLOBIN 26.1 PG (27.0-31.0); MEAN CORPUSCULAR VOLUME 84.2 FL (78-98); MEAN PLATELET VOLUME 7.3 FL (7.4-10.4); MONOCYTES # (AUTO) 0.3 X10'3 (0-0.9); MONOCYTES % (AUTO) 6.8 % (2-12); NEUTROPHILS # (AUTO) 3.3 X10'3 (1.8-7.7); NEUTROPHILS % (AUTO) 79.8 % (42-75); PLATELET COUNT 147 X10'3 (140-440); RED CELL DISTRIBUTION WIDTH 17.9 % (11.5-14.5); WHITE BLOOD COUNT 4.1 X10'3 (4.5-11.0)
[2021-11-01 21:31] LABS: ALANINE AMINOTRANSFERASE 18 U/L (12-78); ALBUMIN 2.8 G/DL (3.4-5.0); ALBUMIN/GLOBULIN RATIO 0.8 (1.1-1.5); ANION GAP 12 (8-16); ASPARTATE AMINO TRANSFERASE 23 U/L (10-37); BILIRUBIN,TOTAL 0.5 MG/DL (0.1-1.0); BLOOD UREA NITROGEN 61 MG/DL (7-18); BUN/CREATININE RATIO 22.2 (5.4-32.0); CALCIUM 7.6 MG/DL (8.5-10.1); CHLORIDE 110 MMOL/L (99-107); CREATININE 2.75 MG/DL (0.60-1.10); GLUCOSE 156 MG/DL (70-104); POTASSIUM 4.8 MMOL/L (3.5-5.1); SODIUM 146 MMOL/L (135-145); TOTAL CARBON DIOXIDE 23.9 MMOL/L (24-32); TOTAL PROTEIN 6.3 G/DL (6.4-8.2); eGFR 23 ML/MIN
[2021-11-01 21:52] LABS: CLARITY,URINE CLEAR (Clear); COLOR,URINE YELLOW (Yellow); GLUCOSE, URINE 100 mg/dl (Neg); KETONES,URINE NEGATIVE (Neg); LEUKOCYTE ESTERASE ,URINE NEGATIVE (Neg); NITRITES, URINE NEGATIVE (Neg); OCCULT BLOOD,URINE TRACE-INTACT (Neg); PH,URINE 5.5 (4.8-8.0); PROTEIN,URINE 100 mg/dl (Neg); UROBILINOGEN,URINE 0.2 E.U/dL (0.2-1.0)
[2021-11-01 21:54] LABS: UA COLLECTION TYPE CLN CATCH MIDSTREAM
[2021-11-01 22:02] VITALS: BP 159/88
[2021-11-01 22:09] LABS: CELLULAR CAST 0-4 /LPF (NEGATIVE); MUCUS STRANDS FEW /LPF (Neg)
[2021-11-01 22:12] LABS: BACTERIA,URINE FEW /HPF (Neg); SQUAMOUS EPITHELIAL CELL,UR NONE SEEN /LPF (FEW); WBC,URINE 0-4 /HPF (0-4)
--- NOTE | 2021-11-01 23:01 | NUR ---
SPOKE TO GRANDDAUGHTER YANE. UPDATED ON PLAN OF CARE. PHONE NUMBER IS [phone]
--- NOTE | 2021-11-02 01:27 | NUR ---
Pt walking outside to "get fresh air". Educated pt on the importance to stay inside. Pt voiced understanding and aid he would be back, refusing to come inside at this time.
[2021-11-02 02:50] LABS: ETHANOL < 0.010 GM/DL (0.0-0.010); MAGNESIUM 2.1 MG/DL (1.5-2.4)
== END 2021-11-02 03:17 | disposition home or self-care (01) ==
LOC: ER 20:20
DX: R53.1 Weakness (principal); R10.84 Generalized abdominal pain; D50.0 Iron deficiency anemia secondary to blood loss (chronic); I13.0 Hypertensive heart and chronic kidney disease with heart failure and stage 1 through stage 4 chronic kidney disease, or unspecified chronic kidney disease; E11.22 Type 2 diabetes mellitus with diabetic chronic kidney disease; E78.00 Pure hypercholesterolemia, unspecified; N18.9 Chronic kidney disease, unspecified; I48.91 Unspecified atrial fibrillation; I25.10 Atherosclerotic heart disease of native coronary artery without angina pectoris; Z86.73 Personal history of transient ischemic attack (TIA), and cerebral infarction without residual deficits; Z86.2 Personal history of diseases of the blood and blood-forming organs and certain disorders involving the immune mechanism; Z85.038 Personal history of other malignant neoplasm of large intestine; Z90.89 Acquired absence of other organs; Z90.49 Acquired absence of other specified parts of digestive tract; Z95.0 Presence of cardiac pacemaker; Z98.890 Other specified postprocedural states
CPT/HCPCS: 36415; 71045; 80053; 80320; 81001; 83735; 83880; 84484; 85025; 93005; 99285

== ENCOUNTER 2021-11-06 12:29 | Emergency (ER) | payer MEDICARE, MEDICAID ==
[~2021-11-06] VITALS: Ht 170.2 cm; Wt 86.4 kg
[2021-11-06 13:51] LABS: BASOPHILS # (AUTO) 0.1 X10'3 (0-0.2); BASOPHILS % (AUTO) 1.3 % (0-1); EOSINOPHILS # (AUTO) 0.2 X10'3 (0-0.9); EOSINOPHILS % (AUTO) 4.2 % (0-6); HEMATOCRIT 26.5 % (42.0-52.0); HEMOGLOBIN 8.2 g/dl (14.0-17.9); LYMPHOCYTES # (AUTO) 0.5 X10'3 (1.1-4.8); LYMPHOCYTES % (AUTO) 11.5 % (21-51); MEAN CORPUSCULAR HGB CONC 30.9 g/dL (33.0-36.5); MEAN CORPUSCULAR VOLUME 84.2 FL (78-98); MEAN PLATELET VOLUME 7.4 FL (7.4-10.4); MONOCYTES # (AUTO) 0.4 X10'3 (0-0.9); MONOCYTES % (AUTO) 9.3 % (2-12); NEUTROPHILS # (AUTO) 3.5 X10'3 (1.8-7.7); NEUTROPHILS % (AUTO) 73.7 % (42-75); PLATELET COUNT 160 X10'3 (140-440); RED BLOOD COUNT 3.14 X10'6 (4.70-6.10); RED CELL DISTRIBUTION WIDTH 18.1 % (11.5-14.5); WHITE BLOOD COUNT 4.7 X10'3 (4.5-11.0)
[2021-11-06 13:55] LABS: ALANINE AMINOTRANSFERASE 17 U/L (12-78); ALBUMIN 3.1 G/DL (3.4-5.0); ALBUMIN/GLOBULIN RATIO 0.8 (1.1-1.5); ALKALINE PHOSPHATASE 69 IU/L (46-116); ANION GAP 7 (8-16); ASPARTATE AMINO TRANSFERASE 25 U/L (10-37); BLOOD UREA NITROGEN 48 MG/DL (7-18); BUN/CREATININE RATIO 18.4 (5.4-32.0); CALCIUM 8.6 MG/DL (8.5-10.1); CHLORIDE 110 MMOL/L (99-107); CREATININE 2.61 MG/DL (0.60-1.10); GLUCOSE 82 MG/DL (70-104); POTASSIUM 4.7 MMOL/L (3.5-5.1); SODIUM 143 MMOL/L (135-145); TOTAL CARBON DIOXIDE 26.1 MMOL/L (24-32); TOTAL PROTEIN 6.9 G/DL (6.4-8.2); eGFR 24 ML/MIN
[2021-11-06 16:36] VITALS: BP 165/93
== END 2021-11-06 16:39 | disposition home or self-care (01) ==
LOC: ER 12:30
DX: R42 Dizziness and giddiness (principal); I48.91 Unspecified atrial fibrillation; I25.10 Atherosclerotic heart disease of native coronary artery without angina pectoris; E78.00 Pure hypercholesterolemia, unspecified; I13.0 Hypertensive heart and chronic kidney disease with heart failure and stage 1 through stage 4 chronic kidney disease, or unspecified chronic kidney disease; E11.22 Type 2 diabetes mellitus with diabetic chronic kidney disease; N18.9 Chronic kidney disease, unspecified; Z86.73 Personal history of transient ischemic attack (TIA), and cerebral infarction without residual deficits; Z86.2 Personal history of diseases of the blood and blood-forming organs and certain disorders involving the immune mechanism; Z85.038 Personal history of other malignant neoplasm of large intestine; Z90.89 Acquired absence of other organs; Z90.49 Acquired absence of other specified parts of digestive tract; Z95.0 Presence of cardiac pacemaker; Z98.890 Other specified postprocedural states; Z88.5 Allergy status to narcotic agent; Z79.2 Long term (current) use of antibiotics; Z79.899 Other long term (current) drug therapy
CPT/HCPCS: 36415; 80053; 82948; 84484; 85025; 93005; 99284

== ENCOUNTER 2021-11-08 10:30 | Emergency (ER) | payer MEDICARE, MEDICAID ==
[~2021-11-08] VITALS: Ht 165.1 cm; Wt 77.3 kg
[2021-11-08 10:34] VITALS: BP 159/88
[2021-11-08 11:03] LABS: BASOPHILS % (AUTO) 0.9 % (0-1); EOSINOPHILS # (AUTO) 0.1 X10'3 (0-0.9); EOSINOPHILS % (AUTO) 2.9 % (0-6); HEMATOCRIT 25.6 % (42.0-52.0); HEMOGLOBIN 7.9 g/dl (14.0-17.9); LYMPHOCYTES # (AUTO) 0.4 X10'3 (1.1-4.8); LYMPHOCYTES % (AUTO) 8.7 % (21-51); MEAN CORPUSCULAR HGB CONC 30.8 g/dL (33.0-36.5); MEAN CORPUSCULAR VOLUME 84.3 FL (78-98); MEAN PLATELET VOLUME 7.1 FL (7.4-10.4); MONOCYTES # (AUTO) 0.3 X10'3 (0-0.9); MONOCYTES % (AUTO) 6.6 % (2-12); NEUTROPHILS # (AUTO) 3.5 X10'3 (1.8-7.7); NEUTROPHILS % (AUTO) 80.9 % (42-75); PLATELET COUNT 159 X10'3 (140-440); RED BLOOD COUNT 3.04 X10'6 (4.70-6.10); WHITE BLOOD COUNT 4.3 X10'3 (4.5-11.0)
[2021-11-08 11:24] LABS: ALANINE AMINOTRANSFERASE 17 U/L (12-78); ALBUMIN/GLOBULIN RATIO 0.9 (1.1-1.5); ALKALINE PHOSPHATASE 71 IU/L (46-116); ANION GAP 9 (8-16); ASPARTATE AMINO TRANSFERASE 28 U/L (10-37); BLOOD UREA NITROGEN 49 MG/DL (7-18); BUN/CREATININE RATIO 17.5 (5.4-32.0); CALCIUM 7.9 MG/DL (8.5-10.1); CHLORIDE 110 MMOL/L (99-107); GLUCOSE 99 MG/DL (70-104); POTASSIUM 4.8 MMOL/L (3.5-5.1); SODIUM 144 MMOL/L (135-145); TOTAL CARBON DIOXIDE 25.3 MMOL/L (24-32); TOTAL PROTEIN 6.5 G/DL (6.4-8.2); eGFR 22 ML/MIN
--- NOTE | 2021-11-08 12:20 | NUR ---
called granddaughter carolyn who stated she will come pick him up. is aware that pt is waiting in the lobby and pt is agreeable to this plan.
== END 2021-11-08 12:22 | disposition home or self-care (01) ==
LOC: ER 10:31
DX: D53.9 Nutritional anemia, unspecified (principal); I50.20 Unspecified systolic (congestive) heart failure; I48.91 Unspecified atrial fibrillation; I25.10 Atherosclerotic heart disease of native coronary artery without angina pectoris; E78.00 Pure hypercholesterolemia, unspecified; I13.0 Hypertensive heart and chronic kidney disease with heart failure and stage 1 through stage 4 chronic kidney disease, or unspecified chronic kidney disease; E11.22 Type 2 diabetes mellitus with diabetic chronic kidney disease; N18.9 Chronic kidney disease, unspecified; Z86.73 Personal history of transient ischemic attack (TIA), and cerebral infarction without residual deficits; Z86.2 Personal history of diseases of the blood and blood-forming organs and certain disorders involving the immune mechanism; Z85.038 Personal history of other malignant neoplasm of large intestine; Z90.89 Acquired absence of other organs; Z90.49 Acquired absence of other specified parts of digestive tract; Z95.0 Presence of cardiac pacemaker; Z98.890 Other specified postprocedural states; Z88.5 Allergy status to narcotic agent; Z88.1 Allergy status to other antibiotic agents; Z88.8 Allergy status to other drugs, medicaments and biological substances
CPT/HCPCS: 36415; 71045; 80053; 85025; 85610; 86885; 86900; 86901; 93005; 99285

== ENCOUNTER 2021-11-10 12:41 | Emergency (ER) | payer MEDICARE, MEDICAID ==
[~2021-11-10] VITALS: Ht 170.2 cm; Wt 90.9 kg
[2021-11-10 13:29] LABS: BASOPHILS % (AUTO) 0.6 % (0-1); EOSINOPHILS # (AUTO) 0.2 X10'3 (0-0.9); EOSINOPHILS % (AUTO) 3.6 % (0-6); LYMPHOCYTES # (AUTO) 0.3 X10'3 (1.1-4.8); LYMPHOCYTES % (AUTO) 7.6 % (21-51); MEAN CORPUSCULAR HEMOGLOBIN 25.6 PG (27.0-31.0); MEAN CORPUSCULAR HGB CONC 30.7 g/dL (33.0-36.5); MEAN CORPUSCULAR VOLUME 83.4 FL (78-98); MEAN PLATELET VOLUME 7.4 FL (7.4-10.4); MONOCYTES # (AUTO) 0.3 X10'3 (0-0.9); MONOCYTES % (AUTO) 6.7 % (2-12); NEUTROPHILS # (AUTO) 3.7 X10'3 (1.8-7.7); NEUTROPHILS % (AUTO) 81.5 % (42-75); PLATELET COUNT 156 X10'3 (140-440); RED BLOOD COUNT 3.12 X10'6 (4.70-6.10); WHITE BLOOD COUNT 4.5 X10'3 (4.5-11.0)
[2021-11-10 13:41] LABS: ALANINE AMINOTRANSFERASE 17 U/L (12-78); ALBUMIN 2.8 G/DL (3.4-5.0); ALBUMIN/GLOBULIN RATIO 0.7 (1.1-1.5); ALKALINE PHOSPHATASE 77 IU/L (46-116); ANION GAP 9 (8-16); ASPARTATE AMINO TRANSFERASE 31 U/L (10-37); BILIRUBIN,TOTAL 1.1 MG/DL (0.1-1.0); BLOOD UREA NITROGEN 49 MG/DL (7-18); BUN/CREATININE RATIO 17.4 (5.4-32.0); CALCIUM 7.9 MG/DL (8.5-10.1); CHLORIDE 108 MMOL/L (99-107); CREATININE 2.81 MG/DL (0.60-1.10); GLUCOSE 111 MG/DL (70-104); POTASSIUM 4.4 MMOL/L (3.5-5.1); SODIUM 141 MMOL/L (135-145); TOTAL CARBON DIOXIDE 23.9 MMOL/L (24-32); TOTAL PROTEIN 6.7 G/DL (6.4-8.2); eGFR 22 ML/MIN
[2021-11-10 14:40] VITALS: BP 144/103
== END 2021-11-10 14:43 | disposition home or self-care (01) ==
LOC: ER 12:42
DX: R41.0 Disorientation, unspecified (principal); I48.91 Unspecified atrial fibrillation; I25.10 Atherosclerotic heart disease of native coronary artery without angina pectoris; I11.0 Hypertensive heart disease with heart failure; I50.9 Heart failure, unspecified; E78.00 Pure hypercholesterolemia, unspecified; E11.22 Type 2 diabetes mellitus with diabetic chronic kidney disease; I12.0 Hypertensive chronic kidney disease with stage 5 chronic kidney disease or end stage renal disease; N18.6 End stage renal disease; Z95.5 Presence of coronary angioplasty implant and graft; Z87.19 Personal history of other diseases of the digestive system; Z95.0 Presence of cardiac pacemaker; Z86.73 Personal history of transient ischemic attack (TIA), and cerebral infarction without residual deficits; Z88.8 Allergy status to other drugs, medicaments and biological substances; Z79.899 Other long term (current) drug therapy
CPT/HCPCS: 36415; 80053; 85025; 93005; 99284

== ENCOUNTER 2022-01-08 00:58 | Inpatient (IN) | payer MEDICARE, MEDICAID ==
[~2022-01-08] VITALS: Ht 182.9 cm; Wt 97.0 kg
[2022-01-08] MEDS ORDERED: WARF6TAB49 PO (01:17)
[2022-01-08] MEDS ORDERED: TRAM50TA2 PO (01:17)
[2022-01-08] MEDS ORDERED: BLOO-577 (01:17)
[2022-01-08] MEDS ORDERED: METO-395 PO (01:17)
[2022-01-08] MEDS ORDERED: ATOR-2 PO (01:17)
[2022-01-08] MEDS ORDERED: FOLI1TAB27 PO (01:17)
[2022-01-08] MEDS ORDERED: LANC-509 TOP (01:17)
[2022-01-08] MEDS ORDERED: BLOO-580 (01:17)
[2022-01-08] MEDS ORDERED: LISI2.5T14 PO (01:17)
--- NOTE | 2022-01-08 01:59 | NUR ---
Pt placed on 2l O2 via NC. Family at bedside. O2 humidified. PIV site c/d/i and secure. Bed in lowest position, wheels locked, rail 2/2 up. Call rocha in reach.
[2022-01-08 02:01] LABS: BASOPHILS # (AUTO) 0.1 X10'3 (0-0.2); BASOPHILS % (AUTO) 1.1 % (0-1); EOSINOPHILS # (AUTO) 0.2 X10'3 (0-0.9); EOSINOPHILS % (AUTO) 2.8 % (0-6); HEMATOCRIT 25.8 % (42.0-52.0); LYMPHOCYTES # (AUTO) 0.9 X10'3 (1.1-4.8); LYMPHOCYTES % (AUTO) 16.2 % (21-51); MEAN CORPUSCULAR HEMOGLOBIN 26.4 PG (27.0-31.0); MEAN CORPUSCULAR HGB CONC 30.8 g/dL (33.0-36.5); MEAN CORPUSCULAR VOLUME 85.6 FL (78-98); MEAN PLATELET VOLUME 6.7 FL (7.4-10.4); MONOCYTES # (AUTO) 0.4 X10'3 (0-0.9); MONOCYTES % (AUTO) 7.7 % (2-12); NEUTROPHILS % (AUTO) 72.2 % (42-75); PLATELET COUNT 170 X10'3 (140-440); RED BLOOD COUNT 3.01 X10'6 (4.70-6.10); RED CELL DISTRIBUTION WIDTH 22.8 % (11.5-14.5); WHITE BLOOD COUNT 5.5 X10'3 (4.5-11.0)
[2022-01-08 02:22] LABS: ANISOCYTOSIS 3+; PLATELET ESTIMATE NORMAL
[2022-01-08 02:24] LABS: ACANTHOCYTES 1+; ELLIPTOCYTES 1+; SCHISTOCYTES FEW
[2022-01-08 02:25] LABS: ABG HCO3 20.8 mmol/L (22.0-26.0); ABG OXYGEN SATURATION 98.1 % (94-97); ABG PCO2 (T) 40.8 mmHg (35.0-48.0); ABG PO2 (T) 124.9 mmHg (75.0-100.0); ALLEN'S TEST POSITIVE; FCOHb 1.2 % (0.0-3.9); FO2Hb 96.9 % (94-97); PATIENT TEMPERATURE 36.7; TOTAL HEMOGLOBIN 8.5 G/dl (14.0-18.0)
--- NOTE | 2022-01-08 02:29 | NUR ---
Pt to ct via wheeled bed. Pt pink, bed in lowest position, wheels locked, rail 2/2 up. Pt laying supine. Pt able to reposition self prn. Will continue to monitor for acute changes and needs.
--- NOTE | 2022-01-08 02:35 | NUR ---
Pt back from CT. Bed in lowest position, wheels locked, rail 2/2 up. Pt laying supine. Pt able to reposition self prn. Will continue to monitor for acute changes and needs.
[2022-01-08 02:42] LABS: ALANINE AMINOTRANSFERASE 8 U/L (12-78); ALBUMIN 2.4 G/DL (3.4-5.0); ALBUMIN/GLOBULIN RATIO 0.5 (1.1-1.5); ALKALINE PHOSPHATASE 100 IU/L (46-116); ANION GAP 10 (8-16); ASPARTATE AMINO TRANSFERASE 19 U/L (10-37); BILIRUBIN,TOTAL 0.5 MG/DL (0.1-1.0); BLOOD UREA NITROGEN 53 MG/DL (7-18); BUN/CREATININE RATIO 18.9 (5.4-32.0); CALCIUM 7.9 MG/DL (8.5-10.1); CHLORIDE 107 MMOL/L (99-107); CREATININE 2.81 MG/DL (0.60-1.10); GLUCOSE 113 MG/DL (70-104); POTASSIUM 4.5 MMOL/L (3.5-5.1); SODIUM 140 MMOL/L (135-145); TOTAL CARBON DIOXIDE 23.2 MMOL/L (24-32); TOTAL PROTEIN 7.6 G/DL (6.4-8.2); eGFR 22 ML/MIN
[2022-01-08 02:49] LABS: LIPASE 155 U/L (73-393)
[2022-01-08 03:01] LABS: CLARITY,URINE CLEAR (Clear); COLOR,URINE YELLOW (Yellow); GLUCOSE, URINE 100 mg/dl (Neg); KETONES,URINE NEGATIVE (Neg); LEUKOCYTE ESTERASE ,URINE NEGATIVE (Neg); NITRITES, URINE NEGATIVE (Neg); OCCULT BLOOD,URINE MODERATE (Neg); PROTEIN,URINE 100 mg/dl (Neg); UROBILINOGEN,URINE 0.2 E.U/dL (0.2-1.0)
[2022-01-08 03:18] LABS: UA COLLECTION TYPE FOLEY CATH
[2022-01-08 03:22] LABS: BACTERIA,URINE NONE SEEN /HPF (Neg); FINE GRANULAR CAST 0-3 /LPF (NEGATIVE); MUCUS STRANDS NONE SEEN /LPF (Neg); RBC,URINE 0-2 /HPF (0-2); SQUAMOUS EPITHELIAL CELL,UR NONE SEEN /LPF (FEW); WBC,URINE 0-4 /HPF (0-4)
--- NOTE | 2022-01-08 03:30 | NUR ---
Pt pink, no acute/resp distress. Bed in lowest position, wheels locked, rail 2/2 up. Pt laying supine. Pt able to reposition self prn. Will continue to monitor for acute changes and needs. PIV site c/d/i s complication.
--- NOTE | 2022-01-08 04:12 | NUR ---
DTR phone number [phone]
[2022-01-08] MEDS ORDERED: furosemide 40mg/4ml inj IV ONE (04:20)
--- NOTE | 2022-01-08 04:49 | NUR ---
Pt states he wants something to eat. Pt has been advised he is NPO, he cannot have anything to eat or drink. Pt pink, no acute/resp distress. Bed in lowest position, wheels locked, rail 2/2 up. Pt laying supine. Pt able to reposition self prn. Will continue to monitor for acute changes and needs. PIV site c/d/i s complication.
--- NOTE | 2022-01-08 05:37 | NUR ---
Pt nora bc he is NPO and pulled out his PIV right forearm and pulled off his Stat-lock from his woodward. Restarted PIV 20G left a/c, my first attempt. PIV site flushed easy with 10ccNS s complication or adverse reaction.
--- NOTE | 2022-01-08 05:44 | NUR ---
Pt now states he had jeans on when he came in and it has "money" in it. Pt did not come in wearing jeans. Pt was wearing nylon shorts, silver in color. No money.
[2022-01-08] MEDS ORDERED: magnesium 4gm in 100ml NS 100 ML IV PRN (05:45)
[2022-01-08] MEDS ORDERED: ondansetron/PF 4mg/2ml inj IV PRN (05:45)
[2022-01-08] MEDS ORDERED: magnesium 2GM in 50ml NS 50 ML IV PRN (05:45)
[2022-01-08] MEDS ORDERED: potassium CL 10mEq/100ml bag 100 ML IV PRN (05:45)
[2022-01-08] MEDS ORDERED: POTASSIUM BICARB 20meq eff tab 20 MEQ TABLET.EFF PO PRN ×2 (05:45)
[2022-01-08] MEDS ORDERED: acetaminophen 325mg tablet PO PRN (05:45)
[2022-01-08] MEDS ORDERED: magnesium Cl slow-release 64mg tablet PO PRN (05:45)
[2022-01-08] MEDS: normal saline 1000ml 1,000 ML IV SCH (06:15)
--- NOTE | 2022-01-08 06:21 | NUR ---
Pt pink, no acute/resp distress. Bed in lowest position, wheels locked, rail 2/2 up. Pt laying supine. Pt able to reposition self prn. Will continue to monitor for acute changes and needs. Handoff report to dayshift RN
--- NOTE | 2022-01-08 06:40 | NUR ---
Pt is awake and alert. Pt is confused. Repeats, "Leave me alone." He pulls off monitor leads and pulse ox.
[2022-01-08] MEDS: ciprofloxacin 250mg tablet PO ONE ×2 (07:42→08:11)
--- NOTE | 2022-01-08 07:42 | NUR ---
Blood cultures drawn. Pt refuse po antibiotics. He uses profanity in Malay.
[2022-01-08 07:58] LABS: CHOL/HDL RATIO 2.9 (0.00-4.99); CHOLESTEROL 115 MG/DL (0-200); HDL CHOLESTEROL 39 MG/DL (35-60); LDL CHOLESTEROL 66 MG/DL (50-100); TRIGLYCERIDES 61 MG/DL (20-135)
--- NOTE | 2022-01-08 07:58 | NUR ---
Pt frequently calls out for help. He is trying to pull out his woodward. paged.
[2022-01-08] MEDS: furosemide 40mg/4ml inj IV SCH ×2 (08:00→20:04)
[2022-01-08] MEDS ORDERED: LORazepam 2 mg/ml vial IV ONE (08:05)
--- NOTE | 2022-01-08 08:10 | NUR ---
Removed woodward per Dr. Johnson. Pt was in danger of pulling out catheter and causing trauma.
--- NOTE | 2022-01-08 08:43 | NUR ---
Report given to NAREN Soler in PCU
[2022-01-08] MEDS: K and/or MAG REPLACEMENT MC SCH ×2 (10:16→20:00)
[2022-01-08] MEDS: loperamide 2mg capsule PO SCH ×2 (10:17→20:00)
[2022-01-08] MEDS: heparin, porcine 5000 units/ml vial SQ SCH ×2 (10:33→20:07)
--- NOTE | 2022-01-08 10:44 | NUR ---
Pt became combative had to run into room to prevent him from falling. Plt was 170 I put in wrong number 216. Pt is still in parameters for heparin.
[2022-01-08] MEDS ORDERED: LORazepam 2 mg/ml vial IV PRN (14:45)
[2022-01-08] MEDS ORDERED: LORazepam 2 mg/ml vial ONE (14:45)
--- NOTE | 2022-01-08 15:07 | NUR ---
Pt is getting increasingly agitated and hollering out that "I need to go to work, let me go" Pt trying to get out of bed and requires a sitter at bedside. Spoke to Dr. Johnson and she gave verbal orders for PRN Ativan.
--- NOTE | 2022-01-08 15:31 | NUR ---
Page Sent PAGER ID: [phone] MESSAGE: Pt Gerri Pacheco in RM 3019, Ativan is not working. [facility]
[2022-01-08 18:00] VITALS: BP 158/67
--- NOTE | 2022-01-08 18:36 | NUR ---
Problems reprioritized. Patient report given, questions answered & plan of care reviewed with Arabella Morrissey.
[2022-01-08] MEDS ORDERED: haloperidol lactate 5mg/ml inj IM PRN (18:45)
[2022-01-08] MEDS ORDERED: metoprolol succinate 25mg (24-HOUR) SR. Tablet PO PRN (19:00)
[2022-01-08] MEDS: carVEDilol 12.5mg tablet PO SCH (20:00)
[2022-01-08 22:00] VITALS: BP 172/91
--- NOTE | 2022-01-08 23:03 | NUR ---
PAGER ID: [phone] MESSAGE: Pt [id number] Marciano Pacheco Pt belly breathing having periods of apnea can we please get order for ABG and possibly bipap. BP is high 172/91 HR99 cant give PO meds Arabella [phone]
--- NOTE | 2022-01-08 23:15 | NUR ---
Dr. Bravo ordered ABGs and Bipap as needed. MD aware of pt BP of 172/91 and difficulty swallowing. Unable to take PO meds at this time. No new orders for BP issue at this time.
[2022-01-08 23:50] LABS: ABG BASE EXCESS -3.1 mmol/L (-2.0-2.0); ABG HCO3 23.4 mmol/L (22.0-26.0); ABG OXYGEN SATURATION 74.1 % (94-97); ABG PCO2 (T) 49.8 mmHg (35.0-48.0); ABG PO2 (T) 43.5 mmHg (75.0-100.0); ALLEN'S TEST POSITIVE; FCOHb 0.4 % (0.0-3.9); FMetHb 0.2 % (0.0-1.5); FO2Hb 73.7 % (94-97); PATIENT TEMPERATURE 37.2; TOTAL HEMOGLOBIN 8.4 G/dl (14.0-18.0)
--- NOTE | 2022-01-09 00:18 | NUR ---
PAGER ID: [phone] MESSAGE: Pt [id number] Marciano Pacheco. ABG PCO2 49.4. PO2 42.9. PH 7.293 now on bipap Arabella 5464
[2022-01-09 02:00] VITALS: BP 148/83
--- NOTE | 2022-01-09 04:36 | NUR ---
PAGER ID: [phone] MESSAGE: [id number] Marciano Pacheco + blood culture Gram + cocci in chains aerobic Arabella 5480
--- NOTE | 2022-01-09 04:59 | NUR ---
PAGER ID: [phone] MESSAGE: 2nd page [id number] Marciano Pacheco + blood culture Gram + cocci in chains aerobic Arabella 5481
--- NOTE | 2022-01-09 05:04 | NUR ---
Dr Bravo aware of + blood cultures no new orders at this time. She said to make dayshift Dr vizcarra to receive new orders.
[2022-01-09 06:00] VITALS: BP 150/86
--- NOTE | 2022-01-09 06:37 | NUR ---
Problems reprioritized. Patient report given, questions answered & plan of care reviewed with NAREN Damico. Aware of positive blood cultures and need to let dayshift know.
[2022-01-09 06:39] LABS: EOSINOPHILS # (AUTO) 0.1 X10'3 (0-0.9); HEMOGLOBIN 7.4 g/dl (14.0-17.9); LYMPHOCYTES # (AUTO) 0.5 X10'3 (1.1-4.8); MONOCYTES # (AUTO) 0.3 X10'3 (0-0.9); NEUTROPHILS # (AUTO) 3.3 X10'3 (1.8-7.7); WHITE BLOOD COUNT 4.3 X10'3 (4.5-11.0)
[2022-01-09 06:42] LABS: BASOPHILS % (AUTO) 0.8 % (0-1); HEMATOCRIT 23.9 % (42.0-52.0); LYMPHOCYTES % (AUTO) 12.2 % (21-51); MEAN CORPUSCULAR HEMOGLOBIN 26.3 PG (27.0-31.0); MEAN CORPUSCULAR HGB CONC 31.1 g/dL (33.0-36.5); MEAN CORPUSCULAR VOLUME 84.6 FL (78-98); MONOCYTES % (AUTO) 7.6 % (2-12); NEUTROPHILS % (AUTO) 76.4 % (42-75); PLATELET COUNT 150 X10'3 (140-440); RED BLOOD COUNT 2.83 X10'6 (4.70-6.10); RED CELL DISTRIBUTION WIDTH 22.5 % (11.5-14.5)
[2022-01-09 07:13] LABS: ALANINE AMINOTRANSFERASE 10 U/L (12-78); ALBUMIN 2.2 G/DL (3.4-5.0); ALBUMIN/GLOBULIN RATIO 0.4 (1.1-1.5); ALKALINE PHOSPHATASE 74 IU/L (46-116); ANION GAP 10 (8-16); ASPARTATE AMINO TRANSFERASE 20 U/L (10-37); BILIRUBIN,TOTAL 0.7 MG/DL (0.1-1.0); BLOOD UREA NITROGEN 58 MG/DL (7-18); BUN/CREATININE RATIO 19.1 (5.4-32.0); CALCIUM 8.1 MG/DL (8.5-10.1); CHLORIDE 110 MMOL/L (99-107); CREATININE 3.03 MG/DL (0.60-1.10); GLUCOSE 68 MG/DL (70-104); POTASSIUM 4.5 MMOL/L (3.5-5.1); SODIUM 144 MMOL/L (135-145); TOTAL CARBON DIOXIDE 23.9 MMOL/L (24-32); TOTAL PROTEIN 7.1 G/DL (6.4-8.2); eGFR 20 ML/MIN
[2022-01-09] MEDS: loperamide 2mg capsule PO SCH ×2 (08:00→20:00)
[2022-01-09] MEDS: LORazepam 2 mg/ml vial IV PRN (09:57)
[2022-01-09] MEDS: furosemide 40mg/4ml inj IV SCH ×2 (10:01→21:52)
[2022-01-09] MEDS: carVEDilol 12.5mg tablet PO SCH ×2 (10:11→21:52)
[2022-01-09] MEDS: heparin, porcine 5000 units/ml vial SQ SCH ×2 (10:16→21:52)
[2022-01-09] MEDS: folic acid 1mg tablet PO SCH (10:36)
[2022-01-09] MEDS: atorvastatin 20mg tablet PO SCH (10:36)
[2022-01-09] MEDS: lisinopril 2.5mg tablet PO SCH (10:36)
[2022-01-09] MEDS: K and/or MAG REPLACEMENT MC SCH ×2 (10:37→20:00)
[2022-01-09 11:00] VITALS: BP 154/90
--- NOTE | 2022-01-09 12:20 | NUR ---
Page Sent PAGER ID: [phone] MESSAGE: Imer Pacheco in RM 8944. Per your request pts daughter phone number is [phone] her name is [place] [id number]
--- NOTE | 2022-01-09 12:45 | NUR ---
per MD's order haldol and ativan should only be administered when pt can no longer be controlled. pt should no longer be on restraint. pt should always be kept on 45 degree in bed.
[2022-01-09 15:00] VITALS: BP 128/75
--- NOTE | 2022-01-09 18:50 | NUR ---
Patient in room PCU 3017. I have received report from NAREN Damico and had the opportunity to ask questions and assume patient care.
[2022-01-09 21:47] VITALS: BP 127/71
[2022-01-09 22:00] VITALS: BP 121/71
[2022-01-10 02:00] VITALS: BP 119/70
[2022-01-10] MEDS: normal saline 1000ml 1,000 ML IV SCH (05:45)
--- NOTE | 2022-01-10 06:30 | NUR ---
Patient in room PCU 3017. I have received report from Arabella SNEED and had the opportunity to ask questions and assume patient care.
--- NOTE | 2022-01-10 06:53 | NUR ---
Problems reprioritized. Patient report given, questions answered & plan of care reviewed with NAREN Ahmadi. Aware that patient has + blood culture with no new orders from nilam FARRAR 01/10/22.
[2022-01-10 06:56] LABS: BASOPHILS % (AUTO) 1.1 % (0-1); EOSINOPHILS # (AUTO) 0.2 X10'3 (0-0.9); EOSINOPHILS % (AUTO) 4.1 % (0-6); HEMATOCRIT 23.7 % (42.0-52.0); HEMOGLOBIN 7.4 g/dl (14.0-17.9); LYMPHOCYTES # (AUTO) 0.5 X10'3 (1.1-4.8); LYMPHOCYTES % (AUTO) 11.3 % (21-51); MEAN CORPUSCULAR HEMOGLOBIN 25.9 PG (27.0-31.0); MEAN CORPUSCULAR HGB CONC 31.1 g/dL (33.0-36.5); MEAN CORPUSCULAR VOLUME 83.3 FL (78-98); MEAN PLATELET VOLUME 6.7 FL (7.4-10.4); MONOCYTES # (AUTO) 0.3 X10'3 (0-0.9); NEUTROPHILS # (AUTO) 3.3 X10'3 (1.8-7.7); NEUTROPHILS % (AUTO) 75.5 % (42-75); PLATELET COUNT 156 X10'3 (140-440); RED BLOOD COUNT 2.84 X10'6 (4.70-6.10); RED CELL DISTRIBUTION WIDTH 22.3 % (11.5-14.5); WHITE BLOOD COUNT 4.3 X10'3 (4.5-11.0)
[2022-01-10 07:01] LABS: ALANINE AMINOTRANSFERASE 9 U/L (12-78); ALBUMIN/GLOBULIN RATIO 0.4 (1.1-1.5); ALKALINE PHOSPHATASE 71 IU/L (46-116); ANION GAP 2 (8-16); ASPARTATE AMINO TRANSFERASE 19 U/L (10-37); BILIRUBIN,TOTAL 0.6 MG/DL (0.1-1.0); BLOOD UREA NITROGEN 56 MG/DL (7-18); BUN/CREATININE RATIO 18.1 (5.4-32.0); CALCIUM 7.8 MG/DL (8.5-10.1); CHLORIDE 108 MMOL/L (99-107); CREATININE 3.09 MG/DL (0.60-1.10); GLUCOSE 88 MG/DL (70-104); POTASSIUM 4.3 MMOL/L (3.5-5.1); SODIUM 139 MMOL/L (135-145); TOTAL CARBON DIOXIDE 29.1 MMOL/L (24-32); TOTAL PROTEIN 6.7 G/DL (6.4-8.2); eGFR 20 ML/MIN
[2022-01-10 07:21] VITALS: BP 157/55
[2022-01-10] MEDS: atorvastatin 20mg tablet PO SCH (08:08)
[2022-01-10] MEDS: folic acid 1mg tablet PO SCH (08:09)
[2022-01-10] MEDS: loperamide 2mg capsule PO SCH (08:10)
[2022-01-10] MEDS: lisinopril 2.5mg tablet PO SCH (08:10)
[2022-01-10] MEDS: heparin, porcine 5000 units/ml vial SQ SCH ×2 (08:12→20:18)
[2022-01-10] MEDS: carVEDilol 12.5mg tablet PO SCH ×2 (08:15→20:22)
[2022-01-10] MEDS: furosemide 40mg/4ml inj IV SCH (08:33)
[2022-01-10] MEDS: K and/or MAG REPLACEMENT MC SCH ×2 (08:36→20:00)
--- NOTE | 2022-01-10 08:54 | NUR ---
Previous nurse reported pt's bowel movement color and consistency of Dark green pasty stool on presser and shaper knitted goods. Addendum: 01/10/22 at 0901 by Coni Madsen - MADDIE FABIAN Amended: Links added.
--- NOTE | 2022-01-10 10:46 | NUR ---
Student Medication Administration: For this medication-pass time frame, all medication were reviewed, dispensed, administered and documented per hospital policy by Coni clinical nursing director.
--- NOTE | 2022-01-10 10:46 | NUR ---
Student documentation: I have reviewed and agree with all interventions, assessments performed and documented by Dahiana, nursing faculty.
[2022-01-10 12:24] VITALS: BP 114/63
--- NOTE | 2022-01-10 14:48 | NUR ---
Student documentation: I have reviewed and agree with all interventions, assessments performed and documented by Dahiana with the exception of edema, pt has trace bilateral pedal edema.
[2022-01-10 15:00] VITALS: BP 129/69
[2022-01-10 18:00] VITALS: BP 138/73
--- NOTE | 2022-01-10 18:37 | NUR ---
Patient in room PCU 3017. I have received report from NAREN Ahmadi and had the opportunity to ask questions and assume patient care.Sitter at bedside
[2022-01-10] MEDS: furosemide 20 MG/2 ML vial IV SCH (20:20)
[2022-01-10 22:00] VITALS: BP 127/61
[2022-01-10] MEDS: LORazepam 2 mg/ml vial IV PRN (22:52)
[2022-01-11 02:00] VITALS: BP 127/66
[2022-01-11] MEDS: LORazepam 2 mg/ml vial IV PRN (05:36)
[2022-01-11 06:00] VITALS: BP 139/72
[2022-01-11 06:37] LABS: BASOPHILS # (AUTO) 0.1 X10'3 (0-0.2); BASOPHILS % (AUTO) 1.2 % (0-1); EOSINOPHILS # (AUTO) 0.2 X10'3 (0-0.9); HEMATOCRIT 24.5 % (42.0-52.0); HEMOGLOBIN 7.7 g/dl (14.0-17.9); LYMPHOCYTES # (AUTO) 0.7 X10'3 (1.1-4.8); LYMPHOCYTES % (AUTO) 12.5 % (21-51); MEAN CORPUSCULAR HEMOGLOBIN 26.3 PG (27.0-31.0); MEAN CORPUSCULAR HGB CONC 31.4 g/dL (33.0-36.5); MEAN PLATELET VOLUME 6.8 FL (7.4-10.4); MONOCYTES # (AUTO) 0.4 X10'3 (0-0.9); MONOCYTES % (AUTO) 7.6 % (2-12); NEUTROPHILS # (AUTO) 4.1 X10'3 (1.8-7.7); NEUTROPHILS % (AUTO) 74.7 % (42-75); PLATELET COUNT 166 X10'3 (140-440); RED BLOOD COUNT 2.92 X10'6 (4.70-6.10); RED CELL DISTRIBUTION WIDTH 22.4 % (11.5-14.5); WHITE BLOOD COUNT 5.5 X10'3 (4.5-11.0)
--- NOTE | 2022-01-11 06:42 | NUR ---
Problems reprioritized. Patient report given, questions answered & plan of care reviewed with NAREN Ribera.
[2022-01-11 06:54] LABS: ALANINE AMINOTRANSFERASE 8 U/L (12-78); ALBUMIN 2.1 G/DL (3.4-5.0); ALBUMIN/GLOBULIN RATIO 0.4 (1.1-1.5); ALKALINE PHOSPHATASE 77 IU/L (46-116); ANION GAP 3 (8-16); ASPARTATE AMINO TRANSFERASE 17 U/L (10-37); BILIRUBIN,TOTAL 0.6 MG/DL (0.1-1.0); BLOOD UREA NITROGEN 55 MG/DL (7-18); BUN/CREATININE RATIO 19.1 (5.4-32.0); CALCIUM 8.1 MG/DL (8.5-10.1); CHLORIDE 107 MMOL/L (99-107); CREATININE 2.88 MG/DL (0.60-1.10); GLUCOSE 99 MG/DL (70-104); POTASSIUM 4.7 MMOL/L (3.5-5.1); SODIUM 139 MMOL/L (135-145); TOTAL CARBON DIOXIDE 28.6 MMOL/L (24-32); TOTAL PROTEIN 7.1 G/DL (6.4-8.2); eGFR 21 ML/MIN
[2022-01-11] MEDS: lisinopril 2.5mg tablet PO SCH (08:00)
[2022-01-11] MEDS: folic acid 1mg tablet PO SCH (08:00)
[2022-01-11] MEDS: carVEDilol 12.5mg tablet PO SCH ×2 (08:00→20:00)
[2022-01-11] MEDS: K and/or MAG REPLACEMENT MC SCH ×2 (08:00→20:00)
[2022-01-11] MEDS: heparin, porcine 5000 units/ml vial SQ SCH ×2 (08:00→19:40)
[2022-01-11] MEDS: atorvastatin 20mg tablet PO SCH (08:00)
--- NOTE | 2022-01-11 08:47 | NUR ---
Paged Dr Johnson PAGER ID: [phone] MESSAGE: [id number]. Marciano Pacheco. ALOC, using accessory muscles. Spo2 high 90's on 3L NC. ABG?Melina, Mounika [phone]
--- NOTE | 2022-01-11 08:50 | NUR ---
Per MD - STAT ABG, STAT CXR, RT to treat. Entered orders per MD and paged RT.
[2022-01-11] MEDS: furosemide 20 MG/2 ML vial IV SCH ×2 (09:07→19:46)
[2022-01-11 09:08] LABS: ABG HCO3 26.7 mmol/L (22.0-26.0); ABG OXYGEN SATURATION 90.3 % (94-97); ABG PO2 (T) 64.9 mmHg (75.0-100.0); ALLEN'S TEST POSITIVE; FCOHb 0.6 % (0.0-3.9); FLOW 3 L/min; FMetHb 0.1 % (0.0-1.5); FO2Hb 89.7 % (94-97); PATIENT TEMPERATURE 36.4; TOTAL HEMOGLOBIN 9.2 G/dl (14.0-18.0)
[2022-01-11] MEDS ORDERED: levoFLOXACIN-Levaquin 500mg/D5 100 ML IV SCH (09:11)
--- NOTE | 2022-01-11 09:38 | NUR ---
Per MD - cancel ativan, complete
[2022-01-11 11:00] VITALS: BP 125/66
--- NOTE | 2022-01-11 13:05 | NUR ---
Miss dose all AM medication per Dr Johnson, unsafe to administer at this time r/t change in condition
--- NOTE | 2022-01-11 13:24 | NUR ---
Paged RT [id number]. Marciano Pacheco. High Vt alarm. Please assist. Thx
[2022-01-11 15:00] VITALS: BP 129/80
--- NOTE | 2022-01-11 15:00 | NUR ---
Paged Speech therapy [id number]. Shannan Rose. Assist with Swallow study STAT please. Thx Addendum: 01/11/22 at 1500 by Mounika Patel RN wrong patient
[2022-01-11 18:00] VITALS: BP 144/75
--- NOTE | 2022-01-11 18:20 | NUR ---
Patient in room PCU 3017. I have received report from NAREN Ribera and had the opportunity to ask questions and assume patient care.
--- NOTE | 2022-01-11 18:56 | NUR ---
Orientee documentation: I have reviewed and agree with all interventions, assessments performed and documented by JOAQUINA Mishra II.
--- NOTE | 2022-01-11 19:00 | NUR ---
Patient in room PCU 3017. I have received report from angel doran and had the opportunity to ask questions and assume patient care.
[2022-01-11 22:00] VITALS: BP 140/38
--- NOTE | 2022-01-11 23:44 | NUR ---
I agree with Daiana NICHOLE students charting, and assessment
[2022-01-12] MEDS: normal saline 1000ml 1,000 ML IV SCH (00:22)
[2022-01-12 02:00] VITALS: BP 151/78
--- NOTE | 2022-01-12 03:00 | NUR ---
PT woke up this AM and is now refusing BiPAP. Experiencing Increased agitation and pt increasingly non-compliant with cares. Currently refusing NC as well as vital checks. RN and equity manager at bedside. Will continue to monitor.
--- NOTE | 2022-01-12 03:14 | NUR ---
Patient woke up yelling for help. Requested that the bipap be taken off. Respiratory therapist called and took bipap off patient .He refused to let us put Nasal cannula on him and check his oxygen levels. Charge nurse at bedside. Patient is now on 4.5 L of oxygen. Oxygen saturation are being monitored. Patient is now yelling, and wanting food.
[2022-01-12 06:00] VITALS: BP 144/71
--- NOTE | 2022-01-12 06:15 | NUR ---
Problems reprioritized. Patient report given, questions answered & plan of care reviewed with angel doran.
--- NOTE | 2022-01-12 06:16 | NUR ---
Problems reprioritized. Patient report given, questions answered & plan of care reviewed with NAREN Ribera.
[2022-01-12 06:44] LABS: BASOPHILS % (AUTO) 1.2 % (0-1); EOSINOPHILS # (AUTO) 0.2 X10'3 (0-0.9); HEMATOCRIT 24.7 % (42.0-52.0); HEMOGLOBIN 7.7 g/dl (14.0-17.9); LYMPHOCYTES # (AUTO) 0.7 X10'3 (1.1-4.8); LYMPHOCYTES % (AUTO) 16.8 % (21-51); MEAN CORPUSCULAR HEMOGLOBIN 26.3 PG (27.0-31.0); MEAN CORPUSCULAR HGB CONC 31.3 g/dL (33.0-36.5); MEAN CORPUSCULAR VOLUME 84.1 FL (78-98); MEAN PLATELET VOLUME 6.8 FL (7.4-10.4); MONOCYTES # (AUTO) 0.3 X10'3 (0-0.9); MONOCYTES % (AUTO) 7.8 % (2-12); NEUTROPHILS # (AUTO) 2.9 X10'3 (1.8-7.7); NEUTROPHILS % (AUTO) 70.2 % (42-75); PLATELET COUNT 170 X10'3 (140-440); RED BLOOD COUNT 2.94 X10'6 (4.70-6.10); RED CELL DISTRIBUTION WIDTH 22.3 % (11.5-14.5); WHITE BLOOD COUNT 4.2 X10'3 (4.5-11.0)
[2022-01-12 06:59] LABS: ALANINE AMINOTRANSFERASE 8 U/L (12-78); ALBUMIN/GLOBULIN RATIO 0.4 (1.1-1.5); ALKALINE PHOSPHATASE 68 IU/L (46-116); ANION GAP 7 (8-16); ASPARTATE AMINO TRANSFERASE 18 U/L (10-37); BILIRUBIN,TOTAL 0.7 MG/DL (0.1-1.0); BLOOD UREA NITROGEN 53 MG/DL (7-18); BUN/CREATININE RATIO 19.7 (5.4-32.0); CALCIUM 8.1 MG/DL (8.5-10.1); CHLORIDE 106 MMOL/L (99-107); CREATININE 2.69 MG/DL (0.60-1.10); GLUCOSE 62 MG/DL (70-104); POTASSIUM 4.6 MMOL/L (3.5-5.1); SODIUM 142 MMOL/L (135-145); TOTAL CARBON DIOXIDE 28.8 MMOL/L (24-32); TOTAL PROTEIN 6.8 G/DL (6.4-8.2); eGFR 23 ML/MIN
[2022-01-12] MEDS: folic acid 1mg tablet PO SCH (07:39)
[2022-01-12] MEDS: carVEDilol 12.5mg tablet PO SCH ×2 (07:40→19:29)
[2022-01-12] MEDS: atorvastatin 20mg tablet PO SCH (07:40)
[2022-01-12] MEDS: lisinopril 2.5mg tablet PO SCH (07:40)
[2022-01-12] MEDS: heparin, porcine 5000 units/ml vial SQ SCH ×2 (07:41→19:29)
[2022-01-12] MEDS: K and/or MAG REPLACEMENT MC SCH ×2 (08:00→20:00)
[2022-01-12] MEDS: furosemide 20 MG/2 ML vial IV SCH ×2 (09:04→19:35)
[2022-01-12] MEDS: levoFLOXACIN-Levaquin 250mg/D5 50 ML IV SCH (09:04)
[2022-01-12 11:00] VITALS: BP 120/63
--- NOTE | 2022-01-12 14:03 | NUR ---
Pt has been pleasant all day but is getting more confused and forgetful as the shift continous. Redirecting works for a few minutes. Pt is on RA with O2 @ 96%. Pt is stable with all VS WNL. Patient is refusing to go back on the Bipap and just wants to go home since he has to go to work tomorrow. Will page to advise.
--- NOTE | 2022-01-12 14:08 | NUR ---
Paged Dr Johnson PAGER ID: [phone] MESSAGE: [id number]. Marciano Pacheco. Pt is getting more confused and wants to go home. Refusing the Bipap. VS WNL. Still pleasant. TEMITOPEI.
--- NOTE | 2022-01-12 14:21 | NUR ---
Called elizabeth Abdi of pt to advise of increased confusion. She verbalized understanding and will try to come visit.
[2022-01-12 15:00] VITALS: BP 153/61
--- NOTE | 2022-01-12 15:23 | NUR ---
Throughout shift patient yells out for his daughters, confused about where he is at. Nursing having to continuously reorientate patient. Patient is very pleasantly confused, no aggression when yelling out. Patient states he just wants to go home unaware of why he is in the hospital. Multiple times staff has called family for patient so he can talk with them, he is calm for awhile after speaking with family but then soon begins to yell out their names worried and looking for them. Patient sitting up in chair with tab alarm on, refuses to return to bed or reposition, he does allow staff to clean incontinent episodes.
[2022-01-12 18:00] VITALS: BP 152/85
--- NOTE | 2022-01-12 18:04 | NUR ---
Orientee documentation: I have reviewed and agree with all interventions, assessments performed and documented by JOAQUINA Mishra II.
--- NOTE | 2022-01-12 18:30 | NUR ---
Patient in room PCU 3017. I have received report from xuan and had the opportunity to ask questions and assume patient care.
--- NOTE | 2022-01-12 18:30 | NUR ---
Patient in room U 3017. I have received report from JOSE ROBERTO RN and had the opportunity to ask questions and assume patient care WITH JOAQUINA HUTCHINSON. Addendum: 01/13/22 at 0302 by Hieu Villalta RN Amended: Links added.
[2022-01-12] MEDS: acetaminophen 325mg tablet PO PRN (19:32)
--- NOTE | 2022-01-12 21:00 | NUR ---
refused oral care, bed bath given while in chair, lotion to back, inc large amt urine stood at bedside with x2 assist to change linen under him and give steve care. pt refuses to get back in bed states "I wanna stay on this couch". tabs unit on, call light clipped to gown. Addendum: 01/12/22 at 2128 by Hieu Villalta RN Amended: Links added.
[2022-01-12 22:00] VITALS: BP 159/87
[2022-01-13 02:30] VITALS: BP 123/62
--- NOTE | 2022-01-13 02:30 | NUR ---
PULLED IV OUT, PULLED TELE OFF INC URINE IN BED. PT CLEANED UP REPOSITIONED, TELE BACK ON IV STARTED. O2 SAT 91 TO 95% ON R/A Addendum: 01/13/22 at 0301 by Hieu Villalta RN Amended: Links added.
--- NOTE | 2022-01-13 03:14 | NUR ---
I have reviewed and agree with all interventions, assessments performed and documented by JOAQUINA HUTCHINSON.. Addendum: 01/13/22 at 0315 by Hieu Villalta RN Amended: Links added.
[2022-01-13 06:00] VITALS: BP 127/67
--- NOTE | 2022-01-13 06:15 | NUR ---
Problems reprioritized. Patient report given, questions answered & plan of care reviewed with
[2022-01-13 07:02] LABS: BASOPHILS % (AUTO) 0.9 % (0-1); EOSINOPHILS # (AUTO) 0.2 X10'3 (0-0.9); HEMATOCRIT 24.2 % (42.0-52.0); HEMOGLOBIN 7.6 g/dl (14.0-17.9); LYMPHOCYTES # (AUTO) 0.8 X10'3 (1.1-4.8); LYMPHOCYTES % (AUTO) 16.7 % (21-51); MEAN CORPUSCULAR HEMOGLOBIN 26.1 PG (27.0-31.0); MEAN CORPUSCULAR HGB CONC 31.6 g/dL (33.0-36.5); MEAN CORPUSCULAR VOLUME 82.6 FL (78-98); MEAN PLATELET VOLUME 7.1 FL (7.4-10.4); MONOCYTES # (AUTO) 0.4 X10'3 (0-0.9); MONOCYTES % (AUTO) 8.4 % (2-12); NEUTROPHILS # (AUTO) 3.4 X10'3 (1.8-7.7); PLATELET COUNT 168 X10'3 (140-440); RED BLOOD COUNT 2.93 X10'6 (4.70-6.10); RED CELL DISTRIBUTION WIDTH 22.2 % (11.5-14.5); WHITE BLOOD COUNT 4.9 X10'3 (4.5-11.0)
[2022-01-13 07:16] LABS: ALANINE AMINOTRANSFERASE 9 U/L (12-78); ALBUMIN/GLOBULIN RATIO 0.4 (1.1-1.5); ALKALINE PHOSPHATASE 80 IU/L (46-116); ANION GAP 4 (8-16); ASPARTATE AMINO TRANSFERASE 15 U/L (10-37); BILIRUBIN,TOTAL 0.5 MG/DL (0.1-1.0); BLOOD UREA NITROGEN 62 MG/DL (7-18); BUN/CREATININE RATIO 20.9 (5.4-32.0); CALCIUM 7.7 MG/DL (8.5-10.1); CHLORIDE 105 MMOL/L (99-107); CREATININE 2.97 MG/DL (0.60-1.10); GLUCOSE 140 MG/DL (70-104); POTASSIUM 4.7 MMOL/L (3.5-5.1); SODIUM 140 MMOL/L (135-145); TOTAL CARBON DIOXIDE 30.7 MMOL/L (24-32); TOTAL PROTEIN 6.8 G/DL (6.4-8.2); eGFR 21 ML/MIN
[2022-01-13 07:34] LABS: ACANTHOCYTES 1+; ANISOCYTOSIS 3+; ELLIPTOCYTES FEW; MICROCYTOSIS 1+; PLATELET ESTIMATE NORMAL; SCHISTOCYTES FEW
[2022-01-13] MEDS: carVEDilol 12.5mg tablet PO SCH ×4 (08:00→19:54)
[2022-01-13] MEDS: heparin, porcine 5000 units/ml vial SQ SCH ×4 (08:00→19:55)
[2022-01-13] MEDS: atorvastatin 20mg tablet PO SCH ×3 (08:00→10:30)
[2022-01-13] MEDS: levoFLOXACIN-Levaquin 250mg/D5 50 ML IV SCH ×2 (08:00→10:40)
[2022-01-13] MEDS: folic acid 1mg tablet PO SCH ×3 (08:00→10:29)
[2022-01-13] MEDS: K and/or MAG REPLACEMENT MC SCH ×2 (08:00→20:00)
[2022-01-13] MEDS: furosemide 20 MG/2 ML vial IV SCH ×3 (08:00→19:53)
[2022-01-13] MEDS: lisinopril 2.5mg tablet PO SCH ×3 (08:00→10:29)
[2022-01-13] MEDS: acetaminophen 325mg tablet PO PRN ×2 (09:07→10:30)
--- NOTE | 2022-01-13 09:17 | NUR ---
Multiple attempts to get pt to take his AM pills. He is refusing despite multiple nurses with education provided. Also, called mary Young - she advised for him to take pills over the phone and he agreed then after they hung up he refused again. Increased agitation and confusion at this time. Will page to advise.
--- NOTE | 2022-01-13 09:26 | NUR ---
Paged Dr Johnson PAGER ID: [phone] MESSAGE: [id number]. Marciano Pacheco. Ref all AM meds despite multiple attemps and calling fam. Increased agitation and confusion. Mounika [phone]
--- NOTE | 2022-01-13 10:37 | NUR ---
Daughter at bedside requested us to administer morning medications with her in the room so she could encourage him to take them. Patient to all medication, swallowed well and is in good mood. Did need tylenol r/t headache.
[2022-01-13 11:00] VITALS: BP 138/78
--- NOTE | 2022-01-13 11:05 | NUR ---
Initial: Pt admit for ALOC, acute on chronic systolic CHF, CKD III, and anemia. Pt on a heart healthy diet, initially eating poorly with average 34% PO intake of first four meals d/t 0% PO intake of two meals, however has been improving with average 62.5% the four following meals and up to 100% PO intake since 01/12. Pending documentation of PO intake for today. Per EMR pt previously on BiPAP/CPAP and NC though on room air 01/12. Hopeful that PO intake will continue to improve given apparent improvement in respiratory status. LBM 01/12. No nutrition intervention implemented at this time given significant improvement in PO intake. Will continue to follow and make recommendations as appropriate. Recommendations: 1) Consider liberalizing to regular diet in view of lipid panel WNL 2) Monitor need for ONS/additional protein 3) Bowel care PRN 4) Weekly scaled weights Addendum: 01/13/22 at [address] Amended: Links added.
[2022-01-13 15:00] VITALS: BP 139/68
[2022-01-13 18:00] VITALS: BP 158/79
--- NOTE | 2022-01-13 18:49 | NUR ---
Orientee documentation: I have reviewed and agree with all interventions, assessments performed and documented by JOAQUINA Mishra II.
--- NOTE | 2022-01-13 19:42 | NUR ---
Patient in room PCU 3017. I have received report from Mounika SNEED and had the opportunity to ask questions and assume patient care.
[2022-01-13 22:00] VITALS: BP 133/69
[2022-01-14 02:00] VITALS: BP 121/66
[2022-01-14] MEDS: normal saline 1000ml 1,000 ML IV SCH (05:45)
--- NOTE | 2022-01-14 06:43 | NUR ---
Problems reprioritized. Patient report given, questions answered & plan of care reviewed with Danilo SNEED.
[2022-01-14 07:00] VITALS: BP 120/75
[2022-01-14] MEDS: K and/or MAG REPLACEMENT MC SCH ×2 (08:00→20:00)
[2022-01-14] MEDS: furosemide 20 MG/2 ML vial IV SCH ×2 (08:21→15:44)
[2022-01-14] MEDS: atorvastatin 20mg tablet PO SCH (08:21)
[2022-01-14] MEDS: heparin, porcine 5000 units/ml vial SQ SCH ×2 (08:22→19:55)
[2022-01-14] MEDS: lisinopril 2.5mg tablet PO SCH (08:22)
[2022-01-14] MEDS: folic acid 1mg tablet PO SCH (08:22)
[2022-01-14] MEDS: carVEDilol 12.5mg tablet PO SCH ×2 (08:23→20:01)
[2022-01-14 11:00] VITALS: BP 116/65
[2022-01-14] MEDS ORDERED: levoFLOXACIN 250mg tablet PO SCH (11:00)
[2022-01-14 11:47] LABS: ALANINE AMINOTRANSFERASE 10 U/L (12-78); ALBUMIN 2.2 G/DL (3.4-5.0); ALBUMIN/GLOBULIN RATIO 0.4 (1.1-1.5); ALKALINE PHOSPHATASE 83 IU/L (46-116); ANION GAP 8 (8-16); ASPARTATE AMINO TRANSFERASE 18 U/L (10-37); BILIRUBIN,TOTAL 0.5 MG/DL (0.1-1.0); BLOOD UREA NITROGEN 62 MG/DL (7-18); BUN/CREATININE RATIO 20.8 (5.4-32.0); CALCIUM 8.1 MG/DL (8.5-10.1); CHLORIDE 104 MMOL/L (99-107); CREATININE 2.98 MG/DL (0.60-1.10); GLUCOSE 140 MG/DL (70-104); POTASSIUM 5.5 MMOL/L (3.5-5.1); SODIUM 141 MMOL/L (135-145); TOTAL CARBON DIOXIDE 29.1 MMOL/L (24-32); TOTAL PROTEIN 7.2 G/DL (6.4-8.2); eGFR 21 ML/MIN
[2022-01-14 11:52] LABS: EOSINOPHILS # (AUTO) 0.3 X10'3 (0-0.9); EOSINOPHILS % (AUTO) 6.9 % (0-6); HEMATOCRIT 23.9 % (42.0-52.0); HEMOGLOBIN 7.5 g/dl (14.0-17.9); LYMPHOCYTES # (AUTO) 0.7 X10'3 (1.1-4.8); MEAN CORPUSCULAR HEMOGLOBIN 25.8 PG (27.0-31.0); MEAN CORPUSCULAR HGB CONC 31.4 g/dL (33.0-36.5); MEAN CORPUSCULAR VOLUME 82.1 FL (78-98); MEAN PLATELET VOLUME 6.9 FL (7.4-10.4); MONOCYTES # (AUTO) 0.4 X10'3 (0-0.9); NEUTROPHILS # (AUTO) 2.8 X10'3 (1.8-7.7); NEUTROPHILS % (AUTO) 66.1 % (42-75); PLATELET COUNT 172 X10'3 (140-440); RED BLOOD COUNT 2.92 X10'6 (4.70-6.10); RED CELL DISTRIBUTION WIDTH 22.2 % (11.5-14.5); WHITE BLOOD COUNT 4.2 X10'3 (4.5-11.0)
[2022-01-14 15:00] VITALS: BP 121/61
[2022-01-14 18:00] VITALS: BP 128/70
--- NOTE | 2022-01-14 18:30 | NUR ---
Patient in room PCU 3017. I have received report from Danilo SNEED and had the opportunity to ask questions and assume patient care.
[2022-01-14 22:00] VITALS: BP 139/76
[2022-01-15 02:00] VITALS: BP 133/72
--- NOTE | 2022-01-15 06:19 | NUR ---
Problems reprioritized. Patient report given, questions answered & plan of care reviewed with Danilo SNEED.
[2022-01-15 07:00] VITALS: BP 127/72
[2022-01-15] MEDS: furosemide 20 MG/2 ML vial IV SCH (07:55)
[2022-01-15] MEDS: atorvastatin 20mg tablet PO SCH (07:55)
[2022-01-15] MEDS: carVEDilol 12.5mg tablet PO SCH ×2 (07:56→19:49)
[2022-01-15] MEDS: folic acid 1mg tablet PO SCH (07:56)
[2022-01-15] MEDS: heparin, porcine 5000 units/ml vial SQ SCH ×2 (07:57→19:50)
[2022-01-15] MEDS: lisinopril 2.5mg tablet PO SCH (07:58)
[2022-01-15] MEDS: K and/or MAG REPLACEMENT MC SCH ×2 (08:00→18:25)
[2022-01-15 11:00] VITALS: BP 116/61
[2022-01-15 15:00] VITALS: BP 123/59
[2022-01-15 18:00] VITALS: BP 124/69
[2022-01-15 22:30] VITALS: BP 116/62
[2022-01-16] MEDS: acetaminophen 325mg tablet PO PRN ×2 (00:22→08:51)
[2022-01-16] MEDS ORDERED: temazepam 15mg capsule PO ONE (03:00)
[2022-01-16 03:15] VITALS: BP 122/63
[2022-01-16 06:00] VITALS: BP 120/64
--- NOTE | 2022-01-16 06:34 | NUR ---
Patient in room PCU 3017. I have received report from NAREN Benjamin and had the opportunity to ask questions and assume patient care.
[2022-01-16] MEDS: K and/or MAG REPLACEMENT MC SCH ×2 (08:00→19:04)
[2022-01-16 08:07] LABS: ALBUMIN 2.2 G/DL (3.4-5.0); ANION GAP 1 (8-16); BLOOD UREA NITROGEN 65 MG/DL (7-18); BUN/CREATININE RATIO 21.7 (5.4-32.0); CHLORIDE 106 MMOL/L (99-107); CREATININE 2.99 MG/DL (0.60-1.10); GLUCOSE 100 MG/DL (70-104); SODIUM 135 MMOL/L (135-145); TOTAL CARBON DIOXIDE 28.3 MMOL/L (24-32); eGFR 21 ML/MIN
[2022-01-16 08:24] LABS: POTASSIUM 6.3 MMOL/L (3.5-5.1)
--- NOTE | 2022-01-16 08:26 | NUR ---
CRITICAL LAB VALUE RECEIVED FROM LAB, REPORTED TO PRIMARY RN.
--- NOTE | 2022-01-16 08:42 | NUR ---
PAGER ID: [phone] MESSAGE: Room: 0503K: Junior: Pt's potassium is 6.3. Giving them IV Lasix this AM. Lizzette, RN 0513
[2022-01-16] MEDS: furosemide 20 MG/2 ML vial IV SCH (08:50)
[2022-01-16] MEDS: folic acid 1mg tablet PO SCH (08:51)
[2022-01-16] MEDS: atorvastatin 20mg tablet PO SCH (08:51)
[2022-01-16] MEDS: carVEDilol 12.5mg tablet PO SCH ×2 (08:52→19:27)
[2022-01-16] MEDS: lisinopril 2.5mg tablet PO SCH (08:52)
[2022-01-16] MEDS: heparin, porcine 5000 units/ml vial SQ SCH ×2 (08:53→19:27)
[2022-01-16 11:00] VITALS: BP 118/68
[2022-01-16] MEDS ORDERED: sodium polystyrene sulfonate 15gm/60ml oral suspension PO ONE ×2 (11:00→16:00)
--- NOTE | 2022-01-16 14:45 | NUR ---
PAGER ID: [phone] MESSAGE: Room: 3017B: Junior: Pt is experiencing very liquid diarrhea x2 since receiving the first dose of kayexalate. Can I hold the second dose? NAREN Crocker [phone]
[2022-01-16 15:00] VITALS: BP 113/62
--- NOTE | 2022-01-16 18:36 | NUR ---
Problems reprioritized. Patient report given, questions answered & plan of care reviewed with NAREN Benjamin.
[2022-01-16 18:50] VITALS: BP 137/63
[2022-01-16 22:30] VITALS: BP 108/50
[2022-01-17 02:40] VITALS: BP 135/61
[2022-01-17 06:00] VITALS: BP 119/66
--- NOTE | 2022-01-17 06:42 | NUR ---
Patient in room PCU 3017. I have received report from NAREN Benjamin and had the opportunity to ask questions and assume patient care.
[2022-01-17] MEDS: K and/or MAG REPLACEMENT MC SCH ×2 (08:00→19:12)
[2022-01-17] MEDS: furosemide 20 MG/2 ML vial IV SCH (08:05)
[2022-01-17] MEDS: folic acid 1mg tablet PO SCH (08:05)
[2022-01-17] MEDS: carVEDilol 12.5mg tablet PO SCH ×2 (08:05→19:10)
[2022-01-17] MEDS: atorvastatin 20mg tablet PO SCH (08:06)
[2022-01-17] MEDS: heparin, porcine 5000 units/ml vial SQ SCH ×2 (08:06→19:11)
--- NOTE | 2022-01-17 08:22 | NUR ---
Reassessment: Pt continues on Heart healthy diet w/ mostly 100% intake of meals meeting est nutrient needs at this time. Consider liberalizing to Regular or Na-restricted diet given lipids WNL. Pt noted w/ diarrhea 01/16 r/t kayexalate. No nutrition intervention implemented at this time, will continue to monitor. Recommendations: 1) Consider liberalizing to regular diet in view of lipid panel WNL 2) Monitor need for ONS/additional protein 3) Bowel care PRN 4) Weekly scaled weights Addendum: 01/17/22 at [address] Amended: Links added.
[2022-01-17 11:00] VITALS: BP 111/53
[2022-01-17 15:00] VITALS: BP 127/61
[2022-01-17 18:00] VITALS: BP 146/73
[2022-01-17 18:16] LABS: BASOPHILS # (AUTO) 0.1 X10'3 (0-0.2); BASOPHILS % (AUTO) 1.8 % (0-1); EOSINOPHILS # (AUTO) 0.2 X10'3 (0-0.9); EOSINOPHILS % (AUTO) 5.4 % (0-6); HEMATOCRIT 24.6 % (42.0-52.0); HEMOGLOBIN 7.7 g/dl (14.0-17.9); LYMPHOCYTES # (AUTO) 0.8 X10'3 (1.1-4.8); LYMPHOCYTES % (AUTO) 21.1 % (21-51); MEAN CORPUSCULAR HEMOGLOBIN 26.3 PG (27.0-31.0); MEAN CORPUSCULAR HGB CONC 31.5 g/dL (33.0-36.5); MEAN CORPUSCULAR VOLUME 83.4 FL (78-98); MEAN PLATELET VOLUME 6.9 FL (7.4-10.4); MONOCYTES # (AUTO) 0.3 X10'3 (0-0.9); MONOCYTES % (AUTO) 8.2 % (2-12); NEUTROPHILS # (AUTO) 2.5 X10'3 (1.8-7.7); NEUTROPHILS % (AUTO) 63.5 % (42-75); PLATELET COUNT 157 X10'3 (140-440); RED BLOOD COUNT 2.94 X10'6 (4.70-6.10); RED CELL DISTRIBUTION WIDTH 21.7 % (11.5-14.5)
[2022-01-17 18:35] LABS: ALANINE AMINOTRANSFERASE 9 U/L (12-78); ALBUMIN 2.2 G/DL (3.4-5.0); ALBUMIN/GLOBULIN RATIO 0.4 (1.1-1.5); ALKALINE PHOSPHATASE 76 IU/L (46-116); ANION GAP 5 (8-16); ASPARTATE AMINO TRANSFERASE 20 U/L (10-37); BILIRUBIN,TOTAL 0.5 MG/DL (0.1-1.0); BLOOD UREA NITROGEN 66 MG/DL (7-18); BUN/CREATININE RATIO 21.1 (5.4-32.0); CALCIUM 8.1 MG/DL (8.5-10.1); CHLORIDE 103 MMOL/L (99-107); CREATININE 3.13 MG/DL (0.60-1.10); GLUCOSE 121 MG/DL (70-104); POTASSIUM 5.3 MMOL/L (3.5-5.1); SODIUM 137 MMOL/L (135-145); TOTAL CARBON DIOXIDE 28.6 MMOL/L (24-32); TOTAL PROTEIN 7.2 G/DL (6.4-8.2); eGFR 20 ML/MIN
[2022-01-17 18:42] LABS: ANISOCYTOSIS 3+; BURR CELLS 2+; ELLIPTOCYTES 1+; HYPOCHROMASIA 1+; PLATELET ESTIMATE NORMAL; SCHISTOCYTES FEW
--- NOTE | 2022-01-17 18:47 | NUR ---
Problems reprioritized. Patient report given, questions answered & plan of care reviewed with NAREN Flores.
[2022-01-17] MEDS ORDERED: sodium polystyrene sulfonate 15gm/60ml oral suspension PO ONE (19:05)
[2022-01-17] MEDS ORDERED: normal saline 1000ml 1,000 ML IV SCH (19:05)
[2022-01-17 22:00] VITALS: BP 147/74
--- NOTE | 2022-01-18 00:57 | NUR ---
Patient set off bed alarm, found sitting on side of bed. Very confused about time, place and events. Reminded repeatedly that he was in the hospital, that he cant walk around the hospital by himself and that the cafeteria was closed. Patient became agitated, swearing at RN. Finally patient agreed to lay down if RN left the room because he wanted to be alone. RN ensured bed alarm set on zone 2, patient has call light and a snack. Patient seems calmer, RN monitoring from hallway, but states he wants to go home. RN will continue to monitor.
[2022-01-18 02:00] VITALS: BP 129/60
--- NOTE | 2022-01-18 05:27 | NUR ---
Patient alert and oriented x1, pleasant most of the time. One episode during the night for about 30 minutes that patient became agitated and argumentative, not wanting to lay down in bed but stating he wanted to go to the kitchen for food, did not want to be told he was in the hospital and using foul language. Patient finally became tired, agreed to lay down and after a brief nap he was pleasant upon waking. Bed alarm active all night on zone 2. Patient continually pulls of tele leads. IV fluids infusing, and patient had one medium loose BM after kayexalate. Patient was up with one assist to BSC for BM. RN applied lotion to patient right buttocks where dry skin and scratched noted.
[2022-01-18 06:00] VITALS: BP 133/68
--- NOTE | 2022-01-18 07:02 | NUR ---
Patient in room PCU 3017. I have received report from NAREN Flores and had the opportunity to ask questions and assume patient care.
[2022-01-18] MEDS: K and/or MAG REPLACEMENT MC SCH ×2 (08:00→18:43)
[2022-01-18 08:02] LABS: BASOPHILS # (AUTO) 0.1 X10'3 (0-0.2); BASOPHILS % (AUTO) 1.3 % (0-1); EOSINOPHILS # (AUTO) 0.2 X10'3 (0-0.9); EOSINOPHILS % (AUTO) 4.9 % (0-6); HEMATOCRIT 23.7 % (42.0-52.0); HEMOGLOBIN 7.4 g/dl (14.0-17.9); LYMPHOCYTES # (AUTO) 0.9 X10'3 (1.1-4.8); LYMPHOCYTES % (AUTO) 18.5 % (21-51); MEAN CORPUSCULAR HEMOGLOBIN 26.3 PG (27.0-31.0); MEAN CORPUSCULAR HGB CONC 31.3 g/dL (33.0-36.5); MEAN CORPUSCULAR VOLUME 83.9 FL (78-98); MEAN PLATELET VOLUME 7.1 FL (7.4-10.4); MONOCYTES # (AUTO) 0.4 X10'3 (0-0.9); MONOCYTES % (AUTO) 8.1 % (2-12); NEUTROPHILS # (AUTO) 3.1 X10'3 (1.8-7.7); NEUTROPHILS % (AUTO) 67.2 % (42-75); PLATELET COUNT 163 X10'3 (140-440); RED BLOOD COUNT 2.83 X10'6 (4.70-6.10); RED CELL DISTRIBUTION WIDTH 21.5 % (11.5-14.5); WHITE BLOOD COUNT 4.7 X10'3 (4.5-11.0)
[2022-01-18 08:03] LABS: ALBUMIN 2.1 G/DL (3.4-5.0); ANION GAP 5 (8-16); BLOOD UREA NITROGEN 59 MG/DL (7-18); BUN/CREATININE RATIO 21.7 (5.4-32.0); CHLORIDE 109 MMOL/L (99-107); CREATININE 2.72 MG/DL (0.60-1.10); GLUCOSE 97 MG/DL (70-104); POTASSIUM 4.8 MMOL/L (3.5-5.1); SODIUM 141 MMOL/L (135-145); TOTAL CARBON DIOXIDE 27.5 MMOL/L (24-32); eGFR 23 ML/MIN
[2022-01-18] MEDS: furosemide 20MG tablet PO SCH (09:12)
[2022-01-18] MEDS: carVEDilol 12.5mg tablet PO SCH ×2 (09:12→18:44)
[2022-01-18] MEDS: heparin, porcine 5000 units/ml vial SQ SCH ×2 (09:12→18:44)
[2022-01-18] MEDS: atorvastatin 20mg tablet PO SCH (09:13)
[2022-01-18] MEDS: folic acid 1mg tablet PO SCH (09:13)
[2022-01-18 11:00] VITALS: BP 137/64
--- NOTE | 2022-01-18 11:59 | NUR ---
Page Accepted Message: Room: 3017B: Junior: The pt's granddaughter is waiting at the pt's bedside to speak with you. NAREN Crocker [phone] Transaction number: [id number]
--- NOTE | 2022-01-18 12:48 | NUR ---
Page Accepted promotional table spacer Message: Room: 3017B: Junior: The pt's grand daughter is hoping to speak with you. She's waiting at the bedside. Lizzette RN [phone] Custom Responses: promotional table spacer Transaction number: [id number]
[2022-01-18 15:00] VITALS: BP 138/72
[2022-01-18 18:00] VITALS: BP 114/61
--- NOTE | 2022-01-18 18:13 | NUR ---
Problems reprioritized. Patient report given, questions answered & plan of care reviewed with NAREN Flores.
[2022-01-18 22:00] VITALS: BP 141/50
[2022-01-19 02:00] VITALS: BP 130/66
[2022-01-19 06:00] VITALS: BP 152/83
[2022-01-19] MEDS: carVEDilol 12.5mg tablet PO SCH (07:41)
[2022-01-19] MEDS: atorvastatin 20mg tablet PO SCH (07:41)
[2022-01-19] MEDS: furosemide 20MG tablet PO SCH (07:41)
[2022-01-19] MEDS: folic acid 1mg tablet PO SCH (07:41)
[2022-01-19] MEDS: heparin, porcine 5000 units/ml vial SQ SCH (07:42)
[2022-01-19] MEDS: K and/or MAG REPLACEMENT MC SCH (08:00)
--- NOTE | 2022-01-19 09:35 | NUR ---
Spoke to granddaughter on phone, ride to be arranged. Family to callback with ETA
== END 2022-01-19 12:18 | disposition home health service (06) | DRG 189 ==
LOC: ER 00:59 → ED HOLD 05:45 → EDBEDREQ 06:39 → PCU 3S 09:39
PROVIDERS: ADMIT Internal Medicine; ATTEND Internal Medicine
PROC: 5A09357 Assistance with Respiratory Ventilation, Less than 24 Consecutive Hours, Continuous Positive Airway Pressure (ICD-10-PCS; principal; 2022-01-09)
PROC: 5A09357 Assistance with Respiratory Ventilation, Less than 24 Consecutive Hours, Continuous Positive Airway Pressure (ICD-10-PCS; 2022-01-11)
DX: J96.20 Acute and chronic respiratory failure, unspecified whether with hypoxia or hypercapnia (principal); G93.41 Metabolic encephalopathy; I50.23 Acute on chronic systolic (congestive) heart failure; I13.0 Hypertensive heart and chronic kidney disease with heart failure and stage 1 through stage 4 chronic kidney disease, or unspecified chronic kidney disease; E87.2 Acidosis; N17.9 Acute kidney failure, unspecified; D68.9 Coagulation defect, unspecified; F03.91 Unspecified dementia, unspecified severity, with behavioral disturbance; F05 Delirium due to known physiological condition; N18.4 Chronic kidney disease, stage 4 (severe); Z66 Do not resuscitate; I25.10 Atherosclerotic heart disease of native coronary artery without angina pectoris; I50.82 Biventricular heart failure; I25.5 Ischemic cardiomyopathy; I48.91 Unspecified atrial fibrillation; E11.22 Type 2 diabetes mellitus with diabetic chronic kidney disease; R19.7 Diarrhea, unspecified; D63.8 Anemia in other chronic diseases classified elsewhere; E87.5 Hyperkalemia; E78.00 Pure hypercholesterolemia, unspecified; E78.5 Hyperlipidemia, unspecified; I08.1 Rheumatic disorders of both mitral and tricuspid valves; Z86.73 Personal history of transient ischemic attack (TIA), and cerebral infarction without residual deficits; Z85.038 Personal history of other malignant neoplasm of large intestine; Z95.1 Presence of aortocoronary bypass graft; Z79.899 Other long term (current) drug therapy; Z82.49 Family history of ischemic heart disease and other diseases of the circulatory system; Z83.3 Family history of diabetes mellitus; Z90.49 Acquired absence of other specified parts of digestive tract; Z95.810 Presence of automatic (implantable) cardiac defibrillator; Z88.5 Allergy status to narcotic agent; Z51.5 Encounter for palliative care
CPT/HCPCS: 36415; 36600; 70450; 71045; 80048; 80053; 80061; 81001; 82140; 82803; 82948; 83605; 83690; 83880; 84484; 85008; 85018; 85025; 85610; 87040; 87077; 87081; 87186; 93005; 93306; 94660; 94760; 97110; 97116; 97161; 97530; 97535; 99285; G0378; J1644; J1940; J1956; J2060; J7030

== ENCOUNTER 2022-03-02 22:17 | Emergency (ER) | payer MEDICARE, MEDICAID ==
[~2022-03-02] VITALS: Ht 170.2 cm; Wt 78.8 kg
[~2022-03-02 22:17] MED LIST changes: -AMIO100T4 PO; +ATOR-2 PO; -ATOR80TA PO; +BLOO-577; +BLOO-580; -CEFD300C21 PO; -CLOP75TA34 PO; +FOLI1TAB27 PO; +LANC-509 TOP; +LISI2.5T14 PO; -POTA-207 PO; -SACU1TAB7 PO; +WARF6TAB49 PO
[2022-03-02 23:08] LABS: BASOPHILS % (AUTO) 1.3 % (0-1); EOSINOPHILS # (AUTO) 0.2 X10'3 (0-0.9); EOSINOPHILS % (AUTO) 4.7 % (0-6); HEMATOCRIT 28.4 % (42.0-52.0); LYMPHOCYTES # (AUTO) 0.7 X10'3 (1.1-4.8); LYMPHOCYTES % (AUTO) 19.3 % (21-51); MEAN CORPUSCULAR HEMOGLOBIN 26.7 PG (27.0-31.0); MEAN CORPUSCULAR HGB CONC 31.6 g/dL (33.0-36.5); MEAN CORPUSCULAR VOLUME 84.7 FL (78-98); MEAN PLATELET VOLUME 7.3 FL (7.4-10.4); MONOCYTES # (AUTO) 0.3 X10'3 (0-0.9); MONOCYTES % (AUTO) 8.8 % (2-12); NEUTROPHILS # (AUTO) 2.4 X10'3 (1.8-7.7); NEUTROPHILS % (AUTO) 65.9 % (42-75); PLATELET COUNT 128 X10'3 (140-440); RED BLOOD COUNT 3.35 X10'6 (4.70-6.10); RED CELL DISTRIBUTION WIDTH 21.3 % (11.5-14.5); WHITE BLOOD COUNT 3.7 X10'3 (4.5-11.0)
[2022-03-02 23:22] LABS: ALANINE AMINOTRANSFERASE 15 U/L (12-78); ALBUMIN/GLOBULIN RATIO 0.6 (1.1-1.5); ALKALINE PHOSPHATASE 80 IU/L (46-116); ANION GAP 10 (8-16); ASPARTATE AMINO TRANSFERASE 17 U/L (10-37); BILIRUBIN,TOTAL 0.4 MG/DL (0.1-1.0); BLOOD UREA NITROGEN 66 MG/DL (7-18); BUN/CREATININE RATIO 21.2 (5.4-32.0); CALCIUM 8.3 MG/DL (8.5-10.1); CHLORIDE 105 MMOL/L (99-107); CREATININE 3.11 MG/DL (0.60-1.10); GLUCOSE 100 MG/DL (70-104); POTASSIUM 4.8 MMOL/L (3.5-5.1); SODIUM 142 MMOL/L (135-145); TOTAL PROTEIN 7.8 G/DL (6.4-8.2); eGFR 20 ML/MIN
[2022-03-02 23:32] LABS: ANISOCYTOSIS 3+; PLATELET ESTIMATE NORMAL; SCHISTOCYTES 1+
[2022-03-02 23:33] LABS: ELLIPTOCYTES 1+
[2022-03-03] MEDS ORDERED: furosemide 20MG tablet PO ONE (01:05)
[2022-03-03 01:53] LABS: CLARITY,URINE CLEAR (Clear); COLOR,URINE YELLOW (Yellow); GLUCOSE, URINE NEGATIVE (Neg); KETONES,URINE NEGATIVE (Neg); LEUKOCYTE ESTERASE ,URINE NEGATIVE (Neg); NITRITES, URINE NEGATIVE (Neg); OCCULT BLOOD,URINE SMALL (Neg); PROTEIN,URINE 100 mg/dl (Neg); UROBILINOGEN,URINE 0.2 E.U/dL (0.2-1.0)
[2022-03-03 01:57] LABS: UA COLLECTION TYPE NON-SPECIFIED
[2022-03-03 02:25] LABS: BACTERIA,URINE FEW /HPF (Neg); RBC,URINE 0-2 /HPF (0-2); SQUAMOUS EPITHELIAL CELL,UR FEW /LPF (FEW); WBC,URINE 0-4 /HPF (0-4)
[2022-03-03 02:40] VITALS: BP 152/91
== END 2022-03-03 02:43 | disposition home or self-care (01) ==
LOC: ER 22:18
DX: R06.02 Shortness of breath (principal); Z20.822 Contact with and (suspected) exposure to COVID-19; R42 Dizziness and giddiness; R07.89 Other chest pain; R10.9 Unspecified abdominal pain; F03.90 Unspecified dementia, unspecified severity, without behavioral disturbance, psychotic disturbance, mood disturbance, and anxiety; I48.91 Unspecified atrial fibrillation; I25.10 Atherosclerotic heart disease of native coronary artery without angina pectoris; I11.0 Hypertensive heart disease with heart failure; I50.9 Heart failure, unspecified; E78.00 Pure hypercholesterolemia, unspecified; E11.22 Type 2 diabetes mellitus with diabetic chronic kidney disease; N18.9 Chronic kidney disease, unspecified; Z86.19 Personal history of other infectious and parasitic diseases; Z85.038 Personal history of other malignant neoplasm of large intestine; Z90.49 Acquired absence of other specified parts of digestive tract; Z95.5 Presence of coronary angioplasty implant and graft; Z95.0 Presence of cardiac pacemaker; Z88.8 Allergy status to other drugs, medicaments and biological substances; Z79.899 Other long term (current) drug therapy; Z79.01 Long term (current) use of anticoagulants
CPT/HCPCS: 36415; 71045; 80053; 81001; 83880; 84484; 85008; 85025; 87635; 93005; 99285; C9803

== ENCOUNTER 2022-03-17 18:55 | Emergency (ER) | payer MEDICARE, MEDICAID ==
[~2022-03-17] VITALS: Ht 162.6 cm; Wt 72.0 kg
[2022-03-17 20:47] LABS: BASOPHILS % (AUTO) 1.2 % (0-1); EOSINOPHILS # (AUTO) 0.2 X10'3 (0-0.9); EOSINOPHILS % (AUTO) 5.1 % (0-6); HEMATOCRIT 28.9 % (42.0-52.0); HEMOGLOBIN 9.1 g/dl (14.0-17.9); LYMPHOCYTES # (AUTO) 0.7 X10'3 (1.1-4.8); LYMPHOCYTES % (AUTO) 18.7 % (21-51); MEAN CORPUSCULAR HEMOGLOBIN 27.1 PG (27.0-31.0); MEAN CORPUSCULAR HGB CONC 31.6 g/dL (33.0-36.5); MEAN CORPUSCULAR VOLUME 85.6 FL (78-98); MEAN PLATELET VOLUME 6.9 FL (7.4-10.4); MONOCYTES # (AUTO) 0.4 X10'3 (0-0.9); MONOCYTES % (AUTO) 11.5 % (2-12); NEUTROPHILS # (AUTO) 2.2 X10'3 (1.8-7.7); NEUTROPHILS % (AUTO) 63.5 % (42-75); PLATELET COUNT 111 X10'3 (140-440); RED BLOOD COUNT 3.37 X10'6 (4.70-6.10); RED CELL DISTRIBUTION WIDTH 20.7 % (11.5-14.5); WHITE BLOOD COUNT 3.5 X10'3 (4.5-11.0)
[2022-03-17 20:57] LABS: ALANINE AMINOTRANSFERASE 22 U/L (12-78); ALBUMIN 2.9 G/DL (3.4-5.0); ALBUMIN/GLOBULIN RATIO 0.7 (1.1-1.5); ALKALINE PHOSPHATASE 87 IU/L (46-116); ANION GAP 5 (8-16); ASPARTATE AMINO TRANSFERASE 22 U/L (10-37); BILIRUBIN,TOTAL 0.7 MG/DL (0.1-1.0); BLOOD UREA NITROGEN 59 MG/DL (7-18); BUN/CREATININE RATIO 19.6 (5.4-32.0); CALCIUM 8.1 MG/DL (8.5-10.1); CHLORIDE 107 MMOL/L (99-107); CREATININE 3.01 MG/DL (0.60-1.10); GLUCOSE 79 MG/DL (70-104); POTASSIUM 4.8 MMOL/L (3.5-5.1); SODIUM 138 MMOL/L (135-145); TOTAL CARBON DIOXIDE 26.1 MMOL/L (24-32); TOTAL PROTEIN 7.3 G/DL (6.4-8.2); eGFR 20 ML/MIN
[2022-03-17 21:28] LABS: ANISOCYTOSIS 3+; PLATELET ESTIMATE DECREASED
[2022-03-17 21:29] LABS: ELLIPTOCYTES 1+; HYPOCHROMASIA 1+
[2022-03-18] MEDS ORDERED: meclizine 12.5mg tablet PO ONE (03:45)
[2022-03-18] MEDS ORDERED: MECL-226 PO (03:50)
[2022-03-18 04:09] VITALS: BP 168/102
== END 2022-03-18 04:09 | disposition home or self-care (01) ==
LOC: ER 18:56
DX: I13.10 Hypertensive heart and chronic kidney disease without heart failure, with stage 1 through stage 4 chronic kidney disease, or unspecified chronic kidney disease (principal); E11.22 Type 2 diabetes mellitus with diabetic chronic kidney disease; N18.9 Chronic kidney disease, unspecified; F03.90 Unspecified dementia, unspecified severity, without behavioral disturbance, psychotic disturbance, mood disturbance, and anxiety; D64.9 Anemia, unspecified; E78.00 Pure hypercholesterolemia, unspecified; Z88.5 Allergy status to narcotic agent; Z79.899 Other long term (current) drug therapy
CPT/HCPCS: 36415; 71045; 80053; 83880; 84484; 85008; 85025; 93005; 99285; J8597

== ENCOUNTER 2022-04-28 18:59 | Emergency (ER) | payer MEDICARE, MEDICAID ==
[~2022-04-28] VITALS: Ht 170.2 cm; Wt 75.0 kg
[~2022-04-28 18:59] MED LIST changes: +MECL-226 PO
[2022-04-28 19:18] VITALS: BP 148/86
[2022-04-28 20:08] LABS: BASOPHILS # (AUTO) 0.1 X10'3 (0-0.2); BASOPHILS % (AUTO) 1.2 % (0-1); EOSINOPHILS # (AUTO) 0.3 X10'3 (0-0.9); HEMATOCRIT 29.3 % (42.0-52.0); HEMOGLOBIN 9.9 g/dl (14.0-17.9); LYMPHOCYTES # (AUTO) 1.1 X10'3 (1.1-4.8); LYMPHOCYTES % (AUTO) 25.5 % (21-51); MEAN CORPUSCULAR HEMOGLOBIN 28.4 PG (27.0-31.0); MEAN CORPUSCULAR HGB CONC 33.6 g/dL (33.0-36.5); MEAN CORPUSCULAR VOLUME 84.5 FL (78-98); MEAN PLATELET VOLUME 6.9 FL (7.4-10.4); MONOCYTES # (AUTO) 0.4 X10'3 (0-0.9); MONOCYTES % (AUTO) 8.3 % (2-12); NEUTROPHILS # (AUTO) 2.6 X10'3 (1.8-7.7); PLATELET COUNT 142 X10'3 (140-440); RED BLOOD COUNT 3.47 X10'6 (4.70-6.10); RED CELL DISTRIBUTION WIDTH 19.8 % (11.5-14.5); WHITE BLOOD COUNT 4.4 X10'3 (4.5-11.0)
[2022-04-28 20:15] LABS: ALANINE AMINOTRANSFERASE 19 U/L (12-78); ALBUMIN 3.1 G/DL (3.4-5.0); ALBUMIN/GLOBULIN RATIO 0.6 (1.1-1.5); ALKALINE PHOSPHATASE 88 IU/L (46-116); ANION GAP 10 (8-16); ASPARTATE AMINO TRANSFERASE 23 U/L (10-37); BILIRUBIN,TOTAL 0.5 MG/DL (0.1-1.0); BLOOD UREA NITROGEN 50 MG/DL (7-18); BUN/CREATININE RATIO 16.3 (5.4-32.0); CALCIUM 8.2 MG/DL (8.5-10.1); CHLORIDE 107 MMOL/L (99-107); CREATININE 3.07 MG/DL (0.60-1.10); GLUCOSE 92 MG/DL (70-104); POTASSIUM 4.4 MMOL/L (3.5-5.1); SODIUM 143 MMOL/L (135-145); TOTAL CARBON DIOXIDE 26.3 MMOL/L (24-32); TOTAL PROTEIN 7.9 G/DL (6.4-8.2); eGFR 20 ML/MIN
[2022-04-28 21:01] LABS: PLATELET ESTIMATE NORMAL
[2022-04-28 21:02] LABS: ACANTHOCYTES FEW; ANISOCYTOSIS 1+; ELLIPTOCYTES 1+
== END 2022-04-29 01:12 | disposition left against medical advice (07) ==
LOC: ER 19:00
DX: R42 Dizziness and giddiness (principal); R07.9 Chest pain, unspecified; Z53.21 Procedure and treatment not carried out due to patient leaving prior to being seen by health care provider
CPT/HCPCS: 36415; 71045; 80053; 83880; 84484; 85008; 85025; 93005

== ENCOUNTER 2022-05-19 17:47 | Inpatient (IN) | payer MEDICARE, MEDICAID ==
[~2022-05-19] VITALS: Ht 162.6 cm; Wt 77.7 kg
--- NOTE | 2022-05-19 20:29 | NUR ---
TO CT VIA [facility]
[2022-05-19 20:53] LABS: CLARITY,URINE CLEAR (Clear); COLOR,URINE YELLOW (Yellow); GLUCOSE, URINE 100 mg/dl (Neg); KETONES,URINE NEGATIVE (Neg); LEUKOCYTE ESTERASE ,URINE NEGATIVE (Neg); NITRITES, URINE NEGATIVE (Neg); OCCULT BLOOD,URINE MODERATE (Neg); PROTEIN,URINE >=300 mg/dl (Neg); UROBILINOGEN,URINE 0.2 E.U/dL (0.2-1.0)
[2022-05-19 20:57] LABS: UA COLLECTION TYPE URINAL
[2022-05-19 20:59] LABS: BACTERIA,URINE NONE SEEN /HPF (Neg); SQUAMOUS EPITHELIAL CELL,UR FEW /LPF (FEW); WBC,URINE NONE SEEN /HPF (0-4)
[2022-05-19 21:41] LABS: BASOPHILS # (AUTO) 0.1 X10'3 (0-0.2); EOSINOPHILS # (AUTO) 0.2 X10'3 (0-0.9); EOSINOPHILS % (AUTO) 2.9 % (0-6); HEMOGLOBIN 11.2 g/dl (14.0-17.9); LYMPHOCYTES # (AUTO) 0.9 X10'3 (1.1-4.8); LYMPHOCYTES % (AUTO) 15.8 % (21-51); MEAN CORPUSCULAR HEMOGLOBIN 28.8 PG (27.0-31.0); MEAN CORPUSCULAR HGB CONC 32.9 g/dL (33.0-36.5); MEAN CORPUSCULAR VOLUME 87.3 FL (78-98); MEAN PLATELET VOLUME 7.2 FL (7.4-10.4); MONOCYTES # (AUTO) 0.3 X10'3 (0-0.9); MONOCYTES % (AUTO) 5.9 % (2-12); NEUTROPHILS # (AUTO) 4.3 X10'3 (1.8-7.7); NEUTROPHILS % (AUTO) 74.4 % (42-75); PLATELET COUNT 156 X10'3 (140-440); RED BLOOD COUNT 3.89 X10'6 (4.70-6.10); RED CELL DISTRIBUTION WIDTH 20.3 % (11.5-14.5); WHITE BLOOD COUNT 5.8 X10'3 (4.5-11.0)
[2022-05-19] MEDS ORDERED: morphine 2 MG/ML inj. syringe IV PRN (21:50)
[2022-05-19 21:55] LABS: ALBUMIN 3.5 G/DL (3.4-5.0); ANION GAP 9 (8-16); BILIRUBIN,TOTAL 0.8 MG/DL (0.1-1.0); BLOOD UREA NITROGEN 59 MG/DL (7-18); BUN/CREATININE RATIO 21.3 (5.4-32.0); CALCIUM 8.7 MG/DL (8.5-10.1); CHLORIDE 103 MMOL/L (99-107); CREATININE 2.77 MG/DL (0.60-1.10); GLUCOSE 111 MG/DL (70-104); POTASSIUM 4.8 MMOL/L (3.5-5.1); SODIUM 138 MMOL/L (135-145); TOTAL CARBON DIOXIDE 25.6 MMOL/L (24-32); TOTAL PROTEIN 8.3 G/DL (6.4-8.2); eGFR 22 ML/MIN
[2022-05-19 21:56] LABS: ALANINE AMINOTRANSFERASE 18 U/L (12-78); ALBUMIN/GLOBULIN RATIO 0.7 (1.1-1.5); ALKALINE PHOSPHATASE 96 IU/L (46-116); ASPARTATE AMINO TRANSFERASE 23 U/L (10-37)
[2022-05-19 22:08] LABS: ACANTHOCYTES FEW; ANISOCYTOSIS 3+; BURR CELLS FEW; ELLIPTOCYTES FEW; PLATELET ESTIMATE NORMAL
--- NOTE | 2022-05-19 22:54 | NUR ---
pt placed in room 11
[2022-05-19] MEDS ORDERED: morphine 4 MG/ML inj SYRINge IV ONE (23:40)
[2022-05-20] MEDS ORDERED: ondansetron/PF 4mg/2ml inj IV PRN (01:40)
[2022-05-20] MEDS ORDERED: DEXTROSE 15 GM of carb/4 tabs (each vial/BOTTLE has 4 tablets) PO PRN ×2 (01:40)
[2022-05-20] MEDS ORDERED: magnesium hydroxide 30ml (MOM) UD suspension PO PRN (01:40)
[2022-05-20] MEDS ORDERED: glucagon, human recombinant 1mg kit SUBCUT PRN (01:40)
[2022-05-20] MEDS ORDERED: HYDROcodone/acetaminophen 10/325mg tab PO PRN (01:40)
[2022-05-20] MEDS ORDERED: mag hydrox/Alum hydrox/simeth 30ml oral suspension PO PRN (01:40)
[2022-05-20] MEDS ORDERED: MESSAGE TO PHARMACY PO ONE (01:40)
[2022-05-20] MEDS ORDERED: diphenhydrAMINE 25mg capsule PO PRN (01:40)
[2022-05-20] MEDS ORDERED: HYDROmorphone inj. 0.5 MG/0.5 ML DISP.SYRIN IV PRN (01:40)
[2022-05-20] MEDS ORDERED: insulin Lispro (HumaLOG) vial - multi-dose SQ SCH (01:40)
[2022-05-20] MEDS ORDERED: dextrose 50%-water 50ml dispensing syringe IV PRN ×2 (01:40)
[2022-05-20] MEDS ORDERED: normal saline 1000ml 1,000 ML IV SCH (01:40)
[2022-05-20] MEDS ORDERED: acetaminophen 325mg tablet PO PRN ×2 (01:40)
[2022-05-20] MEDS ORDERED: diphenhydrAMINE 50 mg/ml inj IV PRN (01:40)
[2022-05-20] MEDS ORDERED: acetaminophen 650mg rectal suppository RC PRN (01:40)
[2022-05-20] MEDS ORDERED: HYDROcodone/acetaminophen 5mg/325mg tablet PO PRN (01:40)
[2022-05-20] MEDS ORDERED: ondansetron 4mg rapidly disintigrating tab PO PRN (01:40)
[2022-05-20] MEDS ORDERED: morphine 2 MG/ML inj. syringe IV PRN ×2 (01:40)
[2022-05-20] MEDS ORDERED: bisacodyl 10mg suppository rectal RC PRN (01:40)
--- NOTE | 2022-05-20 02:01 | NUR ---
faustina daughter [phone]
[2022-05-20 02:29] LABS: HEMOGLOBIN A1C 6.5 % (4.5-6.2)
[2022-05-20 02:39] LABS: MAGNESIUM 2.1 MG/DL (1.5-2.4); PHOSPHORUS 4.2 MG/DL (2.3-4.5)
[2022-05-20] MEDS ORDERED: FLO0.4C PO (03:00)
[2022-05-20] MEDS ORDERED: FURO40TA4 PO (03:00)
--- NOTE | 2022-05-20 04:14 | NUR ---
CALLED AMELIA TO GIVE HER THE ROOM NUMBER FOR PT [id number].
--- NOTE | 2022-05-20 04:30 | NUR ---
PT CAME TO THE UNIT FROM ER, ANITA TOOK REPORT IV FLUIDS CONNECTED, VS DONE, PT RESTING COMFORTABLY
[2022-05-20 06:31] LABS: APTT 33 SECONDS (22-32)
[2022-05-20 07:08] VITALS: BP 153/98
[2022-05-20] MEDS ORDERED: ampicill/sulbac 1.5gm/NS 100ml 100 ML IV SCH (08:00)
[2022-05-20] MEDS: docusate sod 100mg capsule PO SCH ×2 (08:00→20:00)
[2022-05-20] MEDS ORDERED: furosemide 10 MG/1 ML 10ml inj IV SCH (08:00)
[2022-05-20] MEDS ORDERED: pantoprazole 40MG/NS 100ML BAG 100 ML IV SCH (08:00)
[2022-05-20] MEDS ORDERED: tamsulosin 0.4mg capsule PO SCH (11:15)
[2022-05-20] MEDS ORDERED: potassium Cl 20 mEq SR tablet PO PRN ×2 (11:20)
[2022-05-20] MEDS ORDERED: magnesium Cl slow-release 64mg tablet PO PRN (11:20)
[2022-05-20] MEDS ORDERED: magnesium 4gm in 100ml NS 100 ML IV PRN (11:20)
[2022-05-20] MEDS ORDERED: potassium CL 10mEq/100ml bag 100 ML IV PRN (11:20)
[2022-05-20 16:45] VITALS: BP 154/79
--- NOTE | 2022-05-20 17:38 | NUR ---
Pt refused to let staff take picture of wounds and perform through skin check.
[2022-05-20] MEDS ORDERED: furosemide 40mg tablet PO SCH (20:00)
[2022-05-20] MEDS ORDERED: furosemide 40mg/4ml inj IV SCH (20:00)
[2022-05-20] MEDS ORDERED: K and/or MAG REPLACEMENT MC SCH (20:00)
[2022-05-20] MEDS: carVEDilol 12.5mg tablet PO SCH (20:00)
[2022-05-20] MEDS ORDERED: temazepam 15mg capsule PO PRN (21:00)
[2022-05-21 06:35] LABS: BASOPHILS # (AUTO) 0.1 X10'3 (0-0.2); BASOPHILS % (AUTO) 1.3 % (0-1); EOSINOPHILS # (AUTO) 0.2 X10'3 (0-0.9); HEMATOCRIT 33.2 % (42.0-52.0); HEMOGLOBIN 10.9 g/dl (14.0-17.9); LYMPHOCYTES # (AUTO) 0.6 X10'3 (1.1-4.8); LYMPHOCYTES % (AUTO) 14.7 % (21-51); MEAN CORPUSCULAR HEMOGLOBIN 28.7 PG (27.0-31.0); MEAN CORPUSCULAR HGB CONC 32.8 g/dL (33.0-36.5); MEAN CORPUSCULAR VOLUME 87.3 FL (78-98); MEAN PLATELET VOLUME 7.3 FL (7.4-10.4); MONOCYTES # (AUTO) 0.3 X10'3 (0-0.9); MONOCYTES % (AUTO) 6.8 % (2-12); NEUTROPHILS # (AUTO) 2.9 X10'3 (1.8-7.7); NEUTROPHILS % (AUTO) 71.2 % (42-75); PLATELET COUNT 143 X10'3 (140-440); RED BLOOD COUNT 3.81 X10'6 (4.70-6.10); RED CELL DISTRIBUTION WIDTH 20.9 % (11.5-14.5); WHITE BLOOD COUNT 4.1 X10'3 (4.5-11.0)
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
[2022-05-21 07:00] VITALS: BP 152/82
[2022-05-21 07:09] LABS: ALANINE AMINOTRANSFERASE 198 U/L (12-78); ALBUMIN 3.2 G/DL (3.4-5.0); ALBUMIN/GLOBULIN RATIO 0.7 (1.1-1.5); ALKALINE PHOSPHATASE 143 IU/L (46-116); ANION GAP 10 (8-16); ASPARTATE AMINO TRANSFERASE 150 U/L (10-37); BLOOD UREA NITROGEN 57 MG/DL (7-18); BUN/CREATININE RATIO 20.7 (5.4-32.0); CALCIUM 8.9 MG/DL (8.5-10.1); CHLORIDE 106 MMOL/L (99-107); CREATININE 2.76 MG/DL (0.60-1.10); GLUCOSE 82 MG/DL (70-104); MAGNESIUM 2.2 MG/DL (1.5-2.4); POTASSIUM 4.7 MMOL/L (3.5-5.1); SODIUM 143 MMOL/L (135-145); TOTAL CARBON DIOXIDE 27.2 MMOL/L (24-32); TOTAL PROTEIN 7.7 G/DL (6.4-8.2); eGFR 23 ML/MIN
--- NOTE | 2022-05-21 07:18 | NUR ---
Patient in room PCU 3027. I have received report from Maria E SNEED and had the opportunity to ask questions and assume patient care.
[2022-05-21] MEDS ORDERED: lactobacillus rhamnosus 10,000 MMU CELLS/CAPSULE PO SCH (08:00)
[2022-05-21] MEDS ORDERED: lisinopril 2.5mg tablet PO SCH (08:00)
[2022-05-21] MEDS ORDERED: ferrous sulfate 325mg tablet PO SCH (08:00)
[2022-05-21] MEDS ORDERED: atorvastatin 20mg tablet PO SCH (08:00)
[2022-05-21] MEDS ORDERED: folic acid 1mg tablet PO SCH (08:00)
[2022-05-21 08:15] LABS: PLATELET ESTIMATE NORMAL
[2022-05-21 08:16] LABS: ANISOCYTOSIS 3+; ELLIPTOCYTES 2+; POLYCHROMASIA FEW
[2022-05-21 08:17] LABS: ACANTHOCYTES FEW; BURR CELLS 1+
[2022-05-21] MEDS: carVEDilol 12.5mg tablet PO SCH (10:25)
[2022-05-21] MEDS: docusate sod 100mg capsule PO SCH (10:25)
[2022-05-21 11:00] VITALS: BP 119/82
--- NOTE | 2022-05-21 15:26 | NUR ---
Discharge instructions given, signed, understanding verbalized. Condition stable per MD, instructions given to come back to ER if further abdominal pain. Personal belongings taken with patient via wheelchair to private car.
== END 2022-05-21 15:15 | disposition home health service (06) | DRG 393 ==
LOC: ER 17:49 → ED HOLD 05-20 01:44 → EDBEDREQTM 05-20 02:15 → EDBEDREQ 05-20 02:15 → PCU 3S 05-20 04:30
PROVIDERS: ADMIT Family Medicine; ATTEND Family Medicine
DX: K40.30 Unilateral inguinal hernia, with obstruction, without gangrene, not specified as recurrent (principal); I50.23 Acute on chronic systolic (congestive) heart failure; I13.0 Hypertensive heart and chronic kidney disease with heart failure and stage 1 through stage 4 chronic kidney disease, or unspecified chronic kidney disease; L03.115 Cellulitis of right lower limb; L03.116 Cellulitis of left lower limb; N17.9 Acute kidney failure, unspecified; D64.9 Anemia, unspecified; E11.22 Type 2 diabetes mellitus with diabetic chronic kidney disease; E11.65 Type 2 diabetes mellitus with hyperglycemia; E78.00 Pure hypercholesterolemia, unspecified; F03.90 Unspecified dementia, unspecified severity, without behavioral disturbance, psychotic disturbance, mood disturbance, and anxiety; I25.10 Atherosclerotic heart disease of native coronary artery without angina pectoris; I27.20 Pulmonary hypertension, unspecified; I48.91 Unspecified atrial fibrillation; L30.9 Dermatitis, unspecified; N18.9 Chronic kidney disease, unspecified; R32 Unspecified urinary incontinence; Z79.01 Long term (current) use of anticoagulants; Z82.49 Family history of ischemic heart disease and other diseases of the circulatory system; Z83.3 Family history of diabetes mellitus; Z85.038 Personal history of other malignant neoplasm of large intestine; Z86.73 Personal history of transient ischemic attack (TIA), and cerebral infarction without residual deficits; Z90.49 Acquired absence of other specified parts of digestive tract; Z95.0 Presence of cardiac pacemaker; Z95.1 Presence of aortocoronary bypass graft; Z88.5 Allergy status to narcotic agent; Z79.899 Other long term (current) drug therapy
CPT/HCPCS: 36415; 71045; 74176; 80053; 81001; 82948; 83036; 83735; 83880; 84100; 85008; 85025; 85610; 85730; 93005; 96374; 97116; 97161; 97530; 99285; C9113; G0378; J0295; J1815; J1940; J2270; J7030

== ENCOUNTER 2023-08-02 11:37 | Emergency (ER) | payer MEDICARE, MEDICAID ==
[~2023-08-02] VITALS: Ht 167.6 cm; Wt 81.8 kg
[~2023-08-02 11:37] MED LIST changes: -BLOO-577; -BLOO-580; +FLO0.4C PO; -LANC-509 TOP; -MECL-226 PO
--- NOTE | 2023-08-02 12:23 | NUR ---
GRANDDAUGHTER AT BEDSIDE WITH PATIENT.
[2023-08-02 12:55] LABS: BASOPHILS # (AUTO) 0.1 X10'3 (0-0.2); BASOPHILS % (AUTO) 1.3 % (0-1); EOSINOPHILS # (AUTO) 0.3 X10'3 (0-0.9); EOSINOPHILS % (AUTO) 6.8 % (0-6); HEMATOCRIT 29.1 % (42.0-52.0); HEMOGLOBIN 9.5 g/dl (14.0-17.9); LYMPHOCYTES # (AUTO) 0.7 X10'3 (1.1-4.8); LYMPHOCYTES % (AUTO) 16.7 % (21-51); MEAN CORPUSCULAR HEMOGLOBIN 31.6 PG (27.0-31.0); MEAN CORPUSCULAR HGB CONC 32.8 g/dL (33.0-36.5); MEAN CORPUSCULAR VOLUME 96.3 FL (78-98); MEAN PLATELET VOLUME 7.6 FL (7.4-10.4); MONOCYTES # (AUTO) 0.3 X10'3 (0-0.9); MONOCYTES % (AUTO) 7.3 % (2-12); NEUTROPHILS # (AUTO) 2.9 X10'3 (1.8-7.7); NEUTROPHILS % (AUTO) 67.9 % (42-75); PLATELET COUNT 167 X10'3 (140-440); RED BLOOD COUNT 3.02 X10'6 (4.70-6.10); RED CELL DISTRIBUTION WIDTH 15.8 % (11.5-14.5); WHITE BLOOD COUNT 4.3 X10'3 (4.5-11.0)
[2023-08-02 13:07] LABS: ALANINE AMINOTRANSFERASE 7 U/L (12-78); ALBUMIN 2.5 G/DL (3.4-5.0); ALBUMIN/GLOBULIN RATIO 0.6 (1.1-1.5); ALKALINE PHOSPHATASE 85 IU/L (46-116); ANION GAP 8 (8-16); ASPARTATE AMINO TRANSFERASE 15 U/L (10-37); BILIRUBIN,TOTAL 0.6 MG/DL (0.1-1.0); BLOOD UREA NITROGEN 36 MG/DL (7-18); BUN/CREATININE RATIO 10.9 (10.0-20.0); CALCIUM 7.9 MG/DL (8.5-10.1); CHLORIDE 109 MMOL/L (99-107); CREATININE 3.31 MG/DL (0.60-1.10); GLUCOSE 130 MG/DL (70-104); POTASSIUM 4.4 MMOL/L (3.5-5.1); SODIUM 140 MMOL/L (135-145); TOTAL CARBON DIOXIDE 22.7 MMOL/L (24-32); TOTAL PROTEIN 6.5 G/DL (6.4-8.2); eCRCL 17 ML/MIN; eGFR 18 ML/MIN
[2023-08-02 13:31] LABS: PRO BRAIN NATRIURETIC PEPTIDE > 30000 PG/ML (0-450)
[2023-08-02] MEDS ORDERED: amox tr/potassium clavulanate 875/125mg TAB PO ONE (13:35)
[2023-08-02 14:00] VITALS: BP 140/81; PULSE 73; RESP 17; TEMP 98.2; O2SAT 96
[2023-08-02] MEDS ORDERED: predniSONE 20 mg tablet PO ONE (14:10)
[2023-08-02] MEDS ORDERED: PRED20TA PO (14:16)
[2023-08-02] MEDS ORDERED: AMOX-115 PO (14:16)
--- NOTE | 2023-08-02 15:16 | NUR ---
TRIAL EXAMINER ASSESSMENT REVIEWED BY SAVANNA RN; CHARTING APROVED. EVALUATION DONE BY PROVIDER.
== END 2023-08-02 14:21 | disposition home or self-care (01) ==
LOC: ER 11:38
DX: J40 Bronchitis, not specified as acute or chronic (principal); Z20.822 Contact with and (suspected) exposure to COVID-19; J18.9 Pneumonia, unspecified organism
CPT/HCPCS: 36415; 71045; 80053; 83880; 84484; 85025; 87502; 87503; 87811; 93005; 99285; J7512